=== PATIENT | female | born 1950 | race Caucasian/White ===

== ENCOUNTER 2019-09-21 17:59 | Emergency (ER) | payer MEDICARE, BC, SELFPAY ==
[2019-09-21 18:00] VITALS: BP 144/81; PULSE 83; RESP 16; TEMP 36.3; BMI 29.2
--- NOTE | 2019-09-21 18:27 | ED.DCSUM_ITS ---
- ER Visit Summary Date of Service: 09/21/19 Chief Complaint: Right hand pain History of Present Illness: The patient is a 69 F presents with pain to her right hand that occurred today. Patient states she fell while hiking today. Patient went to an emergency department in [place] and was diagnosed with fracture of her right first metacarpal. Patient was placed in a splint. Patient was given a prescription for tramadol. Patient filled the prescription but does not want to take it because she is fearful that it may make her nauseated. Patient thinks that she has had it in the past which caused her to have vomiting and upset stomach. Patient states she has been able to tolerate hydrocodone in the past when she was given a prescription for nausea medication. Patient denies any new injury. Patient denies any paresthesias or weakness. Physical Examination: Vital signs are stable. Patient is afebrile. Patient is in no acute distress. Musculoskeletal exam shows tenderness and edema of the right hand. A volar short arm splint is in place. Sensation was intact light touch in all digits. Capillary refill was less than 2 seconds in all digits. Range of motion of the right thumb was limited secondary to pain. Heart was regular rate and rhythm. Lungs are clear and equal bilaterally. Abdomen is soft and nontender. Cranial nerves II through XII are grossly intact. Emergency Department Course and Treatment: Patient was given injection of Toradol and Zofran here. Patient states she was feeling shaky after getting the injection of Zofran and Toradol. Patient was given a dose of Ativan. Patient was feeling better after this. Patient was given prescriptions for Zofran and hydrocodone. Patient was instructed to follow-up with her orthopedist as scheduled. Patient was instructed to continue to ice and elevate the right hand. Patient understood and was agreeable with the plan. All questions were answered. Disposition: Discharge home Impression: Right hand fracture This note was generated with [employer] dictation software. It may contain incorrect words, spelling, and punctuation that were not noted in review of the chart prior to signing ED Disposition - Plan for ED Patient: Disposition: Home or Assisted Living Diagnosis: Right hand fracture Instructions: ED Fracture Upper Extremity Prescriptions: Hydrocodone Bitart/Apap 5-325 [[place] 5MG-325MG] 1 tab PO Q6H PRN PRN 3 Days #10 tab PRN Reason: Pain Prescription Printed Ondansetron [Zofran Odt] 4 mg PO Q8H PRN PRN #10 tab PRN Reason: Nausea Prescription Printed Referrals: [facility],Out of [NON-STAFF] - 3-5 Days
[2019-09-21] MEDS: Ondansetron 4 MG/2 ML Vial IM (18:48)
[2019-09-21] MEDS: Ketorolac 30 MG/ML Syringe IM (18:49)
[2019-09-21] MEDS: LORazepam 0.5 MG Tablet PO (19:22)
== END 2019-09-21 20:03 | disposition home or self-care (01) ==
PROVIDERS: Emergency Provider Emergency Medicine
DX: S62.91XA Unspecified fracture of right hand, initial encounter for closed fracture (principal); W19.XXXA Unspecified fall, initial encounter; Y93.01 Activity, walking, marching and hiking; Y92.9 Unspecified place or not applicable; Y99.9 Unspecified external cause status; Z90.81 Acquired absence of spleen
CPT/HCPCS: 96372; 99283; J2405

== ENCOUNTER → 2019-10-07 11:07 | Outpatient (CLI) | payer MEDICARE, BC, SELFPAY ==
[2019-09-21 18:00] VITALS: BMI 29.2
[2019-10-07 15:13] LABS: Absolute Lymphocyte Count 1.94 X10^3/uL (0.83-4.51); Absolute Neutrophil Count 3.4 X10^3/uL (2.0-7.7); Basophil# 0.02 X10^3/uL; Basophil% 0.3 % (0-1); Eosinophil# 0.17 X10^3/uL; Eosinophils% 2.8 % (0-5); Hematocrit 39.1 % (37-47); Hemoglobin 12.6 g/dL (12.0-15.0); Lymphocyte # 1.94 X10^3/ul (4.0); Lymphocyte % 32.2 % (19-41); Mean Corp Hgb Conc 32.2 g/dL (32-36); Mean Corpuscular Volume 90.1 fL (81-99); Mean Platelet Vol. 10.5 fl (6.2-12.0); Monocyte# 0.51 X10^3/uL; Monocyte% 8.5 % (0-10); NRBC Flagged by Analyzer 0 % (0-5); Neutrophil # 3.38 X10^3/uL (2.7-7.7); Platelet Count 411 K/mm3 (150-450); RBC Distribution Width CV 13.2 % (11.6-14.6); RBC Distribution Width SD 43.2 fl (35.1-43.9); Red Blood Count 4.34 M/mm3 (4.2-5.4)
[2019-10-07 15:35] LABS: Vitamin B12 465 pg/mL (211-911)
[2019-10-07 17:27] LABS: ALB/GLOB Ratio 0.8 RATIO (0.9-2.4); AST(SGOT) 18 U/L (15-37); Alanine Aminotransfer ALT/SGPT 32 U/L (13-56); Albumin, Serum 3.4 g/dL (3.2-5.0); Alkaline Phosphatase 116 U/L (45-117); Anion Gap 5 (5-15); BUN 12 mg/dL (7-18); BUN/Creat Ratio 13.3 RATIO (10-20); Calcium,Total 9.2 mg/dL (8.5-10.1); Chloride 108 mmol/L (98-107); Cholesterol 154 mg/dL (200); EST Glomerular Filtration Rate 66 mL/min (>60); Est Glom Filt Rate - Afr Amer 80 mL/min (>60); Ferritin 48 ng/mL (8-252); Glucose 102 mg/dL (74-106); High Density Lipoprotein 43 mg/dL; Iron 78 ug/dL (50-170); Iron Binding Capacity,Total 322 ug/dL (250-450); Protein, Total 7.4 g/dL (6.4-8.2); Sodium Level 140 mmol/L (136-145); T4 Free Direct 1.23 ng/dL (0.76-1.46); Thyroid Stim Hormone (TSH) 0.51 uIU/mL (0.358-3.74); Triglycerides 192 mg/dL; Very Low Density Lipoprotein 38 mg/dL (5-40)
[2019-10-12 05:06] LABS: Thyroid Stim Immunoglob <0.10 IU/L (0.00-0.55)
[2019-10-12 08:46] LABS: Thyroglobulin Antibody < 1.0 IU/mL (0.0-0.9); Thyroid Peroxidase AB < 9 IU/mL (0-34)
== END ==
PROVIDERS: PCP Family Medicine
DX: D50.8 Other iron deficiency anemias (principal); E78.2 Mixed hyperlipidemia; M79.7 Fibromyalgia; E83.52 Hypercalcemia; E03.9 Hypothyroidism, unspecified; F41.1 Generalized anxiety disorder
CPT/HCPCS: 36415; 80053; 80061; 82607; 82728; 83540; 83550; 84439; 84443; 84445; 85025; 86376; 86800

== ENCOUNTER → 2019-12-05 07:46 | Outpatient (CLI) | payer MEDICARE, BC, SELFPAY ==
--- NOTE | 2019-12-05 07:48 | BI_ITS ---
MAMMOGRAPHY - BILATERAL SCREENING REASON FOR EXAM: Female, 69 years old. Routine annual screening examination. PERTINENT HISTORY: Sister with breast cancer. Grandmother with breast cancer. TECHNIQUE: Digital bilateral breast meghan (3D mammographic acquisition) in the CC and MLO projections. 2-D mediolateral oblique (MLO) and craniocaudad (CC) views of both breasts were obtained. CAD: Full Field Digital Mammography with Computer Added Detection was performed. COMPARISON: Comparison is made with prior outside examination dated 08/05/2012. FINDINGS: Breast Composition: The breasts are heterogeneously dense, which may obscure small masses. There are no dominant masses or suspicious calcifications. No other significant abnormalities are identified. There has been no significant change since the prior study. BI/SCREEN MAMM (CAD) W/MEGHAN BILAT IMPRESSION: Stable bilateral screening mammogram. Yearly follow-up mammogram recommended. (A) ASSESSMENT CATEGORY: BIRADS Category 1: Negative. A letter regarding these results will be sent to the patient by the facility within 30 days. Approximately 10% of breast cancers are not detected by mammography. A normal mammogram should not delay biopsy of a clinically suspicious abnormality. [id number] Electronically Signed: Enoch Tirado, at 9:02 EDT , Service support ,
== END ==
PROVIDERS: PCP Family Medicine; Referring Provider Family Medicine; Visit Provider Family Medicine
DX: Z12.31 Encounter for screening mammogram for malignant neoplasm of breast (principal); Z80.3 Family history of malignant neoplasm of breast
CPT/HCPCS: 77063; 77067

== ENCOUNTER → 2020-08-24 09:35 | Outpatient (CLI) | payer MEDICARE, BC, SELFPAY ==
[2020-08-16 08:32] VITALS: BMI 29.2
--- NOTE | 2020-08-24 09:39 | RAD_ITS ---
STUDY: X-RAY - CERVICAL SPINE REASON FOR EXAM: Female, 70 years old. BACK,NECK,SHOULDER PAIN TECHNIQUE: 5 view(s) of the cervical spine were obtained including oblique views. COMPARISON: None FINDINGS: Normal anterior atlantoaxial articulation. Normal odontoid process. There is straightening of the normal cervical lordosis. Normal vertebral bodies and endplates. Moderate degree of disc space narrowing at the C5-C6 and C7 levels. Minimal anterior listhesis of C4 on C5 most likely secondary to the facet joint osteoarthritis. The soft tissue structures are unremarkable. RAD/Cerv Spine 4 or 5 Views IMPRESSION: Minimal anterior listhesis of C4 on C5 most likely secondary to facet joint osteoarthritis. Moderate degree of disc space narrowing at the C5-C6 and C6-C7 levels. Electronically Signed: Enoch Tirado MD at 12:40 EDT , Service support ,
== END ==
PROVIDERS: PCP Family Medicine; Referring Provider Family Medicine; Visit Provider Family Medicine
DX: M50.30 Other cervical disc degeneration, unspecified cervical region (principal); M54.12 Radiculopathy, cervical region
CPT/HCPCS: 72050

== ENCOUNTER 2020-10-08 10:00 | Outpatient (RCR) | payer MEDICARE, BC, SELFPAY ==
[2020-08-16 08:32] VITALS: BMI 29.2
--- NOTE | 2020-08-28 13:18 | HP.PTEVAL_ITS ---
Patient's Visit Information KENYA CHRIS is a 70 year old F referred to Physical Therapy by Dr. Juan Miguel Morris MD with a diagnosis of NECK PAIN RADITAING TO RIGHT ARM. Date of Evaluation: 08/28/20 Physical Therapist: Roe Parrish, PT, Cert MDT, OCS - Visit Plan Frequency: 2x /Week Duration: 4 Weeks Plan: PT INTERVENTIONS POSTURAL EX'S ,MANUAL THERAPY STM /TRACTION,US/ICTX,AND NELLY EX'S,PATIENT EDUCATION - Subjective This 70 y/o female presents to physical therapy with neck pain with cervical radicular symptoms . Patient has had symptoms many years ,but are intermittent but about 1 week ago symptoms return without etiology of pain or reason. Pain located right shoulder/scapular forearm to thumb and index finger. Seen DR recommended x-rays showed DDD and PT. Aggravating reading, sitting, flexion. Alleviating stretching ,cervical retraction. Denies parathesia/tingling. Denies tinnitus/nausea/dizziness ,occasional HAM. Patient sleeping okay. Patient has had no trauma. Patient symptoms affects QOL and function. Goal to pain. SOCIAL: . VOCATION: RETIRED - Pain Right Neck Pain Intensity (Out of 10): 2 Pain Intensity Range: 10 Right Shoulder Pain Intensity (Out of 10): 3 Pain Intensity Range: 10 - Objective POSTURE: mild forward posture, rounded head. PALPTION: tender UT/scapular. NEURO: denies parathesia/tingling 1/3 C5-6-7. MMT: grossly 4/5,shoulder 4-/5. CERVICAL ROM: flexion min loss, rotation/lateral flexion min/mod loss, extension mod loss, retraction min loss. 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: 50# L=R - Special Tests C/S Radiculapathy - Left Upper limb tension test: Negative C/S Radiculapathy - Right Upper limb tension test: Negative C/S Radiculapathy - Left Spurlings: Negative C/S Radiculapathy - Right Spurlings: Positive C/S Radiculapathy - Left Cervical distraction: Negative C/S Radiculapathy - Right Cervical distraction: Negative C/S Radiculapathy - Left Relief test: Negative C/S Radiculapathy - Right Relief test: Negative C/S Radiculapathy - Valsalva: Negative Sharp Sachin: Negative Vertebral Artery Test: Negative Alar Ligament Test: Negative Cervical Sitting: Protrusion - Mechanical Response: No effect Cervical Sitting: Protrusion - Symptoms During Testing: Increases Cervical Sitting: Protrusion - Symptoms After Testing: Worse Cervical Sitting: Retraction - Mechanical Response: No effect Cervical Sitting: Retraction - Symptoms During Testing: Increases Cervical Sitting: Retraction - Symptoms After Testing: No worse Comments:: RIGHT SCAPULAR Cervical Sitting: Retraction-Extension - Mechanical Response: No effect Cerv Sitting: Retraction-Extension - Symptoms During Testing: Increases Cerv Sitting: Retraction-Extension - Symptoms After Testing: No worse Cervical Sitting: Sidebend Right - Mechanical Response: No effect Cervical Sitting: Sidebend Right - Symptoms During Testing: Increases Cervical Sitting: Sidebend Right - Symptoms After Testing: No worse Cervical Sitting: Sidebend Left - Mechanical Response: No effect Cervical Sitting: Sidebend Left - Symptoms During Testing: No effect Cervical Sitting: Sidebend Left - Symptoms After Testing: No effect Cervical Sitting: Rotation Right - Mechanical Response: No effect Cervical Sitting: Rotation Right - Symptoms During Testing: Increases Cervical Sitting: Rotation Right - Symptoms After Testing: No worse Cervical Sitting: Rotation Left - Mechanical Response: No effect Cervical Sitting: Rotation Left - Symptoms During Testing: No effect Cervical Sitting: Rotation Left - Symptoms After Testing: No effect Cervical Sitting: Flexion - Mechanical Response: No effect Cervical Sitting: Flexion - Symptoms After Testing: Worse Comments:: SCAPULAR/SHOULDER - Goals Goal 1:: I with HEP Goal Time Frame: 4-6 Weeks Goal 2:: Improve posture for ADL'S Goal Time Frame: 4-6 Weeks Goal 3:: Decrease cervical radiculopathy by 50% or > to improve function Goal Time Frame: 4-6 Weeks Goal 4:: Patient to improve cervical ROM for function of recovery Goal Time Frame: 4-6 Weeks Goal 5:: Patient improve neck owestry score by 5 points > to improve QOL. Goal Time Frame: 4-6 Weeks - Rehabilitation Potential Physical Therapy Diagnosis: This patient has cervical radicular symptoms right arm with possible lateral stenosis vs derangement C6-7 with test movements +,position .+ spurling test ,along with decrease posture thus benefit from skilled PT - Anticipated Interventions Patient/Client Instruction: Educate patient on: Condition, Plan of Care For the Purpose of:: To decrease pain, To increase ROM, To improve muscle performance and motor function, To improve ability to perform ADL's, To increase tolerance to activity/condition/position, To improve ability of physical actions for home/community/work/leisure, To improve health of tissue, To decrease soft t issue restriction, To increase flexibility/ROM, To reduce risk of recurrence, To improve ability to perform tasks related to life management Therapeutic Exercise to Include: Strength training, Body mechanics, Postural training, Nelly Exercises For the Purpose of:: To decrease pain, To increase ROM, To improve muscle performance and motor function, To improve ability to perform ADL's, To increase tolerance to activity/condition/position, To improve ability of physical actions for home/community/work/leisure, To improve health of tissue, To decrease soft tissue restriction, To increase flexibility/ROM, To reduce risk of recurrence, To improve ability to perform tasks related to life management Manual Therapy Techniques to Include: Mobilization, Soft tissue mobilization Comment: TRACTION CERVICAL For the Purpose of:: To decrease pain, To increase ROM, To improve gait and locomotor functions, To decrease soft tissue restriction, To increase flexibility/ROM TENS: Yes IF ES: Yes Cryotherapy (ice pack, ice massage): Yes For the Purpose of:: To decrease pain, To improve nutrient delivery to tissue, To increase oxygenation perfusion, To improve health of tissue, To decrease soft tissue restriction Thank you for the opportunity to evaluate your patient. For Medicare and Medicare HMO plans, please review the plan of care and approve it. It will need to be FAXED BACK to us at [phone] for Medicare purposes. For Medicare only, by signing this I certify the plan of care. Please let me know if there are questions or concerns regarding this plan of care. Physician Signature: Date:
--- NOTE | 2020-10-08 10:24 | HP.PTDCSUM ---
It has been my pleasure to treat KENYA CHRIS referred by Dr. Juan Miguel Morris MD, with the diagnosis of NECK PAIN RADITAING TO RIGHT ARM for a total of 6 visit(s). Discharge Date: 10/08/20 Please see the following information for a summary of their discharge status. Subjective: Doing well no pain Right Neck Pain Intensity (Out of 10): 0 Right Shoulder Pain Intensity (Out of 10): 0 % Improvement: 90 Objective/Function: POSTURE: WFL. NEURO: INTACT. CERVICAL ROM: FLEXION MIN LOSS,EXTENSION MOD LOSS,LATERAL FLEXION MOD LOSS,ROTAION MOD LOSS. MMT: 4/5 EXCEPT SHOULDERS 4-/5 Goal 1:: I with HEP Goal 2:: Improve posture for ADL'S Goal Progress: Goal Met Goal 3:: Decrease cervical radiculopathy by 50% or > to improve function Goal Progress: Goal Met Goal 4:: Patient to improve cervical ROM for function of recovery Goal Progress: Goal Met Goal 5:: Patient improve neck owestry score by 5 points > to improve QOL. Goal Progress: Goal Met Plan: D/C TO [facility] Discharge Comments: [facility] If there are questions or concerns regarding this patient's physical therapy, please feel free to call me at [phone]. Thank you for the referral of this patient. Sincerely, Roe Parrish PT, Cert MDT, OCS Balance/Gait/Functional tests - Balance/Special Test Scores Oswestry Neck Score: 4
== END 2020-10-08 19:00 | disposition home or self-care (01) ==
LOC: PT 10:00
PROVIDERS: PCP Family Medicine; Referring Provider Family Medicine; Visit Provider Family Medicine
DX: M54.12 Radiculopathy, cervical region (principal)
CPT/HCPCS: 97012; 97035; 97110; 97162; 97530

== ENCOUNTER → 2020-12-21 12:47 | Outpatient (CLI) | payer MEDICARE, BC, SELFPAY ==
--- NOTE | 2020-12-21 12:50 | BI_ITS ---
MAMMOGRAPHY - BILATERAL SCREENING REASON FOR EXAM: Female, 70 years old. Routine annual screening examination. PERTINENT HISTORY: Sister with breast cancer. Grandmother with breast cancer. TECHNIQUE: Digital bilateral breast meghan (3D mammographic acquisition) in the CC and MLO projections. 2-D mediolateral oblique (MLO) and craniocaudad (CC) views of both breasts were obtained. CAD: Full Field Digital Mammography with Computer Added Detection was performed. COMPARISON: Comparison is made with prior study dated 12/05/2019. FINDINGS: Breast Composition: The breasts are heterogeneously dense, which may obscure small masses. There are no dominant masses or suspicious calcifications. Stable benign appearing bilateral axillary lymph nodes. No other significant abnormalities are identified. There has been no significant change since the prior study. BI/SCRN MAMM (CAD)W/MEGHAN BILAT IMPRESSION: Stable bilateral screening mammogram. Yearly follow-up mammogram recommended. (A) ASSESSMENT CATEGORY: BIRADS Category 2: Benign. A letter regarding these results will be sent to the patient by the facility within 30 days. Approximately 10% of breast cancers are not detected by mammography. A normal mammogram should not delay biopsy of a clinically suspicious abnormality. [id number] Electronically Signed: Enoch Tirado MD at 13:59 EDT , Service support ,
== END ==
PROVIDERS: PCP Family Medicine; Referring Provider Family Medicine; Visit Provider Family Medicine
DX: Z12.31 Encounter for screening mammogram for malignant neoplasm of breast (principal)
CPT/HCPCS: 77063; 77067

== ENCOUNTER 2021-05-08 09:25 | Outpatient (CLI) | payer MEDICARE, OTHER, SELFPAY ==
[2021-05-08 09:46] LABS: Absolute Lymphocyte Count 2.31 X10^3/uL (0.83-4.51); Absolute Neutrophil Count 2.2 X10^3/uL (2.0-7.7); Basophil# 0.03 X10^3/uL; Basophil% 0.6 % (0-1); Eosinophils% 3.8 % (0-5); Hematocrit 38.5 % (37-47); Hemoglobin 13.1 g/dL (12.0-15.0); Lymphocyte # 2.31 X10^3/ul (0.83-4.51); Lymphocyte % 44.1 % (19-41); Mean Corpuscular Hgb 30.1 pg (27.0-32.0); Mean Corpuscular Volume 88.5 fL (81-99); Mean Platelet Vol. 10.7 fl (6.2-12.0); Monocyte# 0.54 X10^3/uL; Monocyte% 10.3 % (0-10); NRBC Flagged by Analyzer 0 % (0-5); Neutrophil # 2.15 X10^3/uL (2.7-7.7); Platelet Count 345 K/mm3 (150-450); RBC Distribution Width CV 13.1 % (11.6-14.6); RBC Distribution Width SD 42.9 fl (35.1-43.9); Red Blood Count 4.35 M/mm3 (4.2-5.4); White Blood Count 5.2 K/mm3 (4.4-11.0)
[2021-05-08 10:10] LABS: ALB/GLOB Ratio 0.9 RATIO (0.9-2.4); AST(SGOT) 13 U/L (15-37); Alanine Aminotransfer ALT/SGPT 17 U/L (13-56); Albumin, Serum 3.5 g/dL (3.2-5.0); Alkaline Phosphatase 103 U/L (45-117); Anion Gap 6 (5-15); BUN 16 mg/dL (7-18); BUN/Creat Ratio 17.1 RATIO (10-20); Calcium,Total 9.4 mg/dL (8.5-10.1); Chloride 107 mmol/L (98-107); Cholesterol 154 mg/dL (200); Creatinine, Serum 0.93 mg/dL (0.55-1.02); EST Glomerular Filtration Rate 63 mL/min (>60); Est Glom Filt Rate - Afr Amer 76 mL/min (>60); Globulin 4.1 g/dL (2.2-4.2); Glucose 93 mg/dL (74-106); High Density Lipoprotein 48 mg/dL; Protein, Total 7.6 g/dL (6.4-8.2); Sodium Level 141 mmol/L (136-145); Thyroid Stim Hormone (TSH) 2.63 uIU/mL (0.358-3.74); Triglycerides 95 mg/dL; Very Low Density Lipoprotein 19 mg/dL (5-40)
== END 2021-05-08 23:59 | disposition home or self-care (01) ==
LOC: PAVLAB 09:29
PROVIDERS: PCP Family Medicine; Referring Provider Family Medicine; Visit Provider Family Medicine
DX: Z00.00 Encounter for general adult medical examination without abnormal findings (principal); K21.9 Gastro-esophageal reflux disease without esophagitis; E78.5 Hyperlipidemia, unspecified; E04.2 Nontoxic multinodular goiter
CPT/HCPCS: 36415; 80053; 80061; 84443; 85025

== ENCOUNTER 2021-06-02 10:39 | Emergency (ER) | payer MEDICARE, OTHER, SELFPAY ==
[2021-06-02 10:40] VITALS: BP 174/70; PULSE 66; RESP 16; TEMP 36.4; O2SAT 99; BMI 26.6
--- NOTE | 2021-06-02 11:00 | EX.ED.DYSGE1 ---
HPI History of Present Illness Chief Complaint: Foreign Body Informant: patient Onset/Context/Timing Onset: Today Context: Sudden Onset Timing: Continuous Quality: Foreign body sensation Location: Throat Worsened by: Swallowing Relieved by: Nothing Narrative Narrative: Patient presents with foreign body sensation in her throat. Patient states that she took her pill that she normally takes for her gastroesophageal reflux disease this morning. Patient states she felt like it got stuck in her throat. Patient states she is still feels it whenever she swallows. Patient tried to drink water to wash it down. Patient was able to swallow the water but still feels like there was a pill stuck in her throat. Patient ate applesauce and was able to swallow that without difficulty. Patient states she still feels the pill in her throat and is afraid to take her other medications. Patient states she took her alprazolam but crushed it up and was able to swallow it. Patient states that she tried to find out if she could crush her gabapentin capsule and mix it with anything but was unable to find an answer. PFSH [facility] Medical History Acid reflux Barretts esophagus Lichen sclerosus Home Medications alprazolam 0.25 mg tablet 0.25 mg PO QHS PRN 07/19/20 [History Last Taken Unknown] ascorbate calcium (vitamin C) 500 mg tablet 500 mg PO DAILY 07/19/20 [History Last Taken Unknown] atorvastatin 10 mg tablet 10 mg PO DAILY 07/19/20 [History Last Taken Unknown] cholecalciferol (vitamin D3) 50 mcg (2,000 unit) capsule 50 mcg PO DAILY 07/19/20 [History Last Taken Unknown] dexlansoprazole 60 mg capsule,biphase delayed release 60 mg PO DAILY 07/19/20 [History Last Taken Unknown] gabapentin 400 mg capsule 400 mg PO TID 07/19/20 [History Last Taken Unknown] multivitamin 1 tab PO DAILY 07/19/20 [History Last Taken Unknown] mometasone 0.1 % topical ointment 1 applic TOPICAL DAILY #45 g 07/21/20 [Rx Last Taken Unknown] estradiol See Rx Instructions VAGINAL .COMPLEX #42.5 g 08/16/20 [Rx Last Taken Unknown] Allergy/AdvReac Type Severity Reaction Status Date / Time iodine Allergy Vomiting Verified 06/02/21 10:41 Family History Unknown Heart disease Surgical History H/O splenectomy H/O: hysterectomy Hx of appendectomy Social History household members: spouse number of children: 0 current occupational status: retired history of recent travel: Yes Smoking Status: Never smoker alcohol intake: never substance use type: does not use what type of physical activity do you participate in: none seatbelt use: always do you feel safe at home: Yes additional social history: - Niraj ROS ROS ED Constitutional Constitutional ED: Denies chills or fever(s) Eyes Eyes: Denies blurry vision or change in vision ENT ENT ED: Reports sore throat; Denies rhinorrhea Cardiovascular Cardiovascular: Denies chest pain or palpitations Respiratory/Chest Respiratory/Chest: Denies cough or dyspnea Gastrointestinal Gastrointestinal: Denies nausea or vomiting Genitourinary Genitourinary ED: Denies dysuria or hematuria Musculoskeletal Musculoskeletal: Reports neck pain; Denies back pain Integumentary Denies abscess or rash Neurologic Neurologic: Denies headache(s) or weakness Allergic/Immunologic Allergic/Immunologic ED: Denies mouth swelling or urticaria EXAM Physical Exam Const Vital Signs: 06/02/21 10:40 06/02/21 11:19 06/02/21 12:16 Temperature 97.5 F L Temperature Source Temporal Pulse Rate 66 78 Respiratory Rate 16 18 Respiratory Pattern Normal Blood Pressure 174/70 H 130/70 H Blood Pressure Mean 104 90 Pulse Ox 99 99 Oxygen Delivery Method Room Air Room Air Positive well nourished and well developed General Appearance ED: well developed and NAD HEENT Reports moist mucous membranes HEENT Narrative: There is postnasal drainage in the oropharynx. There is no foreign body visualized. Neck supple and no JVD Resp normal respiratory effort and clear to auscultation bilaterally Cardio regular rate and regular rhythm GI non-tender Palpation: soft Neuro oriented x3, CN's II-XII intact bilaterally and no sensory deficits noted Sensorium / Orientation: alert Motor Exam: strength 5/5 throughout Psych mental status grossly normal MDM MDM MDM Narrative Medical decision making narrative: Patient was given a dose of glucagon and Zofran. Patient states she feels like it is starting to go down her esophagus. Patient is able to drink fluids. Patient states she has been able to eat applesauce. I do not feel patient requires emergent endoscopy at this time. Patient was advised that she may dissolve her gabapentin capsule in applesauce and take it that way. Patient was instructed to continue to drink fluids and advance her diet as tolerated. Patient was instructed to follow-up with her primary care physician in 3 to 5 days. Patient understood and was agreeable with the plan. All questions were answered. Discharge Plan Triage Chief Complaint: Foreign Body ED Provider: Gilmar Caicedo Dx/Rx/DC Orders Clinical Impression: Dysphagia, Anxiety Instructions: ED Dysphagia (Adult) Prescriptions: No Action gabapentin 400 mg capsule 400 mg PO TID RF: 0 atorvastatin 10 mg tablet 10 mg PO DAILY RF: 0 Dexilant 60 mg capsule,biphase delayed releas 60 mg PO DAILY RF: 0 ascorbate calcium (vitamin C) 500 mg tablet 500 mg PO DAILY RF: 0 multivitamin Tablet 1 tab PO DAILY RF: 0 cholecalciferol (vitamin D3) 50 mcg (2,000 unit) capsule 50 mcg PO DAILY RF: 0 alprazolam 0.25 mg tablet 0.25 mg PO QHS PRNRF: 0 estradiol 0.01 % (0.1 mg/gram) cream See Rx Instructions vaginal .COMPLEX Qty: 42.5 RF: 2 mometasone 0.1 % ointment 1 applic topical DAILY Qty: 45 RF: 3 Primary Care Provider: Hansa Ndiaye Referrals: Hansa Ndiaye MD [Primary Care Provider] - 3-5 Days Disposition Disposition: Home, Self Care
--- NOTE | 2021-06-02 11:29 | ED.RN ---
PT REFUSES TO TAKE GLUCAGON UNTIL GIVEN SOMETHING FOR NAUSEA
[2021-06-02] MEDS: Ondansetron 4 MG/2 ML Vial IV (11:37)
[2021-06-02] MEDS: Glucagon 1 MG/ML Syringe IV (11:37)
--- NOTE | 2021-06-02 11:48 | ED.RN ---
UPON INJECTING GLUCAGON PT IMMEDIATELY STATES I FEEL IT COURSING THRU MY BODY. THIS RN ATTEMPTING TO REASSURE PT. PT APPEARS VERY ANXIOUS. PT VS STABLE. BP 190/77 HEART RATE 78 AND PULSE OX 99 %. AWARE. ATTEMPT TO REASSURE PT
--- NOTE | 2021-06-02 11:51 | ED.RN ---
PT DRANK ENTIRE COKE
[2021-06-02 12:16] VITALS: BP 130/70; PULSE 78; RESP 18; O2SAT 99
== END 2021-06-02 14:46 | disposition home or self-care (01) ==
PROVIDERS: Emergency Provider Emergency Medicine; PCP Family Medicine; Visit Provider Emergency Medicine
DX: R13.10 Dysphagia, unspecified (principal); F41.9 Anxiety disorder, unspecified; K21.9 Gastro-esophageal reflux disease without esophagitis; Z79.899 Other long term (current) drug therapy; R09.82 Postnasal drip
CPT/HCPCS: 96374; 96375; 99283; A4216; J1610; J2405

== ENCOUNTER → 2021-08-12 | Outpatient (CLI) | payer MEDICARE, OTHER, SELFPAY ==
--- NOTE | 2021-08-12 12:35 | US_ITS ---
STUDY: THYROID ULTRASOUND REASON FOR EXAM: Female, 71 years old. NODULES TECHNIQUE: Ultrasound evaluation of the thyroid was performed with real-time and static roberts-scale imaging. COMPARISON: None. FINDINGS: RIGHT LOBE: The right lobe of the thyroid gland measures 5.4 x 1.6 x 1.5 cm. There is a heterogeneous echotexture. Nodule 1:7 x 5 x 5 mm cystic anechoic wider than tall smoothly marginated nodule with comet tail artifact (TR 1) this is consistent with a colloid cyst. LEFT LOBE: The left lobe of the thyroid gland measures 5.2 x 1.6 x 1.5 cm. There is a heterogeneous echotexture. Nodule 2:10 x 8 x 7 mm cystic anechoic wider than tall smoothly margin nodule with no echogenic foci (TR 1) consistent with a colloid cyst. ISTHMUS: The isthmus measures 3 mm thick. . The regional lymph nodes are normal. US/Thyroid IMPRESSION: Thyroiditis but no dominant nodule. Electronically Signed: Kel Sanabria MD at 16:53 EDT ,
== END | disposition home or self-care (01) ==
LOC: US 12:33
PROVIDERS: PCP Family Medicine; Referring Provider Family Medicine; Visit Provider Family Medicine
DX: E04.2 Nontoxic multinodular goiter (principal)
CPT/HCPCS: 76536

== ENCOUNTER → 2022-01-06 | Outpatient (CLI) | payer MEDICARE, OTHER, SELFPAY ==
--- NOTE | 2022-01-06 08:40 | BI_ITS ---
MAMMOGRAPHY - BILATERAL SCREENING REASON FOR EXAM: Female, 71 years old. Routine annual screening examination. PERTINENT HISTORY: Sister with breast cancer. Grandmother with breast cancer. TECHNIQUE: Digital bilateral breast meghan (3D mammographic acquisition) in the CC and MLO projections. 2-D mediolateral oblique (MLO) and craniocaudad (CC) views of both breasts were obtained. CAD: Full Field Digital Mammography with Computer Added Detection was performed. COMPARISON: Comparison is made with prior study 12/21/2020 and 11/27/2019. FINDINGS: Breast Composition: The breasts are heterogeneously dense, which may obscure small masses. There are no dominant masses or suspicious calcifications. Stable small benign-appearing bilateral axillary lymph nodes. No other significant abnormalities are identified. There has been no significant change since the prior study. BI/SCRN MAMM (CAD)W/MEGHAN BILAT IMPRESSION: Stable bilateral screening mammogram. Yearly follow-up mammogram recommended. (A) ASSESSMENT CATEGORY: BIRADS Category 2: Benign. A letter regarding these results will be sent to the patient by the facility within 30 days. Approximately 10% of breast cancers are not detected by mammography. A normal mammogram should not delay biopsy of a clinically suspicious abnormality. [id number] Electronically Signed: Enoch Tirado MD at 9:48 EDT ,
== END | disposition home or self-care (01) ==
LOC: OPBI 08:33
PROVIDERS: PCP Family Medicine; Referring Provider Family Medicine; Visit Provider Family Medicine
DX: Z12.31 Encounter for screening mammogram for malignant neoplasm of breast (principal); Z80.3 Family history of malignant neoplasm of breast
CPT/HCPCS: 77063; 77067

== ENCOUNTER → 2022-05-01 | Outpatient (CLI) | payer MEDICARE, OTHER, SELFPAY ==
[2022-05-01 12:35] LABS: ALB/GLOB Ratio 0.8 RATIO (0.9-2.4); AST(SGOT) 16 U/L (15-37); Alanine Aminotransfer ALT/SGPT 19 U/L (13-56); Albumin, Serum 3.4 g/dL (3.2-5.0); Alkaline Phosphatase 111 U/L (45-117); Anion Gap 5 (5-15); BUN 15 mg/dL (7-18); BUN/Creat Ratio 16.3 RATIO (10-20); Calcium,Total 9.2 mg/dL (8.5-10.1); Chloride 106 mmol/L (98-107); Cholesterol 158 mg/dL (200); Creatinine, Serum 0.92 mg/dL (0.55-1.02); EST Glomerular Filtration Rate 64 mL/min (>60); Est Glom Filt Rate - Afr Amer 77 mL/min (>60); Globulin 4.1 g/dL (2.2-4.2); Glucose 86 mg/dL (74-106); High Density Lipoprotein 43 mg/dL; Potassium 3.8 mmol/L (3.5-5.1); Protein, Total 7.5 g/dL (6.4-8.2); Sodium Level 141 mmol/L (136-145); Thyroid Stim Hormone (TSH) 3.15 uIU/mL (0.358-3.74); Triglycerides 105 mg/dL; Very Low Density Lipoprotein 21 mg/dL (5-40)
[2022-05-01 12:50] LABS: Absolute Lymphocyte Count 2.53 X10^3/uL (0.83-4.51); Absolute Neutrophil Count 2.6 X10^3/uL (2.0-7.7); Basophil# 0.03 X10^3/uL; Basophil% 0.5 % (0-1); Eosinophil# 0.21 X10^3/uL; Eosinophils% 3.5 % (0-5); Hematocrit 40.6 % (37-47); Hemoglobin 12.8 g/dL (12.0-15.0); Lymphocyte # 2.53 X10^3/ul (0.83-4.51); Lymphocyte % 41.8 % (19-41); Mean Corp Hgb Conc 31.5 g/dL (32-36); Mean Corpuscular Hgb 28.6 pg (27.0-32.0); Mean Corpuscular Volume 90.6 fL (81-99); Mean Platelet Vol. 11.4 fl (6.2-12.0); Monocyte# 0.62 X10^3/uL; Monocyte% 10.2 % (0-10); NRBC Flagged by Analyzer 0 % (0-5); Neutrophil # 2.63 X10^3/uL (2.7-7.7); Neutrophil % 43.5 % (47-70); Platelet Count 378 K/mm3 (150-450); RBC Distribution Width CV 13.2 % (11.6-14.6); RBC Distribution Width SD 44.1 fl (35.1-43.9); Red Blood Count 4.48 M/mm3 (4.2-5.4); White Blood Count 6.1 K/mm3 (4.4-11.0)
== END | disposition home or self-care (01) ==
LOC: BFHLAB 08:10
PROVIDERS: PCP Family Medicine; Visit Provider Family Medicine
DX: Z00.00 Encounter for general adult medical examination without abnormal findings (principal); K21.9 Gastro-esophageal reflux disease without esophagitis; E78.5 Hyperlipidemia, unspecified; E04.2 Nontoxic multinodular goiter
CPT/HCPCS: 36415; 80053; 80061; 84443; 85025

== ENCOUNTER → 2022-09-04 | Outpatient (CLI) | payer MEDICARE, OTHER, SELFPAY ==
--- NOTE | 2022-09-04 11:22 | RAD_ITS ---
STUDY: X-RAY CHEST REASON FOR EXAM: Female, 72 years old. SOB TECHNIQUE: Frontal and lateral views of the chest. COMPARISON: None. FINDINGS: The lungs are clear and expanded. There is no demonstrated pleural abnormality. Normal size heart. Normal mediastinum and [place]. Normal visualized pulmonary arteries. Normal visualized aortic arch and descending thoracic aorta. Normal visualized thoracic spine. Normal visualized ribs, clavicles, and shoulders. There is no demonstrated abnormality of the visualized soft tissue structures of the upper abdomen. RAD/Chest PA and Lateral IMPRESSION: Normal x-ray examination of the chest. Electronically Signed: Jomar Rodríguez MD at 18:44 EDT ,
== END | disposition home or self-care (01) ==
LOC: RAD 11:21
PROVIDERS: PCP Family Medicine; Referring Provider Family Medicine; Visit Provider Family Medicine
DX: R06.02 Shortness of breath (principal)
CPT/HCPCS: 71046

== ENCOUNTER 2022-09-05 16:35 | Emergency (ER) | payer MEDICARE, OTHER, SELFPAY ==
[2022-09-05 16:36] VITALS: BP 170/72; PULSE 65; RESP 14; TEMP 36.6; O2SAT 99; BMI 26.6
--- NOTE | 2022-09-05 16:55 | EKG12_ITS ---
Test Reason : Blood Pressure : / mmHG Vent. Rate : 060 BPM Atrial Rate : 060 BPM P-R Int : 166 ms QRS Dur : 086 ms QT Int : 436 ms P-R-T Axes : 052 -05 060 degrees QTc Int : 436 ms Normal sinus rhythm Normal ECG Confirmed by KRISTIAN BRADLEY, RICKIE ([id number]), graphics editor MINA CORRALES ([id number]) on 09/08/2022 12:48:09 PM Referred By: Confirmed By:RICKIE TOWNSEND MD
--- NOTE | 2022-09-05 16:56 | EDS_ITS ---
HPI <DOROTHEA Pan - Last Filed: 09/05/22 18:50> History of Present Illness Chief Complaint: Shortness of Breath Narrative Narrative: Patient 72-year-old female with history of anxiety, hyperlipidemia, GERD who presents to the emergency department for 1 week of significant fatigue. Patient did have a chest x-ray completed yesterday that was normal. She states that she has been feeling more short of breath on exertion. She states that she has been having intermittent dizzy spells. She is also very nervous. She denies any specific chest pain. She denies any lower extremity swelling. She denies any cough fever chills vomiting. Patient does state to have intermittent nausea. PFS <DOROTHEA Pan - Last Filed: 09/05/22 18:50> [facility] Medical History (Updated 09/05/22 @ 18:50 by DOROTHEA Pan) Acid reflux Anemia Atrophic vaginitis Barretts esophagus Fibromyalgia Genital warts GERD (gastroesophageal reflux disease) High cholesterol IBS (irritable bowel syndrome) Lichen sclerosus Mixed hyperlipidemia Osteopenia Thyroid nodule Home Medications alprazolam 0.25 mg tablet 0.25 mg PO QHS PRN 07/19/20 [History Last Taken Unknown] ascorbate calcium (vitamin C) 500 mg tablet 500 mg PO DAILY 07/19/20 [History Last Taken Unknown] atorvastatin 10 mg tablet 10 mg PO DAILY 07/19/20 [History Last Taken Unknown] cholecalciferol (vitamin D3) 50 mcg (2,000 unit) capsule 50 mcg PO DAILY 07/19/20 [History Last Taken Unknown] dexlansoprazole 60 mg capsule,biphase delayed release (Dexilant) 60 mg PO DAILY 07/19/20 [History Last Taken Unknown] gabapentin 400 mg capsule 400 mg PO TID 07/19/20 [History Last Taken Unknown] multivitamin 1 tab PO DAILY 07/19/20 [History Last Taken Unknown] estradiol 0.01% (0.1 mg/gram) vaginal cream See Rx Instructions vaginal .COMPLEX #42.5 grams 08/16/20 [Rx Last Taken Unknown] prochlorperazine maleate 10 mg tablet 10 mg PO Q8H PRN 06/06/21 [History Last Taken Unknown] dicyclomine 20 mg tablet 20 mg PO Q6H PRN 12/31/21 [History Last Taken Unknown] epinephrine 0.3 mg/0.3 mL injection, auto-injector (EpiPen 2-Rodger) 0.3 mg IM Q5- 15M PRN 12/31/21 [History Last Taken Unknown] metronidazole 1 % topical gel (Metrogel) 1 applic topical DAILY 12/31/21 [History Last Taken Unknown] promethazine 25 mg tablet 25 mg PO DAILY PRN 12/31/21 [History Last Taken Unknown] Allergy/AdvReac Type Severity Reaction Status Date / Time iodine Allergy Vomiting Verified 06/06/21 16:25 Family History Unknown Heart disease Mother Anxiety Colon cancer Depression Thyroid disorder Father Anxiety Hypertension Grandmother Breast cancer Osteoporosis Thyroid disorder Surgical History H/O splenectomy H/O: hysterectomy Hx of appendectomy Hx of cholecystectomy Social History household members: spouse number of children: 0 current occupational status: retired history of recent travel: Yes Smoking Status: Never smoker alcohol intake: never substance use type: does not use what type of physical activity do you participate in: none seatbelt use: always do you feel safe at home: Yes additional social history: - Niraj VALLE <DOROTHEA Pan - Last Filed: 09/05/22 18:50> [facility] Narrative Constitutional: Negative for fever, chills, weight loss. Positive for profound weakness Eyes: Negative for vision loss, vision change, double vision ENT: Negative for any sore throat, ear pain, congestion Cardiovascular: Negative for any chest pain, tightness, palpitations Respiratory: Negative for any cough, sputum production, hemoptysis, dyspnea, orthopnea. Positive dyspnea on exertion Gastrointestinal: Negative for any abdominal pain, nausea, vomiting, diarrhea, constipation, blood in stool, blood in vomit : Negative for any urinary frequency, dysuria, retention, blood in urine Muscle skeletal: Negative for any muscle joint pain, stiffness, myalgias, arthralgias, neck pain, back pain Neurological: Negative for any headache, syncope, numbness or tingling, dizziness Skin: Negative for any rashes, lumps, itching, abrasions, lacerations Psychiatric: Negative for any depression, anxiety, stress, suicidal ideation, homicidal ideation Hematologic: Negative for any easy bruising, excessive bruising, easy bleeding Allergies: Negative for any eczema, hives, rash EXAM <DOROTHEA Pan - Last Filed: 09/05/22 18:50> Physical Exam Narrative Exam Narrative: Vital signs reviewed. HEET: Head normocephalic atraumatic, TMs clear bilaterally. Posterior pharynx is clear, moist mucous membranes. Nares clear bilaterally. Neck: Supple with no lymphadenopathy or tenderness. No signs of meningismus, negative jolt sign. Cardiac: Regular rate and rhythm no murmurs gallops or rubs, equal peripheral pulses bilaterally. Respiratory: Lungs clear to auscultation bilaterally. No chest tenderness. Abdomen: Soft, nontender, nondistended. No abdominal bruit or pulsatile masses. No hepatosplenomegaly Extremities: No peripheral edema, no signs of gross trauma or deformity. Active full range of motion of all extremities. Neuro: Cranial nerves II through XII intact, no focal neurological deficits. Skin: Clean dry and intact with no rash, purpura, petechiae, vesicles or pustules. Backs/flank: No CVA tenderness, no midline spinal tenderness, no deformity. Psych: Normal mood and affect. No SI, HI or acute psychosis. Const Vital Signs: 09/05/22 16:36 09/05/22 17:07 Temperature 98 F Temperature Source Temporal Pulse Rate 65 Respiratory Rate 14 Respiratory Pattern Normal Blood Pressure 170/72 H Blood Pressure Mean 104 Pulse Ox 99 Oxygen Delivery Method Room Air <Dr. Gregory Pfeiffer MD - Last Filed: 09/05/22 17:44> Physical Exam Const Vital Signs: 09/05/22 16:36 09/05/22 17:07 Temperature 98 F Temperature Source Temporal Pulse Rate 65 Respiratory Rate 14 Respiratory Pattern Normal Blood Pressure 170/72 H Blood Pressure Mean 104 Pulse Ox 99 Oxygen Delivery Method Room Air MDM <DOROTHEA Pan - Last Filed: 09/05/22 18:50> [facility] [place] Lab Data Labs: Laboratory Results - last 24 hr 09/05/22 09/05/22 17:05 17:07 WBC 8.0 RBC 4.27 Hgb 12.1 Hct 38.1 MCV 89.2 MCH 28.3 MCHC 31.8 L RDW Std Deviation 45.2 H RDW Coeff of Nellie 13.9 Plt Count 374 MPV 10.8 Immature Gran % (Auto) 0.300 Neut % (Auto) 55.6 Lymph % (Auto) 34.1 [place] % (Auto) 7.6 Eos % (Auto) 1.9 Baso % (Auto) 0.5 Absolute Neuts (auto) 4.5 Absolute Lymphs (auto) 2.73 Nucleated RBC % 0 Sodium 139 Potassium 3.5 Chloride 107 Carbon Dioxide 28.0 Anion Gap 4 L BUN 17 Creatinine 0.90 Estim Creat Clear Calc 50.09 Est GFR (MDRD) Af Amer 79 Est GFR (MDRD) Non-Af 66 BUN/Creatinine Ratio 19.0 Glucose 125 H Calcium 9.1 Troponin I High Sens 5 Urine Color Yellow Urine Clarity Sl. Cloudy Urine pH 7.0 Ur Specific [place] 1.005 Urine Protein Negative Urine Glucose (UA) Normal Urine Ketones Negative Urine Occult Blood Negative Urine Nitrite Negative Urine Bilirubin Negative Urine Urobilinogen Normal Ur Leukocyte Esterase 100 H Urine RBC 0 SEEN Urine WBC 0-5 SEEN Ur Squamous Epith Cells 0-5 SEEN Urine Bacteria 0 SEEN Urine Mucus 0 SEEN Treatment and Re-Evaluation :: Patient appears generally well, patient appears nontoxic, vital signs are stable. Patient presents to the emergency department for profound weakness, ongoing dyspnea for 1 week. Patient did have a negative chest x-ray yesterday, patient's lung sounds are clear, do not believe that this needs to be repeated. Patient will receive basic laboratory values will be for any electrolyte abnormalities, anemia. Patient does appear to be anxious, according to her , this does happen from time to time. Patient received a work-up, patient's chest x-ray was read yesterday was negative. Patient's laboratory values show a normal CBC, chemistries were grossly unremarkable no electrolyte imbalance, glucose 125, troponin was negative. Urinalysis was negative for any infection EKG was unremarkable showing no ACS, NH, infarction. At this time, I do not believe the patient has any acute process causing her symptoms. I spoke with the patient and the at length, this could be accommodation between her gabapentin as well as her depression and anxiety. However patient will follow-up closely with her PCP, instructed to return for any worsening symptoms. and patient are happy with the plan of care all questions answered. Stable for discharge. <Dr. Gregory Pfeiffer MD - Last Filed: 09/05/22 17:44> [facility] Narrative Medical decision making narrative: I have personally performed a face to face assessment of the patient and have reviewed the TERE Note. I performed a substantive portion of the visit including all aspects of the following. My fox findings include: History is 72-year-old female complaint shortness of breath. Evaluated her with our physician pathology assistant. No history of coronary disease. No history of lung disease. No chest pain or hemoptysis. No leg pain or swelling. No history of DVT or PE. Exam is [well-appearing 72-year-old female. Vital signs stable afebrile. Pulse ox 9 9% on room air no signs hypoxia. H EENT exam unremarkable. Neck nonte nder no JVD. No lymphadenopathy. Lungs clear to auscultation bilaterally. No rales, rhonchi or wheezing. Equal symmetrical. Heart regular rate and rhythm rate about 65 no murmur. Chest nontender. Abdomen soft nontender. Moving all 4 extremities. Calves are nontender without edema or cords. Neurologically she is awake alert with no focal motor deficits.] Medical Decision Making [shortness of breath evaluation. Exam benign.] Other additions or changes: [None] History & Record Review Discussion w/independent historian: Patient Lab Data Attestation: I reviewed the patient's lab results. Lab results narrative: CBC normal. White count 8. H&H 12.1 and 38. Platelets 374. Chest x-ray done 2 days ago was read as normal. We did not repeat that today. Labs: Laboratory Results - last 24 hr 09/05/22 09/05/22 17:05 17:07 WBC 8.0 RBC 4.27 Hgb 12.1 Hct 38.1 MCV 89.2 MCH 28.3 MCHC 31.8 L RDW Std Deviation 45.2 H RDW Coeff of Nellie 13.9 Plt Count 374 MPV 10.8 Immature Gran % (Auto) 0.300 Neut % (Auto) 55.6 Lymph % (Auto) 34.1 [place] % (Auto) 7.6 Eos % (Auto) 1.9 Baso % (Auto) 0.5 Absolute Neuts (auto) 4.5 Absolute Lymphs (auto) 2.73 Nucleated RBC % 0 Sodium 139 Potassium 3.5 Chloride 107 Carbon Dioxide 28.0 Anion Gap 4 L BUN 17 Creatinine 0.90 Estim Creat Clear Calc 50.09 Est GFR (MDRD) Af Amer 79 Est GFR (MDRD) Non-Af 66 BUN/Creatinine Ratio 19.0 Glucose 125 H Calcium 9.1 Troponin I High Sens 5 Urine Color Yellow Urine Clarity Sl. Cloudy Urine pH 7.0 Ur Specific [place] 1.005 Urine Protein Negative Urine Glucose (UA) Normal Urine Ketones Negative Urine Occult Blood Negative Urine Nitrite Negative Urine Bilirubin Negative Urine Urobilinogen Normal Ur Leukocyte Esterase 100 H Urine RBC 0 SEEN Urine WBC 0-5 SEEN Ur Squamous Epith Cells 0-5 SEEN Urine Bacteria 0 SEEN Urine Mucus 0 SEEN Discharge Plan Triage Chief Complaint: Shortness of Breath ED Midlevel Provider: Anderson Garcia ED Provider: Gregory Pfeiffer Dx/Rx/DC Orders Clinical Impression: SOB (shortness of breath) on exertion, Weakness Instructions: ED Weakness (Uncertain Cause) Prescriptions: No Action gabapentin 400 mg capsule 400 mg PO TID atorvastatin 10 mg tablet 10 mg PO DAILY Dexilant 60 mg capsule,biphase delayed releas 60 mg PO DAILY ascorbate calcium (vitamin C) 500 mg tablet 500 mg PO DAILY multivitamin Tablet 1 tab PO DAILY cholecalciferol (vitamin D3) 50 mcg (2,000 unit) capsule 50 mcg PO DAILY alprazolam 0.25 mg tablet 0.25 mg PO QHS PRN estradiol 0.01 % (0.1 mg/gram) cream See Rx Instructions vaginal .COMPLEX Qty: 42.5 2RF Rx Instructions: small amount as directed vaginal Thursday, Thursday, Thursday at HS prochlorperazine maleate 10 mg tablet 10 mg PO Q8H PRN promethazine 25 mg tablet 25 mg PO DAILY PRN dicyclomine 20 mg tablet 20 mg PO Q6H PRN epinephrine [EpiPen 2-Rodger] 0.3 mg/0.3 mL auto-injector 0.3 mg IM Q5-15M PRN Rx Instructions: do not exceed 3 doses per episode metronidazole [Metrogel] 1 % gel 1 applic topical DAILY Primary Care Provider: Hansa Ndiaye Referrals: Hansa Ndiaye MD [Primary Care Provider] - Activity Restrictions/Additional Instructions: Please maintain hydration. Follow-up outpatient, please return for any worsening symptoms. Disposition Disposition: Home, Self Care
--- NOTE | 2022-09-05 17:01 | NURSING ---
NO OLD EKGS
[2022-09-05] MEDS: 0.9% Normal Saline 1,000 ML 1000 ML IV (17:24)
[2022-09-05 17:32] LABS: Absolute Lymphocyte Count 2.73 X10^3/uL (0.83-4.51); Absolute Neutrophil Count 4.5 X10^3/uL (2.0-7.7); Basophil# 0.04 X10^3/uL; Basophil% 0.5 % (0-1); Eosinophil# 0.15 X10^3/uL; Eosinophils% 1.9 % (0-5); Hematocrit 38.1 % (37-47); Hemoglobin 12.1 g/dL (12.0-15.0); Lymphocyte # 2.73 X10^3/ul (0.83-4.51); Lymphocyte % 34.1 % (19-41); Mean Corp Hgb Conc 31.8 g/dL (32-36); Mean Corpuscular Hgb 28.3 pg (27.0-32.0); Mean Corpuscular Volume 89.2 fL (81-99); Mean Platelet Vol. 10.8 fl (6.2-12.0); Monocyte# 0.61 X10^3/uL; Monocyte% 7.6 % (0-10); NRBC Flagged by Analyzer 0 % (0-5); Neutrophil # 4.45 X10^3/uL (2.7-7.7); Neutrophil % 55.6 % (47-70); Platelet Count 374 K/mm3 (150-450); RBC Distribution Width CV 13.9 % (11.6-14.6); RBC Distribution Width SD 45.2 fl (35.1-43.9); Red Blood Count 4.27 M/mm3 (4.2-5.4)
[2022-09-05 17:52] LABS: Color, Urine Yellow (Yellow); Glucose, Dipstick Normal (Normal); Ketone-Dipstick Negative (Negative); Leukocyte Esterase-Dipstick 100 /ul (Negative); Nitrite-Dipstick Negative (Negative); Occult Blood-Urine Negative /ul (Negative); Protein-Dipstick Negative (Negative); Specific Gravity, Urine 1.005 (1.002-1.030); Urine Bilirubin Dipstick Negative (Negative); Urine Clarity Sl. Cloudy (Clear); Urine Urobilinogen Normal (Normal)
[2022-09-05 17:53] LABS: Anion Gap 4 (5-15); BUN 17 mg/dL (7-18); Calcium,Total 9.1 mg/dL (8.5-10.1); Chloride 107 mmol/L (98-107); EST Glomerular Filtration Rate 66 mL/min (>60); Est Glom Filt Rate - Afr Amer 79 mL/min (>60); Estimated Creatinine Clearance 50.09 ml/min; Glucose 125 mg/dL (74-106); Potassium 3.5 mmol/L (3.5-5.1); Sodium Level 139 mmol/L (136-145); Troponin-I HS 5 pg/mL (3.0-54.0)
[2022-09-05 17:53] LABS: Bacteria 0 SEEN /hpf (None Seen); Mucous, Urine 0 SEEN /hpf (<or=2+); Red Blood Cells-Urine 0 SEEN /hpf (0-5)
[2022-09-05 17:59] LABS: Squamous Epithelial Cells - UA 0-5 SEEN /hpf (5-10); White Blood Cells 0-5 SEEN /hpf (0-5)
[2022-09-05 18:55] VITALS: PULSE 75; RESP 18; O2SAT 98
== END 2022-09-05 18:56 | disposition home or self-care (01) ==
PROVIDERS: Nurse Practitioner; Emergency Provider Emergency Medicine; PCP Family Medicine; Visit Provider Emergency Medicine
DX: R06.02 Shortness of breath (principal); R53.1 Weakness; E78.2 Mixed hyperlipidemia; F41.9 Anxiety disorder, unspecified; Z79.899 Other long term (current) drug therapy; K21.9 Gastro-esophageal reflux disease without esophagitis; Z90.81 Acquired absence of spleen; Z90.710 Acquired absence of both cervix and uterus; Z90.49 Acquired absence of other specified parts of digestive tract
CPT/HCPCS: 80048; 81001; 84484; 85025; 93005; 96360; 96361; 99283; J7030; A4216; J2405

== ENCOUNTER → 2022-09-16 | Outpatient (CLI) | payer MEDICARE, OTHER, SELFPAY ==
--- NOTE | 2022-09-16 09:04 | CPS ---
Patient declined use of albuterol nebulizer during PFT d/t previous adverse reactions to other medications therefore no post spirometry performed.
--- NOTE | 2022-09-17 09:31 | PFT ---
INTRODUCTION: The patient is a 72-year-old female who presents for pulmonary function studies secondary to a diagnosis of shortness of breath. Respiratory therapy reported good patient effort. Bronchodilators were not administered with testing. INTERPRETATION: Forced expiration spirometry demonstrates no evidence of a large airways obstructive ventilatory defect. Spirograms are of good quality and plateau normally. Body plethysmography was performed and revealed lung volumes to be within normal limits. Diffusing capacity by single breath CO was also within normal limits. IMPRESSION: Normal pulmonary function studies.
== END | disposition home or self-care (01) ==
LOC: PSN 07:57
PROVIDERS: PCP Family Medicine; Referring Provider Family Medicine; Visit Provider Family Medicine
DX: R06.02 Shortness of breath (principal)
CPT/HCPCS: 94010; 94726; 94729

== ENCOUNTER 2022-10-05 08:06 | Emergency (ER) | payer MEDICARE, OTHER, SELFPAY ==
[2022-10-05 08:08] VITALS: BP 152/83; PULSE 61; RESP 18; TEMP 36.2; O2SAT 99; BMI 26.4
--- NOTE | 2022-10-05 08:22 | CT_ITS ---
STUDY: CT SOFT TISSUE NECK WITHOUT CONTRAST REASON FOR EXAM: Female, 72 years old. FB sensation, ate banana yesterday and feels its tuck in throat RADIATION DOSAGE (If Supplied By Facility): CTDIvol = ( 17.10 ) mGy, DLP = ( 478.35 ) mGycm TECHNIQUE: The patient was scanned in a multi-detector CT scanner. High resolution transaxial imaging was performed without the administration of intravenous contrast material. Sagittal and coronal images were reconstructed. Individualized dose optimization techniques were used for this CT. COMPARISON: None. FINDINGS: Normal bilateral parotid glands. Normal bilateral ammonia solution preparer spaces. Normal bilateral parapharyngeal spaces. Normal bilateral carotid spaces. Normal bilateral sublingual and submandibular glands and spaces. Normal visualized nasopharynx. Normal retropharyngeal space. Normal perivertebral space. Normal visualized bilateral faucial tonsils. The visualized tongue, tongue base and oropharynx are normal. The visualized cervical lymph nodes (levels I-) are within normal size limits, and maintain normal morphology. There is no demonstrated solid or cystic mass lesion. Normal epiglottis, bilateral vallecula and hypopharynx. The pre-epiglottic and paraglottic adipose spaces are normal. Normal visualized bilateral piriform sinuses, aryepiglottic folds, vocal cords, and arytenoid-cricoid articulations. Normal subglottic trachea. 1.2 cm nodule decreased attenuation the left lobe of the thyroid gland. Normal visualized pulmonary apices. Normal visualized paranasal sinuses. Normal visualized cervical spine. CT/Soft Tissue Neck without Contr IMPRESSION: Normal unenhanced CT examination of the soft tissues of the neck. 1.2 cm nodule the left lobe of the thyroid gland and correlation with thyroid ultrasound may be useful. Electronically Signed: Kel Sanabria MD at 10:02 EDT ,
--- NOTE | 2022-10-05 08:23 | EDS_ITS ---
HPI History of Present Illness Chief Complaint: Foreign Body Informant: patient Onset/Context/Timing Onset: Yesterday Narrative Narrative: Patient presents with foreign body sensation in her throat. She has a history of esophageal spasm and Sibley's esophagus. Early yesterday morning she had what she believes was an esophageal spasm. Around 3 PM yesterday afternoon she was eating a banana and feels like it stuck in her throat. She is a foreign body sensation along the left lower neck. She states has been able to drink water but is afraid to eat anything. She feels like it will get stuck. Patient has had esophageal dilatation in the past but states it did not help. Patient was seen in the emergency room May 2021 with a similar presentation and improved after getting IV glucagon. [facility] Medical History Acid reflux Anemia Atrophic vaginitis Barretts esophagus Fibromyalgia Genital warts GERD (gastroesophageal reflux disease) High cholesterol IBS (irritable bowel syndrome) Lichen sclerosus Mixed hyperlipidemia Osteopenia Thyroid nodule Home Medications alprazolam 0.25 mg tablet 0.25 mg PO QHS PRN 07/19/20 [History Last Taken Unknown] ascorbate calcium (vitamin C) 500 mg tablet 500 mg PO DAILY 07/19/20 [History Last Taken Unknown] atorvastatin 10 mg tablet 10 mg PO DAILY 07/19/20 [History Last Taken Unknown] cholecalciferol (vitamin D3) 50 mcg (2,000 unit) capsule 50 mcg PO DAILY 07/19/20 [History Last Taken Unknown] dexlansoprazole 60 mg capsule,biphase delayed release (Dexilant) 60 mg PO DAILY 07/19/20 [History Last Taken Unknown] gabapentin 400 mg capsule 400 mg PO TID 07/19/20 [History Last Taken Unknown] multivitamin 1 tab PO DAILY 07/19/20 [History Last Taken Unknown] estradiol 0.01% (0.1 mg/gram) vaginal cream See Rx Instructions vaginal .COMPLEX #42.5 grams 08/16/20 [Rx Last Taken Unknown] prochlorperazine maleate 10 mg tablet 10 mg PO Q8H PRN nausea 06/06/21 [History Last Taken Unknown] epinephrine 0.3 mg/0.3 mL injection, auto-injector (EpiPen 2-Rodger) 0.3 mg IM Q5- 15M PRN anaphylaxis 10/25/22 [History Last Taken Unknown] promethazine 25 mg tablet 25 mg PO DAILY PRN nausea and vomiting 12/31/21 [History Last Taken Unknown] BMX 180 mL suspension 15 ml PO Q6H PRN PRN throat pain #180 mL 10/05/22 [Rx Last Taken Unknown] Allergy/AdvReac Type Severity Reaction Status Date / Time iodine Allergy Vomiting Verified 06/06/21 16:25 Family History Unknown Heart disease Mother Anxiety Colon cancer Depression Thyroid disorder Father Anxiety Hypertension Grandmother Breast cancer Osteoporosis Thyroid disorder Surgical History H/O splenectomy H/O: hysterectomy Hx of appendectomy Hx of cholecystectomy Social History household members: spouse number of children: 0 current occupational status: retired history of recent travel: Yes Smoking Status: Never smoker alcohol intake: never substance use type: does not use what type of physical activity do you participate in: none seatbelt use: always do you feel safe at home: Yes additional social history: - Niraj ROS ROS ED Constitutional Constitutional ED: Denies chills or fever(s) Eyes Eyes: Denies change in vision or discharge from eye(s) ENT ENT ED: Reports other Details: Foreign body sensation in throat ; Denies discharge from eye(s), rhinorrhea or sore throat Cardiovascular Cardiovascular: Denies chest pain Respiratory/Chest Respiratory/Chest: Denies cough or dyspnea Gastrointestinal Gastrointestinal: Denies abdominal pain, nausea or vomiting Musculoskeletal Musculoskeletal: Denies back pain or extremity pain Integumentary Denies Abrasions or rash Neurologic Neurologic: Denies headache(s) or weakness Psychiatric Psychiatric: Denies anxiety or depression Allergic/Immunologic Allergic/Immunologic ED: Denies lip swelling or urticaria EXAM Physical Exam Narrative Exam Narrative: Patient sitting upright in bed no acute distress. She is tolerating secretions well and speaks with a strong voice. Const Vital Signs: 10/05/22 08:08 Temperature 97.1 F L Temperature Source Temporal Pulse Rate 61 Respiratory Rate 18 Blood Pressure 152/83 H Blood Pressure Mean 106 Pulse Ox 99 Oxygen Delivery Method Room Air Positive well nourished and well developed General Appearance ED: well developed HEENT Reports normocephalic and head/scalp atraumatic Eyes PERRL and EOMs intact bilaterally Neck supple Chest Wall inspection of chest normal and palpation of chest normal Resp normal respiratory effort and clear to auscultation bilaterally Cardio regular rate and regular rhythm GI normal to inspection, nondistended, normoactive bowel sounds Palpation: soft Back/Spine no CVA tenderness Extremity normal to inspection Neuro oriented x3 and no sensory deficits noted Sensorium / Orientation: alert Motor Exam: strength 5/5 throughout Psych mental status grossly normal Skin no rashes or lesions noted MDM MDM MDM Narrative Medical decision making narrative: Patient was given a dose of IV glucagon and IM Bentyl. CT of the neck obtained to evaluate for mass. Radiography Diagnostic Testing: Clinical Impression(s) from Imaging Studies Soft Tissue Neck CT 10/05/22 08:22 IMPRESSION: Normal unenhanced CT examination of the soft tissues of the neck. 1.2 cm nodule the left lobe of the thyroid gland and correlation with thyroid ultrasound may be useful. Electronically Signed: Kel Sanabria MD at 10:02 EDT , Treatment and Re-Evaluation :: After glucagon and Bentyl were given patient did complain of some nausea. She was given a dose of Zofran. CT of the neck per radiology reading reveals a 1.2 cm nodule in the left lobe of the thyroid gland. Recommend ultrasound for follow-up. I gave the patient some applesauce. She states that she is able to swallow but it feels that it goes down very slow. I spoke with Dr. Bowling, on-call for GI. My suspicion is that the patient had a severe episode of esophageal spasm yesterday morning that led to the current symptoms. There is no evidence of esophageal foreign body at this time. He would like the patient to have a GI cocktail at this time. I will write her a GI cocktail for home for the next 24 hours. She is to follow a liquid diet for the next 24 hours and then slowly advance. He would like to see her in the office to schedule manometry testing. This will then determine what further medication she needs to control her esophageal spasms. Discharge Plan Triage Chief Complaint: Foreign Body ED Provider: Lesly Valera Dx/Rx/DC Orders Clinical Impression: Dysphagia, Thyroid nodule, Esophageal spasm Instructions: ED Esophageal Spasm, ED Dysphagia (Adult) Prescriptions: New BMX 180 mL suspension 15 ml PO Q6H PRN PRN (Reason: throat pain) Qty: 180 0RF Rx Instructions: Benadryl 12.5 mg/5 mL oral elixir 60 mL; Maalox Maximum Strength 400 mg-400 mg-40 mg/5 mL oral suspension 60 mL; Xylocaine Viscous 2 % mucosal solution 60 mL; Per 180 mL No Action gabapentin 400 mg capsule 400 mg PO TID atorvastatin 10 mg tablet 10 mg PO DAILY Dexilant 60 mg capsule,biphase delayed releas 60 mg PO DAILY ascorbate calcium (vitamin C) 500 mg tablet 500 mg PO DAILY multivitamin Tablet 1 tab PO DAILY cholecalciferol (vitamin D3) 50 mcg (2,000 unit) capsule 50 mcg PO DAILY alprazolam 0.25 mg tablet 0.25 mg PO QHS PRN estradiol 0.01 % (0.1 mg/gram) cream See Rx Instructions vaginal .COMPLEX Qty: 42.5 2RF Rx Instructions: small amount as directed vaginal Thursday, Thursday, Thursday at HS prochlorperazine maleate 10 mg tablet 10 mg PO Q8H PRN (Reason: nausea) promethazine 25 mg tablet 25 mg PO DAILY PRN (Reason: nausea and vomiting) epinephrine [EpiPen 2-Rodger] 0.3 mg/0.3 mL auto-injector 0.3 mg IM Q5-15M PRN (Reason: anaphylaxis) Rx Instructions: do not exceed 3 doses per episode Primary Care Provider: Hansa Ndiaye Referrals: Hansa Ndiaye MD [Primary Care Provider] - Arturo Bowling DO [Med Staff - Active Staff] - As soon as possible Activity Restrictions/Additional Instructions: As discussed, please follow a liquid diet for the next 24 hours. You can use the GI cocktail/BMX solution during this 24 hours. After 24 hours, you may advance your diet to a soft diet. Depending on how you feel you can then advance diet further as tolerated. Please follow-up with your primary care physician regarding ultrasound of the thyroid cyst/nodule that was identified. Please follow-up Dr. Bowling is soon as possible for manometry testing for your esophageal spasm. Disposition Disposition: Home, Self Care
[2022-10-05] MEDS: Dicyclomine 20 MG/2 ML Vial IM (08:42)
[2022-10-05] MEDS: Glucagon 1 MG/ML Syringe 0.5 MG IV (08:42)
[2022-10-05] MEDS: Ondansetron 4 MG/2 ML Vial IV (08:49)
--- NOTE | 2022-10-05 10:19 | ED.RN ---
per dr. bermudez pt was given applesauce to see how she swallows. pt states it seems it be going down slowing, it's ok.
[2022-10-05] MEDS: Mag Hydrox/Al Hydrox/Simeth 30 ML UDC PO (10:53)
== END 2022-10-05 11:12 | disposition home or self-care (01) ==
PROVIDERS: Emergency Provider Emergency Medicine; PCP Family Medicine; Visit Provider Emergency Medicine
DX: K22.4 Dyskinesia of esophagus (principal); R13.10 Dysphagia, unspecified; E04.1 Nontoxic single thyroid nodule; E78.2 Mixed hyperlipidemia; K21.9 Gastro-esophageal reflux disease without esophagitis
CPT/HCPCS: 70490; 96372; 96374; 96375; 99284; A4216; J1610; J2405

== ENCOUNTER → 2022-10-10 | Outpatient (CLI) | payer MEDICARE, OTHER, SELFPAY ==
[2022-10-10 15:42] LABS: Free T3 2.4 pg/mL (2.18-3.98); T4 Free Direct 1.19 ng/dL (0.76-1.46); Thyroid Stim Hormone (TSH) 2.18 uIU/mL (0.358-3.74)
[2022-10-13 16:09] LABS: Thyroglobulin Antibody < 1.0 IU/mL (0.0-0.9); Thyroid Peroxidase AB < 9 IU/mL (0-34)
== END | disposition home or self-care (01) ==
LOC: MTLAB 11:49
PROVIDERS: PCP Family Medicine; Referring Provider Family Medicine; Visit Provider Family Medicine
DX: E03.9 Hypothyroidism, unspecified (principal)
CPT/HCPCS: 36415; 84439; 84443; 84481; 86376; 86800

== ENCOUNTER → 2022-10-13 | Outpatient (CLI) | payer MEDICARE, OTHER, SELFPAY ==
--- NOTE | 2022-10-13 14:29 | US_ITS ---
STUDY: THYROID ULTRASOUND REASON FOR EXAM: Female, 72 years old. MULTIPLE NODULES TECHNIQUE: Ultrasound evaluation of the thyroid was performed with real-time and static roberts-scale imaging. COMPARISON: 08/12/2021 FINDINGS: RIGHT LOBE: The right lobe of the thyroid gland measures 5.1 x 1.8 x 1.6 cm. There is a heterogeneous echotexture. Nodule 1:7 x 3 x 4 mm solid hypoechoic wider than tall smoothly marginated nodule with no echogenic foci (TR 4) in the lateral right lobe consistent with a small adenoma. Nodule 2: No change in the 8 x 5 x 6 mm cystic anechoic wider than tall smoothly marginated nodule with comet tail artifact (201) in the lateral right lobe consistent with a colloid cyst. LEFT LOBE: The left lobe of the thyroid gland measures 5.3 x 1.7 x 1.7 cm. There is a heterogeneous echotexture. Nodule 3:8 x 4 x 5 mm cystic anechoic wider than tall smoothly marginated nodule with large echogenic focus with comet tail artifact (TR 1) in the lateral left lobe consistent with a colloid cyst. Nodule 4: Enlarging (14 x 10 x 12 mm from 10 x 8 x 7 mm) cystic anechoic wider than tall smoothly marginated nodule with no echogenic foci (TR 1) in the mid left lobe consistent with a colloid cyst. Multiple small (less than 5 mm) hypoechoic and anechoic masses consistent with adenomas or colloid cyst. ISTHMUS: The isthmus measures 4 mm thick. . The regional lymph nodes are normal. US/Thyroid IMPRESSION: Thyroiditis with multiple adenomas and colloid cysts. Electronically Signed: Kel Sanabria MD at 15:14 EDT ,
== END | disposition home or self-care (01) ==
LOC: US 14:28
PROVIDERS: PCP Family Medicine; Referring Provider Family Medicine; Visit Provider Family Medicine
DX: E04.2 Nontoxic multinodular goiter (principal)
CPT/HCPCS: 76536

== ENCOUNTER → 2022-12-23 | Outpatient (CLI) | payer MEDICARE, OTHER, SELFPAY | END | disposition home or self-care (01) | LOC: LABSPEC 16:02 | PROVIDERS: PCP Nurse Practitioner Family; Visit Provider Nurse Practitioner Family | DX: N39.0 Urinary tract infection, site not specified (principal) | CPT/HCPCS: 87086; 87088 ==

== ENCOUNTER → 2023-01-19 | Outpatient (CLI) | payer MEDICARE, OTHER, SELFPAY ==
--- NOTE | 2023-01-19 09:45 | BI_ITS ---
MAMMOGRAPHY - BILATERAL SCREENING REASON FOR EXAM: Female, 72 years old. Routine annual screening examination. PERTINENT HISTORY: Sister with breast cancer. Grandmother with breast cancer. TECHNIQUE: Digital bilateral breast meghan (3D mammographic acquisition) in the CC and MLO projections. 2-D mediolateral oblique (MLO) and craniocaudad (CC) views of both breasts were obtained. CAD: Full Field Digital Mammography with Computer Added Detection was performed. COMPARISON: Comparison is made with prior examination January 06, 2022 and December 21, 2020. FINDINGS: Breast Composition: The breasts are heterogeneously dense, which may obscure small masses. There are no dominant masses or suspicious calcifications. Stable small benign-appearing bilateral axillary lymph nodes. No other significant abnormalities are identified. There has been no significant change since the prior study. BI/SCRN MAMM (CAD)W/MEGHAN BILAT IMPRESSION: Stable bilateral screening mammogram. Yearly follow-up mammogram recommended. (A) ASSESSMENT CATEGORY: BIRADS Category 2: Benign. A letter regarding these results will be sent to the patient by the facility within 30 days. Approximately 10% of breast cancers are not detected by mammography. A normal mammogram should not delay biopsy of a clinically suspicious abnormality. [id number] Electronically Signed: Enoch Tirado MD at 10:51 EST ,
== END | disposition home or self-care (01) ==
LOC: OPBI 09:44
PROVIDERS: PCP Nurse Practitioner Family; Referring Provider Nurse Practitioner Women's Health; Visit Provider Nurse Practitioner Women's Health
DX: Z12.31 Encounter for screening mammogram for malignant neoplasm of breast (principal); Z80.3 Family history of malignant neoplasm of breast
CPT/HCPCS: 77063; 77067

== ENCOUNTER 2023-02-24 10:30 | Outpatient (RCR) | payer MEDICARE, OTHER, SELFPAY ==
--- NOTE | 2023-02-03 11:23 | HP.PTEVAL ---
Patient's Visit Information Visit Information Visit Information: KENYA CHRIS is a 72 year old F referred to Physical Therapy by Dr. Hansa Ndiaye MD with a diagnosis of dizziness and giddiness. Date of Evaluation: 02/03/23 Physical Therapist: BK Haywood Visit Plan Frequency: 2x /Week Duration: 2 Months Plan: 2X/ week for 8 week for testing on CATSIB, VOR exercises with head movements, gait and functional activities with head movements, supine to sit repeated exercises with HEP HEP: seated head and eye horizontal movements Subjective Subjective: Pt would like to learn a maneuver to help her vertigo. She was diagnosed with positional vertigo. She has had vertigo for years. Recently she has woken up that made her really dizzy and tried some self maneuvers and they did not work. Her L ear feels like it has pressure in it. Her farther had meniers disease. She feels light headed right now. She has to be careful getting out of bed...changing the position from laying down to sitting up makes her dizzy and it lasts a minute and it feels like if she stands up she will feel off balance and the room is not spinning, Getting up off the floor it takes her a long time to get up from the floor because she is lightheaded (laying on her back) and turn to her side and stand up and she is lightheaded and has to sit there for 25 seconds to not get self lightheaded. She is not on BP meds. She reports that when she was a kid she would get car sick. She still does not like to ride in the back seat. Lots of anxiety and recently diagnosed with PD. She does take zanax at night to sleep and occ during the day and does not like to to take it. She is teary eyed today about taking about her dizziness and PD and the fact many days she does not feel well. There are a lot of days she just is so tired and just does not feel good. Pt feels less stable then she used to. She feels that is partially by the PD dx recent. She does exercises 7 days a week and does aerobic classes 5X/ week and then walks on the weekends and does free weights. Objective Objective: Rates dizziness currently as 3/10 Gait: Walks with normal gait patter and able to walk on heels and toes FGA 25/30 (more vertical head movements cause dizziness compared to horizontal) Horizontal smooth pursuit X 30 seconds (smooth movement and no dizziness) and Vertical smooth pursuit (5/10 dizziness and some jumpiness of her eyes) Horizontal head and eyes move together X 30 seconds (a little bit of dizziness 5/10) Vertical head and eye move together X 30 seconds (increase dizziness 4/10) CATSIB Balance/Special Test Scores Functional Gait Assessment Score: 25 % Disability: 16.6700 Dizziness Score: 28 Goals Goal 1:: I HEP Goal Time Frame: 6-8 Weeks Goal 2:: Test CATSIB Goal Time Frame: 2 Weeks Goal 3:: Report 50% improvement in dizziness with day to day activities Goal Time Frame: 6-8 Weeks Goal 4:: Be able to perform standing horizontal and vertical head and eye turns for 60 seconds with no dizziness Goal Time Frame: 4-6 Weeks Goal 5:: Improve FGA score (score at eval was 25) Goal Time Frame: 6-8 Weeks Rehabilitation Potential Rehabilitation Potential: Good Anticipated Interventions Patient/Client Instruction: Educate patient on: Condition and Plan of Care For the Purpose of:: To increase ROM, To improve nutrient delivery to tissue, To improve muscle performance and motor function, To improve ability to perform ADL's, To increase tolerance to activity/condition/position, To improve performance and independence with ADL's, To decrease level of supervision to perform tasks, To improve ability of physical actions for home/community/work/leisure, To improve gait and locomotor functions, To improve balance and To improve safety with gait Therapeutic Exercise to Include: Strength training, Endurance training, Balance training, Postural training, Neuromotor development and Active ROM For the Purpose of:: To increase ROM, To improve nutrient delivery to tissue, To improve muscle performance and motor function, To improve ability to perform ADL's, To increase tolerance to activity/condition/position, To improve performance and independence with ADL's, To decrease level of supervision to perform tasks, To improve ability of physical actions for home/community/work/leisure, To improve health of tissue, To decrease soft tissue restriction, To increase flexibility/ROM, To improve balance and To improve safety with gait Functional Training to Include: Gait training For the Purpose of:: To improve gait and locomotor functions and To improve safety with gait Text: Thank you for the opportunity to evaluate your patient. For Medicare and Medicare HMO plans, please review the plan of care and approve it. It will need to be FAXED BACK to us at [phone] for Medicare purposes. For Medicare only, by signing this I certify the plan of care. Please let me know if there are questions or concerns regarding this plan of care. Physician Signature: Date:
--- NOTE | 2023-05-04 15:29 | HP.PT.NRP ---
Patient Information Patient Information: KENYA CHRIS was seen in my office for initial evaluation on 02/03/23. The following Plan of Care was established for this patient: POC Established Initial Frequency: 2x /Week Initial Duration: 2 Months Anticipated Interventions Patient/Client Instruction: Educate patient on: Condition and Plan of Care For the Purpose of:: To increase ROM, To improve nutrient delivery to tissue, To improve muscle performance and motor function, To improve ability to perform ADL's, To increase tolerance to activity/condition/position, To improve performance and independence with ADL's, To decrease level of supervision to perform tasks, To improve ability of physical actions for home/community/work/leisure, To improve gait and locomotor functions, To improve balance and To improve safety with gait Therapeutic Exercise to Include: Strength training, Endurance training, Balance training, Postural training, Neuromotor development and Active ROM For the Purpose of:: To increase ROM, To improve nutrient delivery to tissue, To improve muscle performance and motor function, To improve ability to perform ADL's, To increase tolerance to activity/condition/position, To improve performance and independence with ADL's, To decrease level of supervision to perform tasks, To improve ability of physical actions for home/community/work/leisure, To improve health of tissue, To decrease soft tissue restriction, To increase flexibility/ROM, To improve balance and To improve safety with gait Functional Training to Include: Gait training For the Purpose of:: To improve gait and locomotor functions and To improve safety with gait Last Seen Last Seen: This patient was last seen in our office 02/24/23. Pertinent comments regarding their Physical therapy will appear below: DC PT At this point I will be discontinuing this patient from physical therapy. I would be happy to see this patient again in the future if found appropriate by the physician. Thank you! Velvet Dahl, BK Balance/Gait/Functional tests Balance/Special Test Scores Functional Gait Assessment Score: 25 % Disability: 16.6700 CATSIB Score (Max score 120 seconds): 120 Dizziness Score: 28
== END 2023-02-24 19:00 | disposition home or self-care (01) ==
LOC: PT 10:30
PROVIDERS: PCP Family Medicine; Visit Provider Family Medicine
DX: R42 Dizziness and giddiness (principal)
CPT/HCPCS: 97140; 97162; 97530

== ENCOUNTER 2023-03-26 06:41 | Day surgery (SDC) | payer MEDICARE, OTHER, SELFPAY ==
[2023-03-26] VITALS (7 sets, daily range): BP systolic 109–140; BP diastolic 61–77; PULSE 61–71; RESP 16; TEMP 36.2–36.6; O2SAT 97–100; BMI 25.7
--- OUTSIDE RECORDS SUMMARY | 2023-03-26 06:44 | XMS RPT_ITS | CCD ---
Author Name Unknown Address [address] [place] [address] Organization [facility] Care Team Providers Care Field Hauler Name Role Phone Unavailable Primary Care Provider UnavailJAY Cotton Referring Unavailable JAY CATES Referring Unavailable JAY CATES Referring Unavailable JAY CATES Attending Unavailable ANTHONY BERG Attending Unavailable ABIGAIL WALTERS Attending Unavailable LYNN DANIELS Referring Unavailable MARGARET GARCIA Attending Unavailable ALEKSANDER THAO Attending Unavailable JAY CATES Referring Unavailable Allergies Allergy Classification Reported Allergen(s) Allergy Type Date of Onset Reaction(s) Facility (12 sources) Iodine; Translations: [IODINE] Drug Allergy 4 Vomiting [facility] (8 sources) Shellfish; Translations: [SHELLFISH DERIVED] Drug Intolerance 3 Hives [facility] Medications Current Medications Medication Drug Class(es) Dates Sig (Normalized) Sig (Original) polyethylene glycol 3350 095105 mg / potassium chloride 2970 mg / sodium bicarbonate 6740 mg / sodium chloride 5860 mg / sodium sulfate 00857 mg powder for oral solution (1 source) Osmotic Laxative Start: 10-15-2022 End: 10-15-2022 peg 3350-Electrolytes (GOLYTELY) 236-22.74-6.74 -5.86 gram suspension Indications: Colon cancer screening , Family history of colon cancer in mother Take 4,000 mL by mouth one time only for 1 dose. Refer to printed prep instructions from your provider. 4000 mL 0 10/15/2022 10/15/2022 Active Completed/Discontinued Medications Medication Drug Class(es) Dates Sig (Normalized) Sig (Original) ALPRAZolam 0.25 mg oral tablet (11 sources) Benzodiazepine Start: 08-11-2022 take 1 tablet by mouth three times daily as needed ALPRAZolam (XANAX) 0.25 mg tablet TAKE 1 TABLET BY MOUTH THREE TIMES DAILY NEEDED FOR 90 DAYS 0 08/11/2022 Active Problems Active Problems Problem Classification Problem Date Documented Da te Episodic/Chronic Abdominal pain (1 source) Epigastric pain; Translations: [Epigastric pain] 10-04-2022 Episodic Anxiety disorders (1 source) Anxiety; Translations: [Anxiety disorder, unspecified] 12-04-2022 Chronic Nutritional deficiencies (2 sources) Vitamin D deficiency; Translations: [Vitamin D deficiency, unspecified] Onset: 10-29-2022 10-29-2022 Chronic Other connective tissue disease (1 source) Muscle pain; Translations: [Myalgia, unspecified site] 10-22-2022 Episodic Other gastrointestinal disorders (1 source) Esophageal dysphagia; Translations: [Other dysphagia] 10-15-2022 Episodic Other hereditary and degenerative nervous system conditions (3 sources) Resting tremor; Translations: [Other specified forms of tremor] 10-29-2022 Chronic Other hereditary and degenerative nervous system conditions (1 source) Other specified forms of tremor; Translations: [Resting tremor] Onset: 11-28-2022 Chronic Other screening for suspected conditions (not mental disorders or infectious disease) (2 sources) Patient encounter status; Translations: [Encounter for screening for malignant neoplasm of colon] 10-15-2022 Episodic Parkinson`s disease (1 source) Parkinson's disease; Translations: [Parkinson's disease] 12-04-2022 Chronic Residual codes; unclassified (1 source) Family history of cancer of colon; Translations: [Family history of malignant neoplasm of digestive organs] 10-15-2022 Episodic Substance-related disorders (1 source) Sedative withdrawal; Translations: [Sedative, hypnotic or anxiolytic use, unspecified with withdrawal, unspecified] 10-22-2022 Episodic Past or Other Problems Problem Classification Problem Date Documented Date Episodic/Chronic Immunizations and screening for infectious disease (1 source) Encounter for screening for human immunodeficiency virus [HIV]; Translations: [Encounter for screening for human immunodeficiency virus (HIV)] Onset: 10-29-2022 Episodic Malaise and fatigue (3 sources) Asthenia; Translations: [Weakness] Onset: 11-06-2022 10-29-2022 Episodic Other injuries and conditions due to external causes (1 source) Unspecified injury of left wrist, hand and finger(s), initial encounter; Translations: [Wrist injury, left, initial encounter] Onset: 09-18-2022 Episodic Results Test Name Value Interpretation Reference Range Facil ity Vital Signs Date Time Vital Sign Value Performing Clinician Familia díaz 10-29-2022 09:04-0400 Diastolic blood pressure 86 mm[Hg] Jay Cates MD Work Phone: [facility] 10-29-2022 09:04-0400 Heart rate 62 /min Jay Cates MD Work Phone: [facility] 10-29-2022 09:04-0400 Systolic blood pressure 154 mm[Hg] Jay Cates MD Work Phone: [facility] 10-29-2022 08:49-0400 Body weight 71.85 kg Jay Cates MD Work Phone: [facility] 10-22-2022 10:49-0400 Body height 165.1 cm Anthony Berg MD Work Phone: [facility] 10-22-2022 10:49-0400 Body temperature 96.4 [degF] Anthony Berg MD Work Phone: [facility] 10-22-2022 10:49-0400 Body weight 72.58 kg Anthony Berg MD Work Phone: [facility] 10-22-2022 10:49-0400 Diastolic blood pressure 67 mm[Hg] Anthony Berg MD Work Phone: [facility] 10-22-2022 10:49-0400 Heart rate 63 /min Anthony Berg MD Work Phone: [facility] 10-22-2022 10:49-0400 SaO2% (BldA) [Mass fraction] 99 % Anthony Berg MD Work Phone: [facility] 10-22-2022 10:49-0400 Systolic blood pressure 139 mm[Hg] Anthony eBrg MD Work Phone: [facility] 10-15-2022 13:03-0400 Body height 165.1 cm Abigail Walters APRN.CNP Work Phone: [facility] 10-15-2022 13:03-0400 Body weight 72.6 kg Abigail Selena [employer] Work Phone: [facility] 10-15-2022 13:03-0400 Diastolic blood pressure 59 mm[Hg] Abigail Selean [employer] Work Phone: [facility] 10-15-2022 13:03-0400 Heart rate 67 /min Abigail Selena [employer]OR [employer] Work Phone: [facility] 10-15-2022 13:03-0400 Systolic blood pressure 127 mm[Hg] Abigail Selena [employer]OR [employer] Work Phone: [facility] 10-04-2022 13:18-0400 Body temperature 98.01 [degF] Khalif Hernández MD Work Phone: [facility] 10-04-2022 13:18-0400 Body weight 71.67 kg Khalif Hernández MD Work Phone: [facility] 10-04-2022 13:18-0400 Diastolic blood pressure 74 mm[Hg] Khalif Hernández MD Work Phone: [facility] 10-04-2022 13:18-0400 Heart rate 64 /min Khalif Hernández MD Work Phone: [facility] 10-04-2022 13:18-0400 Respiratory rate 16 /min Khalif Hernández MD Work Phone: [facility] 10-04-2022 13:18-0400 SaO2% (BldA) [Mass fraction] 97 % Khalif Hernández MD Work Phone: [facility] 10-04-2022 13:18-0400 Systolic blood pressure 128 mm[Hg] Khalif Hernández MD Work Phone: [facility] Encounters Encounter Date Encounter Type Care Provider Facility Start: 03-23-2023 End: 03-23-2023 ambulatory MARGARET GARCIA Facility:[facility] Start: 12-04-2022 End: 12-04-2022 ambulatory ALEKSANDER THAO Facility:[facility] Start: 12-04-2022 End: 12-04-2022 Patient encounter procedure Aleksander Thao MD Work Phone: [facility] Procedures Date Procedure Procedure Detail Performing Clinician Start: 11-28-2022 Mri brain brain stem w/o contrast material Jay Cates MD Work Phone: Start: 11-06-2022 Nerve conduction tiffanie dies 5-6 studies Jay Cates MD Work Phone: Plan of Treatment Date Care Activity Detail Author Start: 10-29-2025 DIABETES SCREEN DIABETES SCREEN [facility] Start: 10-29-2025 Diabetes Screening Diabetes Screenin g [facility] Start: 03-23-2023 DIABETES SCREEN DIABETES SCREEN [facility] Start: 11-07-2022 Covid-19 Vaccine ( season) Covid-19 Vaccine () [facility] Start: 11-07-2022 Influenza vaccination [facility] Start: 10-29-2022 End: 12-29-2022 25-hydroxyvitamin D3 [Mass/volume] in Serum or Plasma [facility] Work Phone: Immunizations Immunization Date Immunization Notes Care Provider Fa cility 02-20-2022 influenza virus vacc ine, unspecified formulation Jay Cates MD Work Phone: [facility] Payers Date Payer Category Payer Private Health Insurance [facility] AARP SUPPLEMENT [id number] 2022-Present [phone] [address] [place] [address] Indemnity [id number] 2022 Unknown [id number] 2014 Medicare MEDICARE MEDICAR E A AND B [id number] 2014-Present [phone] [address] [address] [place] [address] Medicare [id number] 2014 Medicare [id number] Social History Date Type Detail Facility Start: 09-18-2022 Tobacco smoking stat us NHIS Never smoked tobacco [facility] Start: 09-18-2022 Tobacco use and exposure Smoke less tobacco non-user [facility] Start: 10-04-2022 End: 10-15-2022 History of Social function [facility] Start: 10-04-2022 End: 10-15-2022 Tobacco use panel [facility] Start: 1950 Sex Assigned At Female C [facility] Start: 06-09-2022 Gender identity Identifies as female gender (finding) [facility] Start: 06-09-2022 Sexual orientation Heterosexual (fin ding) [facility] National Score (1-10 0), lower number is lower risk 75 [facility] Start: 10-22-2022 End: 10-29-2022 Alcohol intake Lifetime non-drinker (finding) [facility] Clinical Notes 09-18-2022 to 03-23-2023 Patient InstructionsAleksander Thao MD - 12/04/2022 2:00 PM EDTTelephone Encounter - Marie Ortiz - 11/28/2022 1:08 PM EDTTelephone Encounter - Gertrude Warren Ma - 11/28/2022 12:55 PM EDT Note Date & Type Note Facility 03-23-2023 Note HNO ID: [id number] Author: MARGARET GARCIA MD Service: ? Author Type: Physician Type: Progress Notes Filed: 03/23/2023 09:27 Note Text: [facility] - FOLLOW UP EVALUATION I had the pleasure of seeing Ms. Warren for follow up today. She is a 73 year old right-handed female with a history of suspected Parkinson's disease since August 2022 . She is seen with her . Subjective Previous Plan-12/04/2022 Visit with AM: Parkinson's disease - Sinemet 25/100, uptitrate to 1 tab tid Anxiety - Prior to Sinemet, would start sertraline 50 mg daily. Consider psychiatry referral if she is unable to tolerate this. She also takes Xanax 0.25 mg prn (currently taking daily and for sleep Constipation - continue prunes. Could try senna. Miralax even low dose causes diarrhea she tells me Follow up in 3-4 months, with me or TERE Interval History: Previously seen by Dr. Thao. Sinemet caused nausea and total loss of appetite at 1 tab 3 times a day. Took this dose for 3 days. Prescribed Zofran and helped some. Tried 1/2 tab and didn't do anything positively or negatively. Still try to accept the diagnosis. Didn't find Parkinson's exercise classes useful. Tried the Health point class. Others were more advanced in disease and she didn't find it useful. Exercises 5 days per week- aerobics 5 days, walks 3 miles on weekend. Main complaint is fatigue. Takes Xanax to sleep. No energy. Takes gabapentin. 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 Corrected diagnosis, skin just very dry. Tried to taper off gabapentin very slowly. Tried for a year to get off it. Gets nausea, total body shaking, withdrawal symptoms. Cannot take less than 1200 mg per day. Tried reducing 100 mg at a time and she cannot. Historically sensitive to medications. Also has tremor. Right side only. No change in dexterity. Sore left bicep. Gait is fine. Questions: vitamins. Parkinson's Medication Schedule - as of the start of the visit: Medications xanax 0.25 mg prn Prior Anti-Parkinson Therapies Carbidopa/Levodopa Questionnaires In addition, the following areas that may be affected by abnormal involuntary movements were evaluated: Daily activities Difficulties with eatin (none) Difficulties in dressin (none) Difficulties with hygiene activities: 0 (none) Difficulties with handwritin (none) Difficulties with doing hobbies and other activities: 0 (none) Difficulties turning in bed: 0 (none) Difficulties getting out of bed, car or chair: 0 (none) Tremors/Gait/Balance Shaking or tremors: Yes (slight) Walking and balance problems: 0 (none) Number of falls in the Last Month: Gait freezin (none) Autonomic/Pain Lightheadeness on standing: Yes (slight) Urinary problems: Yes (slight) Constipation problems: Yes (slight) Pain and other sensations: 0 (none) Speech/Swallowing Speech problems: 0 (none) Droolin (none) Chewing and swallowing problems: Yes (mild) Sleep/Fatigue Sleep problems: 0 (none) Daytime sleepiness: Yes (slight) Fatigue: Yes (moderate) Mood/Behavior Depression: PHQ-9 Score: 2 usually representing no significant (0-4) depression. Anxiety: MISAEL-7 Total Score: 5 usually representing mild (5-9) anxiety. Finally, the following table shows the patient's overall global physical and mental health using the PROMIS scale: PROMIS-10 Flowsheet Row Office Visit from 03/23/2023 in Neurology Office Visit from 12/04/2022 in [facility] Global Physical Health T Score 47.7 39.8 Global Mental Health T Score 36.3 28.4 0-10 Standard Pain Scale 5 5 *PROMIS-10 scoring scale: mean = 50, over 50 is above average, under 50 is below average In addition, the following non-motor symptoms and palliative concerns were evaluated: Sleep/Fatigue: REM sleep behavior disorder: No Restless Legs Syndrome: No Leg swelling: Impaired sense of smell: No Cognition: Cognitive impairment: no MoCA Cognitive assessment: Hallucinations and delusions: no Apathy: Impulse control disorder: Palliative Concerns: Caregiver burden: Spiritual concerns: Advanced directives on file: Palliative services: Therapy and Exercise: Last PT Date: Last OT Date: Last ST Date: Exercises Regularly: Yes ALLERGIES Allergen Reactions Iodine Vomiting Shellfish Derived Hives Current Outpatient Medications Medication Sig GABAPENTIN ORAL Take 300 mg by mouth three times a day. ondansetron (ZOFRAN) 4 mg tablet Take 1 tablet by mouth every 8 hours as needed for nausea/vomiting. OTC PRODUCT Multi vitamin po daily ALPRAZolam (XANAX) 0.25 mg tablet TAKE 1 TABLET BY MOUTH THREE TIMES DAILY NEEDED FOR 90 DAYS DEXILANT 60 mg CpDM TAKE 1 CAPSULE BY MOUTH ONCE DAILY 30 TO 45 MINUTES BEFORE A MEAL. gabapentin (NEURONTIN) 100 mg capsule TAKE 1 CAPSULE BY MOUTH THREE TIMES DAILY ALONG WITH 300 MG CAP TO EQUAL 400 MG DAILY No current facility-administered medicatio (more content not included)... [facility] 01-23-2023 Note HNO ID: [id number] Author: Kenya Burch Service: ? Author Type: ? Type: Progress Notes Filed: 01/23/2023 2:38 PM Note Text: Waiting to hear back from Thomas España, to see if patient is appropriate for Sarath. 10/16 CLL 01-23 2'nd attempt to contact patient. LVM to return call. IS [facility] 12-04-2022 Note HNO ID: [id number] Author: Aleksander Thao MD Service: ? Author Type: Physician Type: Progress Notes Filed: 12/04/2022 2:56 PM Note Text: [facility] - NEW PATIENT EVALUATION Referring Provider: Jay Cates [address] [facility] [id number] Dear Jay Cates: Thank you for referring Ms. Warren to our clinic today. As you know she is a 72 year old right-handed female who is seen in consultation for evaluation of RUE tremor since August 2022 . Subjective HISTORY OF PRESENT ILLNESS: Saw general neurology in October (Dr. Cates) for tremor, referred here due to concern for Parkinson disease. MRI brain was unremarkable. She recalls tremors starting fairly suddenly in late August. She woke up with it one day in August. Only the right hand. Resting tremor only. No action tremor. Anxiety makes it worse. Xanax 0.25 mg helps. She has decreased energy. Feels generally weak. Feels unsteady with gait. Walking is slower. She takes gabapentin 400 mg tid. She is unable to lower the dose due to withdrawal symptoms. She previously took Phenergan, only for colonoscopies it sounds like, none in past five years. Pertinent Neurologic ROS: Patient reports depress mood/anxiety: Chronic anxiety, worse since August. She is prescribed Xanax 0.25 mg chronically, took 0.5 mg nightly for years. reports impaired Memory/Cognitive: Feels a little foggy . denies hallucinations: Patient reports sleep disturbances. Sleeps well with Xanax denies REM behavioral disorder (RBD): Patient reports difficulties bowel/bladder control. Some constipation, prunes help reports Swallowing difficulties. Chronic. Mostly trouble with pill. reports Orthostatic hypotension symptoms. Especially with steps. Even sitting still sometimes she tells me. Sense of smell is decreased, since end of August she thinks Voice is unchanged Handwriting is unchanged Questionnaires In addition, the following areas that may be affected by abnormal involuntary movements were evaluated: Daily activities Difficulties with eatin (none) Difficulties in dressin (none) Difficulties with hygiene activities: 0 (none) Difficulties with handwritin (none) Difficulties with doing hobbies and other activities: Yes (mild) Difficulties turning in bed: 0 (none) Difficulties getting out of bed, car or chair: 0 (none) Tremors/Gait/Balance Shaking or tremors: Yes (mild) Walking and balance problems: Yes (slight) Number of falls in the Last Month: none Gait freezin (none) Autonomic/Pain Lightheadeness on standing: Yes (mild) Urinary problems: 0 (none) Constipation problems: Yes (mild) Pain and other sensations: 0 (none) Speech/Swallowing Speech problems: 0 (none) Droolin (none) Chewing and swallowing problems: Yes (slight) Sleep/Fatigue Sleep problems: Yes (slight) Daytime sleepiness: Yes (mild) Fatigue: Yes (severe) Mood/Behavior Depression: PHQ-9 Score: 10 usually representing moderate (10-14) depression. Anxiety: MISAEL-7 Total Score: 11 usually representing moderate (10-14) anxiety. Finally, the following table shows the patient's overall global physical and mental health using the PROMIS scale: PROMIS-10 Flowsheet Row Office Visit from 12/04/2022 in [facility] Global Physical Health T Score 39.8 Global Mental Health T Score 28.4 0-10 Standard Pain Scale 5 *PROMIS-10 scoring scale: mean = 50, over 50 is above average, under 50 is below average Review of Systems ALLERGIES Allergen Reactions Iodine Vomiting Shellfish Derived Hives Current Outpatient Medications Medication Sig OTC PRODUCT Multi vitamin po daily polyethylene glycol 3350 (MIRALAX) 17 gram/dose powder Take 17 g by mouth once daily. Dissolve dose in 4 - 8 ounces of liquid and take as directed. ALPRAZolam (XANAX) 0.25 mg tablet TAKE 1 TABLET BY MOUTH THREE TIMES DAILY NEEDED FOR 90 DAYS DEXILANT 60 mg CpDM TAKE 1 CAPSULE BY MOUTH ONCE DAILY 30 TO 45 MINUTES BEFORE A MEAL. gabapentin (NEURONTIN) 100 mg capsule TAKE 1 CAPSULE BY MOUTH THREE TIMES DAILY ALONG WITH 300 MG CAP TO EQUAL 400 MG DAILY promethazine (PHENERGAN) 12.5 mg tablet Take 1 tablet by mouth every 6 hours as needed for nausea/vomiting. If nausea occurs during colonoscopy prep No current facility-administered medications for this visit. Past Medical and Surgical History: has a past medical history of Multiple thyroid nodules. has a past surgical history that includes laparoscopic splenectomy; total abdom hysterectomy; appendectomy (Bilateral); and removal gallbladder. 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 Neurologic Exam: Mental Status: (more content not included)... [facility] 12-04-2022 Instructions Aleksander Thao MD - 12/04/2022 2:39 PM EDT The problems you are having with right hand tremor is most likely due to Parkinson's disease. Parkinson's disease is a clinical diagnosis, meaning the diagnosis is based on signs and symptoms; there is no blood test, and it cannot be diagnosed using an MRI. First, for the anxiety, let's try sertraline (50 mg) one pill each day. Keep in mind that this medication takes 4-6 weeks to take full effect. After a two weeks, then I would like to try a Parkinson's medication called Sinemet (carbidopa/levodopa 25/100). Please take 1/2 pill three times per day, roughly meal times, for one week. Then increase to 1 pill three times per day and remain on that dose. Please see me again in 3-4 months, in person or virtual visit. documented in this encounter [facility] 12-04-2022 History of Presen t illness Narrative [facility] - NEW PATIENT EVALUATION Referring Provider: Jay Cates [address] [place] [id number] Dear Jay Cates: Thank you for referring Ms. Warren to our clinic today. As you know she is a 72 year old right-handed female who is seen in consultation for evaluation of RUE tremor since August 2022 . Subjective HISTORY OF PRESENT ILLNESS: Saw general neurology in October (Dr. Cates) for tremor, referred here due to concern for Parkinson disease. MRI brain was unremarkable. She recalls tremors starting fairly suddenly in late August. She woke up with it one day in August. Only the right hand. Resting tremor only. No action tremor. Anxiety makes it worse. Xanax 0.25 mg helps. She has decreased energy. Feels generally weak. Feels unsteady with gait. Walking is slower. She takes gabapentin 400 mg tid. She is unable to lower the dose due to withdrawal symptoms. She previously took Phenergan, only for colonoscopies it sounds like, none in past five years. Pertinent Neurologic ROS: Patient reports depress mood/anxiety: Chronic anxiety, worse since August. She is prescribed Xanax 0.25 mg chronically, took 0.5 mg nightly for years. reports impaired Memory/Cognitive: Feels a little foggy . denies hallucinations: Patient reports sleep disturbances. Sleeps well with Xanax denies REM behavioral disorder (RBD): Patient reports difficulties bowel/bladder control. Some constipation, prunes help reports Swallowing difficulties. Chronic. Mostly trouble with pill. reports Orthostatic hypotension symptoms. Especially with steps. Even sitting still sometimes she tells me. Sense of smell is decreased, since end of August she thinks Voice is unchanged Handwriting is unchanged Questionnaires In addition, the following areas that may be affected by abnormal involuntary movements were evaluated: Daily activities Difficulties with eatin (none) Difficulties in dressin (none) Difficulties with hygiene activities: 0 (none) Difficulties with handwritin (none) Difficulties with doing hobbies and other activities: Yes (mild) Difficulties turning in bed: 0 (none) Difficulties getting out of bed, car or chair: 0 (none) Tremors/Gait/Balance Shaking or tremors: Yes (mild) Walking and balance problems: Yes (slight) Number of falls in the Last Month: none Gait freezin (none) Autonomic/Pain Lightheadeness on standing: Yes (mild) Urinary problems: 0 (none) Constipation problems: Yes (mild) Pain and other sensations: 0 (none) Speech/Swallowing Speech problems: 0 (none) Droolin (none) Chewing and swallowing problems: Yes (slight) Sleep/Fatigue Sleep problems: Yes (slight) Daytime sleepiness: Yes (mild) Fatigue: Yes (severe) Mood/Behavior Depression: PHQ-9 Score: 10 usually representing moderate (10-14) depression. Anxiety: MISAEL-7 Total Score: 11 usually representing moderate (10-14) anxiety. Finally, the following table shows the patient's overall global physical and mental health using the PROMIS scale: PROMIS-10 Flowsheet Row Office Visit from 12/04/2022 in [facility] Global Physical Health T Score 39.8 Global Mental Health T Score 28.4 0-10 Standard Pain Scale 5 *PROMIS-10 scoring scale: mean = 50, over 50 is above average, under 50 is below average Review of Systems ALLERGIES Allergen Reactions Iodine Vomiting Shellfish Derived Hives Current Outpatient Medications Medication Sig OTC PRODUCT Multi vitamin po daily polyethylene glycol 3350 (MIRALAX) 17 gram/dose powder Take 17 g by mouth once daily. Dissolve dose in 4 - 8 ounces of liquid and take as directed. ALPRAZolam (XANAX) 0.25 mg tablet TAKE 1 TABLET BY MOUTH THREE TIMES DAILY NEEDED FOR 90 DAYS DEXILANT 60 mg CpDM TAKE 1 CAPSULE BY MOUTH ONCE DAILY 30 TO 45 MINUTES BEFORE A MEAL. gabapentin (NEURONTIN) 100 mg capsule TAKE 1 CAPSULE BY MOUTH THREE TIMES DAILY ALONG WITH 300 MG CAP TO EQUAL 400 MG DAILY promethazine (PHENERGAN) 12.5 mg tablet Take 1 tablet by mouth every 6 hours as needed for nausea/vomiting. If nausea occurs during colonoscopy prep No current facility-administered medications for this visit. Past Medical and Surgical History: has a past medical history of Multiple thyroid nodules. has a past surgical history that includes laparoscopic splenectomy; total abdom hysterectomy; appendectomy (Bilateral); and removal gallbladder. 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 Neurologic Exam: Mental Status: orientation to time, place, person. Good historian. No aphasia. Able to spell APPLE forwards and backwards. Knows 7 quarters in $1.75. Cranial nerves: Pupils equal round and reactive to light. No visual field defects. EOMI. Normal facial sensation. Normal facial symmetry and movements. Normal hearing and vestibular function. Normal palatal movement. Normal shoulder shrug and head rotation. Tongue protrudes midline Motor: No pronator drift. Power is 5/5 throughout. Sensation: Light touch intact in all 4 extremities. Vibration intact Reflexes: Normal 2+ reflexes throughout Coordination: Normal finger-to- nose-finger Gait: Stands with ease, good stride length and rate. Good arm swing. Movement Disorders Scales Performed: MDS-UPDRS Motor subscale condition of exam Medication Off/On/Naiive Drug Naiive Time of UPDRS Time of Last Medication Last Medication Taken DBS Right N/A DBS Left N/A MDS-UPDRS Motor subscale scores Speech 0-Normal. No speech problems. Facial Expression 0-Normal. Normal facial expression. Rigidity Neck 0-Normal. No rigidity. Rigidity Right Upper Extremity 1-Slight. Rigidity only detected with activation maneuver. Rigidity Left Upper Extremity 1-Slight. Rigidity only detected with activation maneuver. Rigidity Right Lower Extremity 0-Normal. No rigidity. Rigidity Left Lower Extremity 0-Normal. No rigidity. Finger Taps Right 1-Slight. a) the regular rhythm is broken with one or two interruptions or hesitations of the tapping movement, b) slight slowing, c) the amplitude decrements near the end of the 10 taps. Finger Taps Left 0-Normal. No problems. Hand Movements Right 0-Normal. No problem. Hand Movements Left 0-Normal. No problem. Arm Movements Right 0-Normal. No problems. Arm Movements Left 0-Normal. No problems. Toe Taps Right 0-Normal. No problem. Toe Taps Left 0-Normal. No problem. Leg Agility Right 0-Normal. No problems. Leg Agility Left 0-Normal. No problems. Arise From Chair 0-Normal. No problems. Able to arise quickly without hesitation. Gait 0-Normal. No problems. Gait Freezing 0-Normal. No freezing. Posture Stability 0-Normal. No problems: recovers with one or two steps. Posture 0-Normal. No problems. Body Bradykinesia 0-Normal. No problems. Postural Tremor Hand Right 2-Mild. Tremor is at least 1 but less than 3 cm in amplitude. Postural Tremor Hand Left 0-Normal. No tremor. Kinetic Tremor Right 0-Normal. No tremor. Kinetic Tremor Left 0-Normal. No tremor. Rest Tremor Amplitude Right Upper Extremity 2-Mild. > 1 cm but < 3 cm in maximal amplitude. Rest Tremor Amplitude Left Upper Extremity 0-Normal. No tremor. Rest Tremor Amplitude Right Lower Extremity 0-Normal. No tremor. Rest Tremor Amplitude Left Lower Extremity 0-Normal. No tremor. Rest Tremor Amplitude Lip/Jaw 0-Normal. No tremor. Rest Tremor Constancy 4-Severe. Tremor at rest is present > 75% of the entire examination period. MDS-UPDRS Motor subscale totals Left Total 1 Right Total 6 Midline Total 0 Tremor Total / 10 8 PIGD Total / 3 0 Overall Total 11 % Change Compared to Last Filed Total MRI brain 11/28/2022: IMPRESSION: Unremarkable age-appropriate brain MRI. Minimal presumed chronic white matter microangiopathic changes. No acute intracranial finding. Assessment and Plan: Assessment Ms. Warren is a right-handed 72 year old year old female with anxiety who presents for evaluation of RUE resting tremor which started suddenly one day in August. Exam notable for constant mild/moderate RUE resting tremor, without clear rigidity or bradykinesia (perhaps subtle findings are present). She has hyposmia, anxiety, and constipation. Most likely this is idiopathic Parkinson's disease - L-dopa trial will be helpful. Normal MRI is reassuring. The following are the current problems noted and addressed during this visit: Resting tremor Parkinson disease (hcc) (primary encounter diagnosis) Anxiety Plan 12/04/2022 Visit: Parkinson's disease - Sinemet 25/100, uptitrate to 1 tab tid Anxiety - Prior to Sinemet, would start sertraline 50 mg daily. Consider psychiatry referral if she is unable to tolerate this. She also takes Xanax 0.25 mg prn (currently taking daily and for sleep Constipation - continue prunes. Could try senna. Miralax even low dose causes diarrhea she tells me Follow up in 3-4 months, with me or TERE Updated Movement Disorders Medication Schedule: Medications Sinemet 25/100 1 1 1 sertraline 50 mg 1 xanax 0.25 mg prn Time spent 60 min on the day of service, which included preparing to see the patient, [id number] patient care, completing clinical documentation, obtaining and/or reviewing separately obtained history, performing a medically appropriate examination, counseling and educating the patient/family/caregiver, and ordering medications, tests, or procedures. Thank you for allowing me to be part of the clinical care of this patient! I look forward to continued participation in the patient s care with you. Please do not hesitate to call with any questions. Sincerely, Aleksander Thao MD documented in this encounter [facility] 11-28-2022 Note HNO ID: [id number] Author: Kaye Retana RT(R) Service: ? Author Type: Technologist Type: Progress Notes Filed: 11/28/2022 11:25 AM Note Text: Radiology Service Progress Note PATIENT NAME: Cindy Warren DATE OF SERVICE: November 28, 2022 TIME: 11:24 AM PATIENT IDENTITY VERIFICATION COMPLETED USING TWO (2) IDENTIFIERS: Name and Date of confirmed by patient verbally. FALL SCREENING: Has the patient had 2 falls in the last year or 1 fall with injury or currently using an Ambulatory Assistive Device (Walker, Cane, Wheelchair, Crutches, etc.)? No PATIENT GENDER DATA: Female. status: : No status: NO. PATIENT RELEVANT IMPLANT DATA REVIEWED: Yes RADIOLOGY DEPARTMENT: MR; Exam(s) Completed: Head: Routine Brain PERIPHERAL IV DATA: Not applicable SIGNED BY: RT Manan(R) November 28, 2022 11:[address] [facility] 11-28-2022 Miscellaneous Notes Spoke to patient to advise he of MRI results. Marie Ortiz November 28, 2022 1:09 PM Left message to call office. 11/28/2022 12:56 PM documented in this encounter [facility] 11-28-2022 History of Presen t illness Narrative Radiology Service Progress Note PATIENT NAME: Cindy Warren DATE OF SERVICE: November 28, 2022 TIME: 11:24 AM PATIENT IDENTITY VERIFICATION COMPLETED USING TWO (2) IDENTIFIERS: Name and Date of confirmed by patient verbally. FALL SCREENING: Has the patient had 2 falls in the last year or 1 fall with injury or currently using an Ambulatory Assistive Device (Walker, Cane, Wheelchair, Crutches, etc.)? No PATIENT GENDER DATA: Female. status: : No status: NO. PATIENT RELEVANT IMPLANT DATA REVIEWED: Yes RADIOLOGY DEPARTMENT: MR; Exam(s) Completed: Head: Routine Brain PERIPHERAL IV DATA: Not applicable SIGNED BY: RT Manan(R) November 28, 2022 11:24 AM documented in this encounter [facility] 11-18-2022 Miscellaneous Notes Spoke with patient aware of the results patient verbalized fully understands the results Appreciate your help calling patient at [phone] to let her know the EMG shows the large nerves in her body are all healthy. The muscles are also working well. Thanks! Jay Cates MD Left message to call office. 11/06/2022 10:17 AM documented in this encounter [facility] 11-06-2022 Note HNO ID: [id number] Author: Kem Martinez MD Service: ? Author Type: Physician Type: Progress Notes Filed: 11/06/2022 8:58 AM Note Text: UNIVERSAL PROTOCOL / SAFETY CHECKLIST Procedure to be Performed: EMG Sign In: A Moment of CARE was completed. Personnel directly involved with the procedure wore the appropriate PPE (Personal Protective Equipment). Patient/Surrogate Stated/Verified: PATIENT VERIFIED(optional for EMERGENT procedures): Patient name, Date of , Relevant allergies, and The intended procedure Time Out Communication: Intended patient and procedure match the source documents. Correct side/site marked and visible. Sign Out: SIGN OUT (optional for EMERGENT procedures): Post-procedure follow-up management communicated and Plan of Care Visit completed when applicable. Mila Martinez MD [facility] 11-06-2022 History of Presen t illness Narrative UNIVERSAL PROTOCOL / SAFETY CHECKLIST Procedure to be Performed: EMG Sign In: A Moment of CARE was completed. Personnel directly involved with the procedure wore the appropriate PPE (Personal Protective Equipment). Patient/Surrogate Stated/Verified: PATIENT VERIFIED(optional for EMERGENT procedures): Patient name, Date of , Relevant allergies, and The intended procedure Time Out Communication: Intended patient and procedure match the source documents. Correct side/site marked and visible. Sign Out: SIGN OUT (optional for EMERGENT procedures): Post-procedure follow-up management communicated and Plan of Care Visit completed when applicable. Mila Brownlee Spolter, MD documented in this encounter [facility] 11-03-2022 Miscellaneous Notes Spoke to patient to advise of normal lab results Patient stated understanding of information and had no further questions or concerns at this time. Marie Ortiz November 03, 2022 9:40 AM documented in this encounter [facility] 10-29-2022 Note HNO ID: [id number] Author: Jay Cates MD Service: ? Author Type: Physician Type: Progress Notes Filed: 10/29/2022 10:17 AM Note Text: General Neurology Outpatient Clinic - new patient evaluation Date: October 29, 2022 Patient Name: Cindy Warren Referring physician: SELF Primary physician: To use this Smartlink, specify the provider ID whose address you want to display, e.g., .[email or web address] (where 1 is the provider ID). Reason for Evaluation: tremors, generalized weakness HPI: The pt is a 72yo Right handed female with hx of - GERD - lichen sclerosis - anxiety Presenting for evaluation of tremors, generalized weakness. Accompanied by her of >20 years Per EMR, patient saw pain management 10/22/2022 for concern of gabapentin withdrawal with agitation, tremors, restlessness, anxiety. Gabapentin was started for lichens sclerosis in 2019. She also has increased depression, nausea, muscle weakness since August 2022. She's on GBP 400mg tid. Plan for clonidine 0.1mg daily to help with GBP withdrawal symptoms. Per patient, she's always had sluggishness from the gabapentin but has been able to function and exercise. In August, she noticed rapid progressive weakness generally and decreased endurance. There is no diurnal pattern. She has feel of falling because of weakness sensation. She feels fatigued and has low energy. In early September 2022, she also noticed rather acute onset right hand tremor, primarily at rest, but can happen with use such as lifting a cup at times. She has a long-standing history of dysphagia for 30 years. She denies preceding illness to these new symptoms. She denies known family history of neurological conditions She is concerned as the symptoms have really disrupted quality of life and she'd like to know an answer OUTPATIENT MEDICATIONS Current Outpatient Medications on File Prior to Visit Medication Sig OTC PRODUCT Multi vitamin po daily cloNIDine HCl (CATAPRES) 0.1 mg tablet Take 1 tablet by mouth once daily. promethazine (PHENERGAN) 12.5 mg tablet Take 1 tablet by mouth every 6 hours as needed for nausea/vomiting. If nausea occurs during colonoscopy prep polyethylene glycol 3350 (MIRALAX) 17 gram/dose powder Take 17 g by mouth once daily. Dissolve dose in 4 - 8 ounces of liquid and take as directed. ALPRAZolam (XANAX) 0.25 mg tablet TAKE 1 TABLET BY MOUTH THREE TIMES DAILY NEEDED FOR 90 DAYS atorvastatin (LIPITOR) 10 mg tablet Take 1 tablet by mouth every afternoon. DEXILANT 60 mg CpDM TAKE 1 CAPSULE BY MOUTH ONCE DAILY 30 TO 45 MINUTES BEFORE A MEAL. gabapentin (NEURONTIN) 100 mg capsule TAKE 1 CAPSULE BY MOUTH THREE TIMES DAILY ALONG WITH 300 MG CAP TO EQUAL 400 MG DAILY No current facility-administered medications on file prior to visit. MEDICAL HISTORY PAST MEDICAL HISTORY Diagnosis Date Multiple thyroid nodules SURGICAL HISTORY PAST SURGICAL HISTORY Procedure Laterality Date APPENDECTOMY Bilateral LAPAROSCOPIC SPLENECTOMY REMOVAL GALLBLADDER TOTAL ABDOM HYSTERECTOMY SOCIAL HISTORY Social History Tobacco Use Smoking status: Never Smokeless tobacco: Never Substance Use Topics Alcohol use: Never Drug use: Never FAMILY HISTORY No family history on file. ALLERGIES ALLERGIES Allergen Reactions Iodine Vomiting Shellfish Derived Hives REVIEW OF SYSTEMS: No fevers, chills No chest pain, palpitation Sometimes orthostasis No constipation, diarrhea Handwriting does seem smaller at times No RBD Some snoring, no witnessed apnea No falls but does feel off balance No paresthesias Some change in taste No diplopia No ptosis Some occasional leg cramps, not severe, on statin for years PHYSICAL EXAM: BP 154/86 Pulse 62 Wt 71.8 kg (158 lb 6.4 oz) BMI 26.36 kg/m? General appearance: Well appearing, alert, in no acute distress Head: Normocephalic, atraumatic. Neurological exam: Mental Status: Alert, oriented to person, place and time and Follows commands. Cranial Nerves: visual hoang intact to confrontation, extraocular movements intact, facial sensation intact, face symmetric, no facial droop or ptosis, hearing intact to finger rub bilaterally, no dysarthria, palate elevate symmetrically, tongue protrudes midline, and shoulder shrug intact and symmetric. +paucity of eye blink. Neg glabellar Motor: Right Upper: Left Upper: Deltoid: 5 Deltoid: 5 Triceps: 5 Triceps: 5 Biceps: 5 Biceps: 5 Director Of Operations: 5 Director Of Operations: 5 Finger abduction: 5 Finger abduction: 5 Finger adduction: 5 Finger adduction: 5 Right Lower: Left Lower: Iliopsoas: 5 Iliopsoas: 5 Knee flexor: 5 Knee flexor: 5 Knee extensor: 5 Knee extensor: 5 Dorsiflexion: 5 Dorsiflexion: 5 Plantarflexion: 5 Plantarflexion: 5 Motor Tone: Right Upper: Normal tone Left Upper: Normal tone Right Lower: Normal tone Left Lower: Normal tone No ptosis or dilpopia on sustained upward gaze for 30 seconds. Able to (more content not included)... [facility] 10-29-2022 Instructions Jay Cates MD - 10/29/2022 10:01 AM EDT Our plan For the tremors: you have resting tremors on your exam. We're going to see if the part of the brain that controls the tremors is hurt in anyway especially since your symptoms started so suddenly and quickly. Sometimes, the brain doesn't re-absorb the fluid it makes normally and causes stretching of parts of the brain that can also affect tremors. The MRI would be able to look at both. We're also checking a lot of labs for things that can affect tremors For the weakness; we're going to assess the health of the muscles in the body. One way is with a blood lab to look for ongoing muscle breakdown. The other part is a test called an EMG where we see how well the muscles are hollie. It does involve needles and electrical shocks so is not the most pleasant test. I am also sending you to the tremor expert doctors because I don't typically treat resting tremors I'll call you as the different tests results documented in this encounter [facility] 10-29-2022 History of Presen t illness Narrative Images from the original note were not included. General Neurology Outpatient Clinic - new patient evaluation Date: October 29, 2022 Patient Name: Cindy Warren Referring physician: GOLDEN Primary physician: To use this Smartlink, specify the provider ID whose address you want to display, e.g., .[email or web address] (where 1 is the provider ID). Reason for Evaluation: tremors, generalized weakness HPI: The pt is a 72yo Right handed female with hx of - GERD - lichen sclerosis - anxiety Presenting for evaluation of tremors, generalized weakness. Accompanied by her of >20 years Per EMR, patient saw pain management 10/22/2022 for concern of gabapentin withdrawal with agitation, tremors, restlessness, anxiety. Gabapentin was started for lichens sclerosis in 2018. She also has increased depression, nausea, muscle weakness since August 2022. She's on GBP 400mg tid. Plan for clonidine 0.1mg daily to help with GBP withdrawal symptoms. Per patient, she's always had sluggishness from the gabapentin but has been able to function and exercise. In August, she noticed rapid progressive weakness generally and decreased endurance. There is no diurnal pattern. She has feel of falling because of weakness sensation. She feels fatigued and has low energy. In early September 2022, she also noticed rather acute onset right hand tremor, primarily at rest, but can happen with use such as lifting a cup at times. She has a long-standing history of dysphagia for 30 years. She denies preceding illness to these new symptoms. She denies known family history of neurological conditions She is concerned as the symptoms have really disrupted quality of life and she'd like to know an answer OUTPATIENT MEDICATIONS Current Outpatient Medications on File Prior to Visit Medication Sig OTC PRODUCT Multi vitamin po daily cloNIDine HCl (CATAPRES) 0.1 mg tablet Take 1 tablet by mouth once daily. promethazine (PHENERGAN) 12.5 mg tablet Take 1 tablet by mouth every 6 hours as needed for nausea/vomiting. If nausea occurs during colonoscopy prep polyethylene glycol 3350 (MIRALAX) 17 gram/dose powder Take 17 g by mouth once daily. Dissolve dose in 4 - 8 ounces of liquid and take as directed. ALPRAZolam (XANAX) 0.25 mg tablet TAKE 1 TABLET BY MOUTH THREE TIMES DAILY NEEDED FOR 90 DAYS atorvastatin (LIPITOR) 10 mg tablet Take 1 tablet by mouth every afternoon. DEXILANT 60 mg CpDM TAKE 1 CAPSULE BY MOUTH ONCE DAILY 30 TO 45 MINUTES BEFORE A MEAL. gabapentin (NEURONTIN) 100 mg capsule TAKE 1 CAPSULE BY MOUTH THREE TIMES DAILY ALONG WITH 300 MG CAP TO EQUAL 400 MG DAILY No current facility-administered medications on file prior to visit. MEDICAL HISTORY PAST MEDICAL HISTORY Diagnosis Date Multiple thyroid nodules SURGICAL HISTORY PAST SURGICAL HISTORY Procedure Laterality Date APPENDECTOMY Bilateral LAPAROSCOPIC SPLENECTOMY REMOVAL GALLBLADDER TOTAL ABDOM HYSTERECTOMY SOCIAL HISTORY Social History Tobacco Use Smoking status: Never Smokeless tobacco: Never Substance Use Topics Alcohol use: Never Drug use: Never FAMILY HISTORY No family history on file. ALLERGIES ALLERGIES Allergen Reactions Iodine Vomiting Shellfish Derived Hives REVIEW OF SYSTEMS: No fevers, chills No chest pain, palpitation Sometimes orthostasis No constipation, diarrhea Handwriting does seem smaller at times No RBD Some snoring, no witnessed apnea No falls but does feel off balance No paresthesias Some change in taste No diplopia No ptosis Some occasional leg cramps, not severe, on statin for years PHYSICAL EXAM: BP 154/86 Pulse 62 Wt 71.8 kg (158 lb 6.4 oz) BMI 26.36 kg/m General appearance: Well appearing, alert, in no acute distress Head: Normocephalic, atraumatic. Neurological exam: Mental Status: Alert, oriented to person, place and time and Follows commands. Cranial Nerves: visual hoang intact to confrontation, extraocular movements intact, facial sensation intact, face symmetric, no facial droop or ptosis, hearing intact to finger rub bilaterally, no dysarthria, palate elevate symmetrically, tongue protrudes midline, and shoulder shrug intact and symmetric. +paucity of eye blink. Neg glabellar Motor: Right Upper: Left Upper: Deltoid: 5 Deltoid: 5 Triceps: 5 Triceps: 5 Biceps: 5 Biceps: 5 Director Of Operations: 5 Director Of Operations: 5 Finger abduction: 5 Finger abduction: 5 Finger adduction: 5 Finger adduction: 5 Right Lower: Left Lower: Iliopsoas: 5 Iliopsoas: 5 Knee flexor: 5 Knee flexor: 5 Knee extensor: 5 Knee extensor: 5 Dorsiflexion: 5 Dorsiflexion: 5 Plantarflexion: 5 Plantarflexion: 5 Motor Tone: Right Upper: Normal tone Left Upper: Normal tone Right Lower: Normal tone Left Lower: Normal tone No ptosis or dilpopia on sustained upward gaze for 30 seconds. Able to breath to 28, then 20, then 23 in one breath Tremors: resting tremor of RUE noted. Some decrement on finger tapping RUE, very mild Reflexes: 2/4 biceps, brachioradialis, patellars. Downgoing plantars. No ankles clonus Sensation: reduced vibration distal RLE in toes, intact at ankles. otherwise intact BUE and BLE to touch, temperature, vibration, proprioception Coordination: Finger-to- nose-finger intact bilaterally and [id number] intact bilaterally. Gait: normal-based with intact arm swing. Independent tiptoe gait but held onto examiner for tandem gait Romberg: neg LABS/DATA: 10/10/2022 TSH 2.18 05/29/2019 CK 43 ASSESSMENT: The pt is a 72 year old female with a history of GERD, lichen sclerosis, anxiety who presents with worsening generalized weakness since August 2022 and new onset RUE tremors since September 2022. Given rapid onset of tremor, would like to r/o vascular cause. Some of the symptoms endorsed by patient (change in taste, some micrographia, imbalance) and presence of resting tremors raises possible concern for mild parkinsonism though exam otherwise not overtly suggestive. Exam suggests against neuromuscular weakness particularly without fatigable component. PLAN: - MRI brain wo - metabolic labs - EMG, myopathy protocol - referral to movement disorders re resting tremor - f/u pending above evaluation I spent a total of 60 minutes on the date of the service which included preparing to see the patient, [id number] patient care, completing clinical documentation, obtaining and/or reviewing separately obtained history, performing a medically appropriate examination, counseling and educating the patient/family/caregiver, ordering medications, tests, or procedures, and independently interpreting results (not separately reported). Jay Cates MD Staff, General Neurology Pager: [phone] CC: Referring Physician: SELF PCP: To use this Smartlink, specify the provider ID whose address you want to display, e.g., .PROVADDR[1 (where 1 is the provider ID). documented in this encounter [facility] 10-22-2022 Note HNO ID: [id number] Author: Anthony Berg MD Service: ? Author Type: Physician Type: Progress Notes Filed: 10/23/2022 10:55 AM Note Text: [facility] Pain Management Department New Patient Consultation Referring Physician: SELF Chief Complaint: withdrawal from gabapentin SUBJECTIVE: Cindy Warren is a 72 year old female with a pertinent past medical history of lichen sclerosis, anxiety who presents to [facility] for the evaluation of withdrawal symptoms related to Gabapentin . 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 However in 2019, she was correctly diagnosed with lichens sclerosis , at which time she was told to come off the Gabapentin. However, over the last few years, she has had trouble down titrating and coming off Gabapentin. Her withdrawal symptoms include agitation, tremors, restlessness, anxiety, however she had increased depression, nausea, muscle weakness since August 2022. Her current dose of Gabapentin is 400/400/400, and hasn't been able to come down any lower. When she does take the Gabapentin, she experiences sluggishness and fatigue without any benefit. She has no chronic pain complaints currently. When she experiences the withdrawal symptoms, she takes Tylenol, Advil, antiemetics PRN. She has tried varying intervals (days, weeks) of self regulated down-titration without any success. She would be happy being able to come down, if not totally off, the Gabapentin. She has had several ED visits presenting with withdrawal symptoms (most recently September 05, 2022) including total body shaking, weakness, fatigue, where her symptoms were treated conservatively. Worker's Compensation: No. The patient denies red flags. Physical Therapy/Home Exercise: n/a Current Pain Medications and Dosages: - Opioids: N - NSAIDs: N - Anti-Depressants: N - Anti-Convulsants: gabapentin 400mg TID - Others: alprazolam 0.25mg (takes 0.5mg qHS) Prior treatments: - self down-titration of Gabapentin Prior Pain Procedures (with percentage of pain relief and duration of relief): n/a OARRS report: Reviewed: The patient's OARRS report was reviewed and is consistent with the reported medication use. Pain medications reviewed: Yes Pertinent Imaging: n/a PAST MEDICAL HISTORY Diagnosis Date Multiple thyroid nodules PAST SURGICAL HISTORY Procedure Laterality Date APPENDECTOMY Bilateral LAPAROSCOPIC SPLENECTOMY REMOVAL GALLBLADDER TOTAL ABDOM HYSTERECTOMY Social History Tobacco Use Smoking status: Never Smokeless tobacco: Never Substance Use Topics Alcohol use: Never Drug use: Never No family history on file. ALLERGIES Allergen Reactions Iodine Vomiting Current Outpatient Medications Medication Sig OTC PRODUCT Multi vitamin po daily promethazine (PHENERGAN) 12.5 mg tablet Take 1 tablet by mouth every 6 hours as needed for nausea/vomiting. If nausea occurs during colonoscopy prep polyethylene glycol 3350 (MIRALAX) 17 gram/dose powder Take 17 g by mouth once daily. Dissolve dose in 4 - 8 ounces of liquid and take as directed. ALPRAZolam (XANAX) 0.25 mg tablet TAKE 1 TABLET BY MOUTH THREE TIMES DAILY NEEDED FOR 90 DAYS atorvastatin (LIPITOR) 10 mg tablet Take 1 tablet by mouth every afternoon. DEXILANT 60 mg CpDM TAKE 1 CAPSULE BY MOUTH ONCE DAILY 30 TO 45 MINUTES BEFORE A MEAL. gabapentin (NEURONTIN) 100 mg capsule TAKE 1 CAPSULE BY MOUTH THREE TIMES DAILY ALONG WITH 300 MG CAP TO EQUAL 400 MG DAILY cloNIDine HCl (CATAPRES) 0.1 mg tablet Take 1 tablet by mouth once daily. No current facility-administered medications for this visit. Questionnaires: Patient Entered Questionnaires PROMIS Score Percentiles Percentiles provide an indication of how the patient's score ranks in relation to the general population. Higher percentile rankings indicate better function/quality of life. 50th percentile is the average of the general population and indicates half of respondents had a worse score. > 31st percentile is within normal limits or better * < 31st percentile is at least ? SD worse than population, which may be clinically relevant < 16th percentile is at least 1 SD worse than population and warrants attention Depression Screening: PHQ-9 Self-Harm (Item 9) response options: 0 Not at all 1 Several days 2 More than half the days 3 Nearly every day PHQ-9 Levels: 0-4 Minimal depression 5-9 Mild depression 10-14 Moderate depression 15-19 Moderately severe depression 20-27 Severe depression No flowsheet data found.(0-4) minimal depression, (5-9) mild depression, (10-14) moderate depression, (15-19) moderately severe depression, (20-27) severe depression No flowsheet data found. No flowsheet data found. REVIEW OF SYSTEMS: GEN (more content not included)... [facility] 10-22-2022 History of Presen t illness Narrative [facility] Pain Management Department New Patient Consultation Referring Physician: SELF Chief Complaint: withdrawal from gabapentin SUBJECTIVE: Cindy Warren is a 72 year old female with a pertinent past medical history of lichen sclerosis, anxiety who presents to [facility] for the evaluation of withdrawal symptoms related to Gabapentin . 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 However in 2019, she was correctly diagnosed with lichens sclerosis , at which time she was told to come off the Gabapentin. However, over the last few years, she has had trouble down titrating and coming off Gabapentin. Her withdrawal symptoms include agitation, tremors, restlessness, anxiety, however she had increased depression, nausea, muscle weakness since August 2022. Her current dose of Gabapentin is 400/400/400, and hasn't been able to come down any lower. When she does take the Gabapentin, she experiences sluggishness and fatigue without any benefit. She has no chronic pain complaints currently. When she experiences the withdrawal symptoms, she takes Tylenol, Advil, antiemetics PRN. She has tried varying intervals (days, weeks) of self regulated down-titration without any success. She would be happy being able to come down, if not totally off, the Gabapentin. She has had several ED visits presenting with withdrawal symptoms (most recently September 05, 2022) including total body shaking, weakness, fatigue, where her symptoms were treated conservatively. Worker's Compensation: No. The patient denies red flags. Physical Therapy/Home Exercise: n/a Current Pain Medications and Dosages: - Opioids: N - NSAIDs: N - Anti-Depressants: N - Anti-Convulsants: gabapentin 400mg TID - Others: alprazolam 0.25mg (takes 0.5mg qHS) Prior treatments: - self down-titration of Gabapentin Prior Pain Procedures (with percentage of pain relief and duration of relief): n/a OARRS report: Reviewed: The patient's OARRS report was reviewed and is consistent with the reported medication use. Pain medications reviewed: Yes Pertinent Imaging: n/a PAST MEDICAL HISTORY Diagnosis Date Multiple thyroid nodules PAST SURGICAL HISTORY Procedure Laterality Date APPENDECTOMY Bilateral LAPAROSCOPIC SPLENECTOMY REMOVAL GALLBLADDER TOTAL ABDOM HYSTERECTOMY Social History Tobacco Use Smoking status: Never Smokeless tobacco: Never Substance Use Topics Alcohol use: Never Drug use: Never No family history on file. ALLERGIES Allergen Reactions Iodine Vomiting Current Outpatient Medications Medication Sig OTC PRODUCT Multi vitamin po daily promethazine (PHENERGAN) 12.5 mg tablet Take 1 tablet by mouth every 6 hours as needed for nausea/vomiting. If nausea occurs during colonoscopy prep polyethylene glycol 3350 (MIRALAX) 17 gram/dose powder Take 17 g by mouth once daily. Dissolve dose in 4 - 8 ounces of liquid and take as directed. ALPRAZolam (XANAX) 0.25 mg tablet TAKE 1 TABLET BY MOUTH THREE TIMES DAILY NEEDED FOR 90 DAYS atorvastatin (LIPITOR) 10 mg tablet Take 1 tablet by mouth every afternoon. DEXILANT 60 mg CpDM TAKE 1 CAPSULE BY MOUTH ONCE DAILY 30 TO 45 MINUTES BEFORE A MEAL. gabapentin (NEURONTIN) 100 mg capsule TAKE 1 CAPSULE BY MOUTH THREE TIMES DAILY ALONG WITH 300 MG CAP TO EQUAL 400 MG DAILY cloNIDine HCl (CATAPRES) 0.1 mg tablet Take 1 tablet by mouth once daily. No current facility-administered medications for this visit. Questionnaires: Patient Entered Questionnaires PROMIS Score Percentiles Percentiles provide an indication of how the patient's score ranks in relation to the general population. Higher percentile rankings indicate better function/quality of life. 50th percentile is the average of the general population and indicates half of respondents had a worse score. > 31st percentile is within normal limits or better * < 31st percentile is at least SD worse than population, which may be clinically relevant < 16th percentile is at least 1 SD worse than population and warrants attention Depression Screening: PHQ-9 Self-Harm (Item 9) response options: 0 Not at all 1 Several days 2 More than half the days 3 Nearly every day PHQ-9 Levels: 0-4 Minimal depression 5-9 Mild depression 10-14 Moderate depression 15-19 Moderately severe depression 20-27 Severe depression No flowsheet data found.(0-4) minimal depression, (5-9) mild depression, (10-14) moderate depression, (15-19) moderately severe depression, (20-27) severe depression No flowsheet data found. No flowsheet data found. REVIEW OF SYSTEMS: GENERAL: Fatigue HEENT: +headaches, No changes in hearing or vision, no nose bleeds or other nasal problems NECK: Negative for lumps, goiter, pain and significant neck swelling RESPIRATORY: Negative for cough, wheezing or shortness of breath. CARDIOVASCULAR: Negative for chest pain, leg swelling or palpitations. GASTROINTESTINAL: GERD GENITOURINARY: No history of dysuria, frequency or incontinence MUSCULOSKELETAL: muscle pain NEUROLOGIC: Negative for focal numbness or weakness, and dizziness or syncope. SKIN: Negative for lesions, rash, and itching. PSYCHIATRIC: anxiety, depression HEMATOLOGIC/LYMPHATIC/IMMUNOLOGI C: Negative for prolonged bleeding, bruising easily or swollen nodes. ENDOCRINE: Negative for cold or heat intolerance, polyuria, polydipsia and goiter. The remainder of the ROS was negative. OBJECTIVE: BP 139/67 Pulse 63 Temp 96.4 Ht 5' 5 (1.65m) Wt 160 lb (72.6kg) SpO2 99% BMI 26.63 kg/(m^2). PHYSICAL EXAMINATION: General:well appearing and alert, tearful during exam Psych: Appropriate affect Skin: skin color, texture, turgor normal, no rashes or lesions HEENT: normocephalic, atraumatic, sclera non-icteric CV: Regular rate and rhythm, no murmur, clicks or rubs Resp: Unlabored on room air GI: Soft, non-tender, non-distended. : not examined Musculoskeletal: Neck: Supple; good ROM. Extremities: Extremities normal. No deformities, edema, or skin discoloration Neurological: Mental Status: alert, oriented to person, place, and time Cranial Nerves: Cranial nerves II-XII are grossly intact Reflexes: Not Examined Gait: Normal. ASSESSMENT: This is a 72 year old female with a pertinent past medical history of anxiety, depression who presents to [facility] for management of Gabapentin withdrawal. She was first started on Gabapentin in 2019, and has not had any success with self-guided weaning of Gabapentin. Her most troubling symptoms include restlessness, agitation, tremors, which can resemble benzodiazepine withdrawal (she has been on Alprazolam 0.5mg qHS), however she has been on chronic benzodiazepines for several years preceding the Gabapentin and does not miss any daily doses. Although very rare, her symptoms seem to be related directly to Gabapentin withdrawal. We will trial her on PO Clonidine 0.1mg daily to help offset the withdrawal symptoms. (M79.10) Myalgias (primary encounter diagnosis) (F13.939) 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) PLAN: - prescribed Clonidine 0.1mg daily to alleviate symptoms associated with Gabapentin withdrawal - after seeing Neurology on 10/29/22, will start slow wean of Gabapentin (reduce total daily dose by 100mg weekly-biweekly) while keeping the highest dose for night time to assist with sleep; ie. 300mg qAM, 400mg afternoon, 400mg qHS x 1-2 weeks - Follow up: Return to clinic in 3-6 months The above plan and management options were discussed at length with the patient. The patient is in agreement with the above and verbalized understanding. It will be communicated with the referring physician via electronic record, fax, or mail. Kahlil Blackman MD October 22, 2022 Staff Note I was physically present during the fox portions of the Service. I confirmed the fox findings and directed the treatment plans in decision making. Anthony Berg MD, PhD documented in this encounter [facility] 10-16-2022 Miscellaneous Notes Pa denied no explanation CAITIE Glaser October 16, 2022 3:40 PM PA initiated electronically via [employer]. Await response. documented in this encounter [facility] 10-15-2022 Note HNO ID: [id number] Author: Abigail Walters APRN.[employer] Service: ? Author Type: Nurse Practitioner Type: Progress Notes Filed: 10/15/2022 2:28 PM Note Text: DEPARTMENT OF GASTROENTEROLOGY - NEW PATIENT/CONSULT REASON FOR VISIT Cindy Warren is a 72 year old female who is scheduled at the request of for Newly Diagnosed (IBS). My final recommendations will be communicated back to the requesting physician by the way of the shared medical record, fax, or via US Mail HISTORY OF PRESENT ILLNESS Cindy Warren is a 72 year old female who presents today for an evaluation of IBS. BMs vary, alternative between constipation and diarrhea Can skip up to 5 days without going Then will have loose stools Abdominal cramping Acid reflux Feels like food going down very slowly - has had a dilation in the past Frequently coughs after meals Recently had an esophageal spasm Throat feels sore often, feels irritated Some nausea, typically no vomiting -vomited once after dinner within the last 6 months Eats slowly, smaller portions Has tried: Metamucil - felt worse when taking it Prunes Zofran, doesn't help Family hx: Colon cancer - mother PRIOR TEST RESULTS 03/2020 CT abd/pelvis IMPRESSION: 1. No acute intra-abdominal abnormality. 2. Couple of right basilar pulmonary nodules measuring up to 0.5 cm. If clinically indicated, consider CT follow-up in accordance with guidelines below. 07/2021 EGD Esophageal changes consistent with reflux, no EoE or Barretts No past medical history on file. No past surgical history on file. Current Outpatient Medications Medication Sig Dispense Refill ALPRAZolam (XANAX) 0.25 mg tablet TAKE 1 TABLET BY MOUTH THREE TIMES DAILY NEEDED FOR 90 DAYS atorvastatin (LIPITOR) 10 mg tablet Take 1 tablet by mouth every afternoon. DEXILANT 60 mg CpDM TAKE 1 CAPSULE BY MOUTH ONCE DAILY 30 TO 45 MINUTES BEFORE A MEAL. gabapentin (NEURONTIN) 100 mg capsule TAKE 1 CAPSULE BY MOUTH THREE TIMES DAILY ALONG WITH 300 MG CAP TO EQUAL 400 MG DAILY No current facility-administered medications for this visit. ALLERGIES Allergen Reactions Iodine Vomiting Social History Tobacco Use Smoking status: Never Smokeless tobacco: Never PHYSICAL EXAMINATION BP 127/59 Pulse 67 Ht 5' 5 (1.65m) Wt 160 lb 0.9 oz (72.6kg) BMI 26.63 kg/(m2). General appearance: Appears well, alert, in no acute distress, well nourished. Skin: Skin color and temperature normal. No obvious rashes or lesions noted on exposed skin. Head: Normocephalic, atraumatic. No masses or lesions noted. Eyes: Anicteric sclera. Pupils are equally round. Ears: External ears normal Lungs: Normal effort Abdomen: Soft, non-distended. Extremities: No deformities or pitting pedal edema noted. Psych: Pleasant affect, cooperative, A+O x3. IMPRESSION (R13.19) Esophageal dysphagia (primary encounter diagnosis) (Z12.11) Colon cancer screening (Z80.0) Family history of colon cancer in mother PLAN Schedule esophagram Schedule colonoscopy Miralax 1 capful once daily Plan is to follow up after test(s) I spent a total of 35 minutes on the date of the service which included preparing to see the patient, [id number] patient care, completing clinical documentation, counseling and educating the patient/family/caregiver, and ordering medications, tests, or procedures. Abigail Walters APRN.LAURA October 15, 2022 [facility] 10-15-2022 Instructions Abigail Walters APRN.CNP - 10/15/2022 1:26 PM EDT Images from the original note were not included. Schedule esophagram Schedule colonoscopy [phone] Miralax 1 capful once daily Bowel Preparation Instructions for: Golytely, Nulytely, Trilyte or Colyte (polyethylene glycol 3350 and electrolytes) IF YOU DO NOT FOLLOW THESE DIRECTIONS, YOUR COLONOSCOPY WILL BE CANCELLED. Fox Instructions: Your bowel must be empty so that your doctor can clearly view your colon. Follow all of the instructions in this handout EXACTLY as they are written. Do NOT eat any solid food the ENTIRE day before your colonoscopy. Drink only clear liquids. Buy your bowel preparation at least 5 days before your colonoscopy. TRANSPORTATION on the Day of Your Exam A responsible person MUST be present with you at Check In prior to your colonoscopy and REMAIN in the endoscopy area until you are discharged. You are NOT ALLOWED to drive, take a taxi or bus, or leave the Endoscopy Center ALONE. If you do not have a responsible jitney driver (family member or friend) with you to take you home, your exam cannot be done with sedation and will be cancelled. Please bring a list of all of your current medications, including any Over-the Counter medications with you. Medications If you take insulin, diabetic medications or blood thinners such as Coumadin (warfarin), Plavix (clopidogrel), Ticlid (ticlopidine hydrochloride), Agrylin (anagrelide), Xarelto (Rivaroxaban), Pradaxa (Dabigatran), Eliquis (Apixaban), and Effient (Prasugrel). You MUST call the doctors who orders those medicines for instructions on altering the dosage before your colonoscopy. All other medications should be taken the day of the exam with a sip of water including ASPIRIN. Five (5) Days Before Your Colonoscopy Do NOT take medicines that stop diarrhea - such as Imodium, Kaopectate, or Pepto Bismol. Do NOT take fiber supplements - such as Metamucil, Citrucel, or Perdiem. Do NOT take products that contain iron - such as multi-vitamins (the label lists what is in the products). Do NOT take Vitamin E. Buy the prescription bowel preparation solution at your local pharmacy or [facility]. 02/2019 Bowel Preparation Instructions for: Golytely, Nulytely, Trilyte or Colyte (polyethylene glycol 3350 and electrolytes) Three (3) Days Before Your Colonoscopy Do NOT eat high-fiber foods - such as popcorn, beans, seeds (flax, sunflower, quinoa), multigrain bread, nuts, salad/vegetables, or fresh and dried fruit. One (1) Day Before Your Colonoscopy Only drink clear liquids the ENTIRE DAY before your colonoscopy. Do NOT eat any solid foods. Drink at least 8 ounces of clear liquids every hour after waking up. The clear liquids you can drink include: Clear Liquid (NO RED LIQUIDS) DO NOT DRINK Gatorade, Pedialyte or Powerade Clear broth or bouillon Coffee or tea (no milk or non-dairy creamer) Carbonated and non-carbonated soft drinks Ayan-Aid or other fruit flavored drinks Strained fruit juices (no pulp) Jell-O, popsicles, hard candy Water Alcohol Milk or non-dairy creamers Noodles or vegetables in soup Juice with pulp Liquid you cannot see through Do not use tobacco/vaping products The bowel preparation solution will be consumed in two parts. Mix the solution the evening before your colonoscopy and refrigerate before drinking. You may add the flavor pack that came with the bowel preparation. Do NOT add ice, sugar or any other flavorings to the solution. Part 1 At 6:00 PM - Evening before your colonoscopy Drink an 8-oz glass of bowel preparation every 10 minutes for a total of 8 glasses. You may continue to drink clear liquids until midnight. Part 2 On the day of your colonoscopy you may drink clear liquids up to (three) 3 hours before your procedure. 4 1/2 hours before your colonoscopy Drink an 8-oz glass of bowel preparation every 10 minutes for a total of 8 glasses. Fifteen (15) minutes later, drink an 8-oz glass of clear liquids every 15 minutes for a total of 2 glasses. You may continue to drink clear liquids up to (three) 3 hours before your exam. 2 02/2019 documented in this encounter [facility] 10-15-2022 History of Presen t illness Narrative DEPARTMENT OF GASTROENTEROLOGY - NEW PATIENT/CONSULT REASON FOR VISIT Cindy Warren is a 72 year old female who is scheduled at the request of for Newly Diagnosed (IBS). My final recommendations will be communicated back to the requesting physician by the way of the shared medical record, fax, or via US Mail HISTORY OF PRESENT ILLNESS Cindy Warren is a 72 year old female who presents today for an evaluation of IBS. BMs vary, alternative between constipation and diarrhea Can skip up to 5 days without going Then will have loose stools Abdominal cramping Acid reflux Feels like food going down very slowly - has had a dilation in the past Frequently coughs after meals Recently had an esophageal spasm Throat feels sore often, feels irritated Some nausea, typically no vomiting -vomited once after dinner within the last 6 months Eats slowly, smaller portions Has tried: Metamucil - felt worse when taking it Prunes Zofran, doesn't help Family hx: Colon cancer - mother PRIOR TEST RESULTS 03/2020 CT abd/pelvis IMPRESSION: 1. No acute intra-abdominal abnormality. 2. Couple of right basilar pulmonary nodules measuring up to 0.5 cm. If clinically indicated, consider CT follow-up in accordance with guidelines below. 07/2021 EGD Esophageal changes consistent with reflux, no EoE or Barretts No past medical history on file. No past surgical history on file. Current Outpatient Medications Medication Sig Dispense Refill ALPRAZolam (XANAX) 0.25 mg tablet TAKE 1 TABLET BY MOUTH THREE TIMES DAILY NEEDED FOR 90 DAYS atorvastatin (LIPITOR) 10 mg tablet Take 1 tablet by mouth every afternoon. DEXILANT 60 mg CpDM TAKE 1 CAPSULE BY MOUTH ONCE DAILY 30 TO 45 MINUTES BEFORE A MEAL. gabapentin (NEURONTIN) 100 mg capsule TAKE 1 CAPSULE BY MOUTH THREE TIMES DAILY ALONG WITH 300 MG CAP TO EQUAL 400 MG DAILY No current facility-administered medications for this visit. ALLERGIES Allergen Reactions Iodine Vomiting Social History Tobacco Use Smoking status: Never Smokeless tobacco: Never PHYSICAL EXAMINATION BP 127/59 Pulse 67 Ht 5' 5 (1.65m) Wt 160 lb 0.9 oz (72.6kg) BMI 26.63 kg/(m^2). General appearance: Appears well, alert, in no acute distress, well nourished. Skin: Skin color and temperature normal. No obvious rashes or lesions noted on exposed skin. Head: Normocephalic, atraumatic. No masses or lesions noted. Eyes: Anicteric sclera. Pupils are equally round. Ears: External ears normal Lungs: Normal effort Abdomen: Soft, non-distended. Extremities: No deformities or pitting pedal edema noted. Psych: Pleasant affect, cooperative, A+O x3. IMPRESSION (R13.19) Esophageal dysphagia (primary encounter diagnosis) (Z12.11) Colon cancer screening (Z80.0) Family history of colon cancer in mother PLAN Schedule esophagram Schedule colonoscopy Miralax 1 capful once daily Plan is to follow up after test(s) I spent a total of 35 minutes on the date of the service which included preparing to see the patient, [id number] patient care, completing clinical documentation, counseling and educating the patient/family/caregiver, and ordering medications, tests, or procedures. Abigail Walters APRN.CNP October 15, 2022 documented in this encounter [facility] 10-04-2022 Note HNO ID: [id number] Author: Khalif Hernández MD Service: ? Author Type: Physician Type: Progress Notes Filed: 10/04/2022 1:35 PM Note Text: Patient presents with: Pain: x 3am, between breast into back HPI: Express Care Triage Note: Patient presents to the express care with complaint of upper abdominal pain. Pain started last night and is not relenting. It is a pressing pain near the xiphoid that radiates to her back. She has had similar pain in the past diagnosed as esophageal spasm. She takes Dexilant for GERD. MEDICATIONS: ALPRAZolam (XANAX) 0.25 mg tablet TAKE 1 TABLET BY MOUTH THREE TIMES DAILY NEEDED FOR 90 DAYS atorvastatin (LIPITOR) 10 mg tablet Take 1 tablet by mouth every afternoon. DEXILANT 60 mg CpDM TAKE 1 CAPSULE BY MOUTH ONCE DAILY 30 TO 45 MINUTES BEFORE A MEAL. gabapentin (NEURONTIN) 100 mg capsule TAKE 1 CAPSULE BY MOUTH THREE TIMES DAILY ALONG WITH 300 MG CAP TO EQUAL 400 MG DAILY ALLERGIES: ALLERGIES Allergen Reactions Iodine Vomiting VITALS: BP 128/74 Pulse 64 Temp 36.7 ?C (98 ?F) Resp 16 Wt 71.7 kg (158 lb) SpO2 97% Pleasant, in no acute distress. Accompanied by her . ASSESSMENT/PLAN: 1. Epigastric abdominal pain - ICD9: 789.06, ICD10: R10.13 ER evaluation recommended. Life life-threatening conditions such as heart attack, pancreatitis, and aortic dissection cannot be distinguished from esophageal spasm in the setting. She understands recommendation but is not sure if she will go. Khalif Hernández MD [facility] 10-04-2022 History of Presen t illness Narrative Patient presents with: Pain: x 3am, between breast into back HPI: Express Care Triage Note: Patient presents to the express care with complaint of upper abdominal pain. Pain started last night and is not relenting. It is a pressing pain near the xiphoid that radiates to her back. She has had similar pain in the past diagnosed as esophageal spasm. She takes Dexilant for GERD. MEDICATIONS: ALPRAZolam (XANAX) 0.25 mg tablet TAKE 1 TABLET BY MOUTH THREE TIMES DAILY NEEDED FOR 90 DAYS atorvastatin (LIPITOR) 10 mg tablet Take 1 tablet by mouth every afternoon. DEXILANT 60 mg CpDM TAKE 1 CAPSULE BY MOUTH ONCE DAILY 30 TO 45 MINUTES BEFORE A MEAL. gabapentin (NEURONTIN) 100 mg capsule TAKE 1 CAPSULE BY MOUTH THREE TIMES DAILY ALONG WITH 300 MG CAP TO EQUAL 400 MG DAILY ALLERGIES: ALLERGIES Allergen Reactions Iodine Vomiting VITALS: BP 128/74 Pulse 64 Temp 36.7 C (98 F) Resp 16 Wt 71.7 kg (158 lb) SpO2 97% Pleasant, in no acute distress. Accompanied by her . ASSESSMENT/PLAN: 1. Epigastric abdominal pain - ICD9: 789.06, ICD10: R10.13 ER evaluation recommended. Life life-threatening conditions such as heart attack,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
[2023-03-26] MEDS: Lactated Ringers 1,000 ML 15 ML IV (07:01)
--- NOTE | 2023-03-26 07:55 | PCM.HP.STD ---
HPI - General General Date of Admission: 03/26/23 Date of Service: 03/26/23 Chief Complaint: Screening colonoscopy HPI Narrative KENYA CHRIS, is a 73 F who presents today for screening colonoscopy. She has had a colonoscopy in the past approximately 10 years ago. She had no polyps at that time. She denied any abdominal pain. She denied of any nausea, vomiting or diarrhea. She was previously diagnosed with Parkinson's disease is under control. She also has a past medical history of hyperlipidemia and gastroesophageal reflux disease is also under control. All other 16 review of systems are negative except as pertinent positive mentioned HPI. [facility] Medical History (Updated 03/23/23 @ 14:27 by Jenn Nguyễn) Acid reflux Anemia Atrophic vaginitis Barretts esophagus Family hx of colon cancer Fibromyalgia Generalized anxiety disorder Genital warts GERD (gastroesophageal reflux disease) High cholesterol History of IBS History of stress test IBS (irritable bowel syndrome) Lichen sclerosus Mixed hyperlipidemia Non-smoker Osteopenia Thyroid nodule Wears glasses Home Medications alprazolam 0.25 mg tablet 0.25 mg PO QHS PRN sleep 07/19/20 [History Last Taken Unknown] ascorbate calcium (vitamin C) 500 mg tablet 500 mg PO DAILY 07/19/20 [History Last Taken Unknown] cholecalciferol (vitamin D3) 50 mcg (2,000 unit) capsule 50 mcg PO DAILY 07/19/20 [History Last Taken Unknown] dexlansoprazole 60 mg capsule,biphase delayed release (Dexilant) 60 mg PO DAILY 07/19/20 [History Last Taken Unknown] multivitamin 1 tab PO DAILY 07/19/20 [History Last Taken Unknown] epinephrine 0.3 mg/0.3 mL injection, auto-injector (EpiPen 2-Rodger) 0.3 mg IM Q5-15M PRN anaphylaxis 12/31/21 [History Last Taken Unknown] estradiol 0.01% (0.1 mg/gram) vaginal cream See Rx Instructions vaginal .COMPLEX #42.5 grams 11/11/22 [Rx Last Taken Unknown] gabapentin 400 mg capsule 400 mg PO TID 11/11/22 [History Last Taken Unknown] promethazine 25 mg tablet 25 mg PO QDAY PRN nausea and vomiting 11/26/22 [History Last Taken Unknown] Allergy/AdvReac Type Severity Reaction Status Date / Time iodine Allergy Vomiting Verified 03/26/23 06:57 Family History Unknown Heart disease Mother Anxiety Colon cancer Depression Thyroid disorder Father Anxiety Hypertension Grandmother Breast cancer Osteoporosis Thyroid disorder Surgical History (Updated 03/23/23 @ 14:27 by Jenn Nguyễn) H/O splenectomy H/O: hysterectomy Hx of cholecystectomy Hx of colonoscopy Social History household members: spouse number of children: 0 current occupational status: retired history of recent travel: Yes Smoking Status: Never smoker alcohol intake: never substance use type: does not use what type of physical activity do you participate in: none seatbelt use: always do you feel safe at home: Yes additional social history: - Niraj ROS Review of Systems ROS Unobtainable: other Constitutional Constitutional: Denies fatigue, fever(s), poor appetite, weight gain or weight loss ENT HEENT: Denies mouth lesions Cardiovascular Cardiovascular: Denies abdominal bloating, abdominal edema or abdominal pain Respiratory/Chest Respiratory/Chest: Denies change in mental status, change in phlegm color, chest congestion or chest tightness Gastrointestinal Gastrointestinal: Denies belching, bloating, change in bowel habits, change in stool character, chewing difficulty, coffee ground emesis, constipation, cramping, diarrhea, dyspepsia, dysphagia, early satiety, excessive flatus, fecal incontinence, heartburn, hematemesis, hematochezia, hemorrhoids, loose stools, melena, nausea, odynophagia, rectal bleeding, tenesmus, vomiting or weight changes Genitourinary Genitourinary: Denies abdominal discomfort, burning urination or itching Musculoskeletal Musculoskeletal: Reports as per HPI; Denies muscle weakness or myalgias Integumentary Integumentary: Denies jaundice Neurologic Neurologic: Denies lack of coordination or weakness Psychiatric Psychiatric: Denies confusion, depression, memory loss, mood swings, paranoia or suicidal ideation Endocrine Endocrinology: Denies systems reviewed and no addt'l complaints, except as documented Hematologic/Lymphatic Hematologic/Lymphatic: Denies anemia, easy bleeding, easy bruising or lymphadenopathy Allergic/Immunologic Allergic/Immunologic: Denies systems reviewed and no addt'l complaints, except as documented Vital Signs Vital Signs Vital Signs: 03/26/23 06:58 03/26/23 06:58 Temperature 97.8 F Temperature Source Temporal Pulse Rate 71 Respiratory Rate 16 Respiratory Pattern Normal Blood Pressure 140/77 H Blood Pressure Mean 98 Blood Pressure Source Monitor Blood Pressure Position Semi-Fowlers Blood Pressure Location Right Arm Pulse Ox 98 Oxygen Delivery Method Room Air Weight Weight: 154 lb 5.177 oz Body Mass Index (BMI) 25.7 Physical Exam Const alert General Appearance: cooperative Orientation / Consciousness: oriented to person HEENT hearing grossly normal bilaterally Head and Scalp: normal to inspection Face and Sinus: face symmetric Nose: external nose normal Mouth: oral and palatal mucosa normal Eyes conjunctivae normal General Eye: normal appearance of both eyes Neck full ROM General: normal visual inspection Lymph Lymphatic: no lymphadenopathy noted Chest inspection of chest normal and palpation of chest normal Chest: symmetrical chest wall rise Resp normal respiratory effort Effort and Inspection: able to speak in complete sentences Cardio regular rate GI non-distended Percussion: normal to percussion Rectal Exam: deferred Neuro Speech: speech normal Gait (Neuro): normal gait Assessment & Plan Assessment/Plan (1) Encounter for screening for malignant neoplasm of colon: PLAN: She was explained alternatives, risk, benefits including not withstanding bleeding, infection, sepsis, perforation, need for emergent surgery and . She will have an ASA of 2.
--- NOTE | 2023-03-26 08:26 | OP.COLON_ITS ---
Patient Name: Cindy Warren Procedure Date: 03/26/2023 7:50 AM Date of : 1950 Age: 73 Procedure: Colonoscopy Indications: Screening for colorectal malignant neoplasm Providers: Arturo Bowling DO Referring MD: Hansa Ndiaye Medicines: Monitored Anesthesia Care Patient Profile: This is a 73 year old female. Refer to note in patient chart for documentation of history and physical. Last Colonoscopy: more than 10 years ago. Complications: No immediate complications. Procedure: Pre-Anesthesia Assessment: - Prior to the procedure, a History and Physical was performed, and patient medications and allergies were reviewed. The patient is competent. The risks and benefits of the procedure and the sedation options and risks were discussed with the patient. All questions were answered and informed consent was obtained. Patient identification and proposed procedure were verified by the physician in the pre-procedure area. Mental Status Examination: alert and oriented. Airway Examination: normal oropharyngeal airway and neck mobility. Respiratory Examination: clear to auscultation. CV Examination: normal. Prophylactic Antibiotics: The patient does not require prophylactic antibiotics. Prior Anticoagulants: The patient has taken no anticoagulant or antiplatelet agents. After reviewing the risks and benefits, the patient was deemed in satisfactory condition to undergo the procedure. The anesthesia plan was to use monitored anesthesia care (MAC). Immediately prior to administration of medications, the patient was re-assessed for adequacy to receive sedatives. The heart rate, respiratory rate, oxygen saturations, blood pressure, adequacy of pulmonary ventilation, and response to care were monitored throughout the procedure. The physical status of the patient was re-assessed after the procedure. After I obtained informed consent, the scope was passed under direct vision. Throughout the procedure, the patient's blood pressure, pulse, and oxygen saturations were monitored continuously. The colonoscope was introduced through the anus and advanced to the cecum, identified by appendiceal orifice and ileocecal valve. The colonoscopy was performed without difficulty. The patient tolerated the procedure well. The quality of the bowel preparation was good. The ileocecal valve, appendiceal orifice, and rectum were photographed. Scope In: 8:01:27 AM Scope Withdrawal Time 0 hours 9 minutes 2 seconds Scope Out: 8:17:32 AM Total Procedure Duration Time 0 hours 16 minutes 5 seconds Findings: The perianal and digital rectal examinations were normal. Multiple small and large-mouthed diverticula were found in the recto-sigmoid colon and sigmoid colon. The exam was otherwise without abnormality on direct and retroflexion views. Impression: - Diverticulosis in the recto-sigmoid colon and in the sigmoid colon. - The examination was otherwise normal on direct and retroflexion views. - No specimens collected. Recommendation: - Discharge patient to home. - Resume previous diet. - Continue present medications. - Await pathology results. - Repeat colonoscopy in 10 years for screening purposes. Procedure Code(s): --- Professional --- G0121, Colorectal cancer screening; colonoscopy on individual not meeting criteria for high risk CPT copyright 2021 [employer]. All rights reserved. The codes documented in this report are preliminary and upon routing clerk review may be revised to meet current compliance requirements. Arturo Bowling DO 03/26/2023 8:26:06 AM This report has been signed electronically. Number of Addenda: 0 Note Initiated On: 03/26/2023 7:50 AM
--- NOTE | 2023-03-26 08:26 | OP.CCLET_ITS ---
03/26/2023 Hansa Ndiaye [place] [id number] [address] Re : Colonoscopy procedure for Cindy Warren Dear Dr. Ndiaye This procedure was performed on March. My impressions and recommendations are as follows: Impressions : - Diverticulosis in the recto-sigmoid colon and in the sigmoid colon. - The examination was otherwise normal on direct and retroflexion views. - No specimens collected. Recommendations : - Discharge patient to home. - Resume previous diet. - Continue present medications. - Await pathology results. - Repeat colonoscopy in 10 years for screening purposes. My findings are described in the full procedure note, which is enclosed. If I can be of further assistance, please feel free to contact me at . Sincerely, Arturo Bowling, 03/26/2023 8:26:06 AM This report has been signed electronically.
== END 2023-03-26 09:11 | disposition home or self-care (01) ==
LOC: EN 06:42 → AC 06:43
PROVIDERS: PCP Family Medicine; Referring Provider Family Medicine; Visit Provider Internal Medicine Gastroenterology
PROC: 0DJD8ZZ Inspection of Lower Intestinal Tract, Via Natural or Artificial Opening Endoscopic (ICD-10-PCS; CPT 45378; principal; 2023-03-26 07:40)
DX: Z12.11 Encounter for screening for malignant neoplasm of colon (principal); K21.9 Gastro-esophageal reflux disease without esophagitis; E78.2 Mixed hyperlipidemia; Z80.0 Family history of malignant neoplasm of digestive organs; K57.30 Diverticulosis of large intestine without perforation or abscess without bleeding; G20.A1 Parkinson's disease without dyskinesia, without mention of fluctuations; Z87.19 Personal history of other diseases of the digestive system; Z90.49 Acquired absence of other specified parts of digestive tract
CPT/HCPCS: G0121; J7120; J2405

== ENCOUNTER → 2023-06-01 | Outpatient (CLI) | payer MEDICARE, OTHER, SELFPAY ==
[2023-06-01 09:07] LABS: Cholesterol 262 mg/dL (200); High Density Lipoprotein 50 mg/dL; Triglycerides 141 mg/dL; Very Low Density Lipoprotein 28 mg/dL (5-40)
== END | disposition home or self-care (01) ==
LOC: LAB 07:36
PROVIDERS: PCP Family Medicine; Referring Provider Family Medicine; Visit Provider Family Medicine
DX: E78.5 Hyperlipidemia, unspecified (principal)
CPT/HCPCS: 36415; 80061

== ENCOUNTER → 2023-11-12 | Outpatient (CLI) | payer MEDICARE, OTHER, SELFPAY ==
[2023-11-12 10:17] LABS: Absolute Lymphocyte Count 2.11 X10^3/uL (0.83-4.51); Absolute Neutrophil Count 4.3 X10^3/uL (2.0-7.7); Basophil# 0.05 X10^3/uL; Basophil% 0.7 % (0-1); Eosinophil# 0.17 X10^3/uL; Eosinophils% 2.3 % (0-5); Hematocrit 38.5 % (37-47); Lymphocyte # 2.11 X10^3/ul (0.83-4.51); Lymphocyte % 28.7 % (19-41); Mean Corp Hgb Conc 31.2 g/dL (32-36); Mean Corpuscular Hgb 27.5 pg (27.0-32.0); Mean Corpuscular Volume 88.1 fL (81-99); Mean Platelet Vol. 10.7 fl (6.2-12.0); Monocyte# 0.74 X10^3/uL; Monocyte% 10.1 % (0-10); NRBC Flagged by Analyzer 0 % (0-5); Neutrophil # 4.26 X10^3/uL (2.7-7.7); Neutrophil % 58.1 % (47-70); Platelet Count 373 K/mm3 (150-450); RBC Distribution Width CV 13.5 % (11.6-14.6); RBC Distribution Width SD 43.7 fl (35.1-43.9); Red Blood Count 4.37 M/mm3 (4.2-5.4); White Blood Count 7.3 K/mm3 (4.4-11.0)
[2023-11-12 10:55] LABS: ALB/GLOB Ratio 0.8 RATIO (0.9-2.4); AST(SGOT) 15 U/L (15-37); Alanine Aminotransfer ALT/SGPT 15 U/L (13-56); Albumin, Serum 3.3 g/dL (3.2-5.0); Alkaline Phosphatase 119 U/L (45-117); Anion Gap 5 (5-15); BUN 15 mg/dL (7-18); BUN/Creat Ratio 16.4 RATIO (10-20); Calcium,Total 9.5 mg/dL (8.5-10.1); Chloride 108 mmol/L (98-107); Cholesterol 172 mg/dL (200); Creatinine, Serum 0.91 mg/dL (0.55-1.02); EST Glomerular Filtration Rate 64 mL/min (>60); Est Glom Filt Rate - Afr Amer 77 mL/min (>60); Glucose 90 mg/dL (74-106); High Density Lipoprotein 55 mg/dL; Potassium 4.1 mmol/L (3.5-5.1); Protein, Total 7.3 g/dL (6.4-8.2); Sodium Level 139 mmol/L (136-145); Triglycerides 95 mg/dL; Very Low Density Lipoprotein 19 mg/dL (5-40)
== END | disposition home or self-care (01) ==
PROVIDERS: PCP Family Medicine; Referring Provider Family Medicine; Visit Provider Family Medicine
DX: Z00.00 Encounter for general adult medical examination without abnormal findings (principal); K21.9 Gastro-esophageal reflux disease without esophagitis; E78.5 Hyperlipidemia, unspecified; E04.2 Nontoxic multinodular goiter
CPT/HCPCS: 36415; 80053; 80061; 84443; 85025

== ENCOUNTER → 2024-01-21 | Outpatient (CLI) | payer MEDICARE, OTHER, SELFPAY | END | disposition home or self-care (01) | LOC: OPBI 13:16 | PROVIDERS: PCP Family Medicine; Referring Provider Family Medicine; Visit Provider Family Medicine | DX: Z12.31 Encounter for screening mammogram for malignant neoplasm of breast (principal) | CPT/HCPCS: 77063; 77067 ==

== ENCOUNTER 2024-09-11 12:12 | Emergency (ER) | payer MEDICARE, OTHER, SELFPAY ==
[2024-09-11 12:12] VITALS: BP 123/88; PULSE 66; RESP 16; TEMP 36.4; O2SAT 100
[2024-09-11 12:16] VITALS: BMI 27.9
[2024-09-11 12:28] LABS: Hematocrit 38.6 % (37-47); Hemoglobin 12.7 g/dL (12.0-15.0); Immature Granulocytes Count 0.010 X10^3/uL (0.0-0.0); Mean Corp Hgb Conc 32.9 g/dL (32-36); Mean Corpuscular Volume 87.1 fL (81-99); Mean Platelet Vol. 10.1 fl (6.2-12.0); NRBC Flagged by Analyzer 0 % (0-5); Platelet Count 379 K/mm3 (150-450); RBC Distribution Width CV 13.6 % (11.6-14.6); RBC Distribution Width SD 43.4 fl (35.1-43.9); Red Blood Count 4.43 M/mm3 (4.2-5.4); White Blood Count 6.9 K/mm3 (4.4-11.0)
[2024-09-11 13:12] VITALS: BP 141/67; PULSE 69
[2024-09-11 13:22] LABS: Anion Gap 11 (5-15); BUN 12 mg/dL (4-19); BUN/Creat Ratio 14.2 RATIO (10-20); Calcium,Total 9.3 mg/dL (7.6-11.0); Carbon Dioxide 24.1 mmol/L (21.0-32.0); Chloride 106 mmol/L (98-108); Glucose 93 mg/dL (70-99); Potassium 4.3 mmol/L (3.3-5.1); Troponin T High Sensitivity < 6 ng/L (<=14)
[2024-09-11 13:40] VITALS: BP 146/95; PULSE 70; RESP 18; TEMP 36.3; O2SAT 98
[2024-09-11] MEDS: Famotidine 200 MG/20 ML MDV 20 MG in 0.9% Normal Saline (Pres. free 8 ML 300 MG IV (13:51)
[2024-09-11 13:53] LABS: D-Dimer Quantitative (DVT/PE) 0.55 FEU/ug/m (0.27-0.49)
[2024-09-11] MEDS: 0.9% Normal Saline (1000mL) 1,000 ML 1000 ML IV (14:23)
[2024-09-11 14:34] LABS: Pro- Brain NATRIURETIC PEPTIDE 96 pg/mL (<=1800)
[2024-09-11] MEDS: Lorazepam 2 MG/ML WCH Syringe 0.5 MG IV (14:57)
[2024-09-11 15:00] VITALS: BP 172/68; PULSE 68
[2024-09-11 15:10] LABS: Troponin T High Sens 2 HR < 6 ng/L (<=14)
[2024-09-11 16:22] VITALS: BP 136/78; PULSE 63; RESP 13; TEMP 37.1; O2SAT 98
== END 2024-09-11 16:26 | disposition home or self-care (01) ==
PROVIDERS: Emergency Provider Surgery; PCP Family Medicine; Visit Provider Surgery
DX: R07.9 Chest pain, unspecified (principal); G20.A1 Parkinson's disease without dyskinesia, without mention of fluctuations; R06.02 Shortness of breath; K21.9 Gastro-esophageal reflux disease without esophagitis; R91.1 Solitary pulmonary nodule; M79.7 Fibromyalgia; E78.2 Mixed hyperlipidemia; Z79.899 Other long term (current) drug therapy
CPT/HCPCS: 71046; 71275; 80048; 83880; 84484; 85025; 85379; 93005; 96361; 96374; 96375; 99284; Q9967; A4216; J2405

== ENCOUNTER → 2024-11-21 | Outpatient (CLI) | payer MEDICARE, OTHER, SELFPAY ==
[2024-11-21 10:24] LABS: Hematocrit 37.1 % (37-47); Hemoglobin 12.2 g/dL (12.0-15.0); Immature Granulocytes Count 0.020 X10^3/uL (0.0-0.0); Mean Corp Hgb Conc 32.9 g/dL (32-36); Mean Corpuscular Volume 87.9 fL (81-99); Mean Platelet Vol. 10.2 fl (6.2-12.0); NRBC Flagged by Analyzer 0 % (0-5); POSITIVE MORPHOLOGY YES; Platelet Count 365 K/mm3 (150-450); RBC Distribution Width CV 13.2 % (11.6-14.6); RBC Distribution Width SD 42.7 fl (35.1-43.9); Red Blood Count 4.22 M/mm3 (4.2-5.4); White Blood Count 5.8 K/mm3 (4.4-11.0)
[2024-11-21 10:51] LABS: AST(SGOT) 16 U/L (<=31); Alanine Aminotransfer ALT/SGPT 10 U/L (<=34); Albumin, Serum 3.9 g/dL (3.4-4.8); Alkaline Phosphatase 113 U/L (35-104); Anion Gap 8 (5-15); BUN 15 mg/dL (4-19); BUN/Creat Ratio 18.5 RATIO (10-20); Calcium,Total 9.4 mg/dL (7.6-11.0); Carbon Dioxide 26.0 mmol/L (21.0-32.0); Chloride 107 mmol/L (98-108); Cholesterol 154 mg/dL (<=200); Globulin 3.1 g/dL (2.2-4.2); Glucose 93 mg/dL (70-99); Low Density Lipoprotein Calc. 89 mg/dL; Potassium 4.7 mmol/L (3.3-5.1); Triglycerides 109 mg/dL; Very Low Density Lipoprotein 22 mg/dL (5-40); cholesterol:hdl ratio screen 3.59
[2024-11-21 11:09] LABS: Differential Indicated SCAN CRITERIA MET
[2024-11-21 13:14] LABS: Smudge Cells RARE
== END | disposition home or self-care (01) ==
LOC: MTLAB 08:55
PROVIDERS: PCP Family Medicine; Referring Provider Family Medicine; Visit Provider Family Medicine
DX: Z00.00 Encounter for general adult medical examination without abnormal findings (principal); G20.A1 Parkinson's disease without dyskinesia, without mention of fluctuations; K21.9 Gastro-esophageal reflux disease without esophagitis; E78.5 Hyperlipidemia, unspecified; E04.2 Nontoxic multinodular goiter
CPT/HCPCS: 36415; 80053; 80061; 84443; 85025

== ENCOUNTER 2025-01-16 22:01 | Emergency (ER) | payer MEDICARE, OTHER, SELFPAY ==
[2025-01-16 22:03] VITALS: BP 188/54; PULSE 67; RESP 18; TEMP 36.6; O2SAT 100; BMI 28.4
--- NOTE | 2025-01-16 22:20 | EKG12_ITS ---
Test Reason : DYSRHYTHMIA Blood Pressure : */* mmHG Vent. Rate : 63 BPM Atrial Rate : 63 BPM P-R Int : 172 ms QRS Dur : 84 ms QT Int : 426 ms P-R-T Axes : 68 -1 66 degrees QTcB Int : 435 ms Normal sinus rhythm Normal ECG Confirmed by Dominguez Jarrell ([id number]), editor managing director FALGUNI NAVAS ([id number]) on 01/17/2025 11:45:49 AM Referred By: MARLEE Confirmed By: Dominguez Jarrell
--- NOTE | 2025-01-16 22:43 | RAD_ITS ---
PROCEDURE: CHEST PA AND LATERAL 01/16/2025 REASON FOR EXAM: ? ASPIRATION TECHNIQUE: Procedure Code: RADCXR Modality: DX Procedure: CHEST PA AND LATERAL COMPARISON: 09/11/2024. FINDINGS: The heart is normal in size. Small left pleural effusion. The lungs are otherwise clear. No acute osseous abnormalities. RAD/Chest PA and Lateral IMPRESSION: Small left pleural effusion. Reading Location: [id number]
[2025-01-16] MEDS: Ketorolac 30 MG/ML Syringe IM (23:36)
[2025-01-16] MEDS: Orphenadrine 60 MG/2 ML Ampul IM (23:36)
--- OUTSIDE RECORDS SUMMARY | 2025-01-16 23:36 | XMS RPT_ITS | CCD ---
Author Organization [facility] Care Team Providers Care Technical Healthcare Consultant Name Role Phone Dr. Hansa Ndiaye Primary Care Provider Gina Maurice Attending Provider Unavailable Unavailable Primary Care Provider Dr. Hansa Thompson Primary Care Provider [phone] Dr. Hansa Ndiaye Referring Provider Dr. Hansa Ndiaye Other Provider Dr. Luther Roman Attending Provider Stacy REAL ESTATE OFFICE MANAGER, DESTINEY-Nilda Swift Attending Provider Uma Ledesma Attending Provider Unavailable Dr. Hansa Ndiaye Primary Care Provider [phone] Dr. Hansa Ndiaye Referring Provider Stacy REAL ESTATE OFFICE MANAGER, DESTINEY-Nilda Swift Attending Provider Uma Ledesma Attending Provider Unavailable Aleksander Thao MD Unavailable Dr. Hansa Ndiaye Primary Care Provider [phone] Dr. Hansa Ndiaye Referring Provider [phone] Dr. Arturo Bowling Attending Provider [phone] [facility] Morris Other Provider Unavailable Primary Care Provider Dr. Hansa Thompson MD Primary Care Provider Dr. Celio Hess DO Emergency Provider ANGELA CARVAJAL Attending Unavailable MARGARET GARCIA Referring Unavailable MARGARET GARCIA Attending Unavailable VAN KEUREN, ANGELA Referring Unavailable VAN KEUREN, ANGELA Attending Unavailable VAN KEUREN, ANGELA Referring Unavailable VAN KEUREN, ANGELA Attending Unavailable JOSE, MARGARET Referring Unavailable MARGARET GARCIA Attending Unavailable Miedel, Hansa Primary Care Unavailable Miedel, Hansa Attending Unavailable Miedel, Hansa Referring Unavailable Miedel, Hansa Referring Unavailable Miedel, Hansa Primary Care Unavailable Murtazael, Hansa Attending Unavailable Maedel, Hansa [facility] Unavailabl e Miedel, Hansa Primary Care Unavailable Stacy REAL ESTATE OFFICE MANAGER, Jeniffer Attending Unavailable Miedel, Hansa Referring Unavailable Miedel, Hansa Primary Care Unavailable Stacy REAL ESTATE OFFICE MANAGER, Jeniffer Attending Unavailable Miedel, Hansa Referring Unavailable Zelda BRADLEY, Dr. Santo Primary Care Physician Deshawn DAWSON, Dr. Pickens Attending Physician Deshawn DAWSON, Dr. Pickens [facility] Zelda BRADLEY, Dr. Santo Attending Physician Zelda BRADLEY, Dr. Santo Referring Provider Allergies Allergy Classification Reported Allergen(s) Allergy Type Date of Onset Reaction(s) Facility (20 sources) Iodine; Translations: [IODINE] Drug Allergy 4 Vomiting [facility] (20 sources) Shellfish; Translations: [SHELLFISH DERIVED] Drug Intolerance 3 [facility] (1 source) Iodine Drug Allergy 5 [facility] Repository Medications Current Medications Medication Drug Class(es) Dates Sig (Normalized) Sig (Original) ALPRAZolam 0.25 mg oral tablet (20 sources) Benzodiazepine Start: 07-19-2020 take 1 tablet by mouth at bedtime as needed for sleep Comment on above: TAKE 1 TABLET BY ABRAHAN TH THREE TIMES DAILY NEEDED FOR 90 DAYS carbidopa 10 mg / levodopa 100 mg oral tablet (15 sources) Aromatic Amino Acid Decarboxylation Inhibitor, Aromatic Amino Acid Start: 04-13-2024 Start: 02-24-2024 End: 02-23-2025 take 2 tablets by mouth three times daily carbidopa-levodopa (SINEMET 25-100) 25-100 mg per tablet Take 2 tablets by mouth three times a day. Start low dose and increase as directed by doctor's office 180 tablet 11 02/24/2024 02/23/2025 Active Start: 12-10-2022 [facility] Carbidopa-Levodopa (Sinemet) 10-100 mg tablet Active 1 TABLET PO THREE TIMES A DAY December 09, 2022 11:00pm Start: 12-04-2022 carbidopa-levo dopa (SINEMET) 25-100 mg per tablet Indications: Resting tremor , Parkinson disease Take 1/2 pill three times per day for one week, then increase to 1 pill three times per day 270 tablet 3 12/04/2022 Active Comment on above: Take 1/2 pill three times per day for one week, then increase to 1 pill three times per day dexlansoprazole 60 mg delayed release oral capsule (20 sources) Proton Pump Inhibitor Start: 07-19-2020 take 1 capsule by mouth once daily Comment on above: TAKE 1 CAPSULE BY [facility] ONCE DAILY 30 TO 45 MINUTES BEFORE A MEAL. [id number] 0.3 ml EPINEPHrine 1 mg/ml auto-injector (11 sources) alpha-Adrenergic Agonist, beta-Adrenergic Agonist, Catecholamine Start: 12-31-2021 estradiol 0.1 mg/ml vaginal cream (19 sources) Estrogen Start: 11-11-2022 End: 04-20-2024 Start: 11-11-2022 Estradiol Acti ve 0 VAGINAL .COMPLEX 42.5 November 11, 2022 9:05am small amount as directed vaginal every other day at HS Start: 08-16-2020 End: 11-11-2022 Estradiol 0.01 % (0.1 mg/gra m) cream Discontinued 0 VAGINAL .COMPLEX 42.5 2 August 16, 2020 12:00am November 11, 2022 9:05am small amount as directed vaginal Thursday, Thursday, Thursday at HS Start: 08-16-2020 End: 11-11-2022 Estradiol Discontinued 0 VAG INAL .COMPLEX 42.5 August 16, 2020 12:00am November 11, 2022 9:05am small amount as directed vaginal Thursday, Thursday, Thursday at HS gabapentin 400 mg oral capsule (20 sources) Anti-epileptic Agent Start: 11-11-2022 take 1200 mg by mouth three times daily Gabapentin Active 1200 MG PO THREE TIMES A DAY November 11, 2022 7:56am Start: 06-06-2022 take 1 capsule by mo ut three times daily gabapentin (NEURONTIN) 100 mg capsule TAKE 1 CAPSULE BY MOUTH THREE TIMES DAILY ALONG WITH 300 MG CAP TO EQUAL 400 MG DAILY 06/06/2022 Active Start: 07-19-2020 End: 11-11-2022 take 1 capsule by mouth three times daily take 300 mg by mouth three times daily GABAPENTIN ORAL Take 300 mg by mouth three times a day. Active Comment on above: TAKE 1 CAPSULE BY MO UT THREE TIMES DAILY ALONG WITH 300 MG CAP TO EQUAL 400 MG DAILY Take 300 mg by mouth three times a day. mometasone furoate 0.001 mg/ mg topical ointment (14 sources) Corticosteroid Start: 10-20-2023 Start: 07-21-2020 End: 12-31-2021 Mometasone 0.1 % ointment Di scontinued 1 NMA TOPICAL DAILY 45 3 July 21, 2020 12:00am December 31, 2021 4:19pm nightly x 6-12 weeks then 2-3 x weekly as needed Multivitamin preparation (10 sources) Start: 07-19-2020 take 1 tablet by mouth once daily Multivitamin Active 1 TABLET PO DAILY July 19, 2020 9:50am Start: 07-19-2020 take 1 tablet by abrahan once daily Multivitamin Active 1 TABLET PO DAILY July 19, 2020 12:00am Start: 07-19-2020 take 1 tablet by abrahan th once daily Multivitamin Active 1 TABLET PO DAILY July 18, 2020 11:00pm ondansetron 4 mg disintegrating oral tablet (20 sources) Serotonin-3 Receptor Antagonist Start: 10-17-2024 take 1 tablet by mouth every eight hours as needed for nausea ondansetron orally disintegrating (ZOFRAN ODT) 4 mg disintegrating tablet Indications: Parkinson's disease without dyskinesia or fluctuating manifestations (HCC) , Nausea Take 1 tablet by mouth every 8 hours as needed for nausea/vomiting. 30 tablet 2 10/17/2024 Active Start: 12-08-2022 End: 10-17-2024 take 1 tablet by mouth every eight hours as needed for nausea ondansetron (ZOFRAN) 4 mg tablet Indications: Parkinson's disease without dyskinesia or fluctuating manifestations (HCC) Take 1 tablet by mouth every 8 hours as needed for nausea/vomiting. 30 tablet 09/28/2024 10/17/2024 Discontinued Start: 09-21-2019 End: 07-19-2020 take 1 tablet by mouth every eight hours as needed for nausea Ondansetron 4 MG tablet Discontinued 4 mg PO EVERY 8 HOURS NEEDED as needed for Nausea September 21, 2019 12:00am July 19, 2020 9:41am Comment on above: Take 1 tablet by abrahan th every 8 hours as needed for nausea/vomiting. OTC PRODUCT (20 sources) OTC PRODUCT Mult i vitamin po daily Active OTC PRODUCT Mult i vitamin po daily 0 Active Comment on above: Multi vitamin po lynette ly polyethylene glycol 3350 [id number] mg / potassium chloride 2970 mg / sodium bicarbonate 6740 mg / sodium chloride 5860 mg / sodium sulfate 96537 mg powder for oral solution (1 source) Osmotic Laxative Start: 10-16-19 End: 10-16-19 peg 3350-Electrolytes (GOLYTELY) 236-22.74-6.74 -5.86 gram suspension Indications: Colon cancer screening , Family history of colon cancer in mother Take 4,000 mL by mouth one time only for 1 dose. Refer to printed prep instructions from your provider. 4000 mL 0 10/15/2022 10/15/2022 Active Comment on above: Take 4,000 mL by abrahan th one time only for 1 dose. Refer to printed prep instructions from your provider. promethazine hydrochloride 25 mg oral tablet (20 sources) Phenothiazine Start: 11-27-19 take 1 tablet by mouth once daily as needed for nausea and vomiting Start: 10-15-2022 End: 12-04-2022 take 1 tablet by mouth every six hours as needed promethazine (PHENERGAN) 12.5 mg tablet Take 1 tablet by mouth every 6 hours as needed for nausea/vomiting. If nausea occurs during colonoscopy prep 5 tablet 0 10/15/2022 12/04/2022 Discontinued Start: 12-31-2021 End: 11-11-2022 take 1 tablet by mouth once daily as needed for nausea and vomiting Promethazine 25 mg tablet Discontinued 25 mg PO DAILY as needed for nausea and vomiting December 31, 2021 4:18pm November 11, 2022 8:57am Start: 06-06-2021 End: 12-31-2021 take 1 tablet by mouth three times daily as needed Promethazine 25 mg tablet Discontinued 25 mg PO THREE TIMES A DAY as needed June 06, 2021 12:00am December 31, 2021 4:19pm Comment on above: Take 1 tablet by abrahan every 6 hours as needed for nausea/vomiting. If nausea occurs during colonoscopy prep Completed/Discontinued Medications Medication Drug Class(es) Dates Sig (Normalized) Sig (Original) acetaminophen 325 mg / HYDROcodone bitartrate 5 mg oral tablet (12 sources) Opioid Agonist Start: 09-21-2019 End: 09-24-2019 Hydrocodone-Acetami nophen 1 TABLET tablet Discontinued 1 {tbl} PO EVERY 6 HOURS NEEDED as needed for Pain 10 3 0 September 21, 2019 September 23, 2019 12:00am September 24, 2019 12:03am Fracture of right hand Unspecified fracture of right hand, initial encounter for closed fracture Start: 09-21-2019 End: 09-24-2019 take 1 tablet by mouth every six hours as needed Hydrocodone-Acetaminophen Discontinued 1 TABLET PO EVERY 6 HOURS NEEDED 10 3 September 21, 2019 September 24, 2019 12:03am atorvastatin 10 mg oral tablet (20 sources) HMG-CoA Reductase Inhibitor Start: 07-19-2020 End: 12-04-2022 take 1 tablet by mouth once daily Atorvastatin 10 mg tablet Discontinued 10 mg PO DAILY July 19, 2020 12:00am November 11, 2022 8:56am Comment on above: Take 1 tablet by abrahan every afternoon. Bmx (5 sources) Start: 10-05-2022 End: 11-11-2022 Bmx Discontinued 15 ML PO EVERY 6 HOURS NEEDED 180 October 05, 2022 10:03am November 11, 2022 7:56am Benadryl 12.5 mg/5 mL oral elixir 60 mL; Maalox Maximum Strength 400 mg-400 mg-40 mg/5 mL oral suspension 60 mL; Xylocaine Viscous 2 % mucosal solution 60 mL; Per 180 mL Start: 10-05-2022 End: 09-05-2023 Bmx Discontinued 15 ML PO EV TIARRA 6 HOURS NEEDED 180 October 05, 2022 11:03am November 11, 2022 8:56am Benadryl 12.5 mg/5 mL oral elixir 60 mL; Maalox Maximum Strength 400 mg-400 mg-40 mg/5 mL oral suspension 60 mL; Xylocaine Viscous 2 % mucosal solution 60 mL; Per 180 mL Start: 10-05-2022 Bmx Active 15 ML PO EVERY 6 HOURS NEEDED 180 October 05, 2022 11:03am Benadryl 12.5 mg/5 mL oral elixir 60 mL; Maalox Maximum Strength 400 mg-400 mg-40 mg/5 mL oral suspension 60 mL; Xylocaine Viscous 2 % mucosal solution 60 mL; Per 180 mL Bmx 180 mL suspension (2 sources) Start: 10-05-2022 End: 11-11-2022 Bmx 180 mL suspension Discontinued 15 mL PO EVERY 6 HOURS NEEDED as needed for throat pain 180 0 October 05, 2022 11:03am November 11, 2022 8:56am Benadryl 12.5 mg/5 mL oral elixir 60 mL; Maalox Maximum Strength 400 mg-400 mg-40 mg/5 mL oral suspension 60 mL; Xylocaine Viscous 2 % mucosal solution 60 mL; Per 180 mL calcium ascorbate 500 mg oral tablet (12 sources) Start: 07-19-2020 End: 03-15-2024 take 1 tablet by mouth once daily Ascorbate Calcium (Vitamin C) 500 mg tablet Discontinued 500 mg PO DAILY July 19, 2020 12:00am March 15, 2024 3:25pm cholecalciferol 0.05 mg oral capsule (12 sources) Vitamin D Start: 07-19-2020 End: 03-15-2024 take 1 capsule by mouth once daily Cholecalciferol (Vitamin D3) 50 mcg (2,000 unit) capsule Discontinued 50 ug PO DAILY July 19, 2020 12:00am March 15, 2024 3:25pm cloNIDine hydrochloride 0.1 mg oral tablet (8 sources) Central alpha-2 Adrenergic Agonist Start: 10-22-2022 End: 01-20-2023 take 1 tablet by mouth once daily cloNIDine HCl (CATAPRES) 0.1 mg tablet Take 1 tablet by mouth once daily. 90 tablet 0 10/22/2022 12/04/2022 Discontinued Comment on above: Take 1 tablet by abrahan once daily. dicyclomine hydrochloride 20 mg oral tablet (11 sources) Anticholinergic Start: 12-31-2021 End: 10-05-2022 take 1 tablet by mouth every six hours as needed Dicyclomine 20 mg tablet Discontinued 20 mg PO EVERY 6 HOURS as needed December 31, 2021 12:00am October 05, 2022 8:32am emollient fluocinonide 0.5 mg/ml topical cream (12 sources) Corticosteroid Start: 07-19-2020 End: 07-21-2020 Fluocinonide-Emollie nt 0.05 % cream Discontinued 1 NMA TOPICAL .COMPLEX 15 2 July 19, 2020 12:00am July 21, 2020 12:50am 1 applic topical apply thin layer as directed bid X 2 weeks then daily for 2 weeks; metroNIDAZOLE 0.01 mg/mg topical gel (11 sources) Nitroimidazole Antimicrobial Start: 12-31-2021 End: 10-05-2022 Metronidazole (Metrogel) 1 % gel Discontinued 1 NMA TOPICAL DAILY December 31, 2021 12:00am October 05, 2022 8:33am Multivitamin tablet (2 sources) Start: 07-19-2020 End: 03-15-2024 Multivitamin tablet Discontinued 1 {tbl} PO DAILY July 19, 2020 12:00am March 15, 2024 3:25pm polyethylene glycol 3350 83212 mg powder for oral solution (10 sources) Osmotic Laxative Start: 10-15-2022 polyethylene glycol 3350 (MIRALAX) 17 gram/dose powder Take 17 g by mouth once daily. Dissolve dose in 4 - 8 ounces of liquid and take as directed. 850 g 2 10/15/2022 Active Comment on above: Take 17 g by mouth o nce daily. Dissolve dose in 4 - 8 ounces of liquid and take as directed. prochlorperazine 10 mg oral tablet (12 sources) Phenothiazine Start: 06-06-2021 End: 11-11-2022 take 1 tablet by mouth every eight hours as needed for nausea Prochlorperazine Maleate 10 mg tablet Discontinued 10 mg PO Q8H as needed for nausea June 06, 2021 12:00am November 11, 2022 8:57am sertraline 50 mg oral tablet (1 source) Serotonin Reuptake Inhibitor Start: 12-04-2022 take 1 tablet by mouth once daily sertraline (ZOLOFT) 50 mg tablet Indications: Anxiety Take 1 tablet by mouth once daily. 90 tablet 3 12/04/2022 Active Comment on above: Take 1 tablet by abrahan th once daily. Problems Active Problems Problem Classification Problem Date Documented Da te Episodic/Chronic Abdominal pain (1 source) Epigastric pain; Translations: [Epigastric pain] 10-04-2022 Episodic Anxiety disorders (17 sources) Anxiety; Translations: [Anxiety disorder, unspecified] Onset: 5 06-10-2021 Chronic Disorders of lipid metabolism (11 sources) Mixed hyperlipidemia; Translations: [Mixed hyperlipidemia] 12-31-2021 Chronic Esophageal disorders (18 sources) Gastroesophageal reflux disease; Translations: [Gastro-esophageal reflux disease without esophagitis] 12-31-2021 Chronic Fracture of upper limb (12 sources) Fracture of hand; Translations: [Unspecified fracture of right wrist and hand, initial encounter for closed fracture] 09-22-2019 Episodic Malaise and fatigue (11 sources) Asthenia; Translations: [Weakness] 09-05-2022 Episodic Menopausal disorders (16 sources) Atrophic vaginitis; Translations: [Postmenopausal atrophic vaginitis] 12-31-2021 Chronic Comment on above: estradiol cream Mood disorders (7 sources) Depressive disorder; Translations: [Depression, unspecified depression type] 09-24-2023 Chronic Mood disorders (1 source) Mood disorders; Translations: [Depression, unspecified depression type] Onset: Nausea and vomiting (1 source) Nausea; Translations: [Nausea] 10-17-2024 Episodic Nonspecific chest pain (3 sources) Chest pain; Translations: [Chest pain, unspecified] Onset: 5 09-11-2024 Episodic Nutritional deficiencies (1 source) Vitamin D deficiency; Translations: [Vitamin D deficiency, unspecified] 10-29-2022 Chronic Other connective tissue disease (1 source) Muscle pain; Translations: [Myalgia, unspecified site] 10-22-2022 Episodic Other gastrointestinal disorders (19 sources) Dysphagia; Translations: [Dysphagia, unspecified] 06-10-2021 Episodic Other gastrointestinal disorders (1 source) Esophageal dysphagia; Translations: [Other dysphagia] 10-15-2022 Episodic Other hereditary and degenerative nervous system conditions (3 sources) Resting tremor; Translations: [Other specified forms of tremor] 10-29-2022 Chronic Other injuries and conditions due to external causes (1 source) Injury of left wrist; Translations: [Unspecified injury of left wrist, hand and finger(s), initial encounter] 09-18-2022 Episodic Other lower respiratory disease (20 sources) Dyspnea on exertion; Translations: [Other forms of dyspnea] 12-31-2021 Episodic Other skin disorders (12 sources) Lichen sclerosus et atrophicus; 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 Comment on above: mometasone prn Parkinson`s disease (17 sources) Parkinson's disease; Translations: [Parkinson's disease] 12-04-2022 Chronic Comment on above: [facility] neurology Parkinson`s disease (2 sources) Parkinson`s disease; Translations: [Parkinson's disease without dyskinesia or fluctuating manifestations (HCC)] Onset: Residual codes; unclassified (1 source) Family history of cancer of colon; Translations: [Family history of malignant neoplasm of digestive organs] 10-15-2022 Episodic Substance-related disorders (1 source) Sedative withdrawal; Translations: [Sedative, hypnotic or anxiolytic use, unspecified with withdrawal, unspecified] 10-22-2022 Episodic Thyroid disorders (11 sources) Thyroid nodule; Translations: [Nontoxic single thyroid nodule] 12-31-2021 Chronic Viral infection (12 sources) Genital warts; Translations: [Anogenital (venereal) warts] 12-31-2021 Episodic Comment on above: 30 yr ago and treate d Past or Other Problems Problem Classification Problem Date Documented Da te Episodic/Chronic Other screening for suspected conditions (not mental disorders or infectious disease) (9 sources) Patient encounter status; Translations: [Encounter for screening for malignant neoplasm of colon] Onset: 02-08-2024 10-15-2022 Episodic Results Test Name Value Interpretation Reference Range Facility Absolute lymphocyte countOrd ered By: Hansa Ndiaye on 11-21-2024 Lymphocytes Auto (Unsp spec) [#/Vol] 2.48 10*3/uL 0.83-4.51 [facility] Absolute neutrophil countOrd ered By: Hansa Ndiaye on 11-21-2024 Neutrophils (Bld) [#/Vol] 2.5 10*3/uL 2.0-7.7 [facility] Anion gap in Serum or Plasma Ordered By: Hansa Ndiaye on 11-21-2024 Anion gap [Moles/Vol] 8 mmol/L 07-21 [facility] Automated lymphocyte count a s percentage of total leukocytesOrdered By: Hansa Ndiaye on 11-21-2024 Lymphocytes/100 WBC Auto (Unsp spec) 42.8 % High - [facility] BUN/creatinine ratioOrdered By: Hansa Ndiaye on 11-21-2024 Urea nitrogen/Creatinine [Mass ratio] 18.5 mg/mg - [facility] Basophil percentageOrdered B y: Hansa Ndiaye on 11-21-2024 Basophils/100 WBC (Bld) 0.9 % 0-1 [facility] Bilirubin, totalOrdered By: Hansa Ndiaye on 11-21-2024 Bilirubin [Mass/Vol] 0.52 mg/dL 0.00-1.30 [facility] CBC W/Diff, Automatedon 11-07 ATYPICAL LYMPH 2+ Normal [facility] Comment on above: Performed By: #### L 500.4050, L501.9520, L100.0100, L500.4100 ####[facility] [address] [place], [place], [id number] SMUDGE CELLS RARE Normal [facility] Comment on above: Performed By: #### L 500.4050, L501.9520, L100.0100, L500.4100 ####[facility] [address] [place], [address] Calculated very low density lipoprotein (VLDL) cholesterol measurementOrdered By: Hansa Ndiaye on 11-21-2024 Calculated very low density lipoprotein (VLDL) cholesterol measurement 22 mg/dL [facility] Carbon dioxide, total [Moles /volume] in Central venous bloodOrdered By: Hansa Ndiaye on 11-21-2024 CO2 [Moles/Vol] 26.0 mmol/L 21.0-32.0 [facility] Chloride assayOrdered By: Lawrence Ndiaye on 11-21-2024 Chloride [Moles/Vol] 107 mmol/L 98-108 [facility] Comprehensive Metabolic Prof ilon 11-21-2024 Albumin [Mass/Vol] 3.9 g/dL Normal 3.4-4.8 [facility] Comment on above: Performed By: #### L 500.4050, L501.9520, L100.0100, L500.4100 ####[facility] [address] [place], [address] Albumin/Globulin [Mass ratio] 1.3 {ratio} Normal 0.9-2.4 [facility] Comment on above: Performed By: #### L 500.4050, L501.9520, L100.0100, L500.4100 ####[facility] [address] [place], [address] ALK PHOS 113 U/L High 35-104 [facility] Comment on above: Performed By: #### L 500.4050, L501.9520, L100.0100, L500.4100 ####[facility] [address] [place], [address] ALT [Catalytic activity/Vol] 10 U/L Normal <=34 [facility] Comment on above: Performed By: #### L 500.4050, L501.9520, L100.0100, L500.4100 ####[facility] [address] [place], [address] AST [Catalytic activity/Vol] 16 U/L Normal <=31 [facility] Comment on above: Performed By: #### L 500.4050, [id number], L100.0100, L500.4100 ####[facility] [address] [place], [address] Bilirubin [Mass/Vol] 0.52 mg/dL Normal 0.00-1.30 [facility] Comment on above: Performed By: #### L 500.4050, [id number], L100.0100, L500.4100 ####[facility] [address] [place], [address] BUN/CRE 18.5 RATIO Normal 10-20 [facility] Comment on above: Performed By: #### L 500.4050, [id number], L100.0100, L500.4100 ####[facility] [address] [place], [address] Calcium [Mass/Vol] 9.4 mg/dL Normal 7.6-11.0 [facility] Comment on above: Performed By: #### L 500.4050, L501.9520, L100.0100, L500.4100 ####[facility] [address] [place], [address] Chloride [Moles/Vol] 107 mmol/L Normal 98-108 [facility] Comment on above: Performed By: #### L 500.4050, [id number], L100.0100, L500.4100 ####[facility] [address] [place], [address] CO2 [Moles/Vol] 26.0 mmol/L Normal 21.0-32.0 [facility] Comment on above: Performed By: #### L 500.4050, [id number], L100.0100, L500.4100 ####[facility] [address] [place], [address] Creatinine [Mass/Vol] 0.82 mg/dL Normal 0.70-1.20 [facility] Comment on above: Performed By: #### L 500.4050, [id number], L100.0100, L500.4100 ####[facility] [address] [place], [address] GAP 8 Normal 5-15 [facility] Comment on above: Performed By: #### L 500.4050, [id number], L100.0100, L500.4100 ####[facility] [address] [place], [address] GFR/1.73 sq M.predicted among non-blacks MDRD (S/P/Bld) [Vol rate/Area] 75 mL/min/{1.73_m2} Normal >60 [facility] Comment on above: Result Comment: mL/m in/1.73m2 CKD-EPI Creatinine Equation (2020) Performed By: #### L 500.4050, L501.9520, L100.0100, L500.4100 ####[facility] [address] [place], [address] Globulin (S) [Mass/Vol] 3.1 g/dL Normal 2.2-4.2 [facility] Comment on above: Performed By: #### L 500.4050, [id number], L100.0100, L500.4100 ####[facility] [address] [place], [address] Glucose [Mass/Vol] 93 mg/dL Normal 70-99 [facility] Comment on above: Performed By: #### L 500.4050, L501.9520, L100.0100, L500.4100 ####[facility] [address] [place], [address] Potassium [Moles/Vol] 4.7 mmol/L Normal 3.3-5.1 [facility] Comment on above: Performed By: #### L 500.4050, L501.9520, L100.0100, L500.4100 ####[facility] [address] [place], [address] Sodium [Moles/Vol] 141 mmol/L Normal 133-145 [facility] Comment on above: Performed By: #### L 500.4050, L501.9520, L100.0100, L500.4100 ####[facility] [address] [place], [address] T PROT 7.0 g/dL Normal 5.9-8.4 [facility] Comment on above: Performed By: #### L 500.4050, L501.9520, L100.0100, L500.4100 ####[facility] [address] [place], [address] Urea nitrogen [Mass/Vol] 15 mg/dL Normal 4-19 [facility] Comment on above: Performed By: #### L 500.4050, L501.9520, L100.0100, L500.4100 ####[facility] [address] [place], [address] Eosinophil percentageOrdered By: Hansa Ndiaye on 11-21-2024 Eosinophils/100 WBC (Bld) 3.5 % 0-5 [facility] Erythrocyte distribution wid th ratioOrdered By: Hansa Ndiaye on 11-21-2024 Erythrocyte distribution width (RBC) [Ratio] 13.2 % 11.6-14.6 [facility] Erythrocyte distribution wid th standard deviationOrdered By: Hansa Ndiaye on 11-21-2024 Erythrocyte distribution width (RBC) [Ratio] 42.7 fl 35.1-43.9 [facility] Glomerular filtration rate ( GFR) estimation/1.73 sq m using serum, plasma, or whole bOrdered By: Hansa Ndiaye on 11-21-2024 GFR/1.73 sq M.predicted among non-blacks MDRD (S/P/Bld) [Vol rate/Area] 75 mL/min/{1.73_m2} >60 [facility] Comment on above: mL/min/1.73m2 CKD-EP I Creatinine Equation (2020) Hematocrit Auto (Bld) [Volum e fraction]Ordered By: Hansa Ndiaye on 11-21-2024 Hematocrit (Bld) [Volume fraction] 37.1 % 37-47 [facility] Hemoglobin measurementOrdere d By: Hansa Ndiaye on 11-21-2024 Hemoglobin (Bld) [Mass/Vol] 12.2 g/dL 12.0-15.0 [facility] Immature granulocytes/100 WB C Auto (Bld)Ordered By: Hansa Ndiaye on 11-21-2024 Immature granulocytes/100 WBC (Bld) 0.300 % 0.0-0.9 [facility] Comment on above: IG% - Immature Granu locytes (promyelocytes, myelocytes and metamyelocytes) > 1% indicates that a LEFT SHIFT is Present. LDL calc ser/plasOrdered By: Hansa Ndiaye on 11-21-2024 Cholesterol in LDL [Mass/Vol] 89 mg/dL [facility] Comment on above: Jpjvrxfzvv=201-279 m g/dL & Higher Ngep=221 mg/dL or greaterFriedwald Equation for LDL-C Laboratory - Chemistry and C hemistry - challengeOrdered By: Hansa Ndiaye on 11-21-2024 AST [Catalytic activity/Vol] 16 U/L <32 [facility] Lipid Profileon 11-21-2024 CHOL:HDL 3.59 Normal [facility] Comment on above: Performed By: #### L 500.4050, L501.9520, L100.0100, L500.4100 ####[facility] [address] [place], [address] Cholesterol [Mass/Vol] 154 mg/dL Normal <=200 [facility] Comment on above: Result Comment: Chol esterol level, Desirable <200 mg/dL Borderline high cholesterol 200-239 mg/dL High cholesterol >=240 mg/dL Recommendations of the NCEP Adult Treatment Panel for the following risk-cutoff thresholds for the [place] population. Performed By: #### L 500.4050, L501.9520, L100.0100, L500.4100 ####[facility] [address] [place], [address] Cholesterol in HDL [Mass/Vol] 43 mg/dL Normal [facility] Comment on above: Result Comment: Jo onal Cholesterol Education Program (NCEP) guidelines: <40 mg/dL: Low HDL-cholesterol (major risk factor for CHD) >= 60 mg/dL: High HDL-cholesterol (negative risk factor for CHD) HDL-cholesterol is affected by a number of factors, e.g. smoking, exercise, hormones, sex and age. Performed By: #### L 500.4050, L501.9520, L100.0100, L500.4100 ####[facility] [address] [place], [address] Cholesterol in LDL [Mass/Vol] 89 mg/dL Normal [facility] Comment on above: Result Comment: Bord rpzrsd=533-270 mg/dL Higher Enfs=525 mg/dL or greater Friedwald Equation for LDL-C Performed By: #### L 500.4050, L501.9520, L100.0100, L500.4100 ####[facility] [address] [place], [address] Cholesterol in VLDL [Mass/Vol] 22 mg/dL Normal 5-40 [facility] Comment on above: Performed By: #### L 500.4050, L501.9520, L100.0100, L500.4100 ####[facility] [address] [place], [address] Triglyceride [Mass/Vol] 109 mg/dL Normal [facility] Comment on above: Result Comment: The drugs N-Acetylcysteine and Metamizole may falsely depress this assay. Normal range: <150 mg/dL Borderline High: 150-199 mg/dL High: 200-499 mg/dL Very High: >500 mg/dL Performed By: #### L 500.4050, L501.9520, L100.0100, L500.4100 ####[facility] [address] [place], [address] MCV (mean corpuscular volume ) determinationOrdered By: Hansa Ndiaye on 11-21-2024 MCV (RBC) [Entitic vol] 87.9 fL 81-99 [facility] Mean corpuscular hemoglobin (MCH) determinationOrdered By: Hansa Ndiaye on 11-21-2024 MCH (RBC) [Entitic mass] 28.9 pg 27.0-32.0 [facility] Mean corpuscular hemoglobin concentration (MCHC) determinationOrdered By: Hansa Ndiaye on 11-21-2024 MCHC (RBC) [Mass/Vol] 32.9 g/dL 32-36 [facility] Mean platelet volume determi nationOrdered By: Hansa Ndiaye on 11-21-2024 Platelet mean volume (Bld) [Entitic vol] 10.2 fL 6.2-12.0 [facility] Monocyte percentageOrdered B y: Hansa Ndiaye on 11-21-2024 Monocytes/100 WBC (Bld) 10.0 % 0-10 [facility] Neutrophil percentageOrdered By: Hansa Ndiaye on 11-21-2024 Neutrophils/100 WBC (Bld) 42.5 % Low 47-70 [facility] Nucleated red blood cell per centageOrdered By: Hansa Ndiaye on 11-21-2024 Nucleated RBC/100 WBC (Bld) [Ratio] 0 % 0-5 [facility] Platelet countOrdered By: Lawrence Ndiaye on 11-21-2024 Platelets (Bld) [#/Vol] 365 10*3/uL 150-450 [facility] Potassium measurement (mass/ volume)Ordered By: Hansa Ndiaye on 11-21-2024 Potassium (Unsp spec) [Mass/Vol] 4.7 mmol/L 3.3-5.1 [facility] RBC Auto (Bld) [#/Vol]Ordere d By: Hansa Ndiaye on 11-21-2024 RBC (Bld) [#/Vol] 4.22 10*6/uL 4.2-5.4 [facility] Screening total cholesterol/ high density lipoprotein (HDL) cholesterol ratioOrdered By: Hansa Ndiaye on 11-21-2024 Cholesterol.total/Chol esterol in HDL [Mass ratio] 3.59 {ratio} [facility] Serum creatinine measurement (mass/volume)Ordered By: Hnasa Ndiaye on 11-21-2024 Creatinine [Mass/Vol] 0.82 mg/dL 0.70-1.20 [facility] Serum globulin measurementOr dered By: Hansa Ndiaye on 11-21-2024 Globulin (S) [Mass/Vol] 3.1 g/dL 2.2-4.2 [facility] Serum glucose measurement (m ass/volume)Ordered By: Hansa Ndiaye on 11-21-2024 Glucose [Mass/Vol] 93 mg/dL 70-99 [facility] Serum or plasma alanine arshad otransferase (ALT) measurementOrdered By: Hansa Ndiaye on 11-21-2024 ALT [Catalytic activity/Vol] 10 U/L <35 [facility] Serum or plasma albumin wilma urement (mass/volume)Ordered By: Hansa Ndiaye on 11-21-2024 Albumin [Mass/Vol] 3.9 g/dL 3.4-4.8 [facility] Serum or plasma albumin/glob ulin mass ratioOrdered By: Hansa Ndiaye on 11-21-2024 Albumin/Globulin [Mass ratio] 1.3 {ratio} 0.9-2.4 [facility] Serum or plasma alkaline aliza sphatase measurementOrdered By: Hansa Ndiaye on 11-21-2024 ALP [Catalytic activity/Vol] 113 U/L High 35-104 [facility] Serum or plasma calcium wilma urement (mass/volume)Ordered By: Hansa Ndiaye on 11-21-2024 Calcium [Mass/Vol] 9.4 mg/dL 7.6-11.0 [facility] Serum or plasma cholesterol in HDL measurement (mass/volume)Ordered By: Hansa Ndiaye on 11-21-2024 Cholesterol in HDL [Mass/Vol] 43 mg/dL >40 [facility] Comment on above: National Cholesterol Education Program (NCEP) guidelines:<40 mg/dL: Low HDL-cholesterol (major risk factor for CHD)>= 60 mg/dL: High HDL-cholesterol (negative risk factor for CHD)HDL-cholesterol is affected by a number of factors, e.g. smoking, exercise, hormones, sex and age. Serum or plasma cholesterol measurement (mass/volume)Ordered By: Hansa Ndiaye on 11-21-2024 Cholesterol [Mass/Vol] 154 mg/dL <201 [facility] Comment on above: Cholesterol level, D esirable <200 mg/dLBorderline high cholesterol 200-239 mg/dLHigh cholesterol >=240 mg/dLRecommendations of the NCEP Adult Treatment Panel for the following risk-cutoff thresholds for the [place] population. Serum or plasma urea nitroge n measurement (mass/volume)Ordered By: Hansa Ndiaye on 11-21-2024 Urea nitrogen [Mass/Vol] 15 mg/dL 4-19 [facility] Smudge cell detectionOrdered By: Hansa Ndiaye on 11-21-2024 Smudge cells LM Ql (Bld) RARE [facility] Sodium levelOrdered By: Yoana Ndiaye on 11-21-2024 Sodium [Moles/Vol] 141 mmol/L 133-145 [facility] TSH DL <= 0.005 mIU/L QnOrde red By: Hansa Ndiaye on 11-21-2024 TSH Qn 3.530 uIU/mL 0.300-4.20 0 [facility] Thyroid Stim Hormone (TSH)on 11-21-2024 TSH 3.530 uIU/mL Normal 0.300-4.20 0 [facility] Comment on above: Performed By: #### L 500.4050, L501.9520, L100.0100, L500.4100 ####[facility] [address] [place], [address] Total proteinOrdered By: Andrew Ndiaye on 11-21-2024 Protein [Mass/Vol] 7.0 g/dL 5.9-8.4 [facility] Triglycerides measurementOrd ered By: Hansa Ndiaye on 11-21-2024 Triglyceride [Mass/Vol] 109 mg/dL <199 [facility] Comment on above: The drugs N-Acetylcy steine and Metamizole may falsely depress this assay. Normal range: <150 mg/dLBorderline High: 150-199 mg/dLHigh: 200-499 mg/dLVery High: >500 mg/dL White blood cell (WBC) count Ordered By: Hansa Ndiaye on 11-21-2024 WBC (Bld) [#/Vol] 5.8 10*3/uL 4.4-11.0 [facility] 11-02-2024 [facility] Telephone (NREUS2) CINDY WARREN ([id number]) 1950 F Date Time Provider Department 11/02/24 JOAQUIN PIERCE NREUS2 During your visit today, we recorded the following information about you: Allergies As of Date: 11/02/2024 Noted Allergy Reaction IODINE 04/14/2013 11 - Vomiting SHELLFISH DERIVED 10/29/2022 4 - Hives Date Reviewed: 09/28/2024 Reviewed by: Margaret Garcia MD - Fully Assessed Prescriptions as of 11/02/2024 - ondansetron orally disintegrating (ZOFRAN ODT) 4 mg disintegrating tablet Take 1 tablet by mouth every 8 hours as needed for nausea/vomiting. - carbidopa-levodopa (SINEMET 25-100) 25-100 mg per tablet Take 2 tablets by mouth three times a day. Start low dose and increase as directed by doctor's office - atorvastatin (LIPITOR) 10 mg tablet Take 10 mg by mouth once daily. - GABAPENTIN ORAL Take 300 mg by mouth three times a day. - OTC PRODUCT Multi vitamin po daily - ALPRAZolam (XANAX) 0.25 mg tablet TAKE 1 TABLET BY MOUTH THREE TIMES DAILY NEEDED FOR 90 DAYS - DEXILANT 60 mg CpDM TAKE 1 CAPSULE BY MOUTH ONCE DAILY 30 TO 45 MINUTES BEFORE A MEAL. - gabapentin (NEURONTIN) 100 mg capsule TAKE 1 CAPSULE BY MOUTH THREE TIMES DAILY ALONG WITH 300 MG CAP TO EQUAL 400 MG DAILY Problem List As Of Date: 11/02/2024 (None) Encounter Status:Closed by JOAQUIN PIERCE on 11/02/24 [facility] CNOVon 09-28-2024 CNOV Office Visit (NRMDN) CINDY WARREN ([id number]) 1950 F Date Time Provider Department 09/28/24 10:00 AM MARGARET GARCIA During your visit today, we recorded the following information about you: Weight 72.6 kg Margaret Garcia MD 09/28/2024 11:16 AM Addendum It was a pleasure to see you today. We addressed the following diagnoses: Parkinson's disease without dyskinesia or fluctuating manifestations (hcc) My recommendations are as follows: - Increase your Sinemet to 2 tablets three times a day for at least 1-2 weeks, taking each dose with a full meal; if nausea worsens or you don?t feel better after two weeks, resume 1? tablets three times daily. - Your ondansetron (Zofran) prescription has been sent to [facility] pharmacy; take one dose as needed for nausea, especially within an hour after Sinemet. - Aim to drink 40-60 ounces of fluid each day. Consider adding an electrolyte mix (Gatorade or Liquid IV) to help with dizziness - Continue your regular exercise routine, as this boosts energy and mobility. - Schedule a follow-up appointment in approximately four months (around January) to reassess your symptoms and medication response. Movement Disorders Medication Schedule: Medications Sinemet 25/100 1.5 1.5 1.5 xanax 0.25 mg prn Return at or around: 01/29/25 Your current CNR Movement Disorders Team includes: Primary Movement Disorders Neurologist: Margaret Garcia MD You don't have a movement disorders-specialized advanced practice provider (TERE) on your team yet. You may ask to have your next follow-up appointment scheduled with an TERE and add them to your team to expand your team, access, and appointment options. If there are any concerns before your next visit, please call or you can send a message through [employer]. You can also now schedule and select appointments through [employer]. MD Jose Downs Kristin, MD 09/28/2024 7:48 PM Signed [facility] - FOLLOW UP EVALUATION Recording using [employer] software for draft documentation of the visit was discussed with the patient/authorized traffic representative; all questions welcomed and answered. Patient/authorized traffic representative agreed to proceed I had the pleasure of seeing Ms. Warern for follow-up today. She is a 74 year old right-handed female with a history of suspected Parkinson's disease since August 2022 . Subjective Previous Plan- 03/31/2024 Visit: For Parkinson's - start Sinemet (carbidopa-levodopa) very slowly. Take the doses with food. Stop increasing the dose if your symptoms are manageable See schedule below, you can do it slower: Breakfast 8a Lunch 1p Dinner 6p Week 1 1/2 tab Week 2 1/2 1/2 Week 3 1/2 1/2 1/2 Week 4 1 1/2 1/2 Week 5 1 1/2 1 Week 6 1 1 1 Week 7 1.5 1 1 Week 8 1.5 1 1.5 Week 9 1.5 1.5 1.5 Week 10 2 1.5 1.5 Week 11 2 1.5 2 Week 12 and on 2 2 2 Continue seeing psychology - Interval History: Cindy Warren Loly Warren is a 74-year-old female with a history of Parkinson's disease presenting for follow-up. Cindy reports continued tremors despite taking 1.5 tablets of Sinemet three times daily. She believes the medication is helping with the tremors but not with other symptoms. She is hesitant to increase the dose to two tablets three times daily due to headaches and nausea which she attributes to side effects. She takes the medication with meals but experiences nausea and a feeling of fullness lasting 3-4 hours after eating. She manages nausea by sipping larissa tien and is considering using Zofran again. Cindy reports significant fatigue, particularly in the mornings, describing a lack of energy and muscle weakness. She tries to manage this by drinking caffeinated tea but is not a regular coffee drinker. Exercise reportedly helps with her energy levels, and she maintains a routine of exercising Thursday through Thursday. She notes feeling better during a recent vacation in [place]. She also experiences headaches on the top of her head. She manages these with ice and Tylenol, though the latter is not always effective. Cindy reports lightheadedness, particularly when moving quickly or standing up too fast, which she associates with changes in position. She also experiences dry mouth and is trying to increase her water intake, though she has a swallowing issue that makes this challenging. She uses a glass water bottle with rubber bands to track her intake, aiming to drink three bottles per day but has not yet achieved this consistently. She acknowledges feelings of anxiety and boredom, which she attributes to aging and having too much time on her hands. She has been seeing a psychologist but does not find it helpful and plans to discontinue therapy. She tries to stay active by walking with a friend in her [facility] community and engaging in daily a (more content not included)... Normal [facility] 12 Lead EKGon 09-11-2024 12 Lead EKG [facility] [address] [place] [address] 12 Lead EKG 09/11/24 1217 MR#: [id number] Acct: [id number] Name: CINDY WARREN Rep #: [id number] : 1950 74 From: You Lawson MD Attending Dr: Status: DEP ER Ordering Dr: Celio Hess DO Date: 5 Location: ED Sex: F C Admitted: Test Reason : CP Blood Pressure : */* mmHG Vent. Rate : 60 BPM Atrial Rate : 60 BPM P-R Int : 144 ms QRS Dur : 80 ms QT Int : 430 ms P-R-T Axes : 48 -16 52 degrees QTcB Int : 430 ms Normal sinus rhythm Normal ECG Confirmed by YOU LAWSON MD ([id number]), international editorial producer MINA CORRALES ([id number]) on 09/12/2024 11:01:22 AM Referred By: DALLIN Confirmed By: YOU LAWSON MD 09/12/24 1101 Date You Lawson MD CC: Dr. Celio Hess, DO; Dr. Hansa Ndiaye MD Signed Normal [facility] Absolute lymphocyte countOrd ered By: ED PROVIDER on 09-11-2024 Lymphocytes Auto (Unsp spec) [#/Vol] 2.42 10*3/uL 0.83-4.51 [facility] Absolute neutrophil countOrd ered By: ED PROVIDER on 09-11-2024 Neutrophils (Bld) [#/Vol] 3.6 10*3/uL 2.0-7.7 [facility] Anion gap in Serum or Plasma Ordered By: Celio Hess on 09-11-2024 Anion gap [Moles/Vol] 11 mmol/L 5-15 [facility] Automated lymphocyte count a s percentage of total leukocytesOrdered By: ED PROVIDER on 09-11-2024 Lymphocytes/100 WBC Auto (Unsp spec) 35.2 % 19-41 [facility] BUN/creatinine ratioOrdered By: Celio Hess on 09-11-2024 Urea nitrogen/Creatinine [Mass ratio] 14.2 mg/mg 10- [facility] Basic Metabolic Profile (BMP )on 09-11-2024 BUN/CRE 14.2 RATIO Normal - [facility] Comment on above: Performed By: #### L 501.4021, L500.2500, L100.0100 ####[facility] [address] [place], [address] Calcium [Mass/Vol] 9.3 mg/dL Normal 7.6-11.0 [facility] Comment on above: Performed By: #### L 501.4021, L500.2500, L100.0100 ####[facility] [address] [place], [address] Chloride [Moles/Vol] 106 mmol/L Normal 98-108 [facility] Comment on above: Performed By: #### L 501.4021, L500.2500, L100.0100 ####[facility] [address] [place], [address] CO2 [Moles/Vol] 24.1 mmol/L Normal 21.0-32.0 [facility] Comment on above: Performed By: #### L 501.4021, L500.2500, L100.0100 ####[facility] [address] [place], [address] Creatinine [Mass/Vol] 0.85 mg/dL Normal 0.70-1.20 [facility] Comment on above: Performed By: #### L 501.4021, L500.2500, L100.0100 ####[facility] [address] [place], [address] GAP 11 Normal 5-15 [facility] Comment on above: Performed By: #### L 501.4021, L500.2500, L100.0100 ####[facility] [address] [place], [address] GFR/1.73 sq M.predicted among non-blacks MDRD (S/P/Bld) [Vol rate/Area] 71 mL/min/{1.73_m2} Normal >60 [facility] Comment on above: Result Comment: mL/m in/1.73m2 CKD-EPI Creatinine Equation (2020) Performed By: #### L 501.4021, L500.2500, L100.0100 ####[facility] [address] [place], [address] Glucose [Mass/Vol] 93 mg/dL Normal 70-99 [facility] Comment on above: Performed By: #### L 501.4021, L500.2500, L100.0100 ####[facility] [address] [place], [address] Potassium [Moles/Vol] 4.3 mmol/L Normal 3.3-5.1 [facility] Comment on above: Performed By: #### L 501.4021, L500.2500, L100.0100 ####[facility] [address] [place], [address] Sodium [Moles/Vol] 140 mmol/L Normal 133-145 [facility] Comment on above: Performed By: #### L 501.4021, L500.2500, L100.0100 ####[facility] [address] [place], [address] Urea nitrogen [Mass/Vol] 12 mg/dL Normal 4-19 [facility] Comment on above: Performed By: #### L 501.4021, L500.2500, L100.0100 ####[facility] [address] [place], [address] Basophil percentageOrdered B y: ED PROVIDER on 09-11-2024 Basophils/100 WBC (Bld) 0.4 % 0-1 [facility] CBC W/Diff, Automatedon Absolute Lymph 2.42 X10 3/uL Normal 0.83-4.51 [facility] Comment on above: Performed By: #### L 501.4021, L500.2500, L100.0100 ####[facility] [address] [place], [address] Absolute Neut 3.6 X10 3/uL Normal 2.0-7.7 [facility] Comment on above: Performed By: #### L 501.4021, L500.2500, L100.0100 ####[facility] [address] [place], [address] Basophils/100 WBC (Bld) 0.4 % Normal 0-1 [facility] Comment on above: Performed By: #### L 501.4021, L500.2500, L100.0100 ####[facility] [address] [place], [address] Eosinophils/100 WBC (Bld) 2.5 % Normal 0-5 [facility] Comment on above: Performed By: #### L 501.4021, L500.2500, L100.0100 ####[facility] [address] [place], [address] Erythrocyte distribution width (RBC) [Ratio] 13.6 % Normal 11.6-14.6 [facility] Comment on above: Performed By: #### L 501.4021, L500.2500, L100.0100 ####[facility] [address] [place], [address] Hematocrit (Bld) [Volume fraction] 38.6 % Normal 37-47 [facility] Comment on above: Performed By: #### L 501.4021, L500.2500, L100.0100 ####[facility] [address] [place], [address] Hemoglobin (Bld) [Mass/Vol] 12.7 g/dL Normal 12.0-15.0 [facility] Comment on above: Performed By: #### L 501.4021, L500.2500, L100.0100 ####[facility] [address] [place], [address] IG% 0.100 Normal 0.0-0.9 [facility] Comment on above: Result Comment: IG% - Immature Granulocytes (promyelocytes, myelocytes and metamyelocytes) > 1% indicates that a LEFT SHIFT is Present. Performed By: #### L 501.4021, L500.2500, L100.0100 ####[facility] [address] [place], [address] Lymphocytes/100 WBC (Bld) 35.2 % Normal 19-41 [facility] Comment on above: Performed By: #### L 501.4021, L500.2500, L100.0100 ####[facility] [address] [place], [address] MCH (RBC) [Entitic mass] 28.7 pg Normal 27.0-32.0 [facility] Comment on above: Performed By: #### L 501.4021, L500.2500, L100.0100 ####[facility] [address] [place], [address] MCHC (RBC) [Mass/Vol] 32.9 g/dL Normal 32-36 [facility] Comment on above: Performed By: #### L 501.4021, L500.2500, L100.0100 ####[facility] [address] [place], [address] MCV (RBC) [Entitic vol] 87.1 fL Normal 81-99 [facility] Comment on above: Performed By: #### L 501.4021, L500.2500, L100.0100 ####[facility] [address] [place], [address] Monocytes/100 WBC (Bld) 8.7 % Normal 0-10 [facility] Comment on above: Performed By: #### L 501.4021, L500.2500, L100.0100 ####[facility] [address] [place], [address] Neutrophils/100 WBC (Bld) 53.1 % Normal 47-70 [facility] Comment on above: Performed By: #### L 501.4021, L500.2500, L100.0100 ####[facility] [address] [place], [address] Nucleated RBC (Bld) [#/Vol] 0 10*3/uL Normal 0-5 [facility] Comment on above: Performed By: #### L 501.4021, L500.2500, L100.0100 ####[facility] [address] [place], [address] Platelet mean volume (Bld) [Entitic vol] 10.1 fL Normal 6.2-12.0 [facility] Comment on above: Performed By: #### L 501.4021, L500.2500, L100.0100 ####[facility] [address] [place], [address] Platelets (Bld) [#/Vol] 379 10*3/uL Normal 150-450 [facility] Comment on above: Performed By: #### L 501.4021, L500.2500, L100.0100 ####[facility] [address] [place], [address] RBC (Bld) [#/Vol] 4.43 10*6/uL Normal 4.2-5.4 [facility] Comment on above: Performed By: #### L 501.4021, L500.2500, L100.0100 ####[facility] [address] [place], [address] RDW SD 43.4 fl Normal 35.1-43.9 [facility] Comment on above: Performed By: #### L 501.4021, L500.2500, L100.0100 ####[facility] [address] [place], [address] WBC (Bld) [#/Vol] 6.9 10*3/uL Normal 4.4-11.0 [facility] Comment on above: Performed By: #### L 501.4021, L500.2500, L100.0100 ####[facility] [address] [place], [address] CTA Chest W/WO Contraston CTA Chest W/WO Contrast [facility] Imaging Services [address] [place] [address] CTA Chest W/WO Contrast MR#: [id number] Acct: [id number] Name: CINDY WARREN Rep #: [id number] : 1950 F 74 From: Kianna Venegas nd, MD PCP: Dr. Hansa Ndiaye MD Status: REG ER Study: CTA Chest W/WO Contrast Date of Exam: 09/11/24 Exam# [id number] Ordering Dr: Celio Hess DO PROCEDURE: CTA CHEST W/WO CONTRAST 09/11/2024 REASON FOR EXAM: ASSESS FOR DISSECTION TECHNIQUE: CTA axial imaging of the chest with intravenous contrast. Coronal and Sagittal reconstruction series were provided. 3D, 3D post processing, 3D reconstructions, Maximum intensity projection (MIPs) Volume rendering and Shaded surface rendering was provided. PATIENT PREPARATION: Per protocol CONTRAST: Isovue 370 VOLUME: 100mL One or more dose reduction techniques were used (e.g., Automated exposure control, adjustment of the mA and/or kV according to patient size, use of iterative reconstruction technique). RADIATION DOSE SUMMARY: DLP: 200 mGycm COMPARISON: Same day chest radiograph. FINDINGS: Hardware: None. Lymph nodes: No axillary, mediastinal or hilar lymphadenopathy. Heart: The heart is normal in size without pericardial effusion. The great vessels are normal in caliber. Minimal calcific plaque of the aortic arch and descending thoracic aorta. No significant coronary artery calcifications. Pulmonary Vessels: No central filling defect within the segmental or subsegmental pulmonary arteries. Lungs and Airways: The central airways are patent. Small ground-glass nodule within the right posterior lower lobe (series 2, image 176), measuring 0.8 cm. Bibasilar atelectasis. No pleural effusion or pneumothorax. Upper Abdomen: Prior cholecystectomy. Bones: Thoracic spondylosis. CT/CTA Chest W/WO Contrast IMPRESSION: 1. No acute thoracic finding. 2. Small ground-glass nodule within the right lower lobe. Follow-up CT chest in 6-12 months is recommended to evaluate for stability/resolution. Reading Location: [facility] CC: Dr. Celio Hess DO; Dr. Hansa Ndiaye MD Graphic Design Professor: Signed Normal [facility] Carbon dioxide, total [Moles /volume] in Central venous bloodOrdered By: Celio Hess on 09-11-2024 CO2 [Moles/Vol] 24.1 mmol/L 21.0-32.0 [facility] Chest PA and Lateralon 09-11 Chest PA and Lateral [facility] Imaging Services [address] [place], [place] [address] Chest PA and Lateral MR#: [id number] Acct: [id number] Name: CINDY WARREN Rep #: [id number] : 1950 F 74 From: Curt Abarca MD PCP: Dr. Hansa Ndiaye MD Status: PRE ER Study: Chest PA and Lateral Date of Exam: 09/11/24 Exam# [id number] Ordering Dr: Provider,Ed P. PROCEDURE: CHEST PA AND LATERAL 09/11/2024 REASON FOR EXAM: CHEST PAIN TECHNIQUE: CHEST PA AND LATERAL COMPARISON: Two-view chest, 09/04/2022 . FINDINGS: There is chronic blunting of the left costophrenic angle. The lungs are otherwise clear. The heart size is normal. There is calcific vascular disease of the thoracic aorta. The pulmonary vascular pattern is normal. The upper abdominal bowel gas pattern is normal. There are no bony abnormalities of the chest. RAD/Chest PA and Lateral IMPRESSION: No evidence of acute cardiopulmonary pathology. Chronic blunting of the left costophrenic angle. Reading Location: [id number] CC: Dr. Hansa Ndiaye MD; ED PHYSICIAN PROVIDER Graphic Design Professor: Signed Normal [facility] Chloride assayOrdered By: Wilmer Hess on 09-11-2024 Chloride [Moles/Vol] 106 mmol/L 98-108 [facility] D-Dimer Quantitative (DVT/PE )on 09-11-2024 D-DIMER QUANT 0.55 FEU/ug/m Invalid Interpretation Code 0.27-0.49 [facility] Comment on above: Order Comment: CRITI RICHIE VALUE CALLED TO HORR 09/11/24 Sebastian Mercado. RESULTS READ BACK BY SAME. Result Comment: D-Di sonja ELEVATED (>0.49): Additional studies and clinical assessments are indicated to conclude diagnosis of: Deep Vein Thrombosis (DVT) or Pulmonary Embolism (PE) Performed By: #### L [id number] #### [facility] Laboratory [address] [place], [address] Emergency Department Summary on 09-11-2024 Emergency Department Summary [facility] Medical Records Department [address] [place] [address] Emergency Department Summary 09/11/24 MR#: [id number] Acct: [id number] Name: CINDY WARREN Rep #: [id number] : 1950 74 From: Celio Hess DO PCP: Dr. Hansa Ndiaye MD Status:REG ER Location: ED HPI History of Present Illness Chief Complaint: Chest Pain Narrative Narrative: Chief complaint and HPI: Chest pain. 74-year-old female with past medical history of GERD, esophageal spasms, IBS, fibromyalgia, Parkinson's disease presents for evaluation of chest pain. Patient states she was recently switched to a new GERD medication which she started yesterday. She states she was getting into the car when she developed chest pain. Chest pain was approximately 15 minutes prior to arrival. Described as midsternal and radiates to the back. Associated symptom shortness of breath. Pain is improving although she states she did not take any medication for the pain. She denies any fever, chills, URI symptoms, cough, abdominal pain, nausea, vomiting. Denies a history of DVT/PE, blood clotting disorder, recent trauma or surgery, exogenous estrogen use, unilateral leg swelling, known malignancy, travel Review of systems: See HPI Medications: As listed on the chart Allergies: As listed on the chart PFSH: Per chart Vital signs: As listed on the chart. Reviewed. Physical exam: Gen: A O x3, NAD Head: Normocephalic, atraumatic Eyes: No sclera icterus, conjunctiva clear ENT: Moist mucous membranes Neck: Trachea midline, No JVD CV: RRR, no murmurs, no peripheral edema, chest wall nontender to palpation Resp: Lungs CTA BL, no w/r/c GI: Abd soft, non-distended, non-tender, no r/r/g :no CVA tenderness Musc: Full ROM, no deformity, no midline spinal tenderness, no bony step-off, no pain to palpation of the back Skin: Warm, dry Neuro: Alert, oriented, grossly intact, sensation intact Psych: Cooperative, appropriate mood and affect PFSH PFSH Medical History Lichen sclerosus Wears glasses Non-smoker History of IBS History of stress test Generalized anxiety disorder Family hx of colon cancer Fibromyalgia Thyroid nodule Mixed hyperlipidemia GERD (gastroesophageal reflux disease) Osteopenia High cholesterol IBS (irritable bowel syndrome) Anemia Atrophic vaginitis Genital warts Barretts esophagus Acid reflux Home Medications ???Medication ???Instructions ???Recorded ???Last Taken ???Type alprazolam 0.25 mg tablet 0.25 mg PO QHS PRN sleep 07/19/20 Unknown History dexlansoprazole 60 mg 60 mg PO DAILY 07/19/20 Unknown Hi story capsule,biphase delayed release (Dexilant) epinephrine 0.3 mg/0.3 mL 0.3 mg IM Q5-15M PRN anaphylaxis 1 Unknown History injection, auto-injector (EpiPen 2-Rodger) gabapentin 400 mg capsule 400 mg PO TID 11/11/22 Unknown His tory promethazine 25 mg tablet 25 mg PO QDAY PRN nausea and 11/26 Unknown History vomiting mometasone 0.1 % topical ointment 1 applic topical .COMPLEX #15 gra ms 10/20/23 Unknown Rx carbidopa 10 mg-levodopa 100 mg 1 tab PO BID 04/13/24 Unknown Hist ory tablet (Sinemet) estradiol 0.01% (0.1 mg/gram) See Rx Instructions vaginal Unknown Rx vaginal cream .COMPLEX #42.5 grams Allergy/AdvReac Type Severity Reaction Status Date / Time iodine Allergy Vomiting Verified 09/11/24 12:12 Family History Unknown Heart disease Mother Anxiety Colon cancer Depression Thyroid disorder Father Anxiety Hypertension Grandmother Breast cancer Osteoporosis Thyroid disorder Surgical History Hx of colonoscopy Hx of cholecystectomy H/O: hysterectomy H/O splenectomy Social History household members: spouse number of children: 0 current occupational status: retired history of recent travel: Yes Smoking Status: Never smoker alcohol intake: never substance use type: does not use what type of physical activity do you participate in: none seatbelt use: always do you feel safe at home: Yes additional social history: - Niraj EXAM Physical Exam Const Vital Signs: 09/11/24 12:12 09/11/24 13:12 09/11/24 13:40 Temperature 97.6 F L 97.4 F L Temperature Source Temporal Oral Pulse Rate 66 69 70 Respiratory Rate 16 18 Blood Pressure 123/88 H 141/67 H 146/95 H Blood Pressure Mean 99 91 112 Pulse Ox 100 98 Oxygen Delivery Method Room Air Room Air 09/11/24 15:00 Temperature Temperature Source Pulse Rate 68 Respiratory Rate Blood Pressure 172/68 H Blood Pressure Mean 102 Pulse (more content not included)... Normal [facility] Eosinophil percentageOrdered By: ED PROVIDER on 09-11-2024 Eosinophils/100 WBC (Bld) 2.5 % 0-5 [facility] Erythrocyte distribution wid th ratioOrdered By: ED PROVIDER on 09-11-2024 Erythrocyte distribution width (RBC) [Ratio] 13.6 % 11.6-14.6 [facility] Erythrocyte distribution wid th standard deviationOrdered By: ED PROVIDER on 09-11-2024 Erythrocyte distribution width (RBC) [Ratio] 43.4 fl 35.1-43.9 [facility] Glomerular filtration rate ( GFR) estimation/1.73 sq m using serum, plasma, or whole bOrdered By: Celio Hess on 09-11-2024 GFR/1.73 sq M.predicted among non-blacks MDRD (S/P/Bld) [Vol rate/Area] 71 mL/min/{1.73_m2} >60 [facility] Comment on above: mL/min/1.73m2 CKD-EP I Creatinine Equation (2020) Hematocrit Auto (Bld) [Volum e fraction]Ordered By: ED PROVIDER on 09-11-2024 Hematocrit (Bld) [Volume fraction] 38.6 % 37-47 [facility] Hemoglobin measurementOrdere d By: ED PROVIDER on 09-11-2024 Hemoglobin (Bld) [Mass/Vol] 12.7 g/dL 12.0-15.0 [facility] Immature granulocytes/100 WB C Auto (Bld)Ordered By: ED PROVIDER on 09-11-2024 Immature granulocytes/100 WBC (Bld) 0.100 % 0.0-0.9 [facility] Comment on above: IG% - Immature Granu locytes (promyelocytes, myelocytes and metamyelocytes) > 1% indicates that a LEFT SHIFT is Present. L499.0042on 09-11-2024 Trop T High Sen < 6 Normal <=14 [facility] Comment on above: Performed By: #### L 499.0042 #### [facility] [address] [place], [address] L499.0043on 09-11-2024 Trop T High Sen Normal <=14 [facility] Comment on above: Result Comment: Gagan fabian OM: Ordered Performed By: #### L 499.0043 #### [facility] [address] [place], [address] L501.4021on 09-11-2024 Trop T High Sen < 6 Normal <=14 [facility] Comment on above: Performed By: #### L 501.4021, L500.2500, L100.0100 ####[facility] [address] [place], [address] L503.7505on 09-11-2024 Natriuretic peptide B (Bld) [Mass/Vol] 96 pg/mL Normal <=1800 [facility] Comment on above: Result Comment: Hear t Failure Unlikely: < 300 pg/mL Heart Failure Likely < 50 Years: > 450 pg/mL 50-75 Years: > 900 pg/mL >75 Years: > 1800 pg/mL Performed By: #### L 503.7505 #### [facility] [address] [place], [address] MCV (mean corpuscular volume ) determinationOrdered By: ED PROVIDER on 09-11-2024 MCV (RBC) [Entitic vol] 87.1 fL 81-99 [facility] Mean corpuscular hemoglobin (MCH) determinationOrdered By: ED PROVIDER on 09-11-2024 MCH (RBC) [Entitic mass] 28.7 pg 27.0-32.0 [facility] Mean corpuscular hemoglobin concentration (MCHC) determinationOrdered By: ED PROVIDER on 09-11-2024 MCHC (RBC) [Mass/Vol] 32.9 g/dL 32-36 [facility] Mean platelet volume determi nationOrdered By: ED PROVIDER on 09-11-2024 Platelet mean volume (Bld) [Entitic vol] 10.1 fL 6.2-12.0 [facility] Monocyte percentageOrdered B y: ED PROVIDER on 09-11-2024 Monocytes/100 WBC (Bld) 8.7 % 0-10 [facility] Natriuretic peptide.B prohor jazmin N-Terminal [Mass/volume] in Serum or PlasmaOrdered By: Celio Hess on 09-11-2024 Natriuretic peptide.B prohormone N-Terminal [Mass/Vol] 96 pg/mL <1800 [facility] Comment on above: Heart Failure Unlike ly: < 300 pg/mLHeart Failure Likely< 50 Years: > 450 pg/mL50-75 Years: > 900 pg/mL>75 Years: > 1800 pg/mL Neutrophil percentageOrdered By: ED PROVIDER on 09-11-2024 Neutrophils/100 WBC (Bld) 53.1 % 47-70 [facility] Nucleated red blood cell per centageOrdered By: ED PROVIDER on 09-11-2024 Nucleated RBC/100 WBC (Bld) [Ratio] 0 % 0-5 [facility] Platelet countOrdered By: ED PROVIDER on 09-11-2024 Platelets (Bld) [#/Vol] 379 10*3/uL 150-450 [facility] Potassium measurement (mass/ volume)Ordered By: Celio Hess on 09-11-2024 Potassium (Unsp spec) [Mass/Vol] 4.3 mmol/L 3.3-5.1 [facility] RBC Auto (Bld) [#/Vol]Ordere d By: ED PROVIDER on 09-11-2024 RBC (Bld) [#/Vol] 4.43 10*6/uL 4.2-5.4 [facility] Serum creatinine measurement (mass/volume)Ordered By: Celio Hess on 09-11-2024 Creatinine [Mass/Vol] 0.85 mg/dL 0.70-1.20 [facility] Serum glucose measurement (m ass/volume)Ordered By: Celio Hess on 09-11-2024 Glucose [Mass/Vol] 93 mg/dL 70-99 [facility] Serum or plasma calcium wilma urement (mass/volume)Ordered By: Celio Zhong on 09-11-2024 Calcium [Mass/Vol] 9.3 mg/dL 7.6-11.0 [facility] Serum or plasma urea nitroge n measurement (mass/volume)Ordered By: eClio Hess on 09-11-2024 Urea nitrogen [Mass/Vol] 12 mg/dL 4-19 [facility] Sodium levelOrdered By: Anderson Hess on 09-11-2024 Sodium [Moles/Vol] 140 mmol/L 133-145 [facility] Troponin T.cardiac [Mass/vol ume] in Serum or Plasma by High sensitivity methodOrdered By: Celio Hess on 09-11-2024 Troponin T.cardiac High sensitivity method [Mass/Vol] < 6 ng/L <14 [facility] Troponin T.cardiac High sensitivity method [Mass/Vol] < 6 ng/L <14 [facility] White blood cell (WBC) count Ordered By: ED PROVIDER on 09-11-2024 WBC (Bld) [#/Vol] 6.9 10*3/uL 4.4-11.0 [facility] CNPNon 08-31-2024 LAURAN Telephone (NREUS2) RON WARRENMarek Salcido ([id number]) 1950 F Date Time Provider Department 08/31/24 JOAQUIN PIERCE NREUS2 During your visit today, we recorded the following information about you: Allergies As of Date: 08/31/2024 Noted Allergy Reaction IODINE 04/14/2013 11 - Vomiting SHELLFISH DERIVED 10/29/2022 4 - Hives Date Reviewed: 03/31/2024 Reviewed by: Margaret Garcia MD - Fully Assessed Prescriptions as of 08/31/2024 - carbidopa-levodopa (SINEMET 25-100) 25-100 mg per tablet Take 2 tablets by mouth three times a day. Start low dose and increase as directed by doctor's office - atorvastatin (LIPITOR) 10 mg tablet Take 10 mg by mouth once daily. - GABAPENTIN ORAL Take 300 mg by mouth three times a day. - ondansetron (ZOFRAN) 4 mg tablet Take 1 tablet by mouth every 8 hours as needed for nausea/vomiting. - OTC PRODUCT Multi vitamin po daily - ALPRAZolam (XANAX) 0.25 mg tablet TAKE 1 TABLET BY MOUTH THREE TIMES DAILY NEEDED FOR 90 DAYS - DEXILANT 60 mg CpDM TAKE 1 CAPSULE BY MOUTH ONCE DAILY 30 TO 45 MINUTES BEFORE A MEAL. - gabapentin (NEURONTIN) 100 mg capsule TAKE 1 CAPSULE BY MOUTH THREE TIMES DAILY ALONG WITH 300 MG CAP TO EQUAL 400 MG DAILY Problem List As Of Date: 08/31/2024 (None) Encounter Status:Closed by JOAQUIN PIERCE on 08/31/24 Normal [facility] Oil House Attendant Office Visit Reporton 04-13-2024 Oil House Attendant Office Visit Report [facility] [address], [address] [place] [address] OFFICE VISIT Date of Service: 04/13/24 MR#: [id number] Acct: [id number] Name: CINDY WARREN ROBYN Rep #: [id number] : 1950 Provider: DOROTHEA mejía Age/Sex: 74/F Location: [facility] Status: Signed Intake Vital Signs 03/15/24 14:26 04/13/24 13:56 04/13/24 14:01 Height 5 ft 5 in 5 ft 5 in 5 ft 5 in Weight: 164 lb 2 oz BMI 27.3 BP 118/72 Intake Visit Reasons: 4 wk med check Chief Complaint: 4 Week med check Signal Inspector Required: No Is patient in pain?: No Allergies iodine Allergy (Verified 04/13/24 13:55) Vomiting Medications ???Medication ???Instructions ???Recorded ???Confirmed ???Type alprazolam 0.25 mg tablet 0.25 mg PO QHS PRN sleep 07/19/20 04/13/24 History dexlansoprazole 60 mg 60 mg PO DAILY 07/19/20 04/13/24 H istory capsule,biphase delayed release (Dexilant) epinephrine 0.3 mg/0.3 mL 0.3 mg IM Q5-15M PRN anaphylaxis 1 04/13/24 History injection, auto-injector (EpiPen 2-Rodger) estradiol 0.01% (0.1 mg/gram) See Rx Instructions vaginal 04/13/24 Rx vaginal cream .COMPLEX #42.5 grams gabapentin 400 mg capsule 400 mg PO TID 11/11/22 04/13/24 Hi story promethazine 25 mg tablet 25 mg PO QDAY PRN nausea and 11/2604/13/24 History vomiting mometasone 0.1 % topical ointment 1 applic topical .COMPLEX #15 gra ms 10/20/23 04/13/24 Rx carbidopa 10 mg-levodopa 100 mg 1 tab PO BID 04/13/24 04/13/24 His tory tablet (Sinemet) Is last menstrual period known: No Post menopausal: Yes Patient : No : No PFSH Medical History Lichen sclerosus Wears glasses Non-smoker History of IBS History of stress test Generalized anxiety disorder Family hx of colon cancer Fibromyalgia Thyroid nodule Mixed hyperlipidemia GERD (gastroesophageal reflux disease) Osteopenia High cholesterol IBS (irritable bowel syndrome) Anemia Atrophic vaginitis Genital warts Barretts esophagus Acid reflux Surgical History Hx of colonoscopy Hx of cholecystectomy H/O: hysterectomy H/O splenectomy Family History Unknown Heart disease Mother Anxiety Colon cancer Depression Thyroid disorder Father Anxiety Hypertension Grandmother Breast cancer Osteoporosis Thyroid disorder Social History household members: spouse number of children: 0 current occupational status: retired history of recent travel: Yes Smoking Status: Never smoker alcohol intake: never substance use type: does not use what type of physical activity do you participate in: none seatbelt use: always do you feel safe at home: Yes additional social history: - Niraj HPI 4 wk med check Details: CINDY WARREN is a 74 year old who presents for follow up use of estradiol cream. Has been using every other day. Has not needed to use steroid cream. States she is feeling much improvement and not as much irritation History 0 Elective abortions Hx Para Spontaneous abortions Hx # Term Pregnancies Ectopic pregnancies Hx # Pregnancies Multiple births # of living children ROS Const Constitutional: Reports system reviewed and no additional complaints, except as documented Eyes Eyes: Reports system reviewed and no additional complaints, except as documented GI GI: Denies abdominal pain or change in bowel habits : Reports as per HPI Exam Const General: cooperative and no acute distress Nutritional Appearance: well nourished Orientation: oriented x3 Resp Effort Inspection: normal respiratory effort External Female Exam: other (pale pink No silver whitening) Urethra: other (dilated, caruncle noted) Speculum Exam - Vagina: vagina atrophic (pale pink) Coding Level of Care Code Off vis,est,level 3 Diagnoses Atrophic vaginitis N95.2 Lichen sclerosus L90.0 Assessment and Plan Assessment and Plan (1) Atrophic vaginitis: Status: Acute Comment: estradiol cream (2) Lichen sclerosus: Status: Acute Comment: mometasone prn Plan No evidence of LS today Atrophy improving but will continue small amount estrogen cream every other day X 4 wk glenda to area around urethra then twice a week RTO 1 year, prn 04/13/24 1429 Date Jeniffer Kumar NP [employer] OFFICE MANAGER-C Cosigner Signature: Date (if applicable) CC: Shashi [facility] JULEEon 03-31-2024 CNOV Office Visit (NRMDN) CINDY WARREN ([id number]) 1950 F Date Time Provider Department 03/31/24 11:00 AM MARGARET GARCIA During your visit today, we recorded the following information about you: Weight 74.1 kg Margaret Garcia MD 04/01/2024 8:36 AM Signed [facility] - FOLLOW UP EVALUATION [facility] Neurologist: Margaret Garcia MD [facility] TERE: I had the pleasure of seeing Ms. Warren for follow up today. She is a 74 year old right-handed female with a history of suspected Parkinson's disease since August 2022 . She is seen with her . Subjective Previous Plan-09/24/2023 Visit: Referral entered for psychiatry and psychology. These can be virtual visits. Continue off Parkinson's medications - Continue exercise - Interval History: Since last visit Sinemet was ordered but she hasn't started it. Right hand tremor is more frequent. Asks does that mean Parkinson's is worse? Is it harmful to delay Sinemet? Little bit of left hand tremor. Gait is ok. Can get a little off balance with turning. Scared to start Sinemet due to side effects. When she took it before had no appetite. Had to force herself to eat. Writing is very slow. Little bit of nausea intermittently. Not constant. Hasn't identified triggers. When she gets up, after she eats. Possibly anxiety symptom. Seeing psychology has been very helpful. Adapting. Some days she doesn't think about it. Stopped taking daily records of symptoms. Swallow anxiety. Related to history of aspiration with liquids 25 years ago. Has seen GI. This is why she crushes pills. Tucks her chin, drinks slowly. Has had extensive work-up. This leads to not drinking enough water. Has drink to sit up. Doesn't drink if driving. Doesn't want to pursue speech therapy. Parkinson's Medication Schedule - as of the start of the visit: Medications xanax 0.25 mg prn Prior Anti-Parkinson Therapies Carbidopa/Levodopa Questionnaires In addition, the following areas that may be affected by abnormal involuntary movements were evaluated: Daily activities Difficulties with eatin (none) Difficulties in dressin (none) Difficulties with hygiene activities: 0 (none) Difficulties with handwriting: Yes (slight) Difficulties with doing hobbies and other activities: 0 (none) Difficulties turning in bed: 0 (none) Difficulties getting out of bed, car or chair: 0 (none) Tremors/Gait/Balance Shaking or tremors: Yes (mild) Walking and balance problems: 0 (none) Number of falls in the Last Month: 0 Gait freezin (none) Autonomic/Pain Lightheadeness on standing: Yes (slight) little worse. ear issues. doesn't drink enough water Urinary problems: 0 (none) Constipation problems: Yes (slight) Pain and other sensations: Yes (slight) Speech/Swallowing Speech problems: 0 (none) Droolin (none) Chewing and swallowing problems: Yes (slight) Sleep/Fatigue Sleep problems: 0 (none) Daytime sleepiness: Yes (mild) Fatigue: Yes (moderate) Mood/Behavior Depression: PHQ-9 Score: 3 usually representing no significant (0-4) depression. Anxiety: MISAEL-7 Total Score: 4 usually representing no significant (0-4) anxiety. Finally, the following table shows the patient's overall global physical and mental health using the PROMIS scale: PROMIS-10 Flowsheet Row Office Visit from 03/31/2024 in [facility] from 12/21/2023 in [facility] Global Physical Health T Score 39.8 42.3 Global Mental Health T Score 43.5 38.8 0-10 Standard Pain Scale 4 4 *PROMIS-10 scoring scale: mean = 50, over 50 is above average, under 50 is below average ALLERGIES Allergen Reactions Iodine Vomiting Shellfish Derived Hives Current Outpatient Medications Medication Sig atorvastatin (LIPITOR) 10 mg tablet Take 10 mg by mouth once daily. GABAPENTIN ORAL Take 300 mg by mouth [...] MG CAP TO EQUAL 400 MG DAILY carbidopa-levodopa (SINEMET 25-100) 25-100 mg per tablet Take 2 tablets by mouth three times a day. Start low dose and increase as directed by doctor's office (Patient not taking: Reported on 03/30/2024) No current facility-administered medications for this visit. Objective Vital Signs: Wt 74.1 kg (163 lb 5.8 oz) SpO2 98% BMI 27.18 kg/m? Orthostatic Vitals: Sitting: BP 153/73 Pulse 67 Standing: BP 138/78 Pulse 65 Weight: 74.1 kg (163 lb 5.8 o (more content not included)... Normal [facility] Oil House Attendant Office Visit Reporton 03-15-2024 Oil House Attendant Office Visit Report [facility] [address], [address] [place] [address] OFFICE VISIT Date of Service: 03/15/24 MR#: [id number] Acct: [id number] Name: CINDY WARREN Rep #: [id number] : 1950 Provider: DOROTHEA mejía Age/Sex: 74/F Location: [facility] [place] Status: Signed Intake Vital Signs 03/26/23 06:58 03/15/24 14:26 03/15/24 14:26 Height 5 ft 5 in 5 ft 5 in 5 ft 5 in Weight: 163 lb 8 oz BMI 27.1 BP 134/67 H Blood Pressure Location Rt brachial Position Sitting Pulse 66 Pulse Source Monitor Intake Visit Reasons: labial sore Chief Complaint: labial sore Allergies iodine Allergy (Verified 03/15/24 14:25) Vomiting Medications ???Medication ???Instructions ???Recorded ???Confirmed ???Type alprazolam 0.25 mg tablet 0.25 mg PO QHS PRN sleep 07/19/20 03/15/24 History dexlansoprazole 60 mg 60 mg PO DAILY 07/19/20 03/15/24 History capsule,biphase delayed release (Dexilant) epinephrine 0.3 mg/0.3 mL 0.3 mg IM Q5-15M PRN anaphylaxis 12/31/21 03/15/24 History injection, auto-injector (EpiPen 2-Rodger) estradiol 0.01% (0.1 mg/gram) See Rx Instructions vaginal 11/11/22 03/15/24 Rx vaginal cream .COMPLEX #42.5 grams gabapentin 400 mg capsule 400 mg PO TID 11/11/22 03/15/24 History promethazine 25 mg tablet 25 mg PO QDAY PRN nausea and 11/26/22 03/15/24 History vomiting mometasone 0.1 % topical ointment 1 applic topical .COMPLEX #15 grams 10/20/23 03/15/24 Rx Nurse's Note: labial sore [facility] Medical History (Updated 03/15/24 @ 15:17 by Jeniffer Kumar NP, REAL ESTATE OFFICE MANAGER-C) Lichen sclerosus Wears glasses Non-smoker History of IBS History of stress test Generalized anxiety disorder Family hx of colon cancer Fibromyalgia Thyroid nodule Mixed hyperlipidemia GERD (gastroesophageal reflux disease) Osteopenia High cholesterol IBS (irritable bowel syndrome) Anemia Atrophic vaginitis Genital warts Barretts esophagus Acid reflux Surgical History Hx of colonoscopy Hx of cholecystectomy H/O: hysterectomy H/O splenectomy Family History Unknown Heart disease Mother Anxiety Colon cancer Depression Thyroid disorder Father Anxiety Hypertension Grandmother Breast cancer Osteoporosis Thyroid disorder Social History household members: spouse number of children: 0 current occupational status: retired history of recent travel: Yes Smoking Status: Never smoker alcohol intake: never substance use type: does not use what type of physical activity do you participate in: none seatbelt use: always do you feel safe at home: Yes additional social history: - Niraj HPI labial sore Details: CINDY WARREN is a 74 year old who presents for vaginal dryness. Has not been using the estradiol cream. Has been using the mometasone cream. History 0 Elective abortions Hx Para Spontaneous abortions Hx # Term Pregnancies Ectopic pregnancies Hx # Pregnancies Multiple births # of living children ROS Const Constitutional: Reports system reviewed and no additional complaints, except as documented Eyes Eyes: Reports system reviewed and no additional complaints, except as documented GI GI: Denies abdominal pain or change in bowel habits : Reports as per HPI Exam Const General: cooperative and no acute distress Nutritional Appearance: well nourished Orientation: oriented x3 Resp Effort Inspection: normal respiratory effort External Female Exam: other (atrophic. regression of labia. No silver whitening) Urethra: other (dilated, caruncle noted) Speculum Exam - Vagina: vagina atrophic Coding Level of Care Code Off vis,est,level 3 Diagnoses Atrophic vaginitis N95.2 Assessment and Plan Assessment and Plan (1) Atrophic vaginitis: Status: Acute Comment: estradiol cream Plan Written instructions: Use mometasone just with symptoms prn, small amount and rub in Coconut oil prn Estradiol cream fingertip amount as directed every other night RTO 4 weeks 03/15/24 1520 Date Jeniffer Kumar NP REAL ESTATE OFFICE MANAGER-C Cosigner Signature: Date (if applicable) CC: Normal [facility] SCRN MAMM (CAD)W/MEGHAN Gallagher n 01-21-2024 SCRN MAMM (CAD)W/MEGHAN [facility] Imaging Services [address] [place] [address] SCRN MAMM (CAD)W/MEGHAN PERRY MR#: [id number] Acct: [id number] Name: CINDY WARREN ROBYN Rep #: [id number] : 1950 F 73 From: Enoch gil MD PCP: Dr. Hansa Ndiaye MD Status: [facility] Study: SCRN MAMM (CAD)W/MEGHAN BILAT Date of Exam: 01/07 06/30 Exam# [id number] Ordering Dr: Hansa Ndiaye MD :[id number] MAMMOGRAPHY - BILATERAL SCREENING REASON FOR EXAM: Female, 73 years old. Routine annual screening examination. PERTINENT HISTORY: Sister with breast cancer. Grandmother with breast cancer. TECHNIQUE: Digital bilateral breast meghan (3D mammographic acquisition) in the CC and MLO projections. 2-D mediolateral oblique (MLO) and craniocaudad (CC) views of both breasts were obtained. CAD: Full Field Digital Mammography with Computer Added Detection was performed. COMPARISON: Comparison is made with prior study January 19, 2023 and January 06, 2022. FINDINGS: Breast Composition: The breasts are heterogeneously dense, which may obscure small masses. There are no dominant masses or suspicious calcifications. No other significant abnormalities are identified. There has been no significant change since the prior study. BI/SCRN MAMM (CAD)W/MEGHAN BILAT IMPRESSION: Stable bilateral screening mammogram. Yearly follow-up mammogram recommended. (A) ASSESSMENT CATEGORY: BIRADS Category 1: Negative. A letter regarding these results will be sent to the patient by the facility within 30 days. Approximately 10% of breast cancers are not detected by mammography. A normal mammogram should not delay biopsy of a clinically suspicious abnormality. [id number] Electronically Signed: Enoch Tirado MD at 14:32 EST , CC: Dr. Hansa Ndiaye MD Graphic Design Professor: Signed [facility]) CINDY AWRREN ([id number]) 1950 F Date Time Provider Department 11/06/23 MARGARET GARCIA JEISON During your visit today, we recorded the following information about you: Margaret Garcia MD 11/06/2023 12:13 PM Signed Received note from psychology stating pt with daily headaches lately. At last visit she had stated more than usual HAM the past year. Please offer her HAM clinic referral. Nikky Magallanes RN 11/06/2023 1:40 PM Signed Call to patient, no answer. Message left for return call Nikky Magallanes RN 11/06/2023 2:42 PM Signed Voicemail received November 06, 2023 [id number] patient returning call janet Cruz returning your call. My phone number is [phone]. My date is [birth year]. Its regarding headache, and I dont think I want to go to the headache clinic at this point. I will just try to deal with it. But I would be glad to talk with you if you want to give me a call back, if not, that's ok not to call me back. Thank you so much for contacting me. Bye." Call to patient, no answer. Message left on identifying VM to notify office with any questions or concerns or if she would like to see HAM specialist. Allergies As of Date: 11/06/2023 Noted Allergy Reaction IODINE 04/14/2013 11 - Vomiting SHELLFISH DERIVED 10/29/2022 4 - Hives Date Reviewed: 09/24/2023 Reviewed by: Margaret Garcia MD - Fully Assessed Reason for Visit: Headache [52] Prescriptions as of 11/06/2023 - atorvastatin (LIPITOR) 10 mg tablet Take 10 mg by mouth once daily. - GABAPENTIN ORAL Take 300 mg by mouth three times a day. - ondansetron (ZOFRAN) 4 mg tablet Take 1 tablet by mouth every 8 hours as needed for nausea/vomiting. - OTC PRODUCT Multi vitamin po daily - ALPRAZolam (XANAX) 0.25 mg tablet TAKE 1 TABLET BY MOUTH THREE TIMES DAILY NEEDED FOR 90 DAYS - DEXILANT 60 mg CpDM TAKE 1 CAPSULE BY MOUTH ONCE DAILY 30 TO 45 MINUTES BEFORE A MEAL. - gabapentin (NEURONTIN) 100 mg capsule TAKE 1 CAPSULE BY MOUTH THREE TIMES DAILY ALONG WITH 300 MG CAP TO EQUAL 400 MG DAILY Problem List As Of Date: 11/06/2023 (None) Encounter Status:Closed by NIKKY MAGALLANES on 11/06/23 Normal [facility] Basophil percentageOrdered B y: Hansa Ndiaye on 06-01-2023 Cholesterol [Mass/Vol] 262 mg/dL <200 [facility] Comment on above: <200 mg/dL Desirable 200-240 mg/dL Borderline >240 mg/dL High Risk Triglyceride [Mass/Vol] 141 mg/dL <199 [facility] Comment on above: The drugs N-Acetylcy steine and Metamizole may falsely depress this assay.Serum Triglycerides Reference Interval Normal <150 mg/dL Borderline high 150 - 199 mg/dL High 200 - 499 mg/dL Very High > or = 500 mg/dL Laboratory - Chemistry and C hemistry - challengeOrdered By: Hansa Ndiaye on 06-01-2023 Cholesterol in HDL [Mass/Vol] 50 mg/dL >40 [facility] Comment on above: The drugs N-Acetylcy steine and Metamizole may falsely depress this assay. Reference Range HDL <40 mg/dL Low HDL Cholesterol HDL >or= 60 mg/dL High HDL Cholesterol Cholesterol in LDL [Mass/Vol] 184 mg/dL 0-130 [facility] No Panel InformationOrdered By: Hansa Ndiaye on 06-01-2023 VLDL Cholesterol 28 mg/dL 5-40 [facility] Culture, urineOrdered By: Ra kenny Aguillon on 10-17-2023 Bacteria identified Cx Nom (U) Mixed Gram Pos & Gram Neg Org [facility] Bacteria identified Cx Nom (U) Mixed Gram Pos & Gram Neg [facility] MRI BRAIN WO IVCONon 023 [facility] EMG(NEURO/NI)on 11-06-2022 [facility] CBC W Auto Differential pane l (Bld)on 10-29-2022 Basophils (Bld) [#/Vol] 0.04 10*3/uL <0.11 k/uL [facility] Basophils/100 WBC (Bld) 0.5 % [facility] Differential cell count method Nom (Bld) Auto [facility] Eosinophils (Bld) [#/Vol] 0.24 10*3/uL <0.46 k/uL [facility] Eosinophils/100 WBC (Bld) 3.2 % [facility] Erythrocyte distribution width (RBC) [Ratio] 13.6 % 11.5 - 15.0 % [facility] Hematocrit (Bld) [Volume fraction] 40.5 % 36.0 - 46.0 % [facility] Hemoglobin (Bld) [Mass/Vol] 13.1 g/dL 11.5 - 15.5 g/dL [facility] Immature granulocytes (Bld) [#/Vol] <0.10 k/uL [facility] Immature granulocytes/100 WBC (Bld) 0.1 % [facility] Lymphocytes (Bld) [#/Vol] 2.25 10*3/uL 1.00 - 4.00 k/uL [facility] Lymphocytes/100 WBC (Bld) 30.3 % [facility] MCH (RBC) [Entitic mass] 28.6 pg 26.0 - 34.0 pg [facility] MCHC (RBC) [Mass/Vol] 32.3 g/dL 30.5 - 36.0 g/dL [facility] MCV (RBC) [Entitic vol] 88.4 fL 80.0 - 100.0 fL [facility] Monocytes (Bld) [#/Vol] 0.58 10*3/uL <0.87 k/uL [facility] Monocytes/100 WBC (Bld) 7.8 % [facility] Neutrophils (Bld) [#/Vol] 4.30 10*3/uL 1.45 - 7.50 k/uL [facility] Neutrophils/100 WBC (Bld) 58.1 % [facility] Nucleated RBC (Bld) [#/Vol] <0.01 k/uL [facility] Nucleated RBC/100 WBC (Bld) [Ratio] 0.0 /100 WBC [facility] Platelet mean volume (Bld) [Entitic vol] 10.9 fL 9.0 - 12.7 fL [facility] Platelets (Bld) [#/Vol] 374 10*3/uL 150 - 400 k/uL [facility] RBC (Bld) [#/Vol] 4.58 10*6/uL 3.90 - 5.20 m/uL [facility] WBC (Bld) [#/Vol] 7.42 10*3/uL 3.70 - 11.00 k/uL [facility] CERULOPLASMIN BLDon 10-30-19 23 Ceruloplasmin [Mass/Vol] 27 mg/dL 16 - 45 mg/dL [facility] CK CREATINE KINASEon 023 CK [Catalytic activity/Vol] 42 U/L 42 - 196 U/L [facility] Comprehensive metabolic 2000 panelon 10-29-2022 Albumin [Mass/Vol] 4.4 g/dL 3.9 - 4.9 g/dL [facility] ALP [Catalytic activity/Vol] 115 U/L 34 - 123 U/L [facility] ALT [Catalytic activity/Vol] 15 U/L 7 - 38 U/L [facility] Anion gap [Moles/Vol] 9 mmol/L 9 - 18 mmol/L [facility] AST [Catalytic activity/Vol] 16 U/L 13 - 35 U/L [facility] Bilirubin [Mass/Vol] 0.6 mg/dL 0.2 - 1 .3 mg/dL [facility] Calcium [Mass/Vol] 10.1 mg/dL 8.5 - 10. 2 mg/dL [facility] Chloride [Moles/Vol] 104 mmol/L 97 - 10 5 mmol/L [facility] CO2 [Moles/Vol] 28 mmol/L 22 - 30 mmol/L [facility] Creatinine [Mass/Vol] 0.83 mg/dL 0.58 - 0.96 mg/dL [facility] Estimated Glomerular Filtration Rate 75 mL/min/1.73m >=60 mL/min/1.7 3m [facility] Glucose [Mass/Vol] 95 mg/dL 74 - 99 mg/dL [facility] Potassium [Moles/Vol] 4.6 mmol/L 3.7 - 5.1 mmol/L [facility] Protein [Mass/Vol] 6.9 g/dL 6.3 - 8.0 g/dL [facility] Sodium [Moles/Vol] 141 mmol/L 136 - 144 mmol/L [facility] Urea nitrogen [Mass/Vol] 13 mg/dL 7 - 21 mg/dL [facility] T3 BLDon 10-29-2022 T3 [Mass/Vol] 109 ng/dL 79 - 165 ng/dL [facility] T4 FREE/FREE THYROXon 2022 Free T4 [Mass/Vol] 1.2 ng/dL 0.9 - 1.7 ng/dL [facility] TSH Don 10-29-2022 TSH Qn 2.730 m[IU]/L 0.270 - 4.200 mIU/L [facility] VITAMIN B12 BLOODon 10-30-19 Cobalamin (Vitamin B12) [Mass/Vol] 427 pg/mL 232 - 1,245 pg/mL [facility] Laboratory - Chemistry and C hemistry - challengeOrdered By: Hansa Ndiaye on 10-10-2022 Free T4 [Mass/Vol] 1.19 ng/dL 0.76-1.46 [facility] No Panel InformationOrdered By: Hansa Ndiaye on 10-10-2022 Free Triiodothyronine (T3) pg/dL 2.4 pg/mL 2.18-3.98 [facility] Thyroglobulin Antibody < 1.0 IU/mL 0.0-0.9 [facility] Comment on above: Thyroglobulin Antibo dy measured by [employer] CoulterMethodologyPerformed at: CB - [facility] [address] [id number] Director: Rohan Franco PhD, Phone: [phone] Thyroid Stimulating Hormone (TSH) 2.18 uIU/mL 0.358-3.74 [facility] Serum or plasma thyroperoxid ase antibody assay (units/volume)Ordered By: Hansa Ndiaye on 10-10-2022 TPO Ab Qn [IU]/mL 0-34 [facility] XR Wrist - left 4 Viewson IMPRESSION: No acute radiographic abnormalities seen in the left wrist. Degenerative changes as described above. Graphic Design Professor: PSCB Transcribe Date/Time: Sep 18 2022 12:47P Dictated by : LILIA FRANKLIN MD This examination was interpreted and the report reviewed and electronically signed by: LILIA FRANKLIN MD on Sep 18 2022 12:50PM [facility] DIVISION OF RADIOLOGY * * *Final Report* * * DATE OF EXAM: Sep 18 2022 12:40PM WOX [id number] - XR WRIST 4V PA/LAT/OBL/SCAPH LT / PROCEDURE REASON: Wrist injury, left, initial encounter * * * * Physician Interpretation * * * * EXAM TITLE: XR WRIST 4V PA/LAT/OBL/SCAPH LT EXAM DATE/TIME: 09/18/2022 12:40 PM COMPARISON: None. CLINICAL INDICATION/HISTORY: Injury. TECHNIQUE: PA, lateral, oblique and scaphoid views of left wrist are presented. FINDINGS: No acute fractures or subluxations are noted. There are mild degenerative changes in the first carpometacarpal joint. Tiny cystic components in a few carpal bones, likely degenerative. Probably tiny accessory bone along the ulnar styloid process. The joint spaces are grossly preserved. The mineralization of the bones is normal. There is no significant soft tissue swelling. DIVISION OF RADIOLOGY Provider, [facility] - 09/18/2022 * * *Final Report* * * DATE OF EXAM: Sep 18 2022 12:40PM WOX [id number] - XR WRIST 4V PA/LAT/OBL/SCAPH LT / PROCEDURE REASON: Wrist injury, left, initial encounter * * * * Physician Interpretation * * * * EXAM TITLE: XR WRIST 4V PA/LAT/OBL/SCAPH LT EXAM DATE/TIME: 09/18/2022 12:40 PM COMPARISON: None. CLINICAL INDICATION/HISTORY: Injury. TECHNIQUE: PA, lateral, oblique and scaphoid views of left wrist are presented. FINDINGS: No acute fractures or subluxations are noted. There are mild degenerative changes in the first carpometacarpal joint. Tiny cystic components in a few carpal bones, likely degenerative. Probably tiny accessory bone along the ulnar styloid process. The joint spaces are grossly preserved. The mineralization of the bones is normal. There is no significant soft tissue swelling. IMPRESSION IMPRESSION: No acute radiographic abnormalities seen in the left wrist. Degenerative changes as described above. Graphic Design Professor: PSCB Transcribe Date/Time: Sep 18 2022 12:47P Dictated by : LILIA FRANKLIN MD This examination was interpreted and the report reviewed and electronically signed by: LILIA FRANKLIN MD on Sep 18 2022 12:50PM EST [facility] Radiology Study observation (narrative) [facility] XR Wrist - left 4 ViewsOrder ed By: Ccf Provider on 09-18-2022 [facility] Absolute lymphocyte countOrd ered By: Anderson Garica on 09-05-2022 Lymphocytes Auto (Unsp spec) [#/Vol] 2.73 10*3/uL 0.83-4.51 [facility] Basophil percentageOrdered B y: Anderson Garcia on 09-05-2022 Basophil percentage 0-5 SEEN /hpf 0-5 [facility] Basophils/100 WBC (Bld) 0.5 % 0-1 [facility] Chloride [Moles/Vol] 107 mmol/L 98-107 [facility] Eosinophils/100 WBC (Bld) 1.9 % 0-5 [facility] Glucose [Mass/Vol] 125 mg/dL 74-106 [facility] Comment on above: Fasting Glucose resu lt from 100 to 125 mg/dL suggests IMPAIRED HOMEOSTASIS per A.D.A. criteria. Neutrophils (Bld) [#/Vol] 4.5 10*3/uL 2.0-7.7 [facility] Neutrophils/100 WBC (Bld) 55.6 % 47-70 [facility] Potassium [Moles/Vol] 3.5 mmol/L 3.5-5.1 [facility] Sodium [Moles/Vol] 139 mmol/L 136-145 [facility] WBC (Bld) [#/Vol] 8.0 10*3/uL 4.4-11.0 [facility] Bilirubin Test strip Ql (U)O rdered By: Anderson Garcia on 09-05-2022 Bilirubin Ql (U) Negative Negative [facility] Blood erythrocytes count (nu mber/volume)Ordered By: Anderson Garcia on 09-05-2022 RBC (Bld) [#/Vol] 4.27 10*6/uL 4.2-5.4 [facility] Blood hemoglobin measurement (mass/volume)Ordered By: Anderson Garcia on 09-05-2022 Hemoglobin (Bld) [Mass/Vol] 12.1 g/dL 12.0-15.0 [facility] Blood lymphocytes/100 leukoc ytesOrdered By: Anderson Garcia on 09-05-2022 Lymphocytes/100 WBC (Bld) 34.1 % 19-41 [facility] Blood monocytes/100 leukocyt esOrdered By: Anderson Garcia on 09-05-2022 Monocytes/100 WBC (Bld) 7.6 % 0-10 [facility] Blood platelet mean volumeOr dered By: Anderson Garcia on 09-05-2022 Platelet mean volume (Bld) [Entitic vol] 10.8 fL 6.2-12.0 [facility] Determination of erythrocyte mean corpuscular volume (MCV)Ordered By: Anderson Garcia on 09-05-2022 MCV (RBC) [Entitic vol] 89.2 fL 81-99 [facility] Hematocrit Auto (Bld) [Volum e fraction]Ordered By: Anderson Garcia on 09-05-2022 Hematocrit (Bld) [Volume fraction] 38.1 % 37-47 [facility] Ketones Test strip Ql (U)Ord ered By: Anderson Garcia on 09-05-2022 Ketones Ql (U) Negative Negative [facility] Laboratory - Chemistry and C hemistry - challengeOrdered By: Anderson Garcia on 09-05-2022 CO2 [Moles/Vol] 28.0 mmol/L 21.0-32.0 [facility] Urea nitrogen/Creatinine [Mass ratio] 19.0 mg/mg 10-20 [facility] Laboratory - Hematology and Cell countsOrdered By: Anderson Garcia on 09-05-2022 Erythrocyte distribution width (RBC) [Entitic vol] 45.2 fL 35.1-43.9 [facility] Erythrocyte distribution width (RBC) [Ratio] 13.9 % 11.6-14.6 [facility] Immature granulocytes/100 WBC (Bld) 0.300 % 0.0-0.9 [facility] Comment on above: IG% - Immature Granu locytes (promyelocytes, myelocytes and metamyelocytes) > 1% indicates that a LEFT SHIFT is Present. MCH (RBC) [Entitic mass] 28.3 pg 27.0-32.0 [facility] Nucleated RBC/100 WBC (Bld) [Ratio] 0 % 0-5 [facility] MCHC Auto (RBC) [Mass/Vol]Or dered By: Anderson Garcia on 09-05-2022 MCHC (RBC) [Mass/Vol] 31.8 g/dL 32-36 [facility] Mucus LM Ql (Urine sed)Order ed By: Anderson Garcia on 09-05-2022 Mucus Ql (Urine sed) 0 SEEN /hpf [facility] Nitrite Test strip Ql (U)Ord ered By: Anderson Garcia on 09-05-2022 Nitrite Ql (U) Negative Negative [facility] No Panel InformationOrdered By: Anderson Garcia on 09-05-2022 Estimated Creatinine Clearance Calc 50.09 ml/min [facility] Estimated GFR (MDRD) Amer 79 mL/min >60 [facility] Comment on above: GFR Calc Estimated GFR (MDRD) Non-Af Amer 66 mL/min >60 [facility] Comment on above: Non- GFR Calc Troponin I High Sensitivity 5 pg/mL 3.0-54.0 [facility] Comment on above: Please Note: New Val t Units and Gender Specific Reference Ranges. For more information see Policy Stat Procedure [place] High Sensitivity Troponin (TNIH) and attachments. Platelets bldOrdered By: Idalmis Garcia on 09-05-2022 Platelets (Bld) [#/Vol] 374 10*3/uL 150-450 [facility] Protein Test strip Ql (U)Ord ered By: Anderson Garcia on 09-05-2022 Protein Ql (U) Negative Negative [facility] Serum or plasma calcium wilma urement (mass/volume)Ordered By: Anderson Garcia on 09-05-2022 Calcium [Mass/Vol] 9.1 mg/dL 8.5-10.1 [facility] Serum or plasma creatinine m easurement (mass/volume)Ordered By: Anderson Garcia on 09-05-2022 Creatinine [Mass/Vol] 0.90 mg/dL 0.55-1.02 [facility] Comment on above: The validity of the calculated GFR & GFRAA in patients over 70 years has not been determined. Clinical correlation is essential. Serum or plasma urea nitroge n measurement (mass/volume)Ordered By: Anderson Garcia on 09-05-2022 Urea nitrogen [Mass/Vol] 17 mg/dL 7-18 [facility] Squamous epithelial cells de tection in urine sediment by light microscopyOrdered By: Anderson Garcia on 09-05-2022 Epithelial cells.squamous LM Ql (Urine sed) 0-5 SEEN /hpf 5-10 [facility] Thin prep Papanicolaou smear with manual screeningOrdered By: Anderson Garcia on 09-05-2022 Thin prep Papanicolaou smear with manual screening 4 5-15 [facility] Urine blood detectionOrdered By: Anderson Garcia on 09-05-2022 RBC Ql (U) Negative Negative [facility] RBC Ql (U) 0 SEEN /hpf 0-5 [facility] Urine clarityOrdered By: Idalmis Garcia on 09-05-2022 Clarity (U) Sl. Cloudy Clear [facility] Urine color determinationOrd ered By: Anderson Garcia on 09-05-2022 Color (U) Yellow Yellow [facility] Urine glucose detectionOrder ed By: Anderson Garcia on 09-05-2022 Glucose Ql (U) Normal mg/dl Normal [facility] Urine leukocyte esterase det ection by dipstickOrdered By: Anderson Garcia on 09-05-2022 Leukocyte esterase Test strip Ql (U) 100 /ul Negative [facility] Urine pHOrdered By: Anderson hayes on 09-05-2022 pH (U) 7.0 [pH] 5.0 - 8.0 [facility] Urine sediment bacteria coun t by microscopy (number/high power field)Ordered By: Anderson Garcia on 09-05-2022 Bacteria LM.HPF (Urine sed) [#/Area] 0 /[HPF] None Seen [facility] Urine specific gravity measu rementOrdered By: Anderson Garcia on 09-05-2022 Specific gravity (U) [Rel density] 1.005 1.002-1.03 0 [facility] Urobilinogen Auto test strip Ql (U)Ordered By: Anderson Garcia on 09-05-2022 Urobilinogen Ql (U) Normal mg/dl Normal [facility] Absolute lymphocyte countOrd ered By: Dr. Ndiaye on 05-01-2022 Lymphocytes Auto (Unsp spec) [#/Vol] 2.53 10*3/uL 0.83-4.51 [facility] Basophil percentageOrdered B y: Dr. Ndiaye on 05-01-2022 Basophils/100 WBC (Bld) 0.5 % 0-1 [facility] Bilirubin [Mass/Vol] 1.10 mg/dL 0.20-1.00 [facility] Comment on above: For patients on eltr ombopag therapy, use of Dimension [place] TBIL is not recommended. Chloride [Moles/Vol] 106 mmol/L 98-107 [facility] Cholesterol [Mass/Vol] 158 mg/dL <200 [facility] Comment on above: <200 mg/dL Desirable 200-240 mg/dL Borderline >240 mg/dL High Risk Eosinophils/100 WBC (Bld) 3.5 % 0-5 [facility] Glucose [Mass/Vol] 86 mg/dL 74-106 [facility] Neutrophils (Bld) [#/Vol] 2.6 10*3/uL 2.0-7.7 [facility] Neutrophils/100 WBC (Bld) 43.5 % 47-70 [facility] Potassium [Moles/Vol] 3.8 mmol/L 3.5-5.1 [facility] Protein [Mass/Vol] 7.5 g/dL 6.4-8.2 [facility] Sodium [Moles/Vol] 141 mmol/L 136-145 [facility] Triglyceride [Mass/Vol] 105 mg/dL <199 [facility] Comment on above: The drugs N-Acetylcy steine and Metamizole may falsely depress this assay.Serum Triglycerides Reference Interval Normal <150 mg/dL Borderline high 150 - 199 mg/dL High 200 - 499 mg/dL Very High > or = 500 mg/dL WBC (Bld) [#/Vol] 6.1 10*3/uL 4.4-11.0 [facility] Blood erythrocytes count (nu mber/volume)Ordered By: Dr. Ndiaye on 05-01-2022 RBC (Bld) [#/Vol] 4.48 10*6/uL 4.2-5.4 [facility] Blood hemoglobin measurement (mass/volume)Ordered By: Dr. Ndiaye on 05-01-2022 Hemoglobin (Bld) [Mass/Vol] 12.8 g/dL 12.0-15.0 [facility] Blood lymphocytes/100 leukoc ytesOrdered By: Dr. Ndiaye on 05-01-2022 Lymphocytes/100 WBC (Bld) 41.8 % 19-41 [facility] Blood monocytes/100 leukocyt esOrdered By: Dr. Ndiaye on 05-01-2022 Monocytes/100 WBC (Bld) 10.2 % 0-10 [facility] Blood platelet mean volumeOr dered By: Dr. Ndiaye on 05-01-2022 Platelet mean volume (Bld) [Entitic vol] 11.4 fL 6.2-12.0 [facility] Determination of erythrocyte mean corpuscular volume (MCV)Ordered By: Dr. Ndiaye on 05-01-2022 MCV (RBC) [Entitic vol] 90.6 fL 81-99 [facility] Hematocrit Auto (Bld) [Volum e fraction]Ordered By: Dr. Ndiaye on 05-01-2022 Hematocrit (Bld) [Volume fraction] 40.6 % 37-47 [facility] Laboratory - Chemistry and C hemistry - challengeOrdered By: Dr. Ndiaye on 05-01-2022 ALP [Catalytic activity/Vol] 111 U/L 45-117 [facility] ALT [Catalytic activity/Vol] 19 U/L 13-56 [facility] CO2 [Moles/Vol] 30.0 mmol/L 21.0-32.0 [facility] Globulin (S) [Mass/Vol] 4.1 g/dL 2.2-4.2 [facility] Urea nitrogen/Creatinine [Mass ratio] 16.3 mg/mg 10-20 [facility] Laboratory - Hematology and Cell countsOrdered By: Dr. Ndiaye on 05-01-2022 Erythrocyte distribution width (RBC) [Entitic vol] 44.1 fL 35.1-43.9 [facility] Erythrocyte distribution width (RBC) [Ratio] 13.2 % 11.6-14.6 [facility] Immature granulocytes/100 WBC (Bld) 0.500 % 0.0-0.9 [facility] Comment on above: IG% - Immature Granu locytes (promyelocytes, myelocytes and metamyelocytes) > 1% indicates that a LEFT SHIFT is Present. MCH (RBC) [Entitic mass] 28.6 pg 27.0-32.0 [facility] Nucleated RBC/100 WBC (Bld) [Ratio] 0 % 0-5 [facility] MCHC Auto (RBC) [Mass/Vol]Or dered By: Dr. Ndiaye on 05-01-2022 MCHC (RBC) [Mass/Vol] 31.5 g/dL 32-36 [facility] No Panel InformationOrdered By: Dr. Ndiaye on 05-01-2022 Estimated GFR (MDRD) Amer 77 mL/min >60 [facility] Comment on above: GFR Calc Estimated GFR (MDRD) Non-Af Amer 64 mL/min >60 [facility] Comment on above: Non- GFR Calc Thyroid Stimulating Hormone (TSH) 3.15 uIU/mL 0.358-3.74 [facility] Platelets bldOrdered By: Dr. Ndiaye on 05-01-2022 Platelets (Bld) [#/Vol] 378 10*3/uL 150-450 [facility] Serum or plasma albumin wilma urement (mass/volume)Ordered By: Dr. Ndiaye on 05-01-2022 Albumin [Mass/Vol] 3.4 g/dL 3.2-5.0 [facility] Serum or plasma albumin/glob ulin mass ratioOrdered By: Dr. Ndiaye on 05-01-2022 Albumin/Globulin [Mass ratio] 0.8 {ratio} 0.9-2.4 [facility] Serum or plasma calcium wilam urement (mass/volume)Ordered By: Dr. Ndiaye on 05-01-2022 Calcium [Mass/Vol] 9.2 mg/dL 8.5-10.1 [facility] Serum or plasma cholesterol in HDL measurement (mass/volume)Ordered By: Dr. Ndiaye on 05-01-2022 Cholesterol in HDL [Mass/Vol] 43 mg/dL >40 [facility] Comment on above: The drugs N-Acetylcy steine and Metamizole may falsely depress this assay. Reference Range HDL <40 mg/dL Low HDL Cholesterol HDL >or= 60 mg/dL High HDL Cholesterol Serum or plasma cholesterol in VLDL measurement (mass/volume)Ordered By: Dr. Ndiaye on 05-01-2022 Cholesterol in VLDL [Mass/Vol] 21 mg/dL 5-40 [facility] Serum or plasma creatinine m easurement (mass/volume)Ordered By: Dr. Ndiaye on 05-01-2022 Creatinine [Mass/Vol] 0.92 mg/dL 0.55-1.02 [facility] Comment on above: The validity of the calculated GFR & GFRAA in patients over 70 years has not been determined. Clinical correlation is essential. Serum or plasma low density lipoprotein (LDL) cholesterol measurement (mass/volume)Ordered By: Dr. Ndiaye on 05-01-2022 Cholesterol in LDL [Mass/Vol] 94 mg/dL 0-130 [facility] Serum or plasma urea nitroge n measurement (mass/volume)Ordered By: Dr. Ndiaye on 05-01-2022 Urea nitrogen [Mass/Vol] 15 mg/dL 7-18 [facility] Thin prep Papanicolaou smear with manual screeningOrdered By: Dr. Ndiaye on 05-01-2022 Thin prep Papanicolaou smear with manual screening 16 U/L 15-37 [facility] Thin prep Papanicolaou smear with manual screening 5 5-15 [facility] Absolute lymphocyte counton 05-08-2021 Lymphocytes Auto (Unsp spec) [#/Vol] 2.31 10*3/uL 0.83-4.51 [facility] Work Phone: Basophil percentageon 2021 Basophils/100 WBC (Bld) 0.6 % 0-1 [facility] Work Phone: Bilirubin [Mass/Vol] 0.80 mg/dL 0.20-1.00 [facility] Work Phone: Comment on above: For patients on eltr ombopag therapy, use of [place] TBIL is not recommended. Chloride [Moles/Vol] 107 mmol/L 98-107 [facility]: Cholesterol [Mass/Vol] 154 mg/dL <200 [facility] Work Phone: Comment on above: <200 mg/dL Desirable 200-240 mg/dL Borderline >240 mg/dL High Risk Eosinophils/100 WBC (Bld) 3.8 % 0-5 [facility] Work Phone: Glucose [Mass/Vol] 93 mg/dL 74-106 [facility] Work Phone: Neutrophils (Bld) [#/Vol] 2.2 10*3/uL 2.0-7.7 [facility] Work Phone: Neutrophils/100 WBC (Bld) 41.0 % 47-70 [facility] Work Phone: Potassium [Moles/Vol] 4.0 mmol/L 3.5-5.1 [facility] Work Phone: [phone] Protein [Mass/Vol] 7.6 g/dL 6.4-8.2 [facility] Work Phone: Sodium [Moles/Vol] 141 mmol/L 136-145 [facility] Work Phone: [phone] Triglyceride [Mass/Vol] 95 mg/dL [facility] Work Phone: [phone] Comment on above: The drugs N-Acetylcy steine and Metamizole may falsely depress this assay.Serum Triglycerides Reference Interval Normal <150 mg/dL Borderline high 150 - 199 mg/dL High 200 - 499 mg/dL Very High > or = 500 mg/dL WBC (Bld) [#/Vol] 5.2 10*3/uL 4.4-11.0 [facility] Work Phone: [phone] Blood erythrocytes count (nu mber/volume)on 05-08-2021 RBC (Bld) [#/Vol] 4.35 10*6/uL 4.2-5.4 [facility] Work Phone: Blood hemoglobin measurement (mass/volume)on 05-08-2021 Hemoglobin (Bld) [Mass/Vol] 13.1 g/dL 12.0-15.0 [facility] Work Phone: Blood lymphocytes/100 leukoc yteson 05-08-2021 Lymphocytes/100 WBC (Bld) 44.1 % 19-41 [facility] Work Phone: Blood monocytes/100 leukocyt eson 05-08-2021 Monocytes/100 WBC (Bld) 10.3 % 0-10 [facility] Work Phone: Blood platelet mean volumeon 05-08-2021 Platelet mean volume (Bld) [Entitic vol] 10.7 fL 6.2-12.0 [facility] Work Phone: Determination of erythrocyte mean corpuscular volume (MCV)on 05-08-2021 MCV (RBC) [Entitic vol] 88.5 fL 81-99 [facility] Work Phone: [phone] Hematocrit Auto (Bld) [Volum e fraction]on 05-08-2021 Hematocrit (Bld) [Volume fraction] 38.5 % 37-47 [facility] Work Phone: [phone] Laboratory - Chemistry and C hemistry - challengeon 05-08-2021 ALP [Catalytic activity/Vol] 103 U/L 45-117 [facility] Work Phone: ALT [Catalytic activity/Vol] 17 U/L 13-56 [facility] Work Phone: CO2 [Moles/Vol] 28.0 mmol/L 21.0-32.0 [facility] Work Phone: [phone] Globulin (S) [Mass/Vol] 4.1 g/dL 2.2-4.2 [facility] Work Phone: [phone] Urea nitrogen/Creatinine [Mass ratio] 17.1 mg/mg 10-20 [facility] Work Phone: [phone] Laboratory - Hematology and Cell countson 05-08-2021 Erythrocyte distribution width (RBC) [Entitic vol] 42.9 fL 35.1-43.9 [facility] Work Phone: Erythrocyte distribution width (RBC) [Ratio] 13.1 % 11.6-14.6 [facility] Work Phone: Immature granulocytes/100 WBC (Bld) 0.200 % 0.0-0.9 [facility] Work Phone: Comment on above: IG% - Immature Granu locytes (promyelocytes, myelocytes and metamyelocytes) > 1% indicates that a LEFT SHIFT is Present. MCH (RBC) [Entitic mass] 30.1 pg 27.0-32.0 [facility] Work Phone: Nucleated RBC/100 WBC (Bld) [Ratio] 0 % 0-5 [facility] Work Phone: MCHC Auto (RBC) [Mass/Vol]on 05-08-2021 MCHC (RBC) [Mass/Vol] 34.0 g/dL 32-36 [facility] Work Phone: No Panel Informationon 05-08 Estimated GFR (MDRD) Amer 76 mL/min >60 [facility] Work Phone: Comment on above: GFR Calc Estimated GFR (MDRD) Non-Af Amer 63 mL/min >60 [facility] Work Phone: Comment on above: Non- GFR Calc Thyroid Stimulating Hormone (TSH) 2.63 uIU/mL 0.358-3.74 [facility] Work Phone: Platelets bldon 05-08-2021 Platelets (Bld) [#/Vol] 345 10*3/uL 150-450 [facility] Work Phone: Serum or plasma albumin wilma urement (mass/volume)on 05-08-2021 Albumin [Mass/Vol] 3.5 g/dL 3.2-5.0 [facility] Work Phone: Serum or plasma albumin/glob ulin mass ratioon 05-08-2021 Albumin/Globulin [Mass ratio] 0.9 {ratio} 0.9-2.4 [facility] Work Phone: Serum or plasma calcium wilma urement (mass/volume)on 05-08-2021 Calcium [Mass/Vol] 9.4 mg/dL 8.5-10.1 [facility] Work Phone: Serum or plasma cholesterol in HDL measurement (mass/volume)on 05-08-2021 Cholesterol in HDL [Mass/Vol] 48 mg/dL [facility] Work Phone: Comment on above: The drugs N-Acetylcy steine and Metamizole may falsely depress this assay. Reference Range HDL <40 mg/dL Low HDL Cholesterol HDL >or= 60 mg/dL High HDL Cholesterol Serum or plasma cholesterol in VLDL measurement (mass/volume)on 05-08-2021 Cholesterol in VLDL [Mass/Vol] 19 mg/dL 5-40 [facility] Work Phone: Serum or plasma creatinine m easurement (mass/volume)on 05-08-2021 Creatinine [Mass/Vol] 0.93 mg/dL 0.55-1.02 [facility] Work Phone: Comment on above: The validity of the calculated GFR & GFRAA in patients over 70 years has not been determined. Clinical correlation is essential. Serum or plasma low density lipoprotein (LDL) cholesterol measurement (mass/volume)on 05-08-2021 Cholesterol in LDL [Mass/Vol] 87 mg/dL 0-130 [facility] Work Phone: Serum or plasma urea nitroge n measurement (mass/volume)on 05-08-2021 Urea nitrogen [Mass/Vol] 16 mg/dL 7-18 [facility] Work Phone: Thin prep Papanicolaou smear with manual screeningon 05-08-2021 Thin prep Papanicolaou smear with manual screening 13 U/L 15-37 [facility] Work Phone: Thin prep Papanicolaou smear with manual screening 6 5-15 [facility] Work Phone: Provider Note - ED v2on 09-06 Provider Note - ED v2 Provider Note - ED v2: Chart Review: ED NOTES ED NOTES: This note was generated with voice recognition software and may contain errors including spelling, grammar, syntax, and misrecognization of what was dictated Chief Complaint R wrist injury/pain History of Present Illness Patient presented today with c/o of R wrist pain s/p falling backwards and trying to catch herself, landing on her R wrist. Injury occurred ~1 hour ago. She states had immediate 10/10 pain so came straight to the Urgent Care after taking 3 ibuprofen and 1 extra strength Tylenol. Reports 10/10 pain has continued; requesting pain medication and medication for nausea, as pain medication often causes vomiting. States wrist has become swollen; denies any numbness/tingling/radiation of pain and any other symptoms. had a wrist injury many years ago, but it has not bothered her recently. 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 Review of Systems 10 systems reviewed negative with exception of history of present illness listed above Physical Examination General: Alert and oriented, Appears uncomfortable and anxious; sitting in a wheelchair. Accompanied by her . HENT: Normocephalic Neck: No lymphadenopathy. Respiratory: Lungs are clear to auscultation, Respirations are non-labored, Breath sounds are equal, Symmetrical chest wall expansion. Cardiovascular: Normal rate, Regular rhythm. Musculoskeletal: R wrist with soft area of swelling and localized, severe tenderness to radial aspect of wrist/distal forearm; also has some point tenderness to ulnar aspect of wrist/forearm, but minimal swelling noted. No scaphoid tenderness or visible joint deformity aside from swelling noted above; no tenderness to proximal or joints of hand. No specific tenderness but describes discomfort to radial wrist with palpation of hand structures/joints. Poor ROM wrist d/t discomfort (pain worst with attempt to flex/extend, but also noted with pronation/supination. Able to wiggle all fingers. R elbow and L hand/wrist with normal range of motion, normal strength, no tenderness of forearm, no swelling. Gait unremarkable. Integumentary: [place], warm, dry, and Intact. No open areas to hands or wrist; cap refill <3 seconds proximally and distally to R hand/wrist/forearm. Sensation intact to light touch. Radial pulses 2+ bilat Neurologic: Alert, Oriented, Normal sensory, Normal motor function. Cognition and Speech: Oriented, Speech clear and coherent. Psychiatric: Cooperative, Appropriate mood & affect. Impression and Plan Course: Worsening Plan: Nondisplaced comminuted distal right radial fracture with intra-articular extension of the fracture line. Nondisplaced ulnar styloid fracture. Toradol injection and 4 mg Zofran ODT (per pt request) given in office today; pt reported discomfort decreased to 6/10 on pain scale. 4 inch Ortho-Glass used to make splint for R wrist; applied in office today. OARRS report reviewed; rx for PRN Tramadol provided (urged caution with Tramadol - can cause drowsiness especially with other medications she currently takes). Advised can also use up to 1000 mg Tylenol every 8 hours PRN for discomfort. Encouraged RICE over the next few days, and f/u with Ortho in the next 3-5 days, sooner for any increase in severity of symptoms or any additional concerns. Reviewed red flags and urged to seek care immediately for any problems. Patient agrees with plan of care; questions were encouraged and answered. Patient Instructions: See above. HISTORY OF PRESENTING ILLNESS CINDY is a 69 year old Female and was seen by me at 21-Sep-2019 12:08. Triage Information: Most recent Vital Sign Value Date PAST MEDICAL HISTORY ATTESTATION: I have reviewed and confirmed nurse's/medic's notes for patient's medications, allergies, medical history, and surgical history ALLERGIES/INTOLERANCES: Allergy Allergen: NKDA Type: Reaction: Allergen: Iodine Type: Contrast Reaction: Other HEALTH HISTORY: No documented data. OUTPATIENT MEDICATIONS: Home Medications Review Status for Reconciliation: Complete Med Status: Patient Currently Takes Medications Drug Name: gabapentin 800 mg oral tablet Instructions: 1 tab(s) orally 3 times a day Drug Name: ALPRAZolam 0.5 mg oral tablet Instructions: 1 tab(s) orally 3 times a day Drug Name: atorvastatin 10 mg oral tablet Instructions: 1 tab(s) orally once a day Drug Name: traMADol 50 mg oral tablet Instructions: 1 tab(s) orally every 6 hours SIGNIFICANT EVENTS: No documented data. RESULTS/VITAL SIGNS RESULTS: Radiology Results: Impression: Nondisplaced comminuted distal right radial fracture with intra-articular extension of the fracture line. Nondisplaced ulnar styloid fracture. Xray Wrist Complete Min 3 View [Sep 21 2019 1:21PM] VITAL SIGNS: T PRBP SpO2O2(LPM) %FiO2 Method 15-Stiven-2020 12:13:[id number] 99 CLINICAL IMPRESSION Diagnosis/Annotation: ED Dx Name:Right wrist fracture Code:S62.101A Dispostion: discharged Type: home ATTESTATION CRITICAL CARE TIME Is this a critically ill patient: no Electronic Signatures: Heidi Dougherty (RECORDS OFFICER-KNOCKOUT MACHINE OPERATOR) (Signed 21-Sep-2019 15:28) Authored: Provider Note - ED v2 Last Updated: 21-Sep-2019 15:28 by Heidi Dougherty (RECORDS OFFICER-KNOCKOUT MACHINE OPERATOR) [facility] WRIST COMPLT MIN 3 VIEWSon 0 09-21-2019 WRIST COMPLT MIN 3 VIEWS Patient Name: CINDY WARREN STUDY: WRIST COMPLT; MIN 3 VIEWS; 09/21/2019 12:30 pm INDICATION: Fell and injured R wrist. COMPARISON: None. ACCESSION NUMBER(S): [id number] ORDERING CLINICIAN: HEIDI DOUGHERTY FINDINGS: Multiple views of the right wrist are obtained. There is the fracture through the ulnar styloid process. This is nondisplaced. In addition there is a comminuted nondisplaced distal right radial fracture. There is intra-articular extension of the fracture line. No dislocation. Overlying soft tissue swelling. IMPRESSION: Nondisplaced comminuted distal right radial fracture with intra-articular extension of the fracture line. Nondisplaced ulnar styloid fracture. Electronically signed by: MARY ANN CHAUDHARI MD [facility] Vital Signs Date Time Vital Sign Value Performing Clinician Facility 09-28-2024 09:57-0400 Body mass index (BMI) [Ratio] 26.63 kg/m2 Margaret Garcia MD Work Phone: [facility] 09-28-2024 09:57-0400 Body weight 72.6 kg Margaret Garcia MD Work Phone: [facility] 09-28-2024 09:57-0400 SaO2% (BldA) [Mass fraction] 99 % Margaret Garcia MD Work Phone: [facility] 09-11-2024 16:22-0400 Body temperature 98.7 [degF] Dr. Hansa Ndiaye MD Work Phone: [facility] 09-11-2024 16:22-0400 Diastolic blood pressure 78 mm[Hg] Dr. Hansa Ndiaye MD Work Phone: [facility] 09-11-2024 16:22-0400 Heart rate 63 /min Dr. Hansa Ndiaye MD Work Phone: [facility] 09-11-2024 16:22-0400 Respiratory rate 13 /min Dr. Hansa Ndiaye MD Work Phone: [facility] 09-11-2024 16:22-0400 SaO2% (BldA) [Mass fraction] 98 % Dr. Hansa Ndiaye MD Work Phone: [facility] 09-11-2024 16:22-0400 Systolic blood pressure 136 mm[Hg] Dr. Hansa Ndiaye MD Work Phone: [facility] 09-11-2024 12:16-0400 Body mass index (BMI) [Ratio] 27.9 kg/m2 Dr. Hansa Ndiaye MD Work Phone: [facility] 09-11-2024 12:16-0400 Body weight 76.[address] Hansa Ndiaye MD Work Phone: [facility] 09-11-2024 12:12-0400 Body height 165.[address] Hansa Ndiaye MD Work Phone: [facility] 03-31-2024 10:58-0500 Body mass index (BMI) [Ratio] 27.18 kg/m2 Margaret Garcia MD Work Phone: [facility] 03-31-2024 10:58-0500 Body weight 74.1 kg Margaret Garcia MD Work Phone: [facility] 03-31-2024 10:58-0500 SaO2% (BldA) [Mass fraction] 98 % Margaret Garcia MD Work Phone: [facility] 09-24-2023 11:23-0400 Body mass index (BMI) [Ratio] 25.94 kg/m2 Margaret Garcia MD Work Phone: [facility] 09-24-2023 11:23-0400 Body weight 70.7 kg Margaret Garcia MD Work Phone: [facility] 09-24-2023 11:23-0400 Diastolic blood pressure 73 mm[Hg] Margaret Garcia MD Work Phone: [facility] 09-24-2023 11:23-0400 Heart rate 59 /min Margaret Garcia MD Work Phone: [facility] 09-24-2023 11:23-0400 SaO2% (BldA) [Mass fraction] 99 % Margaret Garcia MD Work Phone: [facility] 09-24-2023 11:23-0400 Systolic blood pressure 132 mm[Hg] Margaret Garcia MD Work Phone: [facility] 03-26-2023 08:46-0500 Body temperature 97.1 [degF] Dr. Hansa Ndiaye Work Phone: [facility] 03-26-2023 08:45-0500 Diastolic blood pressure 61 mm[Hg] Dr. Hansa Ndiaye Work Phone: [facility] 03-26-2023 08:45-0500 Heart rate 62 /min Dr. Hansa Ndiaye Work Phone: [facility] 03-26-2023 08:45-0500 Respiratory rate 16 /min Dr. Hansa Ndiaye Work Phone: [facility] 03-26-2023 08:45-0500 SaO2% (BldA) [Mass fraction] 100 % Dr. Hansa Ndiaye Work Phone: [facility] 03-26-2023 08:45-0500 Systolic blood pressure 114 mm[Hg] Dr. Hansa Ndiaye Work Phone: [facility] 03-26-2023 06:58-0500 Body height 165.[address] Hansa Ndiaye Work Phone: [facility] 03-26-2023 06:58-0500 Body mass index (BMI) [Ratio] 25.7 kg/m2 Dr. Hansa Ndiaye Work Phone: [facility] 03-26-2023 06:58-0500 Body weight [address] Hansa Ndiaye Work Phone: [facility] 12-10-2022 09:47-0400 Body height 165.[address] Hansa Ndiaye Work Phone: [facility] 12-10-2022 09:47-0400 Body mass index (BMI) [Ratio] 26.9 kg/m2 Dr. Hansa Ndiaye Work Phone: [facility] 12-10-2022 09:47-0400 Body weight 73.[address] Hansa Ndiaye Work Phone: [facility] 12-10-2022 09:47-0400 Diastolic blood pressure 82 mm[Hg] Dr. Hansa Ndiaye Work Phone: [facility] 12-10-2022 09:47-0400 Systolic blood pressure 126 mm[Hg] Dr. Hansa Ndiaye Work Phone: [facility] 11-26-2022 11:49-0400 Body mass index (BMI) [Ratio] 26.2 kg/m2 Dr. Hansa Ndiaye Work Phone: [facility] 11-26-2022 11:49-0400 Body weight 71.[address] Hansa Ndiaye Work Phone: [facility] 11-11-2022 08:46-0400 Body mass index (BMI) [Ratio] 26.9 kg/m2 Dr. Hansa Ndiaye Work Phone: [facility] 11-11-2022 08:46-0400 Body weight 73.[address] Hansa Ndiaye Work Phone: [facility] 11-11-2022 08:46-0400 Diastolic blood pressure 78 mm[Hg] Dr. Hansa Ndiaye Work Phone: [facility] 11-11-2022 08:46-0400 Systolic blood pressure 132 mm[Hg] Dr. Hansa Ndiaye Work Phone: [facility] 10-29-2022 09:04-0400 Diastolic blood pressure 86 mm[Hg] Keiry Shaffer MD Work Phone: [facility] 10-29-2022 09:04-0400 Heart rate 62 /min Keiry Shaffer MD Work Phone: [facility] 10-29-2022 09:04-0400 Systolic blood pressure 154 mm[Hg] Keiry Shaffer MD Work Phone: [facility] 10-29-2022 08:49-0400 Body weight 71.85 kg Keiry Shaffer MD Work Phone: [facility] 10-22-2022 10:49-0400 Body height 165.1 cm Mary Alice Berg MD Work Phone: [facility] 10-22-2022 10:49-0400 Body temperature 96.4 [degF] Mary Alice Berg MD Work Phone: [facility] 10-22-2022 10:49-0400 Body weight 72.58 kg Mary Alice Berg MD Work Phone: [facility] 10-22-2022 10:49-0400 Diastolic blood pressure 67 mm[Hg] Mary Alice Berg MD Work Phone: [facility] 10-22-2022 10:49-0400 Heart rate 63 /min Mary Alice Berg MD Work Phone: [facility] 10-22-2022 10:49-0400 SaO2% (BldA) [Mass fraction] 99 % Mary Alice Berg MD Work Phone: [facility] 10-22-2022 10:49-0400 Systolic blood pressure 139 mm[Hg] Mary Alice Berg MD Work Phone: [facility] 10-15-2022 13:03-0400 Body height 165.1 cm Abigail Selena RECORDS OFFICER.KNOCKOUT MACHINE OPERATOR Work Phone: [facility] 10-15-2022 13:03-0400 Body weight 72.6 kg Abigail Selena RECORDS OFFICER.KNOCKOUT MACHINE OPERATOR Work Phone: [facility] 10-15-2022 13:03-0400 Diastolic blood pressure 59 mm[Hg] Abigail Selena RECORDS OFFICER.KNOCKOUT MACHINE OPERATOR Work Phone: [facility] 10-15-2022 13:03-0400 Heart rate 67 /min Abigail Selena RECORDS OFFICER.KNOCKOUT MACHINE OPERATOR Work Phone: [facility] 10-15-2022 13:03-0400 Systolic blood pressure 127 mm[Hg] Abigail Selena RECORDS OFFICER.KNOCKOUT MACHINE OPERATOR Work Phone: [facility] 10-05-2022 08:08-0400 Body height 165.[address] Hansa Ndiaye Work Phone: [facility] 10-05-2022 08:08-0400 Body mass index (BMI) [Ratio] 26.4 kg/m2 Dr. Hansa Ndiaye Work Phone: [facility] 10-05-2022 08:08-0400 Body temperature 97.1 [degF] Dr. Hansa Ndiaye Work Phone: [facility] 10-05-2022 08:08-0400 Body weight 71.[address] Hansa Ndiaye Work Phone: [facility] 10-05-2022 08:08-0400 Diastolic blood pressure 83 mm[Hg] Dr. Hansa Ndiaye Work Phone: [facility] 10-05-2022 08:08-0400 Heart rate 61 /min Dr. Hansa Ndiaye Work Phone: [facility] 10-05-2022 08:08-0400 Respiratory rate 18 /min Dr. Hansa Ndiaye Work Phone: [facility] 10-05-2022 08:08-0400 SaO2% (BldA) [Mass fraction] 99 % Dr. Hansa Ndiaye Work Phone: [facility] 10-05-2022 08:08-0400 Systolic blood pressure 152 mm[Hg] Dr. Hansa Ndiaye Work Phone: [facility] 10-04-2022 13:18-0400 Body temperature 98.01 [degF] Khalif Hernández MD Work Phone: [facility] 10-04-2022 13:18-0400 Body weight 71.67 kg Khalif Hernández MD Work Phone: [facility] 10-04-2022 13:18-0400 Diastolic blood pressure 74 mm[Hg] Khalif Hernández MD Work Phone: [facility] 10-04-2022 13:18-0400 Heart rate 64 /min Khalif Hernández MD Work Phone: [facility] 10-04-2022 13:18-0400 Respiratory rate 16 /min Khalif Hernández MD Work Phone: [facility] 10-04-2022 13:18-0400 SaO2% (BldA) [Mass fraction] 97 % Khalif Hernández MD Work Phone: [facility] 10-04-2022 13:18-0400 Systolic blood pressure 128 mm[Hg] Khalif Hernández MD Work Phone: [facility] 09-05-2022 18:55-0400 Heart rate 75 /min [facility] 09-05-2022 18:55-0400 Respiratory rate 18 /min [facility] 09-05-2022 18:55-0400 SaO2% (BldA) [Mass fraction] 98 % [facility] 09-05-2022 16:36-0400 Body height 165.1 cm [facility] 09-05-2022 16:36-0400 Body mass index (BMI) [Ratio] 26.6 kg/m2 [facility] 09-05-2022 16:36-0400 Body temperature 98 [degF] [facility] 09-05-2022 16:36-0400 Body weight 72.7 kg [facility] 09-05-2022 16:36-0400 Diastolic blood pressure 72 mm[Hg] [facility] 09-05-2022 16:36-0400 Systolic blood pressure 170 mm[Hg] [facility] 06-02-2021 12:16-0400 Diastolic blood pressure 70 mm[Hg] [facility] Work Phone: 06-02-2021 12:16-0400 Heart rate 78 /min [facility] Work Phone: 06-02-2021 12:16-0400 Respiratory rate 18 /min [facility] Work Phone: 06-02-2021 12:16-0400 SaO2% (BldA) [Mass fraction] 99 % [facility] Work Phone: 06-02-2021 12:16-0400 Systolic blood pressure 130 mm[Hg] [facility] Work Phone: 06-02-2021 10:40-0400 Body height 165.1 cm [facility] Work Phone: 06-02-2021 10:40-0400 Body mass index (BMI) [Ratio] 26.6 kg/m2 [facility] Work Phone: 06-02-2021 10:40-0400 Body temperature 97.5 [degF] [facility] Work Phone: 06-02-2021 10:40-0400 Body weight 72.57 kg [facility] Work Phone: Encounters Encounter Date Encounter Type Care Provider Facility Start: 11-27-2024 Encounter for genera l adult medical examination without abnormal findings Hansa Ndiaye [facility] Start: 11-21-2024 End: 11-21-[address] Hansa Ndiaye MD Work Phone: [facility] [place] Start: 11-21-2024 End: 11-21-[address] Hansa Ndiaye MD -[facility] [place] Work Phone: Start: 11-21-2024 End: 11-21-2024 ambulatory Hansa Ndiaye Facility:[facility] Start: 11-02-2024 End: 11-02-2024 Telephone encounter Joaquin Pierce Research Coordinator [facility] Start: 10-15-2024 End: 10-17-2024 ambulatory Margaret Garcia MD Work Phone: Neurology Comment on above: Prescribed Wrong Typ e of Ondansetron Start: 09-28-2024 End: 09-28-2024 Office outpatient visit 40 minutes Margaret Garcia MD Work Phone: Neurology Comment on above: Parkinson's disease without dyskinesia or fluctuating manifestations (HCC) Start: 09-28-2024 End: 09-28-2024 ambulatory MARGARET GARCIA Facility:[facility] Start: 09-11-2024 End: 09-11-2024 Emergency department patient visit Dr. Hansa Ndiaye MD Work Phone: -Emergency Department Work Phone: Start: 08-31-2024 End: 08-31-2024 Telephone encounter Joaquin Pierce Research Coordinator [facility] Start: 07-06-2024 End: 07-08-2024 ambulatory Margaret Garcia MD Work Phone: Neurology Comment on above: medication/eyes Start: 05-30-2024 End: 05-30-2024 ambulatory Angela Carvajal PSYD Work Phone: [facility] Comment on above: Depression, unspecif ied depression type (Primary Dx); Parkinson's disease, unspecified whether dyskinesia present, unspecified whether manifestations fluctuate (HCC) Carb/Levo Start: 05-30-2024 End: 05-30-2024 Telemedicine consultation with patient Angela Manny Yang PSYD Work Phone: [facility] Start: 04-13-2024 End: 04-13-2024 ambulatory [facility] [place] Start: 03-31-2024 End: 03-31-2024 ambulatory MARGARET GARCIA Facility:[facility] Start: 03-31-2024 End: 03-31-2024 Office outpatient visit 40 minutes Margaret Garcia MD Work Phone: Neurology Comment on above: Parkinson's disease without dyskinesia or fluctuating manifestations (HCC); Anxiety; Depression, unspecified depression type Start: 03-15-2024 End: 03-15-2024 ambulatory [facility] [place] Start: 02-29-2024 End: 02-29-[address] [facility] Angela Carvajal PSYD Work Phone: [facility] Comment on above: Major depressive dis order, recurrent episode, moderate (HCC) (Primary Dx); Parkinson's disease, unspecified whether dyskinesia present, unspecified whether manifestations fluctuate (HCC) Start: 2024 End: 02-24-2024 ambulatory Margaret Garcia MD Work Phone: Neurology Comment on above: Begin Carb/Levo 25-1 00MG Tab Start: 01-21-2024 End: 01-21-2024 ambulatory [facility] Facility:[facility] Start: 12-21-2023 End: 12-21-[address] [facility] Angela Carvajal PSYD Work Phone: [facility] Comment on above: Major depressive dis order, recurrent episode, moderate (HCC) (Primary Dx); Parkinson's disease, unspecified whether dyskinesia present, unspecified whether manifestations fluctuate (HCC) Start: 11-06-2023 End: 11-06-2023 Telephone encounter Margaret Garcia MD Work Phone: Neurology Comment on above: Headache Start: 11-03-2023 End: 11-03-2023 [facility] Angela Carvajal PSYD Work Phone: [facility] Comment on above: Parkinson's disease, unspecified whether dyskinesia present, unspecified whether manifestations fluctuate (HCC) (Primary Dx); Major depressive disorder, recurrent episode, moderate (HCC) Start: 10-15-2023 End: 10-15-2023 ambulatory Parish BORGES Work Phone: [facility] Comment on above: Research exam (Prima ry Dx) Start: 10-15-2023 End: 10-15-2023 Patient encounter status Parish Read LG Work Phone: [facility] Work Phone: Start: 10-15-2023 End: 10-15-2023 Telemedicine consultation with patient Parish BORGES Work Phone: [facility] Start: 10-05-2023 End: 10-05-2023 ambulatory Angela Carvajal TIM Work Phone: [facility] Comment on above: Parkinson's disease without dyskinesia or fluctuating manifestations (HCC); Anxiety; Depression, unspecified depression type Start: 10-05-2023 End: 10-05-2023 Telemedicine consultation with patient Angela Carvajal RAFFYYANETH Work Phone: [facility] Start: 09-28-2023 Telephone encounter Miryam sosa Research Coordinator Work Phone: [facility] Comment on above: Research ([phone] PDG GREG) Start: 09-24-2023 End: 09-24-2023 Patient encounter procedure Margaret Garcia MD Work Phone: Neurology Comment on above: Parkinson's disease without dyskinesia or fluctuating manifestations (HCC) (Primary Dx); Anxiety; Depression, unspecified depression type Start: 06-16-2023 End: 06-16-2023 ambulatory Miryam Tran Research Coordinator Work Phone: [facility] Comment on above: Research study patie nt (Primary Dx) Start: 06-16-2023 End: 06-16-2023 Patient entered into trial Miryam Tran Research Coordinator Work Phone: [facility] Work Phone: Start: 06-16-2023 End: 06-16-2023 Telemedicine consultation with patient Miryam Tran Research Coordinator Work Phone: [facility] Start: 06-01-2023 End: 06-01-[address] Hansa Ndiaye Work Phone: [facility] Work Phone: Start: 06-01-2023 End: 06-01-[address] Hansa Ndiaye Work Phone: [facility]-Laboratory Work Phone: Start: 04-30-2023 ambulatory Marybel Olmos Research Coordinator [facility] Comment on above: Parkinson's Foundati on PDGeneration Study Start: 04-30-2023 E-mail encounter fro m caregiver Marybel Olmos Research Coordinator [facility] Start: 03-26-2023 Non-patient / Non-visit Dr. Lawrence Ndiaye Work Phone: [facility] Start: 03-26-2023 End: 03-26-2023 Admission to same day surgery center Dr. Hansa Ndiaye Work Phone: [facility]-Endoscopy Work Phone: Start: 02-24-2023 End: 02-24-[address] Hansa Ndiaye Work Phone: [facility]-Physical Therapy Work Phone: Start: 01-19-2023 End: 01-19-[address] Hansa Ndiaye Work Phone: [facility] Work Phone: Start: 01-19-2023 End: 01-19-[address] Hansa Ndiaye Work Phone: [facility]-Outpatient Breast Imaging Work Phone: Start: 12-23-2022 End: 12-23-[address] Hansa Ndiaye Work Phone: [facility] Work Phone: Start: 12-23-2022 End: 12-23-[address] Hansa Ndiaye Work Phone: [facility]-Laboratory, Specimen Work Phone: Start: 12-10-2022 End: 12-10-[address] Hansa Ndiaye Work Phone: [facility] Work Phone: Start: 12-04-2022 End: 12-04-2022 Patient encounter procedure Aleksander Thao MD Work Phone: [facility] Comment on above: Parkinson disease (H CC) (Primary Dx); Resting tremor; Anxiety Start: 11-28-2022 Telephone encounter Keiry Robb Work Phone: Neurology Start: 11-28-2022 End: 11-28-2022 Subsequent hospital visit by physician Mri [employer] [facility] (I-Stat/1.5t) Work Phone: Radiology Comment on above: Resting tremor [G25. 2] Start: 11-26-2022 Non-patient / Non-visit Dr. Lawrence Ndiaye Work Phone: [facility] Work Phone: Start: 11-11-2022 End: 11-11-[address] Hansa Ndiaye Work Phone: [facility] Work Phone: Start: 11-06-2022 Telephone encounter Keiry Robb Work Phone: [facility] Comment on above: Results Start: 11-06-2022 End: 11-06-2022 ambulatory Emg 850) Neurology Start: 11-06-2022 End: 11-06-2022 Patient encounter procedure Emg 2 Neur [facility] (Max Weight: 850) [facility] Start: 11-03-2022 Telephone encounter Keiry Robb Work Phone: Neurology Comment on above: Results Start: 10-29-2022 End: 10-29-2022 Patient encounter procedure Keiry Shaffer MD Work Phone: Neurology Comment on above: Generalized weakness (Primary Dx); Resting tremor; Encounter for screening for human immunodeficiency virus (HIV); Vitamin D deficiency Start: 10-22-2022 End: 10-22-2022 Patient encounter procedure Mary Alice Berg MD Work Phone: Pain Management Comment on above: Myalgias (Primary Dx ); 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) Start: 10-16-2022 Telephone encounter Abigail cavanaugh APRN.KNOCKOUT MACHINE OPERATOR Work Phone: Gastroenterology Comment on above: Medication Preauthor ization ([employer]) Start: 10-15-2022 End: 10-15-2022 Office outpatient new 30 minutes Abigail Walters APRN.KNOCKOUT MACHINE OPERATOR Work Phone: Gastroenterology Comment on above: Esophageal dysphagia (Primary Dx); Colon cancer screening; Family history of colon cancer in mother Start: 10-13-2022 End: 10-13-[address] Hansa Ndiaye Work Phone: [facility] Work Phone: Start: 10-13-2022 End: 10-13-[address] Hansa Ndiaye Work Phone: [facility] Work Phone: Start: 10-10-2022 End: 10-10-[address] Hansa Ndiaye Work Phone: [facility] Work Phone: Start: 10-05-2022 End: 10-05-2022 Emergency department patient visit Dr. Hansa Ndiaye Work Phone: [facility]-Emergency Department Work Phone: Start: 10-04-2022 End: 10-04-2022 Patient encounter procedure Khalif Hernández MD Work Phone: [facility] Comment on above: Epigastric abdominal pain (Primary Dx) Start: 09-18-2022 End: 09-18-2022 Subsequent hospital visit by physician Xr [facility] Work Phone: Radiology Comment on above: Wrist injury, left, initial encounter [S69.92XA] Start: 09-17-2022 Non-patient / Non-visit Dr. Lawrence Ndiaye Work Phone: [facility] Start: 09-16-2022 End: 09-16-[address] Hansa Ndiaye Work Phone: [facility]-Pulmonary Services/Neurology Work Phone: Start: 09-05-2022 End: 09-05-2022 Emergency department patient visit [facility]-Emergency Department Work Phone: Start: 09-04-2022 End: 09-04-2022 ambulatory [facility] Work Phone: Start: 09-04-2022 End: 09-04-2022 Patient encounter procedure [facility]-Radiology, [facility] Work Phone: Start: 05-01-2022 End: 05-01-2022 ambulatory [facility] Work Phone: Start: 05-01-2022 End: 05-01-2022 Patient encounter procedure [facility]-Laboratory, Kathy Sahni [facility] Start: 01-06-2022 End: 01-06-[address] Hansa Ndiaye Work Phone: [facility]-Outpatient Breast Imaging Start: 12-31-2021 Non-patient / Non-visit Dr. Lawrence Ndiaye Work Phone: [facility] Start: 08-12-2021 End: 06-06-2022 Patient encounter procedure [facility]-Ultrasound, [facility] Start: 06-02-2021 End: 06-02-2021 Emergency department patient visit [facility]-Emergency Department Start: 05-08-2021 End: 05-08-2021 Patient encounter procedure [facility]Laboratory, [facility] Procedures Date Procedure Procedure Detail Performing Clinician Start: 11-21-2024 Lymphocyte percent differential count Dr. Hansa Ndiaye MD Work Phone: Start: 09-11-2024 CT angiography of ch est with contrast Dr. Hansa Ndiaye MD Work Phone: Start: 09-11-2024 D-dimer assay, quantitative Dr. Hansa Ndiaye MD Work Phone: Comment on above: D-Dimer ELEVATED (>0 .49): Additional studies and clinicalassessments are indicated to conclude diagnosis of:Deep Vein Thrombosis (DVT) or Pulmonary Embolism (PE) Start: 09-11-2024 X-ray of chest, PA a nd lateral views Dr. Hansa Ndiaye MD Work Phone: Start: 03-26-[address] Hansa Ndiaye Work Phone: Start: 01-19-2023 Screening mammography Cezar Ndiaye Work Phone: Start: 12-23-[address] Chastity Ndiaye Work Phone: Start: 11-28-2022 Mri brain brain stem w/o contrast material Keiry Shaffer MD Work Phone: Start: 11-06-2022 Nerve conduction tiffanie dies 5-6 studies Keiry Shaffer MD Work Phone: Start: 10-13-2022 US scan of thyroid Dr. Hansa Ndiaye Work Phone: Start: 10-05-2022 Computed tomography of soft tissues of neck without contrast Dr. Hansa Ndiaye Work Phone: Start: 09-18-2022 Radex wrist complete minimum 3 views Deanna VEGAC Work Phone: Start: 09-04-2022 Plain chest X-ray Start: 01-06-2022 Screening mammography Cezar Ndiaye Work Phone: Start: 08-12-2021 US scan of thyroid Plan of Treatment Date Care Activity Detail Author Start: 10-29-2025 DIABETES SCREEN DIABETES SCREEN [facility] Start: 10-29-2025 Diabetes Screening Diabetes Screenin g [facility] Start: 01-24-2025 End: 01-24-2025 Patient encounter procedure 01/24/2025 11:00 AM EST Office Visit Neurology [address] [address] Margaret Garcia MD [address] [id number] follow up 4 months 60 mins per [facility] Neurology Comment on above: follow up 4 months 6 0 mins per KA Start: 11-07-2024 Influenza vaccination Influenza Vacc ine (#1) [facility] Start: 09-28-2024 End: 09-28-2024 Patient encounter procedure 09/28/2024 10:00 AM EDT Office Visit Neurology [address] [address] Margaret Garcia MD [address] [id number] 6 Month follow up- 60 minutes per KA Neurology Comment on above: 6 Month follow up- 6 0 minutes per KA Start: 09-12-2024 [facility] Start: 09-11-2024 [facility] Start: 09-11-2024 End: 09-11-2024 [facility] Start: 08-29-2024 End: 08-29-2024 ambulatory 08/29/2024 8:00 AM EDT [facility] [address] [place] [address] Angela Carvajal, TIM [address] [place], [place] [phone] [facility] Start: 05-30-2024 End: 05-30-2024 ambulatory 05/30/2024 8:00 AM EDT [facility] [address] [place] [address] Angela Carvajal PSYD [address] [place] [address] [facility] Start: 05-10-2024 Covid-19 Vaccine ( season) Covid-19 Vaccine () [facility] Start: 03-31-2024 End: 03-31-2024 Patient encounter procedure 03/31/2024 11:00 AM EST Office Visit Neurology [address] [phone] Margaret Garcia MD [address] [phone] 6 month follow up- 60 min per KA Neurology Comment on above: 6 month follow up- 6 0 min per KA Start: 03-09-2024 Advance Directive Discussion Advance Directive Discussion [facility] Start: 02-29-2024 End: 02-29-2024 ambulatory 02/29/2024 8:00 AM EST [facility] [address] [place] [address] Angela Carvajal PSYD [address] [place] [address] [facility] Start: 02-23-2024 RSV Vaccine (1 - 1-d ose 75+ series) RSV Vaccine (1 - 1-dose 75+ series) [facility] Start: 12-21-2023 End: 12-21-2023 ambulatory 12/21/2023 8:00 AM EDT [facility] [address] [place] [address] Angela Carvajal PSYD [address] [place] [address] [facility] Start: 11-08-2023 Covid-19 Vaccine ( season) Covid-19 Vaccine () [facility] Start: 11-08-2023 Influenza vaccination Influenza Vacc ine (#1) [facility] Start: 10-20-2023 End: 10-20-2023 Follow-up encounter 10/20/2023 12:00 PM EDT [facility] [address] [place] [address] Angela Carvajal PSYD [address] [place] [address] Follow up [facility] Comment on above: Follow up Start: 10-15-2023 End: 10-15-2023 ambulatory 10/15/2023 3:00 PM EDT [facility] Genetic [facility] [address] [place] [address] [facility] [address] [place] [address] [facility] Comment on above: PD Gene Start: 10-05-2023 End: 10-05-2023 ambulatory 10/05/2023 2:00 PM EDT [facility] [address] [place] [address] Angela Carvajal PSYD [address] [place], [place] [phone] Parkinson's disease without dyskinesia or fluctuating manifestations (HCC) [G20.A1] [facility] Comment on above: Parkinson's disease without dyskinesia or fluctuating manifestations (HCC) [G20.A1] Start: 04-22-2023 Covid-19 Vaccine ( season) Covid-19 Vaccine () [facility] Start: 03-31-2023 Medicare Annual Well ness Visit Medicare Annual Wellness Visit [facility] Start: 03-26-2023 Patient discharge [facility] Start: 03-23-2023 [facility]ABET[facility]CREEN [facility] Start: 03-09-2023 Advance Directive Discussion Advance Directive Discussion [facility] Start: 03-09-2023 Depression Assessment Depression Ass essment [facility] Start: 11-07-2022 Covid-19 Vaccine () Covid-19 Vaccine () [facility] Start: 11-07-2022 Influenza vaccination [facility] Start: 10-29-2022 End: 12-29-2022 25-hydroxyvitamin D3 [Mass/volume] in Serum or Plasma [facility] Work Phone: Comment on above: Expected: 10/29/2022 , Expires: 12/29/2022 Start: 10-29-2022 End: 12-29-2022 ANTI HMGCR AUTOANTIBODIES [facility] Work Phone: Comment on above: Expected: 10/29/2022 , Expires: 12/29/2022 Start: 10-29-2022 End: 12-29-2022 COPPER BLOOD [facility] Work Phone: Comment on above: Expected: 10/29/2022 , Expires: 12/29/2022 Start: 10-29-2022 End: 12-29-2022 HIV 1+2 Ab [Presence] in Serum or Plasma by Immunoassay [facility] Work Phone: Comment on above: Expected: 10/29/2022 , Expires: 12/29/2022 Start: 10-29-2022 End: 12-29-2022 Methylmalonate [Moles/volume] in Serum or Plasma [facility] Work Phone: Comment on above: Expected: 10/29/2022 , Expires: 12/29/2022 Start: 10-29-2022 End: 12-29-2022 SYPHILIS TOTAL W/REFLEX [facility] Work Phone: Comment on above: Expected: 10/29/2022 , Expires: 12/29/2022 Start: 10-29-2022 End: 12-29-2022 Zinc [Mass/volume] in Serum or Plasma [facility] Work Phone: Comment on above: Expected: 10/29/2022 , Expires: 12/29/2022 Start: 10-05-2022 [facility] Start: 03-09-2022 ADVANCE DIRECTIVE DISCUSSION ADVANCE DIRECTIVE DISCUSSION [facility] Start: 03-09-2022 DEPRESSION ASSESSMENT DEPRESSION ASS ESSMENT [facility] Start: 2014 BONE DENSITY BONE DENSITY [facility] Start: 2014 Bone Density Screening Bone Density Screening [facility] Start: 2014 PNEUMOCOCCAL: 65+ (1 - PCV) PNEUMOCOCCAL: 65+ (1 - PCV) [facility] Start: 2014 Screening for osteoporosis Bone Density Screening [facility] Start: 08-05-2013 Screening for malign ant neoplasm of breast Mammogram Screening [facility] Start: 2009 RSV Vaccine (1 - 1-d ose 60+ series) RSV Vaccine (1 - 1-dose 60+ series) [facility] Start: 1999 SHINGRIX VACCINE (1 of 2) SHINGRIX VACCINE (1 of 2) [facility] Start: 1994 COLOGUARD (FIT-DNA) COLOGUARD (FIT-D NA) [facility] Start: 1994 Colonoscopy COLONOSCOPY [facility] Start: 1994 COLORECTAL CANCER SCREENING COLORECTAL CANCER SCREENING [facility] Start: [address] COLONOGRAPHY [facility] Start: 1994 FECAL OCCULT BLOOD FECAL OCCULT BLOO D [facility] Start: 1994 Lipid 1996 panel - S deep or Plasma Lipid Screening [facility] Start: 1994 Lipid panel [facility] Start: 1994 LIPID SCREEN LIPID SCREEN [facility] Start: 1994 Screening for malign ant neoplasm of colon [facility] Start: 1994 SIG[facility]OSCOPY [facility] Start: 1989 Mammography [facility] Start: 1989 Screening for malign ant neoplasm of breast Mammogram Screening [facility] Start: 02-23-1968 Urine microalbumin profile [facility] Start: 1967 Anxiety Screening Anxiety Screening [facility] Start: 1967 Depression Screening Depression Scre ening [facility] Start: 1967 HEPATITIS C SCREENING HEPATITIS C [facility] Start: 1967 Hepatitis C screening Hepatitis C [facility] Start: 1959 Meningococcal B Vacc ine (1 of 4 - Increased Risk) Meningococcal B Vaccine (1 of 4 - Increased Risk) [facility] Start: 1959 Meningococcal B Vacc ine (1 of 5 - Increased Risk) Meningococcal B Vaccine (1 of 5 - Increased Risk) [facility] Start: 1959 Meningococcal B Vacc ine: Consider Based On Risk (1 of 4 - Increased Risk) Meningococcal B Vaccine: Consider Based On Risk (1 of 4 - Increased Risk) [facility] Start: 1959 MENINGOCOCCAL B: Consider based on risk (1 of 4 - Increased Risk) MENINGOCOCCAL B: Consider based on risk (1 of 4 - Increased Risk) [facility] Start: 1955 Pneumococcal Vaccine : 65+ (1 - PCV) Pneumococcal Vaccine: 65+ (1 - PCV) [facility] Start: 1955 PNEUMOCOCCAL: 65+ (1 - PCV) PNEUMOCOCCAL: 65+ (1 - PCV) [facility] Start: 1951 MENINGOCOCCAL CONJUG ATE (1 - Risk 2-dose series) MENINGOCOCCAL CONJUGATE (1 - Risk 2-dose series) [facility] Start: 1951 Meningococcal Conjug ate Vaccine (1 - Risk 2-dose series) Meningococcal Conjugate Vaccine (1 - Risk 2-dose series) [facility] Start: 05-23-1950 HIB (1 of 1 - Risk 1-dose series) HIB (1 of 1 - Risk 1-dose series) [facility] Start: 05-23-1950 Hib Vaccine (1 of 1 - Risk 1-dose series) Hib Vaccine (1 of 1 - Risk 1-dose series) [facility] Colonoscopy [facility] End: 10-30-2023 EMG(NEURO/NI) EMG(NEURO/NI) EMG Routine Generalized weakness 1 Occurrences starting 10/29/2022 until 10/30/2023 [facility] Work Phone: Comment on above: 1 Occurrences starti ng 10/29/2022 until 10/30/2023 MG Breast - bilatera l Screening [facility] End: 11-28-2023 Mri brain brain stem w/o contrast material MRI BRAIN WO IVCON Radiology Routine Resting tremor 1 Occurrences starting 10/29/2022 until 11/28/2023 [facility] Work Phone: Comment on above: 1 Occurrences starti ng 10/29/2022 until 11/28/2023 Patient Education [facility] Work Phone: Patient referral [facility] Work Phone: End: 11-14-2023 Radiologic exam esophagus single contrast study XR ESOPHAGRAM Radiology Routine Esophageal dysphagia 1 Occurrences starting 10/15/2022 until 11/14/2023 [facility] Work Phone: Comment on above: 1 Occurrences starti ng 10/15/2022 until 11/14/2023 End: 10-16-2023 Screening colonoscopy COLONOSCOPY SCREENING Endoscopy Routine Colon cancer screening Family history of colon cancer in mother 1 Occurrences starting 10/15/2022 until 10/16/2023 [facility] Work Phone: Comment on above: 1 Occurrences starti ng 10/15/2022 until 10/16/2023 [facility] Immunizations Immunization Date Immunization Notes Care Provider [facility] 12-16-2023 influenza virus vacc ine, unspecified formulation Margaret Garcia MD Work Phone: [facility] 12-20-2022 influenza virus vacc ine, unspecified formulation Margaret Garcia MD Work Phone: [facility] 02-20-2022 influenza virus vacc ine, unspecified formulation Keiry Shaffer MD Work Phone: [facility] Payers Date Payer Category Payer Self-pay [id number] 2023 Medicare [id number] 2023 Unknown [id number] 2022 Private Health Insurance [id number] 2014 Medicare [id number] Medicare [id number] Medicare MEDICARE PART A B [id number] Unknown [id number] Unknown [id number] Unknown [id number] Unknown [id number] Unknown [id number] Unknown [id number] Social History Date Type Detail Facility Start: 06-02-2021 End: 03-23-2023 Tobacco smoking status ALIS Unknown if ever smoked [facility] Start: 1950 Sex Assigned At Female [facility] Start: 09-18-2022 End: 09-11-2024 Tobacco smoking status NHIS Never smoked tobacco [facility] Start: 09-18-2022 Tobacco use and exposure Smokeless tobacco non-user [facility] Start: 10-04-2022 End: 10-15-2022 History of Social function [facility] Start: 10-04-2022 End: 10-15-2022 Tobacco use panel [facility] Start: 06-09-2022 Gender identity Identifies as female gender (finding) [facility] Start: 06-09-2022 Sexual orientation Heterosexual (fin ding) [facility] Start: 06-04-2020 National Score (1-100), lower number is lower risk 74 [facility] Start: 10-22-2022 End: 09-28-2024 Alcohol intake Lifetime non-drinker (finding) [facility] NEGATED: Highlighted row [facility] Goals Date Patient Goal Desired Activity /State Mental Status Date Assessment Result Facility 09-11-2024 Cognitive function Level Of Cons ciousness Awake;Alert;Appropriate;Follow s Commands [facility] Work Phone: 03-26-2023 Cognitive function Level Of Consciousness Sedated [facility] Work Phone: 03-26-2023 Cognitive function Voice/Name [facility] Work Phone: 09-05-2022 Cognitive function Level Of Cons ciousness Awake;Appropriate;Lethargic [facility] Work Phone: 06-02-2021 Cognitive function Level Of Cons ciousness Awake;Alert;Appropriate;Follow s Commands [facility] Work Phone: Clinical Notes 09-18-2022 to 09-28-2024 Margaret Garcia MD - 09/28/2024 7:45 PM EDTPatient Instructions Note Date & Type Note Facility 09-28-2024 Note HNO ID: [id number] Author: MARGARET GARCIA MD Service: ? Author Type: Physician Type: Progress Notes Filed: 09/28/2024 19:48 Note Text: [facility] - FOLLOW UP EVALUATION Recording using W[employer]Par[employer] software for draft documentation of the visit was discussed with the patient/authorized traffic representative; all questions welcomed and answered. Patient/authorized traffic representative agreed to proceed I had the pleasure of seeing Ms. Warren for follow-up today. She is a 74 year old right-handed female with a history of suspected Parkinson's disease since August 2022 . Subjective Previous Plan- 03/31/2024 Visit: For Parkinson's - start Sinemet (carbidopa-levodopa) very slowly. Take the doses with food. Stop increasing the dose if your symptoms are manageable See schedule below, you can do it slower: Breakfast 8a Lunch 1p Dinner 6p Week 1 / tab Week 2 1/2 1/2 Week 3 1/2 1/2 1/2 Week 4 1 1/2 1/2 Week 5 1 1/2 1 Week 6 1 1 1 Week 7 1.5 1 1 Week 8 1.5 1 1.5 Week 9 1.5 1.5 1.5 Week 10 2 1.5 1.5 Week 11 2 1.5 2 Week 12 and on 2 2 2 Continue seeing psychology - Interval History: Cindy Warren is a 74-year-old female with a history of Parkinson's disease presenting for follow-up. Cindy reports continued tremors despite taking 1.5 tablets of Sinemet three times daily. She believes the medication is helping with the tremors but not with other symptoms. She is hesitant to increase the dose to two tablets three times daily due to headaches and nausea which she attributes to side effects. She takes the medication with meals but experiences nausea and a feeling of fullness lasting 3-4 hours after eating. She manages nausea by sipping larissa tien and is considering using Zofran again. Cindy reports significant fatigue, particularly in the mornings, describing a lack of energy and muscle weakness. She tries to manage this by drinking caffeinated tea but is not a regular coffee drinker. Exercise reportedly helps with her energy levels, and she maintains a routine of exercising Thursday through Thursday. She notes feeling better during a recent vacation in [place]. She also experiences headaches on the top of her head. She manages these with ice and Tylenol, though the latter is not always effective. Cindy reports lightheadedness, particularly when moving quickly or standing up too fast, which she associates with changes in position. She also experiences dry mouth and is trying to increase her water intake, though she has a swallowing issue that makes this challenging. She uses a glass water bottle with rubber bands to track her intake, aiming to drink three bottles per day but has not yet achieved this consistently. She acknowledges feelings of anxiety and boredom, which she attributes to aging and having too much time on her hands. She has been seeing a psychologist but does not find it helpful and plans to discontinue therapy. She tries to stay active by walking with a friend in her [facility] community and engaging in daily activities. She is accompanied by her , who provides additional history and support during the visit. Movement Disorders Medications Schedule - as of the start of the visit: Medications Sinemet 25/100 1.5-2 1.5-2 1.5-2 xanax 0.25 mg prn Prior Anti-Parkinson Therapies Carbidopa/Levodopa Questionnaires: Mood/Behavior Depression: PHQ-9 Score: 10 usually representing moderate (10-14) depression. Anxiety: MISAEL-7 Total Score: 6 usually representing mild (5-9) anxiety. Finally, the following table shows the patient's overall global physical and mental health using the PROMIS scale: PROMIS-10 Flowsheet Row Office Visit from 09/28/2024 in Neurology Office Visit from 03/31/2024 in Neurology Global Physical Health T Score 42.3 39.8 Global Mental Health T Score 41.1 43.5 0-10 Standard Pain Scale 4 4 *PROMIS-10 scoring scale: mean = 50, over 50 is above average, under 50 is below average ALLERGIES Allergen Reactions Iodine Vomiting Shellfish Derived Hives Current Outpatient Medications Medication Sig carbidopa-levodopa (SINEMET 25-100) 25-100 mg per tablet Take 2 tablets by mouth three times a day. Start low dose and increase as directed by doctor's office ondansetron (ZOFRAN) 4 mg tablet Take 1 tablet by mouth every 8 hours as needed for nausea/vomiting. atorvastatin (LIPITOR) 10 mg tablet Take 10 mg by mouth once daily. GABAPENTIN ORAL Take 300 mg by mouth three times a day. OTC PRODUCT Multi vitamin po daily ALPRAZolam [...] No current facility-administered medications for this visit. Objective (more content not included)... [facility] 09-28-2024 History of Present illness Narrative [facility] - FOLLOW UP EVALUATION Recording using W[employer] software for draft documentation of the visit was discussed with the patient/authorized traffic representative; all questions welcomed and answered. Patient/authorized traffic representative agreed to proceed I had the pleasure of seeing Ms. Warren for follow-up today. She is a 74 year old right-handed female with a history of suspected Parkinson's disease since August 2022 . Subjective Previous Plan- 03/31/2024 Visit: For Parkinson's - start Sinemet (carbidopa-levodopa) very slowly. Take the doses with food. Stop increasing the dose if your symptoms are manageable See schedule below, you can do it slower: Breakfast 8a Lunch 1p Dinner 6p Week 1 1/2 tab Week 2 1/2 1/2 Week 3 1/2 1/2 1/2 Week 4 1 1/2 1/2 Week 5 1 1/2 1 Week 6 1 1 1 Week 7 1.5 1 1 Week 8 1.5 1 1.5 Week 9 1.5 1.5 1.5 Week 10 2 1.5 1.5 Week 11 2 1.5 2 Week 12 and on 2 2 2 Continue seeing psychology - Interval History: Cindy Warren is a 74-year-old female with a history of Parkinson's disease presenting for follow-up. Cindy reports continued tremors despite taking 1.5 tablets of Sinemet three times daily. She believes the medication is helping with the tremors but not with other symptoms. She is hesitant to increase the dose to two tablets three times daily due to headaches and nausea which she attributes to side effects. She takes the medication with meals but experiences nausea and a feeling of fullness lasting 3-4 hours after eating. She manages nausea by sipping larissa tien and is considering using Zofran again. Cindy reports significant fatigue, particularly in the mornings, describing a lack of energy and muscle weakness. She tries to manage this by drinking caffeinated tea but is not a regular coffee drinker. Exercise reportedly helps with her energy levels, and she maintains a routine of exercising Thursday through Thursday. She notes feeling better during a recent vacation in [place]. She also experiences headaches on the top of her head. She manages these with ice and Tylenol, though the latter is not always effective. Cindy reports lightheadedness, particularly when moving quickly or standing up too fast, which she associates with changes in position. She also experiences dry mouth and is trying to increase her water intake, though she has a swallowing issue that makes this challenging. She uses a glass water bottle with rubber bands to track her intake, aiming to drink three bottles per day but has not yet achieved this consistently. She acknowledges feelings of anxiety and boredom, which she attributes to aging and having too much time on her hands. She has been seeing a psychologist but does not find it helpful and plans to discontinue therapy. She tries to stay active by walking with a friend in [facility] and engaging in daily activities. She is accompanied by her , who provides additional history and support during the visit. Movement Disorders Medications Schedule - as of the start of the visit: Medications Sinemet 25/100 1.5-2 1.5-2 1.5-2 xanax 0.25 mg prn Prior Anti-Parkinson Therapies Carbidopa/Levodopa Questionnaires: Mood/Behavior Depression: PHQ-9 Score: 10 usually representing moderate (10-14) depression. Anxiety: MISAEL-7 Total Score: 6 usually representing mild (5-9) anxiety. Finally, the following table shows the patient's overall global physical and mental health using the PROMIS scale: PROMIS-10 Flowsheet Row Office Visit from 09/28/2024 in Neurology Office Visit from 03/31/2024 in Neurology Global Physical Health T Score 42.3 39.8 Global Mental Health T Score 41.1 43.5 0-10 Standard Pain Scale 4 4 *PROMIS-10 scoring scale: mean = 50, over 50 is above average, under 50 is below average ALLERGIES Allergen Reactions Iodine Vomiting Shellfish Derived Hives Current Outpatient Medications Medication Sig carbidopa-levodopa (SINEMET 25-100) 25-100 mg per tablet Take 2 tablets by mouth three times a day. Start low dose and increase as directed by doctor's office ondansetron (ZOFRAN) 4 mg tablet Take 1 tablet by mouth every 8 hours as needed for nausea/vomiting. atorvastatin (LIPITOR) 10 mg tablet Take 10 mg by mouth once daily. GABAPENTIN ORAL Take 300 mg by mouth three times a day. OTC PRODUCT Multi vitamin po daily ALPRAZolam [...] No current facility-administered medications for this visit. Objective Vital Signs: Wt 72.6 kg (160 lb 0.9 oz) SpO2 99% BMI 26.63 kg/m Orthostatic Vitals: Sitting: BP 126/78 Pulse 63 Standing: BP 116/75 Pulse 70 Weight: 72.6 kg (160 lb 0.9 oz) No LMP recorded. Patient has had a hysterectomy. Body mass index is 26.63 kg/m . Neurological Exam Mental Status Awake and alert. Language is fluent with no aphasia. Movement Disorders Scales Performed: MDS-UPDRS Motor subscale condition of exam Medication Off/On/Naiive ON Time of UPDRS 1105 Time of Last Medication 0845 Last Medication Taken DBS Right N/A DBS Left N/A MDS-UPDRS Motor subscale scores Speech 0-Normal. No speech problems. Facial Expression 0-Normal. Normal facial expression. Rigidity Neck 0-Normal. No rigidity. Rigidity Right Upper Extremity 0-Normal. No rigidity. Rigidity Left Upper Extremity 0-Normal. No rigidity. Rigidity Right Lower Extremity 0-Normal. No rigidity. Rigidity Left Lower Extremity 0-Normal. No rigidity. Finger Taps Right 0-Normal. No problems. ` Finger Taps Left 0-Normal. No problems. Hand [...] quickly without hesitation. Gait 0-Normal. No problems. (reduced R arm swing) Gait Freezing 0-Normal. No freezing. Posture Stability 0-Normal. No problems: recovers with one or two steps. Posture 0-Normal. No problems. Body Bradykinesia 0-Normal. No problems. Postural Tremor Hand Right 0-Normal. No tremor. Postural Tremor Hand Left 0-Normal. No tremor. Kinetic Tremor Right 0-Normal. No tremor. Kinetic Tremor Left 0-Normal. No tremor. Rest Tremor Amplitude Right Upper Extremity 2-Mild. > 1 cm but < 3 cm in maximal amplitude. Rest Tremor Amplitude Left Upper Extremity 1-Slight. < 1 cm in maximal amplitude. Rest Tremor Amplitude Right Lower Extremity 0-Normal. No tremor. Rest Tremor Amplitude Left Lower Extremity 0-Normal. No tremor. Rest Tremor Amplitude Lip/Jaw 0-Normal. No tremor. Rest Tremor Constancy 2-Mild. Tremor at rest is present 26-50% of the entire examination period. MDS-UPDRS Motor subscale totals Left Total 1 Right Total 2 Midline Total 0 Tremor Total / 10 5 PIGD Total / 3 0 Overall Total 5 Change Better/Worse Better % Change Compared to Last Filed Total -72.22 Pertinent Studies Brain MRI 11/28/22 IMPRESSION: Unremarkable age-appropriate brain MRI. Minimal presumed chronic white matter microangiopathic changes. No acute intracranial finding. EMG 11/06/22 Electrodiagnostic examination of the right upper and lower extremities demonstrates no significant abnormalities. There is no significant evidence of myopathy, large fiber polyneuropathy, nor lumbar or cervical radiculopathy. Component Latest Ref Rng & Units 10/29/2022 WBC 3.70 - 11.00 k/uL 7.42 RBC 3.90 - 5.20 m/uL 4.58 Hemoglobin 11.5 - 15.5 g/dL 13.1 Hematocrit 36.0 - 46.0 % 40.5 MCV 80.0 - 100.0 fL 88.4 MCH 26.0 - 34.0 pg 28.6 MCHC 30.5 - 36.0 g/dL 32.3 RDW-CV 11.5 - 15.0 % 13.6 Platelet Count 150 - 400 k/uL 374 MPV 9.0 - 12.7 fL 10.9 Neut% % 58.1 Abs Neut (ANC) 1.45 - 7.50 k/uL 4.30 Lymph% % 30.3 Abs Lymph 1.00 - 4.00 k/uL 2.25 Thomas% % 7.8 Abs Thomas <0.87 k/uL 0.58 Eosin% % 3.2 Abs Eosin <0.46 k/uL 0.24 Baso% % 0.5 Abs Baso <0.11 k/uL 0.04 Immature Gran % % 0.1 IMMATURE GRANS (ABS) <0.10 k/uL <0.03 NRBC /100 WBC 0.0 Absolute nRBC <0.01 k/uL <0.01 DTYPE Auto Protein, Total 6.3 - 8.0 g/dL 6.9 Albumin 3.9 - 4.9 g/dL 4.4 Calcium 8.5 - 10.2 mg/dL 10.1 Bilirubin, Total 0.2 - 1.3 mg/dL 0.6 Alkaline Phosphatase 34 - 123 U/L 115 AST 13 - 35 U/L 16 ALT 7 - 38 U/L 15 Glucose 74 - 99 mg/dL 95 BUN 7 - 21 mg/dL 13 Creatinine 0.58 - 0.96 mg/dL 0.83 Sodium 136 - 144 mmol/L 141 Potassium 3.7 - 5.1 mmol/L 4.6 Chloride 97 - 105 mmol/L 104 CO2 22 - 30 mmol/L 28 Anion Gap 9 - 18 mmol/L 9 eGFR >=60 mL/min/1.73m 75 HIV 12 Combo (Ag/Ab) Nonreactive Nonreactive HIV 1/2 Ab HIV Interpretation Syphilis Screen Result Nonreactive Nonreactive Syphilis Interpretation Cannot exclude recent Treponemal infection if specimen collected within 7-10 days after appearance of suspect lesions or 2-3 weeks after an exposure. Clinical correlation is required. TSH 0.270 - 4.200 mIU/L 2.730 Free T4 0.9 - 1.7 ng/dL 1.2 T3 79 - 165 ng/dL 109 Vitamin B12 232 - 1,245 pg/mL 427 MMA 79 - 376 nmol/L 164 CK 42 - 196 U/L 42 Copper 80 - 155 ug/dL 108 Zinc 60 - 120 ug/dL 77 Ceruloplasmin 16 - 45 mg/dL 27 Anti HMGCR Autoantibodies Test 0 - 19 Units <3 Vitamin D 25 Hydroxy 31.0 - 80.0 ng/mL 48.3 Assessment and Plan: Assessment Ms. Warren is a right-handed 74 year old year old female with RUE resting tremor which started suddenly one day in August. Exam notable for constant mild/moderate RUE resting tremor, mild R bradykinesia, no clear rigidity. Suspected diagnosis is PD. She tried Sinemet and didn't tolerate 1 tab 3 times a day due to loss of appetite. 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 This has been previously worked up by GI and speech and she doesn't wish to pursue it again. The following are the current problems noted and addressed during this visit: Parkinson's disease without dyskinesia or fluctuating manifestations (hcc) Plan 09/28/2024 Visit: 1. Parkinson's disease without dyskinesia or fluctuating manifestations (HCC) (G20.A1) - Notable improvement in tremor and motor function on current Sinemet regimen (1.5 tablets TID), though patient continues to experience significant fatigue and nausea. - Encouraged trial increase to Sinemet 2 tablets TID for 1-2 weeks to assess for additional benefit; advised patient to monitor for increased nausea or other side effects and to revert to previous dose if intolerable. - Prescribed Zofran for nausea management. - Advised increasing daily water intake to 40-60 oz to address dry mouth and support blood pressure stability; recommended sipping water throughout the day and considering electrolyte-containing beverages. - Discussed that fatigue is multifactorial and may not improve with Sinemet; encouraged continued regular exercise. - Follow-up in 4 months (January) to reassess symptoms and medication tolerance. My recommendations are as follows: - Increase your Sinemet to 2 tablets three times a day for at least 1-2 weeks, taking each dose with a full meal; if nausea worsens or you don t feel better after two weeks, resume 1 tablets three times daily. - Your ondansetron (Zofran) prescription has been sent to [facility] pharmacy; take one dose as needed for nausea, especially within an hour after Sinemet. - Aim to drink 40-60 ounces of fluid each day. Consider adding an electrolyte mix (Gatorade or Liquid IV) to help with dizziness - Continue your regular exercise routine, as this boosts energy and mobility. - Schedule a follow-up appointment in approximately four months (around January) to reassess your symptoms and medication response. Updated Movement Disorders Medication Schedule: Medications Sinemet 25/100 1.5-2 1.5-2 1.5-2 xanax 0.25 mg prn Return at or around: 01/29/25 Level of service : 59254 (40-68 min). Time spent 49 min on the day of service, which included preparing to see the patient, jovi-ac-frum patient care, completing clinical documentation, obtaining and/or reviewing separately obtained history, performing a medically appropriate examination, and counseling and educating the patient/family/caregiver. Thank you for allowing me to be part of the clinical care of this patient! I look forward to continued participation in the patient s care with you. Please do not hesitate to call with any questions. Sincerely, Margaret Garcia MD documented in this encounter [facility] 09-28-2024 Instructions Margaret Garcia MD - 09/28/2024 11:16 AM EDT It was a pleasure to see you today. We addressed the following diagnoses: Parkinson's disease without dyskinesia or fluctuating manifestations (hcc) My recommendations are as follows: - Increase your Sinemet to 2 tablets three times a day for at least 1-2 weeks, taking each dose with a full meal; if nausea worsens or you don t feel better after two weeks, resume 1 tablets three times daily. - Your ondansetron (Zofran) prescription has been sent to [facility] pharmacy; take one dose as needed for nausea, especially within an hour after Sinemet. - Aim to drink 40-60 ounces of fluid each day. Consider adding an electrolyte mix (Gatorade or Liquid IV) to help with dizziness - Continue your regular exercise routine, as this boosts energy and mobility. - Schedule a follow-up appointment in approximately four months (around January) to reassess your symptoms and medication response. Movement Disorders Medication Schedule: Medications Sinemet 25/100 1.5 1.5 1.5 xanax 0.25 mg prn Return at or around: 01/29/25 Your current CNR Movement Disorders Team includes: Primary Movement Disorders Neurologist: Margaret Garcia MD You don't have a movement disorders-specialized advanced practice provider (TERE) on your team yet. You may ask to have your next follow-up appointment scheduled with an TERE and add them to your team to expand your team, access, and appointment options. If there are any concerns before your next visit, please call or you can send a message through [employer]. You can also now schedule and select appointments through [employer]. Margaret Garcia MD documented in this encounter [facility] 09-11-2024 Discharge summary [facility] 09-11-2024 Radiology Diagnostic study note [facility] Imaging Services [address] [place], [place] [id number] CTA Chest W/WO Contrast MR#: [id number] Acct: [id number] Name: CINDY WARREN Rep #: [id number] : 1950 F 74 From: Abril Gomez MD PCP: Dr. Hansa Ndiaye MD Status: REG ER Study:CTA Chest W/WO Contrast Date of Exam: 09/11/24 Exam# [id number] Ordering Dr: Celio Diehl DO PROCEDURE: CTA CHEST W/WO CONTRAST 09/11/2024 REASON FOR EXAM: ASSESS FOR DISSECTION TECHNIQUE: CTA axial imaging of the chest with intravenous contrast. Coronal and Sagittal reconstruction series were provided. 3D, 3D post processing, 3D reconstructions, Maximum intensity projection (MIPs) Volume rendering and Shaded surface rendering was provided. PATIENT PREPARATION: Per protocol CONTRAST: Isovue 370 VOLUME: 100mL One or more dose reduction techniques were used (e.g., Automated exposure control, adjustment of the mA and/or kV according to patient size, use of iterative reconstruction technique). RADIATION DOSE SUMMARY: DLP: 200 mGycm COMPARISON: Same day chest radiograph. FINDINGS: Hardware: None. Lymph nodes: No axillary, mediastinal or hilar lymphadenopathy. Heart: The heart is normal in size without pericardial effusion. The great vessels are normal in caliber. Minimal calcific plaque of the aortic arch and descending thoracic aorta. No significant coronary artery calcifications. Pulmonary Vessels: No central filling defect within the segmental or subsegmental pulmonary arteries. Lungs and Airways: The central airways are patent. Small ground-glass nodule within the right posterior lower lobe (series 2, image 176), measuring 0.8 cm. Bibasilar atelectasis. No pleural effusion or pneumothorax. Upper Abdomen: Prior cholecystectomy. Bones: Thoracic spondylosis. CT/CTA Chest W/WO Contrast IMPRESSION: 1. No acute thoracic finding. 2. Small ground-glass nodule within the right lower lobe. Follow-up CT chest in6-12 months is recommended to evaluate for stability/resolution. Reading Location: [id number] CC: Dr. Celio Hess DO; Dr. Hansa Ndiaye MD ~ Graphic Design Professor: Signed [facility] 09-11-2024 Discharge summary Note Date/Time September 11, 2024 4:06p m [facility] Medical Records Department [address] [place] [address] Emergency Department Summary 09/11/24 MR#: [id number] Acct: [id number] Name: CINDY WARREN Rep #:[id number] : 1950 74 From: Celio naik DO PCP: Dr. Hansa Ndiaye MD Status:REG ER Location: ED HPI History of Present Illness Chief Complaint: Chest Pain Narrative Narrative: Chief complaint and HPI: Chest pain. 74-year-old female with past medical history of GERD, esophageal spasms, IBS, fibromyalgia, Parkinson's disease presents for evaluation of chest pain. Patient states she was recently switchedto a new GERD medication which she started yesterday. She states she was getting into the car when she developed chest pain. Chest pain was approximately 15 minutes prior to arrival. Described as midsternal and radiatesto the back. Associated symptom shortness of breath. Pain is improving although she states she did not take any medication for the pain. She denies any fever, chills, URI symptoms, cough, abdominal pain, nausea, vomiting. Denies a history of DVT/PE, blood clotting disorder, recent trauma or surgery, exogenous estrogen use, unilateral leg swelling, known malignancy, travel Review of systems: See HPI Medications: As listed on the chart Allergies: As listed on the chart PFSH: Per chart Vital signs: As listed on the chart. Reviewed. Physical exam: Gen: A&O x3, NAD Head: Normocephalic, atraumatic Eyes: No sclera icterus, conjunctiva clear ENT: Moist mucous membranes Neck: Trachea midline, No JVD CV: RRR, no murmurs, no peripheral edema, chest wall nontender to palpation Resp: Lungs CTA BL, no w/r/c GI: Abd soft, non-distended, non-tender, no r/r/g :no CVA tenderness Musc: Full ROM, no deformity, no midline spinal tenderness, no bony step-off, nopain to palpation of the back Skin: Warm, dry Neuro: Alert, oriented, grossly intact, sensation intact Psych: Cooperative, appropriate mood and affect [facility] Medical History Lichen sclerosus Wears glasses Non-smoker History of IBS History of stress test Generalized anxiety disorder Family hx of colon cancer Fibromyalgia Thyroid nodule Mixed hyperlipidemia GERD (gastroesophageal reflux disease) Osteopenia High cholesterol IBS (irritable bowel syndrome) Anemia Atrophic vaginitis Genital warts Barretts esophagus Acid reflux Home Medications ?Medication ?Instructions ?Recorded ?Last Taken ?Type alprazolam 0.25 mg tablet 0.25 mg PO QHS PRN sleep Unknown History dexlansoprazole 60 mg 60 mg PO DAILY 07/19/20 Unkn own History capsule,biphase delayed release (Dexilant) epinephrine 0.3 mg/0.3 mL 0.3 mg IM Q5-15M PRN anaphyl axis 12/31/21 Unknown History injection, auto-injector (EpiPen 2-Rodger) gabapentin 400 mg capsule 400 mg PO TID 11/11/22 Unkno wn History promethazine 25 mg tablet 25 mg PO QDAY PRN nausea and 11/26/22 Unknown History vomiting mometasone 0.1 % topical ointment 1 applic topical .CO MPLEX #15 grams 10/20/23 Unknown Rx carbidopa 10 mg-levodopa 100 mg 1 tab PO BID 04/13/24 Unknown History tablet (Sinemet) estradiol 0.01% (0.1 mg/gram) See Rx Instructions vagi nal 04/20/24 Unknown Rx vaginal cream .COMPLEX #42.5 grams Allergy/AdvReac Type Severity Reaction Status Date / Time iodine Allergy Vomiting Verified 09/11/24 12:12 Family History Unknown Heart disease Mother Anxiety Colon cancer Depression Thyroid disorder Father Anxiety Hypertension Grandmother Breast cancer Osteoporosis Thyroid disorder Surgical History Hx of colonoscopy Hx of cholecystectomy H/O: hysterectomy H/O splenectomy Social History household members: spouse number of children: 0 current occupational status: retired history of recent travel: Yes Smoking Status: Never smoker alcohol intake: never substance use type: does not use what type of physical activity do you participate in: none seatbelt use: always do you feel safe at home: Yes additional social history: - Niraj EXAM Physical Exam Const Vital Signs: 09/11/24 12:12 09/11/24 13:12 09/11/24 13:40 Temperature 97.6 F L 97.4 F L Temperature Source Temporal Oral Pulse Rate 66 69 70 Respiratory Rate 16 18 Blood Pressure 123/88 H 141/67 H 146/95 H Blood Pressure Mean 99 91 112 Pulse Ox 100 98 Oxygen Delivery Method Room Air Room Air 09/11/24 15:00 Temperature Temperature Source Pulse Rate 68 Respiratory Rate Blood Pressure 172/68 H Blood Pressure Mean 102 Pulse Ox Oxygen Delivery Method MDM MDM MDM Narrative Medical decision making narrative: 74-year-old female with past medical history of GERD, esophageal spasms, IBS, fibromyalgia, Parkinson's disease presents for evaluation of chest pain. Patient states she was recently switched to a new GERD medication which she started yesterday. She states she was getting into the car when she developed chest pain. Chest pain was approximately 15 minutes prior to arrival. Described as midsternal and radiates to the back. Associated symptom shortness of breath. Pain is improving and shortness of breath has resolved. Differential diagnosis includes but is not limited to GERD, esophageal spasm, myofascial spasm, ACS, dissection, suspect less likely PE. Cardiac workup ordered including CTA chest to assess for dissection. Patient has nausea and vomiting with contrast therefore NS bolus and Zofran ordered. Aspirin and Pepcid ordered. CBC unremarkable without leukocytosis, anemia, platelet dysfunction. D-dimer 0.55. This is negative per age adjustment. BMP unremarkable. Troponinx 2 unremarkable. BNP unremarkable. Chest x-ray was personally viewed interpreted by me, ED physician, no pneumonia, effusion, cardiomegaly, pneumothorax. Radiology in agreement. CTA chest negative for PE or dissection. Patient does have small ground glass nodule within the right lower lobe, recommend follow-up CT in 6 to 12 months. On reevaluation, chest pain has improved. Patient's heart score is a 2 secondary to age which places her at lowrisk. Low suspicion for ACS. Patient states she recently just changed her GERD medication, this may be a cause of her chest pain. Recommend following up with her PCP. Patient is stable to discharge home. Patient comfortable discharging home. Return precautions explained. She was made aware of her CTA results withthe nodule and that she does have repeat imaging in 6 to 12 months. She confirmed understanding of the plan. EKG: Interpreted by me/EM physician: EKG shows normal sinus rhythm without any acute ischemic changes. Heart rate 60. Impression: 1. Chest pain 2. History of GERD and esophageal spasms Lab Data Labs: Laboratory Results - last 24 hr 09/11/24 09/11/24 12:20 14:30 WBC 6.9 RBC 4.43 Hgb 12.7 Hct 38.6 MCV 87.1 MCH 28.7 MCHC 32.9 RDW Std Deviation 43.4 RDW Coeff of Nellie 13.6 Plt Count 379 MPV 10.1 Immature Gran % (Auto) 0.100 Neut % (Auto) 53.1 Lymph % (Auto) 35.2 Thomas % (Auto) 8.7 Eos % (Auto) 2.5 Baso % (Auto) 0.4 Absolute Neuts (auto) 3.6 Absolute Lymphs (auto) 2.42 Nucleated RBC % 0 D-Dimer Quant (PE/DVT) 0.55 H* Sodium 140 Potassium 4.3 Chloride 106 Carbon Dioxide 24.1 Anion Gap 11 BUN 12 Creatinine 0.85 Est GFR (MDRD) Non-Af 71 BUN/Creatinine Ratio 14.2 Glucose 93 Calcium 9.3 Troponin T High Sens < 6 Troponin T Hi Sens 2 Hr < 6 NT pro BNP II 96 Radiography Diagnostic Testing: Clinical Impression(s) from Imaging Studies Chest X-Ray 09/11/24 12:16 IMPRESSION: No evidence of acute cardiopulmonary pathology. Chronic blunting of the left costophrenic angle. Reading Location: [id number] Chest CTA 09/11/24 15:25 IMPRESSION: 1. No acute thoracic finding. 2. Small ground-glass nodule within the right lower lobe. Follow-up CT chest in6-12 months is recommended to evaluate for stability/resolution. Reading Location: [facility] Discharge Plan Triage Chief Complaint: Chest Pain ED Provider: eClio Hess Dx/Rx/DC Orders Clinical Impression: Chest pain Instructions: Chest Pain [facility] Ch Prescriptions: No Action Dexilant 60 mg capsule,biphase delayed releas 60 mg PO DAILY alprazolam 0.25 mg tablet 0.25 mg PO QHS PRN (Reason: sleep) gabapentin 400 mg capsule 400 mg PO TID epinephrine [EpiPen 2-Rodger] 0.3 mg/0.3 mL auto-injector 0.3 mg IM Q5-15M PRN (Reason: anaphylaxis) Rx Instructions: do not exceed 3 doses per episode promethazine 25 mg tablet 25 mg PO QDAY PRN (Reason: nausea and vomiting) carbidopa-levodopa [Sinemet] 10-100 mg tablet 1 tab PO BID mometasone 0.1 % ointment 1 applic topical .COMPLEX Qty: 15 2RF Rx Instructions: 1 applic topical small amount as directed and rub in bid X 2 weeks, dailly X 2 weeks then prn; estradiol 0.01 % (0.1 mg/gram) cream See Rx Instructions vaginal .COMPLEX Qty: 42.5 2RF Rx Instructions: small amount as directed vaginal every other day at HS X 4 wk then twice a week Primary Care Provider: Hansa Ndiaye Referrals: Hansa Ndiaye MD [Primary Care Provider] - 3-5 Days Activity Restrictions/Additional Instructions: Follow-up with your primary care physician. Return back to the ED if symptoms change or worsen. At this point in time no clear reason for your chest pain. Your CTA of the chest showed small groundglass nodule within the right lower lobe. Recommend CT chest in 6 to 12 months please. Please inform your physician of this. Your chest pain may have been caused by the switch in your medication. Recommend that if you do not feel comfortable taking the medicationstop taking it and follow-up with your primary care physician. Print Language: Greek Disposition Disposition: Home, Self Care What to do if you have Problems For any increased pain, shortness of breath, bleeding, nausea or vomiting, chestpain, or any unexpected problems, contact your Primary Care Provider. Call [facility] ([phone]) or report to the closest Emergency Room. Call 911 if necessary. 09/11/24 1606 <Electronically signed by Celio Hess DO> Cosigner Signature (if applicable): CC: Dr. Hansa Ndiaye MD ~ Signed [facility] Work Phone: 1(301) 776-125907-06-2025 Radiology Diagnostic study note [facility] Imaging Services [address] [place] [address] Chest PA and Lateral MR#: [id number] Acct: [id number] Name: CINDY WARREN Rep #: [id number] : 1950 F 74 From: Bashir Abarca MD PCP: Dr. Hansa Ndiaye MD Status: PRE ER Study:Chest PA and Lateral Date of Exam: 09/11/24 Exam# [id number] Ordering Dr: Isai Manning. PROCEDURE: CHEST PA AND LATERAL 09/11/2024 REASON FOR EXAM: CHEST PAIN TECHNIQUE: CHEST PA AND LATERAL COMPARISON: Two-view chest, 09/04/2022 . FINDINGS: There is chronic blunting of the left costophrenic angle. The lungs are otherwise clear. The heart size is normal. There is calcific vascular disease of the thoracic aorta. The pulmonary vascular patternis normal. The upperabdominal bowel gas pattern is normal. There are no bony abnormalities of the chest. RAD/Chest PA and Lateral IMPRESSION: No evidence of acute cardiopulmonary pathology. Chronic blunting of the left costophrenic angle. Reading Location: [id number] CC: Dr. Hansa Ndiaye MD; ED PHYSICIAN PROVIDER ~ Graphic Design Professor: Signed [facility] Work Phone: 1(622) 961-122407-06-2025 Hospital Discharge instructionsAdditional Instructions Follow-up with your primary care physician. Return back to the ED if symptoms change or worsen. At this point in time no clear reason for your chest pain. Your CTA of the chest showed small groundglass nodule within the right lower lobe. Recommend CT chest in 6 to 12 months please. Please inform your physician of this. Your chest pain may have been caused by the switch in your medication. Recommend that if you do not feel comfortable taking the medication stop taking it and follow-up with your primary care physician. Your blood pressure was elevated here in the emergency department. Make sure you follow-up with your primary care physician to have this rechecked.[facility] Work Phone: [phone]) 936-887403-24-2025 History of Present illness Narrative* Angela Carvajal PSYD - 05/30/2024 8:00 AM EDT [facility] Psychology Progress Note Billing codes: Manny Yang PSYCHOLOGY: FOLLOW-UP APPOINTMENT PROGRESS NOTE- Virtual Visit I have communicated my name and active licensure. The patient's identity and physical location wereverified at the time of this visit. Either the patient or their legal traffic representative has been informed of the risks and benefits of -- and alternatives to -- treatment through a remote evaluation andconsents to proceed with the evaluation remotely. Today she is participating from her home in [place]. The patient was informed that this interview was only for the purpose of assessing the presenting problem, for diagnosis and treatment planning and/or to make treatment recommendations. The patient agreed that the evaluation would not be used for forensic, disability, or child custody purposes. Thefollowing history is obtained from the patient except when noted. The content acquired from chart review has been confirmed with the patient and discrepancies were noted if any. Limits of confidentiality were discussed. Cindy Loly Warren 05/30/2024 [id number] PROVIDER: Angela Carvajal PSYD Service: Psychotherapy, 45 minutes with patient and/or family- Virtual Visit Diagnosis: Parkinson's Disease, Major Depressive Disorder Time spent doing therapy with patient: 7:54-8:43 (the video dropped, we then met by phone for an additional 10 minutes) Parties Present: Patient, spouse (Niraj) Interventions: Cognitive Behavioral grounding, distress tolerance MENTAL STATUS: Mood: depressed, sad, anxious Affect: mood-congruent Thoughts/Associations: goal directed Suicidal/Homicidal Ideation: None expressed or evidenced MEDICATIONS: Per medical record: Current Outpatient Medications Medication Sig carbidopa-levodopa (SINEMET 25-100) 25-100 mg per tablet Take 2 tablets by mouth three times a day.Start low dose and increase as directed by doctor's office (Patient not taking: Reported on 03/30/2024) atorvastatin (LIPITOR) 10 mg tablet Take 10 mg by mouth once daily. GABAPENTIN ORAL Take 300 mg by mouth [...] No current facility-administered medications for this visit. Psychiatric Medication Issues: No change from previous appointment PROGRESS TO DATE/ASSESSMENT: Ms. Warren presents with established diagnoses of Parkinson's Disease, Major Depressive Disorder . Ms. Warren was most recently seen by this telegraphic typewriter operator chief on 02/29/24 at which time we discussed reluctance to start carbidopa-levodopa, family stress and limit setting, perseverating, anxiety about swallowing. The plan from that visit had been to make gratitude lists, exercise, cognitive restructuring . Today patient reports that she has not been doing well physically or emotionally. She started taking Sinemet a month ago with no appreciable benefit to her tremor. She is also feeling nauseous and out of sorts. The dosing schedule has been cumbersome. The lack of response to medication has been disc ouraging for her. She is struggling with fatigue, perseverating on events from her past. Despite this, she continues to exercise, goes for daily walks, and socializes. She is frustrated with so much of her past preoccupying her thoughts but feels unsure how to interrupt them. She feels at the mercy of the day as far as mood, tremor, activity. We discussed strategies for distress tolerance. When she notices that she is perseverating, engage in something that will bring her back to the moment, such as grabbing a handful of ice cubes or an ice pack. She was encouraged to engage in grounding techniques, such as 5-4-3-2-1. And she was invited to then engage in an intentional activity to shift her focus. She was receptive. We also discussed the importance of self compassion. She does not feel comfortable talking with thepeople in her life about her struggles, which has created its own stress. She wishes that she did not have Parkinson's and gets frustrated with herself for not being as active as she once was. She was encouraged to offer herself some compassion, to set some limits around her physical demands, and to include her trusted others in her experience. TREATMENT PLAN/GOALS/OBJECTIVES: dx:Parkinson's Disease, Major Depressive Disorder Homework: 5-4-3-2-1 grounding technique, distress tolerance Next: She has agreed to contact Dr. Garcia to provide an update on her response to Sinemet. Follow Up: 1 month Angela Carvajal PsyD Associate Staff, [facility] NoteHNO ID: [id number] Author: ANGELA CARVAJAL PSYD Service: ? Author Type: Psychologist Type: Progress Notes Filed: 05/30/2024 09:24 Note Text: [facility] Psychology Progress Note Billing codes: Manny Yang PSYCHOLOGY: FOLLOW-UP APPOINTMENT PROGRESS NOTE- Virtual Visit I have communicated my name and active licensure. The patient's identity and physical location were verified at the time of this visit. Either the patient or their legal traffic representative has been informed of the risks and benefits of -- and alternatives to -- treatment through a remote evaluation and consents to proceed with the evaluation remotely. Today she is participating from her home in [place]. The patient was informed that this interview was only for the purpose of assessing the presenting problem, for diagnosis and treatment planning and/or to make treatment recommendations. The patient agreed that the evaluation would not be used for forensic, disability, or child custody purposes. The following history is obtained from the patient except when noted. The content acquired from chart review has been confirmed with the patient and discrepancies were noted if any. Limits of confidentiality were discussed. Cindy Warren 05/30/2024 [id number] PROVIDER: Angela Carvajal PSYD Service: Psychotherapy, 45 minutes with patient and/or family- Virtual Visit Diagnosis: Parkinson's Disease, Major Depressive Disorder Time spent doing therapy with patient: 7:54-8:43 (the video dropped, we then met by phone for an additional 10 minutes) Parties Present: Patient, spouse (Niraj) Interventions: Cognitive Behavioral grounding, distress tolerance MENTAL STATUS: Mood: depressed, sad, anxious Affect: mood-congruent Thoughts/Associations: goal directed Suicidal/Homicidal Ideation: None expressed or evidenced MEDICATIONS: Per medical record: Current Outpatient Medications Medication Sig carbidopa-levodopa (SINEMET 25-100) 25-100 mg per tablet Take 2 tablets by mouth three times a day. Start low dose and increase as directed by doctor's office (Patient not taking: Reported on 03/30/2024) atorvastatin (LIPITOR) 10 mg tablet Take 10 mg by mouth once daily. GABAPENTIN ORAL Take 300 mg by mouth [...] No current facility-administered medications for this visit. Psychiatric Medication Issues: No change from previous appointment PROGRESS TO DATE/ASSESSMENT: Ms. Warren presents with established diagnoses of Parkinson's Disease, Major Depressive Disorder . Ms. Warren was most recently seen by this telegraphic typewriter operator chief on 02/29/24 at which time we discussed reluctance to start carbidopa-levodopa, family stress and limit setting, perseverating, anxiety about swallowing. The plan from that visit had been to make gratitude lists, exercise, cognitive restructuring . Today patient reports that she has not been doing well physically or emotionally. She started taking Sinemet a month ago with no appreciable benefit to her tremor. She is also feeling nauseous and out of sorts. The dosing schedule has been cumbersome. The lack of response to medication has been discouraging for her. She is struggling with fatigue, perseverating on events from her past. Despite this, she continues to exercise, goes for daily walks, and socializes. She is frustrated with so much of her past preoccupying her thoughts but feels unsure how to interrupt them. She feels at the mercy of the day as far as mood, tremor, activity. We discussed strategies for distress tolerance. When she notices that she is perseverating, engage in something that will bring her back to the moment, such as grabbing a handful of ice cubes or an ice pack. She was encouraged to engage in grounding techniques, such as 5-4-3-2-1. And she was invited to then engage in an intentional activity to shift her focus. She was receptive. We also discussed the importance of self compassion. She does not feel comfortable talking with the people in her life about her struggles, which has created its own stress. She wishes that she did not have Parkinson's and gets frustrated with herself for not being as active as she once was. She was encouraged to offer herself some compassion, to set some limits around her physical demands, and to include her trusted others in her experience. TREATMENT PLAN/GOALS/OBJECTIVES: dx:Parkinson's Disease, Major Depressive Disorder Homework: 5-4-3-2-1 grounding technique, distress tolera (more content not included)...[facility]01-23-2025 Instructions* Patient Instructions* Margaret Garcia MD - 03/31/2024 11:54 AM EST It was a pleasure to see you today. We addressed the following diagnoses: Parkinson's disease without dyskinesia or fluctuating manifestations (hcc) Anxiety Depression, unspecified depression type My recommendations are as follows: 03/31/2024 Visit: For Parkinson's - start Sinemet (carbidopa-levodopa) very slowly. Take the doses with food. Stop increasing the dose if your symptoms are manageable See schedule below, you can do it slower: Breakfast 8a Lunch 1p Dinner 6p Week 1 03/10 tab Week 2 03/10/ Week 3 03/10 03/10 03/10 Week 4 1 1/2 1/2 Week 5 1 1/2 1 Week 6 1 1 1 Week 7 1.5 1 1 Week 8 1.5 1 1.5 Week 9 1.5 1.5 1.5 Week 10 2 1.5 1.5 Week 11 2 1.5 2 Week 12 and on 2 2 2 Continue seeing psychology - Movement Disorders Medication Schedule: Medications Sinemet 25/100 up to 2 up to 2 up to 2 xanax 0.25 mg prn No follow-ups on file. If there are any concerns before your next visit, please call or you can send a message through [employer]. You can also now schedule and select appointments through [employer]. Margaret Garcia MD [facility] NoteHNO ID: [id number] Author: MARGARET GARCIA MD Service: ? Author Type: Physician Type: Progress Notes Filed: 04/01/2024 08:36 Note Text: [facility] - FOLLOW UP EVALUATION Primary Movement Disorders Neurologist: Margaret Garcia MD Primary Movement Disorders TERE: I had the pleasure of seeing Ms. Warren for follow up today. She is a 74 year old right-handed female with a history of suspected Parkinson's disease since August 2022 . She is seen with her . Subjective Previous Plan-09/24/2023 Visit: Referral entered for psychiatry and psychology. These can be virtual visits. Continue off Parkinson's medications - Continue exercise - Interval History: Since last visit Sinemet was ordered but she hasn't started it. Right hand tremor is more frequent. Asks does that mean Parkinson's is worse? Is it harmful to delay Sinemet? Little bit of left hand tremor. Gait is ok. Can get a little off balance with turning. Scared to start Sinemet due to side effects. When she took it before had no appetite. Had to force herself to eat. Writing is very slow. Little bit of nausea intermittently. Not constant. Hasn't identified triggers. When she gets up, after she eats. Possibly anxiety symptom. Seeing psychology has been very helpful. Adapting. Some days she doesn't think about it. Stopped taking daily records of symptoms. Swallow anxiety. Related to history of aspiration with liquids 25 years ago. Has seen GI. This is why she crushes pills. Tucks her chin, drinks slowly. Has had extensive work-up. This leads to not drinking enough water. Has drink to sit up. Doesn't drink if driving. Doesn't want to pursue speech therapy. Parkinson's Medication Schedule - as of the start of the visit: Medications xanax 0.25 mg prn Prior Anti-Parkinson Therapies Carbidopa/Levodopa Questionnaires In addition, the following areas that may be affected by abnormal involuntary movements were evaluated: Daily activities Difficulties with eatin (none) Difficulties in dressin (none) Difficulties with hygiene activities: 0 (none) Difficulties with handwriting: Yes (slight) Difficulties with doing hobbies and other activities: 0 (none) Difficulties turning in bed: 0 (none) Difficulties getting out of bed, car or chair: 0 (none) Tremors/Gait/Balance Shaking or tremors: Yes (mild) Walking and balance problems: 0 (none) Number of falls in the Last Month: 0 Gait freezin (none) Autonomic/Pain Lightheadeness on standing: Yes (slight) little worse. ear issues. doesn't drink enough water Urinary problems: 0 (none) Constipation problems: Yes (slight) Pain and other sensations: Yes (slight) Speech/Swallowing Speech problems: 0 (none) Droolin (none) Chewing and swallowing problems: Yes (slight) Sleep/Fatigue Sleep problems: 0 (none) Daytime sleepiness: Yes (mild) Fatigue: Yes (moderate) Mood/Behavior Depression: PHQ-9 Score: 3 usually representing no significant (0-4) depression. Anxiety: MISAEL-7 Total Score: 4 usually representing no significant (0-4) anxiety. Finally, the following table shows the patient's overall global physical and mental health using the PROMIS scale: PROMIS-10 Flowsheet Row Office Visit from 03/31/2024 in [facility] from 12/21/2023 in [facility] Global Physical Health T Score 39.8 42.3 Global Mental Health T Score 43.5 38.8 0-10 Standard Pain Scale 4 4 *PROMIS-10 scoring scale: mean = 50, over 50 is above average, under 50 is below average ALLERGIES Allergen Reactions Iodine Vomiting Shellfish Derived Hives Current Outpatient Medications Medication Sig atorvastatin (LIPITOR) 10 mg tablet Take 10 mg by mouth once daily. GABAPENTIN ORAL Take 300 mg by mouth [...] MG CAP TO EQUAL 400 MG DAILY carbidopa-levodopa (SINEMET 25-100) 25-100 mg per tablet Take 2 tablets by mouth three times a day. Start low dose and increase as directed by doctor's office (Patient not taking: Reported on 03/30/2024) No current facility-administered medications for this visit. Objective Vital Signs: Wt 74.1 kg (163 lb 5.8 oz) SpO2 98% BMI 27.18 kg/m? Orthostatic Vitals: Sitting: BP 153/73 Pulse 67 Standing: BP 138/78 Pulse 65 Weight: 74.1 kg (163 lb 5.8 oz) No LMP recorded. Patient has had a hysterectomy. Body mass index is 27.18 kg/m?. General Physical Examination: General: Awake, alert, interactive, no acute distress, good nutritional status, normal d (more content not included)...[facility]01-23-2025 History of Present illness Narrative* Margaret Garcia MD - 03/31/2024 11:06 AM EST [facility] - FOLLOW UP EVALUATION Primary Movement Disorders Neurologist: Margaret Garcia MD Primary Movement Disorders TERE: I had the pleasure of seeing Ms. Warren for follow up today. She is a 74 year old right-handed female with a history of suspected Parkinson's disease since August 2022 . She is seen with her . Subjective Previous Plan-09/24/2023 Visit: Referral entered for psychiatry and psychology. These can be virtual visits. Continue off Parkinson's medications - Continue exercise - Interval History: Since last visit Sinemet was ordered but she hasn't started it. Right hand tremor is more frequent. Asks does that mean Parkinson's is worse? Is it harmful to delay Sinemet? Little bit of left hand tremor. Gait is ok. Can get a little off balance with turning. Scared to start Sinemet due to side effects. When she took it before had no appetite. Had to force herself to eat. Writing is very slow. Little bit of nausea intermittently. Not constant. Hasn't identified triggers. When she gets up, after she eats. Possibly anxiety symptom. Seeing psychology has been very helpful. Adapting. Some days she doesn't think about it. Stopped taking daily records of symptoms. Swallow anxiety. Related to history of aspiration with liquids 25 years ago. Has seen GI. This is why she crushes pills. Tucks her chin, drinks slowly. Has had extensive work-up. This leads to not drinking enough water. Has drink to sit up. Doesn't drink if driving. Doesn't want to pursue speech therapy. Parkinson's Medication Schedule - as of the start of the visit: Medications xanax 0.25 mg prn Prior Anti-Parkinson Therapies Carbidopa/Levodopa Questionnaires In addition, the following areas that may be affected by abnormal involuntary movements were evaluated: Daily activities Difficulties with eatin (none) Difficulties in dressin (none) Difficulties with hygiene activities: 0 (none) Difficulties with handwriting: Yes (slight) Difficulties with doing hobbies and other activities: 0 (none) Difficulties turning in bed: 0 (none) Difficulties getting out of bed, car or chair: 0 (none) Tremors/Gait/Balance Shaking or tremors: Yes (mild) Walking and balance problems: 0 (none) Number of falls in the Last Month: 0 Gait freezin (none) Autonomic/Pain Lightheadeness on standing: Yes (slight) little worse. ear issues. doesn't drink enough water Urinary problems: 0 (none) Constipation problems: Yes (slight) Pain and other sensations: Yes (slight) Speech/Swallowing Speech problems: 0 (none) Droolin (none) Chewing and swallowing problems: Yes (slight) Sleep/Fatigue Sleep problems: 0 (none) Daytime sleepiness: Yes (mild) Fatigue: Yes (moderate) Mood/Behavior Depression: PHQ-9 Score: 3 usually representing no significant (0-4) depression. Anxiety: MISAEL-7 Total Score: 4 usually representing no significant (0-4) anxiety. Finally, the following table shows the patient's overall global physical and mental health using the PROMIS scale: PROMIS-10 Flowsheet Row Office Visit from 03/31/2024 in [facility] from 12/21/2023 in [facility] Global Physical Health T Score 39.8 42.3 Global Mental Health T Score 43.5 38.8 0-10 Standard Pain Scale 4 4 *PROMIS-10 scoring scale: mean = 50, over 50 is above average, under 50 is below average ALLERGIES Allergen Reactions Iodine Vomiting Shellfish Derived Hives Current Outpatient Medications Medication Sig atorvastatin (LIPITOR) 10 mg tablet Take 10 mg by mouth once daily. GABAPENTIN ORAL Take 300 mg by mouth [...] MG CAP TO EQUAL 400 MG DAILY carbidopa-levodopa (SINEMET 25-100) 25-100 mg per tablet Take 2 tablets by mouth three times a day.Start low dose and increase as directed by doctor's office (Patient not taking: Reported on 03/30/2024) No current facility-administered medications for this visit. Objective Vital Signs: Wt 74.1 kg (163 lb 5.8 oz) SpO2 98% BMI 27.18 kg/m Orthostatic Vitals: Sitting: BP 153/73 Pulse 67 Standing: BP 138/78 Pulse 65 Weight: 74.1 kg (163 lb 5.8 oz) No LMP recorded. Patient has had a hysterectomy. Body mass index is 27.18 kg/m . General Physical Examination: General: Awake, alert, interactive, no acute distress, good nutritional status, normal development,well-kept General Neurological Examination: Neurological Exam Mental Status Awake and alert. Language is fluent with no aphasia. Movement Disorders Scales Performed: MDS-UPDRS Motor subscale condition of exam Medication Off/On/Naiive Drug Naiive Time of UPDRS Time of Last Medication Last Medication Taken DBS Right N/A DBS Left N/A MDS-UPDRS Motor subscale scores Speech 0-Normal. No speech problems. Facial Expression 0-Normal. Normal facial expression. Rigidity Neck 0-Normal. No rigidity. Rigidity Right Upper Extremity 0-Normal. No rigidity. Rigidity Left Upper Extremity 0-Normal. No rigidity. Rigidity Right Lower Extremity 0-Normal. No rigidity. Rigidity Left Lower Extremity 0-Normal. No rigidity. Finger Taps Right 1-Slight. a) the regular rhythm is broken with one or two interruptions or hesitations of the tapping movement, b) slight slowing, c) the amplitude decrements near the end of the 10taps. Finger Taps Left 0-Normal. No problems. Hand Movements Right 0-Normal. No problem. Hand Movements Left 0-Normal. No problem. Arm Movements Right 2-Mild. a) 3 to 5 interruptions during the movements, b) mild slowing, c) the amplitude decrements midway in the sequence. Arm Movements Left 0-Normal. No problems. Toe Taps Right 1-Slight. a) the regular rhythm is broken with one or two interruptions or hesitations of the tapping movement, b) slight slowing, c) the amplitude decrements near the end of the ten taps. Toe Taps Left 1-Slight. a) the regular rhythm is broken with one or two interruptions or hesitations of the tapping movement, b) slight slowing, c) the amplitude decrements near the end of the ten taps. Leg Agility Right 0-Normal. No problems. Leg Agility Left 0-Normal. No problems. Arise From Chair 0-Normal. No problems. Able to arise quickly without hesitation. Gait 1-Slight. Independent walking with minor gait impairment. (reduced R arm swing) Gait Freezing 0-Normal. No freezing. Posture Stability 0-Normal. No problems: recovers with one or two steps. Posture 0-Normal. No problems. Body Bradykinesia 0-Normal. No problems. Postural Tremor Hand Right 2-Mild. Tremor is at least 1 but less than 3 cm in amplitude. Postural Tremor Hand Left 0-Normal. No tremor. Kinetic Tremor Right 1-Slight. Tremor is present but less than 1cm in amplitude. Kinetic Tremor Left 0-Normal. No tremor. Rest Tremor Amplitude Right Upper Extremity 2-Mild. > 1 cm but < 3 cm in maximal amplitude. Rest Tremor Amplitude Left Upper Extremity 1-Slight. < 1 cm in maximal amplitude. Rest Tremor Amplitude Right Lower Extremity 1-Slight. < 1 cm in maximal amplitude. Rest Tremor Amplitude Left Lower Extremity 1-Slight. < 1 cm in maximal amplitude. Rest Tremor Amplitude Lip/Jaw 0-Normal. No tremor. Rest Tremor Constancy 4-Severe. Tremor at rest is present > 75% of the entire examination period. MDS-UPDRS Motor subscale totals Left Total 3 Right Total 10 Midline Total 1 Tremor Total / 10 12 PIGD Total / 3 1 Overall Total 18 Change Better/Worse WORSE % Change Compared to Last Filed Total (!) 100 Pertinent Studies Brain MRI 11/28/22 IMPRESSION: Unremarkable age-appropriate brain MRI. Minimal presumed chronic white matter microangiopathic changes. No acute intracranial finding. EMG 11/06/22 Electrodiagnostic examination of the right upper and lower extremities demonstrates no significant abnormalities. There is no significant evidence of myopathy, large fiber polyneuropathy, nor lumbar or cervical radiculopathy. Component Latest Ref Rng & Units 10/29/2022 WBC 3.70 - 11.00 k/uL 7.42 RBC 3.90 - 5.20 m/uL 4.58 Hemoglobin 11.5 - 15.5 g/dL 13.1 Hematocrit 36.0 - 46.0 % 40.5 MCV 80.0 - 100.0 fL 88.4 MCH 26.0 - 34.0 pg 28.6 MCHC 30.5 - 36.0 g/dL 32.3 RDW-CV 11.5 - 15.0 % 13.6 Platelet Count 150 - 400 k/uL 374 MPV 9.0 - 12.7 fL 10.9 Neut% % 58.1 Abs Neut (ANC) 1.45 - 7.50 k/uL 4.30 Lymph% % 30.3 Abs Lymph 1.00 - 4.00 k/uL 2.25 Thomas% % 7.8 Abs Thomas <0.87 k/uL 0.58 Eosin% % 3.2 Abs Eosin <0.46 k/uL 0.24 Baso% % 0.5 Abs Baso <0.11 k/uL 0.04 Immature Gran % % 0.1 IMMATURE GRANS (ABS) <0.10 k/uL <0.03 NRBC /100 WBC 0.0 Absolute nRBC <0.01 k/uL <0.01 DTYPE Auto Protein, Total 6.3 - 8.0 g/dL 6.9 Albumin 3.9 - 4.9 g/dL 4.4 Calcium 8.5 - 10.2 mg/dL 10.1 Bilirubin, Total 0.2 - 1.3 mg/dL 0.6 Alkaline Phosphatase 34 - 123 U/L 115 AST 13 - 35 U/L 16 ALT 7 - 38 U/L 15 Glucose 74 - 99 mg/dL 95 BUN 7 - 21 mg/dL 13 Creatinine 0.58 - 0.96 mg/dL 0.83 Sodium 136 - 144 mmol/L 141 Potassium 3.7 - 5.1 mmol/L 4.6 Chloride 97 - 105 mmol/L 104 CO2 22 - 30 mmol/L 28 Anion Gap 9 - 18 mmol/L 9 eGFR >=60 mL/min/1.73m 75 HIV 12 Combo (Ag/Ab) Nonreactive Nonreactive HIV 1/2 Ab HIV Interpretation Syphilis Screen Result Nonreactive Nonreactive Syphilis Interpretation Cannot exclude recent Treponemal infection if specimen collected within 7-10 days after appearance of suspect lesions or 2-3 weeks after an exposure. Clinical correlation is required. TSH 0.270 - 4.200 mIU/L 2.730 Free T4 0.9 - 1.7 ng/dL 1.2 T3 79 - 165 ng/dL 109 Vitamin B12 232 - 1,245 pg/mL 427 MMA 79 - 376 nmol/L 164 CK 42 - 196 U/L 42 Copper 80 - 155 ug/dL 108 Zinc 60 - 120 ug/dL 77 Ceruloplasmin 16 - 45 mg/dL 27 Anti HMGCR Autoantibodies Test 0 - 19 Units <3 Vitamin D 25 Hydroxy 31.0 - 80.0 ng/mL 48.3 Assessment and Plan: Assessment Ms. Warren is a right-handed 74 year old year old female with RUE resting tremor which started suddenly one day in August. Exam notable for constant mild/moderate RUE resting tremor, mild R bradykinesia, no clear rigidity. Suspected diagnosis is PD. She tried Sinemet and didn't tolerate 1 tab 3 times a day due to loss of appetite. 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 This has been previously worked up by GI and speech and she doesn't wish to pursue it again. Her symptoms have become sufficiently bothersome that she would like to try Sinemet again but she is afraid of side effects. She is willing to try a very slow titration. The following are the current problems noted and addressed during this visit: Parkinson's disease without dyskinesia or fluctuating manifestations (hcc) Anxiety Depression, unspecified depression type Plan 03/31/2024 Visit: For Parkinson's - start Sinemet (carbidopa-levodopa) very slowly. Take the doses with food. Stop increasing the dose if your symptoms are manageable See schedule below, you can do it slower: Breakfast 8a Lunch 1p Dinner 6p Week 1 1/2 tab Week 2 1/2 1/2 Week 3 1/2 1/2 1/2 Week 4 1 1/2 1/2 Week 5 1 1/2 1 Week 6 1 1 1 Week 7 1.5 1 1 Week 8 1.5 1 1.5 Week 9 1.5 1.5 1.5 Week 10 2 1.5 1.5 Week 11 2 1.5 2 Week 12 and on 2 2 2 Continue seeing psychology - Updated Movement Disorders Medication Schedule: Medications Sinemet 25/100 up to 2 up to 2 up to 2 xanax 0.25 mg prn Return at or around: 09/28/24 Level of service : 44679 (40-68 min). Time spent 51 min on the day of service, which included preparing to see the patient, [id number] patient care, completing clinical documentation, obtaining and/or reviewing separately obtained history, performing a medically appropriate examination, and counseling and educating the patient/family/caregiver. Thank you for allowing me to be part of the clinical care of this patient! I look forward to continued participation in the patient s care with you. Please do not hesitate to call with any questions. Sincerely, Margaret Garcia MD documented [facility]12[facility] History of Present illness Narrative* Angela Carvajal PSYD - 02/29/2024 8:00 AM EST [facility] Psychology Progress Note Billing codes: Manny Yang PSYCHOLOGY: FOLLOW-UP APPOINTMENT PROGRESS NOTE- Virtual Visit I have communicated my name and active licensure. The patient's identity and physical location wereverified at the time of this visit. Either the patient or their legal traffic representative has been informed of the risks and benefits of -- and alternatives to -- treatment through a remote evaluation andconsents to proceed with the evaluation remotely. Today, she is participating from her home in [place]. The patient was informed that this interview was only for the purpose of assessing the presenting problem, for diagnosis and treatment planning and/or to make treatment recommendations. The patient agreed that the evaluation would not be used for forensic, disability, or child custody purposes. Thefollowing history is obtained from the patient except when noted. The content acquired from chart review has been confirmed with the patient and discrepancies were noted if any. Limits of confidentiality were discussed. Cindy Salcido Kelvin 02/29/2024 [id number] PROVIDER: Angela Carvajal PSYD Service: Psychotherapy, 45 minutes with patient and/or family- Virtual Visit Diagnosis: Parkinson's Disease, Major Depressive Disorder Time spent doing therapy with patient: 45 minutes Parties Present: Patient, Spouse (Niraj) Interventions: Cognitive Behavioral Reassurance/support MENTAL STATUS: Mood: euthymic, anxious Affect: mood-congruent Thoughts/Associations: goal directed Suicidal/Homicidal Ideation: None expressed or evidenced Mood/Behavior Depression: PHQ-9 Score: 5 usually representing mild (5-9) depression. Anxiety: Finally, the following table shows the patient's overall global physical and mental health using the PROMIS scale: PROMIS-10 Flowsheet Row [facility] from 12/21/2023 in [facility] Office Visit from 09/24/2023 in Neurology Global Physical Health T Score 42.3 47.7 Global Mental Health T Score 38.8 31.3 0-10 Standard Pain Scale 4 5 *PROMIS-10 scoring scale: mean = 50, over 50 is above average, under 50 is below average MEDICATIONS: Per medical record: Current Outpatient Medications Medication Sig carbidopa-levodopa (SINEMET 25-100) 25-100 mg per tablet Take 2 tablets by mouth three times a day.Start low dose and increase as directed by doctor's office atorvastatin (LIPITOR) 10 mg tablet Take 10 mg by mouth once daily. GABAPENTIN ORAL Take 300 mg by mouth [...] No current facility-administered medications for this visit. Psychiatric Medication Issues: No change from previous appointment PROGRESS TO DATE/ASSESSMENT: Ms. Warren presents with established diagnoses of Parkinson's Disease, Major Depressive Disorder . Ms. Warren was most recently seen by this telegraphic typewriter operator chief on 12/21/23 at which time we discussed limit setting,assertive communication, exercise. The plan from that visit had been to set limits with family, continue to build healthy routine. Since our last visit, she contacted neurology about starting carbidopa levidopa. She has not yet done so and has considerable anxiety about starting this (or any medication). We discussed setting measurable goals to help her decide when to start or continue a medication (I.e. specific tasks that are becoming difficult due to tremor and then monitoring for improved ability to perform that task). Kassandra antonio continues to attend her exercise classes. Exercise has been the only strategy helpful in managingher near daily headaches. She has not been walking nightly with her friend due to weather. To manage her anxiety, she sent an email to her brother indicating that she will be taking a break from their relationship. She was frustrated by his dismissive response. She finds herself ruminatingabout whether or not to respond to him. Niraj was able to give her some helpful feedback that she zaire generally perseverative person and the conflict with her brother is the most recent manifestation. We discussed cognitive structure to interrupt ruminative thoughts and she was receptive. She will focus on people in her life that she enjoys. She will keep a gratitude list. She will remind herselfthat she and her brother are different people. She is having some morning anxiety. She notices that her mind is busy when she is not yet ready to get out of bed. She was curious about meditation. We discussed some meditation strategies. She was encouraged to use [employer]. She has anxiety about swallowing. She has aspirated many times in the past and is now very preoccupied with swallowing. She believes that her anxiety about swallowing is getting in the way of drinking enough fluids because she has so many things that she says to herself before she can swallow the liquids. She has not previously worked with speech therapy. TREATMENT PLAN/GOALS/OBJECTIVES: dx:Parkinson's Disease, Major Depressive Disorder Homework: gratitude lists, exercise, cognitive restructuring Next: Cognitive Restructuring Follow Up: 3 months I will ask Dr. Garcia if Ms. Warren might benefit from seeing ENGRAVING PATTERNMAKER related to swallowing anxiety. She is also having some trouble concentrating while reading, which may be a further benefit from [employer]. Angela Carvajal PsyD Associate Staff, [facility]24 NoteHNO ID: [id number] Author: ANGELA CARVAJAL PSYD Service: ? Author Type: Psychologist Type: Progress Notes Filed: 02/29/2024 09:22 Note Text: [facility] Psychology Progress Note Billing codes: Manny Yang PSYCHOLOGY: FOLLOW-UP APPOINTMENT PROGRESS NOTE- Virtual Visit I have communicated my name and active licensure. The patient's identity and physical location were verified at the time of this visit. Either the patient or their legal traffic representative has been informed of the risks and benefits of -- and alternatives to -- treatment through a remote evaluation and consents to proceed with the evaluation remotely. Today, she is participating from her home in [place]. The patient was informed that this interview was only for the purpose of assessing the presenting problem, for diagnosis and treatment planning and/or to make treatment recommendations. The patient agreed that the evaluation would not be used for forensic, disability, or child custody purposes. The following history is obtained from the patient except when noted. The content acquired from chart review has been confirmed with the patient and discrepancies were noted if any. Limits of confidentiality were discussed. Cindy Warren 02/29/2024 [id number] PROVIDER: Angela Carvajal PSYD Service: Psychotherapy, 45 minutes with patient and/or family- Virtual Visit Diagnosis: Parkinson's Disease, Major Depressive Disorder Time spent doing therapy with patient: 45 minutes Parties Present: Patient, Spouse (Niraj) Interventions: Cognitive Behavioral Reassurance/support MENTAL STATUS: Mood: euthymic, anxious Affect: mood-congruent Thoughts/Associations: goal directed Suicidal/Homicidal Ideation: None expressed or evidenced Mood/Behavior Depression: PHQ-9 Score: 5 usually representing mild (5-9) depression. Anxiety: Finally, the following table shows the patient's overall global physical and mental health using the PROMIS scale: PROMIS-10 Flowsheet Row Distance [facility] from 12/21/2023 in [facility] Office Visit from 09/24/2023 in Neurology Global Physical Health T Score 42.3 47.7 Global Mental Health T Score 38.8 31.3 0-10 Standard Pain Scale 4 5 *PROMIS-10 scoring scale: mean = 50, over 50 is above average, under 50 is below average MEDICATIONS: Per medical record: Current Outpatient Medications Medication Sig carbidopa-levodopa (SINEMET 25-100) 25-100 mg per tablet Take 2 tablets by mouth three times a day. Start low dose and increase as directed by doctor's office atorvastatin (LIPITOR) 10 mg tablet Take 10 mg by mouth once daily. GABAPENTIN ORAL Take 300 mg by mouth [...] No current facility-administered medications for this visit. Psychiatric Medication Issues: No change from previous appointment PROGRESS TO DATE/ASSESSMENT: Ms. Warren presents with established diagnoses of Parkinson's Disease, Major Depressive Disorder . Ms. Warren was most recently seen by this telegraphic typewriter operator chief on 12/21/23 at which time we discussed limit setting, assertive communication, exercise. The plan from that visit had been to set limits with family, continue to build healthy routine. Since our last visit, she contacted neurology about starting carbidopa levidopa. She has not yet done so and has considerable anxiety about starting this (or any medication). We discussed setting measurable goals to help her decide when to start or continue a medication (I.e. specific tasks that are becoming difficult due to tremor and then monitoring for improved ability to perform that task). She continues to attend her exercise classes. Exercise has been the only strategy helpful in managing her near daily headaches. She has not been walking nightly with her friend due to weather. To manage her anxiety, she sent an email to her brother indicating that she will be taking a break from their relationship. She was frustrated by his dismissive response. She finds herself ruminating about whether or not to respond to him. Niraj was able to give her some helpful feedback that she is a generally perseverative person and the conflict with her brother is the most recent manifestation. We discussed cognitive structure to interrupt ruminative thoughts and she was receptive. She will focus on people in her life that she enjoys. She will keep a gratitude list. She will remind herself that she and her brother are different people. She is having some m (more content not included)...[facility] 02-23-2024 Telephone encounter Note* Telephone Encounter - Juana Blue - 02/23/2024 9:35 AM EST Last FUV September 2023 with DAPHNE. Next FUV Mar 2024 with DAPHNE. [facility] Miscellaneous Notes* Telephone Encounter - Juana Blue - 02/23/2024 9:35 AM EST Last FUV September 2023 with DAPHNE. Next FUV Mar 2024 with DAPHNE. documented in [facility]10[facility] History of Present illness Narrative* Angela Carvajal PSYD - 12/21/2023 8:00 AM EDT [facility] Psychology Progress Note Billing codes: Manny Yang PSYCHOLOGY: FOLLOW-UP APPOINTMENT PROGRESS NOTE- Virtual Visit I have communicated my name and active licensure. The patient's identity and physical location wereverified at the time of this visit. Either the patient or their legal traffic representative has been informed of the risks and benefits of -- and alternatives to -- treatment through a remote evaluation andconsents to proceed with the evaluation remotely. Today, she is participating from her home in [place]. Her , Niraj, was present. They were unable to turn on the camera. The patient was informed that this interview was only for the purpose of assessing the presenting problem, for diagnosis and treatment planning and/or to make treatment recommendations. The patient agreed that the evaluation would not be used for forensic, disability, or child custody purposes. Thefollowing history is obtained from the patient except when noted. The content acquired from chart review has been confirmed with the patient and discrepancies were noted if any. Limits of confidentiality were discussed. Cindy Salcido Kelvin 12/21/2023 [id number] PROVIDER: Angela Carvajal PSYD Service: Psychotherapy, 45 minutes with patient and/or family- Virtual Visit Diagnosis: Parkinson's Disease, Major Depressive Disorder Time spent doing therapy with patient: 45 minutes Parties Present: Patient, Spouse Interventions: Cognitive Behavioral Reassurance/support Communication training MENTAL STATUS: Mood: sad Affect: mood-congruent Thoughts/Associations: goal directed Suicidal/Homicidal Ideation: None expressed or evidenced Mood/Behavior Depression: PHQ-9 Score: 2 usually representing no significant (0-4) depression. Anxiety: Finally, the following table shows the patient's overall global physical and mental health using the PROMIS scale: PROMIS-10 Flowsheet Row Appointment from 12/21/2023 in [facility] Office Visit from 09/24/2023 in Neurology Global Physical Health T Score 42.3 47.7 Global Mental Health T Score 38.8 31.3 0-10 Standard Pain Scale 4 5 *PROMIS-10 scoring scale: mean = 50, over 50 is above average, under 50 is below average MEDICATIONS: Per medical record: Current Outpatient Medications Medication Sig atorvastatin (LIPITOR) 10 mg tablet Take 10 mg by mouth once daily. GABAPENTIN ORAL Take 300 mg by mouth [...] No current facility-administered medications for this visit. Psychiatric Medication Issues: No change from previous appointment PROGRESS TO DATE/ASSESSMENT: Ms. Warren presents with established diagnoses of Parkinson's Disease, Major Depressive Disorder . Ms. Warren was most recently seen by this telegraphic typewriter operator chief on 11/03/23 at which time we discussed some improvement in her mood, increased activity, strategies to manage her mood. The plan from that visit had been to get a referral to headache clinic, facetime with nieces to increase social contact, stretch every50 minutes, increase water intake. Today patient reports generally feeling better as far as mood, activity, headaches. She has been keeping daily mood ratings, 10 being the best. She has not had any days rated lower than 5 since I last saw her. There had been an increase in frequency and duration of headaches in October and at has recently returned to normal. She is unsure of the reason for this. She does note worseningtremors in her right hand, which has made it difficult to write. She is worried that her PD is now more apparent to others. She does reflect on the anticipated progression of her symptoms. She continues to exercise each morning and goes for evening walks with her friend, which she enjoys. She has been more social and feeling content with her current social life. She enjoys spending time with her . She pushes herself to move around more during the day rather than "veg out." She is doing more to keep her brain engaged. She has some increased anxiety and attributes this to PD, political climate, family stress. She finds it harder to tolerate stressful situations than was previously true. She shared an example of feeling overwhelmed during a [employer] association meeting and had to leave. She does not believe thatthe circumstances of the meeting warranted such a strong response from her. She is feeling generally anxious about politics and some family tension. She intends to visit family over the holidays and wants to set some limits with her brother who has different values than she does. We discussed ways to plan for the conversations (setting a goal of something she would like to express, rather than looking for a change or particular response from her brother). There are other family members whom sheis looking forward to seeing and she anticipates some related tension after talking with her brother. TREATMENT PLAN/GOALS/OBJECTIVES: dx:Parkinson's Disease, Major Depressive Disorder Homework: assertive communication and limit setting, continue with increased activity and social engagement for mood management and PD symptom management Next: Cognitive Restructuring Assertiveness Training Follow Up: 1 month Angela Carvajal PsyD Associate Staff, [facility] documented in [facility] encounterL[facility]10-14-[facility]24 NoteHNO ID: [id number] Author: ANGELA CARVAJAL PSYD Service: ? Author Type: Psychologist Type: Progress Notes Filed: 12/21/2023 11:01 Note Text: [facility] Psychology Progress Note Billing codes: Manny Yang PSYCHOLOGY: FOLLOW-UP APPOINTMENT PROGRESS NOTE- Virtual Visit I have communicated my name and active licensure. The patient's identity and physical location were verified at the time of this visit. Either the patient or their legal traffic representative has been informed of the risks and benefits of -- and alternatives to -- treatment through a remote evaluation and consents to proceed with the evaluation remotely. Today, she is participating from her home in [place]. Her , Niraj, was present. They were unable to turn on the camera. The patient was informed that this interview was only for the purpose of assessing the presenting problem, for diagnosis and treatment planning and/or to make treatment recommendations. The patient agreed that the evaluation would not be used for forensic, disability, or child custody purposes. The following history is obtained from the patient except when noted. The content acquired from chart review has been confirmed with the patient and discrepancies were noted if any. Limits of confidentiality were discussed. Cindy Warren 12/21/2023 [id number] PROVIDER: Angela Carvajal PSYD Service: Psychotherapy, 45 minutes with patient and/or family- Virtual Visit Diagnosis: Parkinson's Disease, Major Depressive Disorder Time spent doing therapy with patient: 45 minutes Parties Present: Patient, Spouse Interventions: Cognitive Behavioral Reassurance/support Communication training MENTAL STATUS: Mood: sad Affect: mood-congruent Thoughts/Associations: goal directed Suicidal/Homicidal Ideation: None expressed or evidenced Mood/Behavior Depression: PHQ-9 Score: 2 usually representing no significant (0-4) depression. Anxiety: Finally, the following table shows the patient's overall global physical and mental health using the PROMIS scale: PROMIS-10 Flowsheet Row Appointment from 12/21/2023 in [facility] Office Visit from 09/24/2023 in Neurology Global Physical Health T Score 42.3 47.7 Global Mental Health T Score 38.8 31.3 0-10 Standard Pain Scale 4 5 *PROMIS-10 scoring scale: mean = 50, over 50 is above average, under 50 is below average MEDICATIONS: Per medical record: Current Outpatient Medications Medication Sig atorvastatin (LIPITOR) 10 mg tablet Take 10 mg by mouth once daily. GABAPENTIN ORAL Take 300 mg by mouth [...] No current facility-administered medications for this visit. Psychiatric Medication Issues: No change from previous appointment PROGRESS TO DATE/ASSESSMENT: Ms. Warren presents with established diagnoses of Parkinson's Disease, Major Depressive Disorder . Ms. Warren was most recently seen by this telegraphic typewriter operator chief on 11/03/23 at which time we discussed some improvement in her mood, increased activity, strategies to manage her mood. The plan from that visit had been to get a referral to headache clinic, facetime with nieces to increase social contact, stretch every 50 minutes, increase water intake. Today patient reports generally feeling better as far as mood, activity, headaches. She has been keeping daily mood ratings, 10 being the best. She has not had any days rated lower than 5 since I last saw her. There had been an increase in frequency and duration of headaches in October and November that has recently returned to normal. She is unsure of the reason for this. She does note worsening tremors in her right hand, which has made it difficult to write. She is worried that her PD is now more apparent to others. She does reflect on the anticipated progression of her symptoms. She continues to exercise each morning and goes for evening walks with her friend, which she enjoys. She has been more social and feeling content with her current social life. She enjoys spending time with her . She pushes herself to move around more during the day rather than "veg out." She is doing more to keep her brain engaged. She has some increased anxiety and attributes this to PD, political climate, family stress. She finds it harder to tolerate stressful situations than was previously true. She shared an example of feeling overwhelmed during a [employer] meeting and had to leave. She does not believe that the cir (more content not included)...[facility]08-30-2024 Telephone encounter Note* Telephone Encounter - Nikky Magallanes RN - 11/06/2023 2:36 PM EDT Voicemail received November 06, 2023 [id number] patient returning call janet Cruz returning your call. My phone number is [phone]. My date is 49.Janet regarding headache, and I dont think I want to go to the headache clinic at this point. I will just try to deal with it. But I would be glad to talk with you if you want to give me a call back, if not, that's ok not to call me back. Thank you so much for contacting me. Bye." Call to patient, no answer. Message left on identifying VM to notify office with any questions or concerns or if she would like to see HAM specialist. [facility]08-30-[facility] Miscellaneous Notes* Telephone Encounter - Nikky Magallanes RN - 11/06/2023 2:36 PM EDT Voicemail received November 06, 2023 [id number] patient returning call janet Cruz returning your call. My phone number is [phone]. My date is 49.Janet regarding headache, and I dont think I want to go to the headache clinic at this point. I will just try to deal with it. But I would be glad to talk with you if you want to give me a call back, if not, that's ok not to call me back. Thank you so much for contacting me. Bye." Call to patient, no answer. Message left on identifying VM to notify office with any questions or concerns or if she would like to see HAM specialist. * Telephone Encounter - Nikky Magallanes RN - 11/06/2023 1:40 PM EDT Call to patient, no answer. Message left for return call * Telephone Encounter - Margaret Garcia MD - 11/06/2023 12:12 PM EDT Received note from psychology stating pt with daily headaches lately. At last visit she had stated more than usual HAM the past year. Please offer her HAM clinic referral. [facility] in [facility]08-30-[facility]24 Telephone encounter Note * Telephone Encounter - Nikky Magallanes RN - 11/06/2023 1:40 PM EDT Call to patient, no answer. Message left for return call [facility]08-30-[facility] Telephone encounter Note* Telephone Encounter - Margaret Garcia MD - 11/06/2023 12:12 PM EDT Received note from psychology stating pt with daily headaches lately. At last visit she had stated more than usual HAM the past year. Please offer her HAM clinic referral. [facility]08-27-[facility] History of Present illness Narrative* Angela Carvajal PSYD - 11/03/2023 1:00 PM EDT [facility] Psychology Progress Note Billing codes: Manny Yang PSYCHOLOGY: FOLLOW-UP APPOINTMENT PROGRESS NOTE- Virtual Visit I have communicated my name and active licensure. The patient's identity and physical location wereverified at the time of this visit. Either the patient or their legal traffic representative has been informed of the risks and benefits of -- and alternatives to -- treatment through a remote evaluation andconsents to proceed with the evaluation remotely. Today she is participating from her home in [place]. The patient was informed that this interview was only for the purpose of assessing the presenting problem, for diagnosis and treatment planning and/or to make treatment recommendations. The patient agreed that the evaluation would not be used for forensic, disability, or child custody purposes. Thefollowing history is obtained from the patient except when noted. The content acquired from chart review has been confirmed with the patient and discrepancies were noted if any. Limits of confidentiality were discussed. Cindy Warren 11/03/2023 [id number] PROVIDER: Angela Carvajal PSYD Service: Psychotherapy, 45 minutes with patient and/or family- Virtual Visit Diagnosis: Parkinson's Disease, Major Depressive Disorder Time spent doing therapy with patient: 45 minutes Parties Present: Patient, Spouse (Niraj) Interventions: Cognitive Behavioral Behaviorial Reassurance/support MENTAL STATUS: Mood: euthymic, sad Affect: tearful Thoughts/Associations: goal directed Suicidal/Homicidal Ideation: None expressed or evidenced Mood/Behavior Depression: PHQ-9 Score: 7 usually representing mild (5-9) depression. Anxiety: MISAEL-7 Total Score: 9 usually representing mild (5-9) anxiety. Finally, the following table shows the patient's overall global physical and mental health using the PROMIS scale: PROMIS-10 Flowsheet Row Office Visit from 09/24/2023 in Neurology Office Visit from 03/23/2023 in Neurology Global Physical Health T Score 47.7 47.7 Global Mental Health T Score 31.3 36.3 0-10 Standard Pain Scale 5 5 *PROMIS-10 scoring scale: mean = 50, over 50 is above average, under 50 is below average MEDICATIONS: Per medical record: Current Outpatient Medications Medication Sig atorvastatin (LIPITOR) 10 mg tablet Take 10 mg by mouth once daily. GABAPENTIN ORAL Take 300 mg by mouth [...] No current facility-administered medications for this visit. Psychiatric Medication Issues: No change from previous appointment PROGRESS TO DATE/ASSESSMENT: Ms. Warren presents with established diagnoses of Parkinson's Disease, Major Depressive Disorder. Ms. 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 The plan from that visit had been to engage in walks in the [place] to increase activity, have something to look forward to, introduce a schedule. Today, she was pleased to share that she has started walking with a neighbor every evening at 7. She believes that this has been helpful to her mood and she looks forward to the activity. There has been no related change in physical symptoms. She also continues with her morning aerobics class. She and Niraj recently traveled and Niraj notes an improvement in Ms. Warren's mood while on the trip.We identified the helpful elements of her trip: being around loved ones, being away from responsibilities, enjoying nature. She is also aware that she associates their current home with Parkinson's Disease (diagnosed shortly after moving there) and that she feels better being away from her home. Both Ms. Warren and Niraj believe that she sometimes "fakes" having fun. She got feedback from a friend prior to her PD diagnosis that she "whines" too much about her health. Subsequently, she limits whatshe tells others about her health. We discussed the advantages and disadvantages of limiting what she shares with others. She is going to visit a friend this weekend and worries that she will have a bad day with her PD and "ruin" the weekend. This allowed for some cognitive reframing and for some problem solving. We discussed ways that she could talk with her friend about her symptoms and then suggest ways to distractherself or manage the symptoms. We also discussed general strategies for activity pacing, such as identifying active and sedentary tasks on her weekly to do list, then prioritizing sedentary tasks onher difficult days. She is trying to give herself permission to be less active on bad days. We discussed some reframing of this to respect the fact that she is retired and has fewer responsibilities.We discussed a car with three inflated tires and the temptation to only focus on the flat tire. Dena believes that she is sitting "too much" and for extended periods. We discussed setting an alarm in her phone that will remind her to get up and stretch or move every 50 minutes. She also shared that she has been having daily headaches. Much of the time they are manageable but she had 3 days in the past month that felt debilitating to her. She has taken medication (Advil and Tylenol at the same time) on 7 days in the past month with some headache relief. The location of thepain changes, it feel like an aching pain. Ice and caffeine are helpful. I have encouraged her to increase water intake. TREATMENT PLAN/GOALS/OBJECTIVES: Homework: She will schedule face time visits with her niece and her nieces children as this make her happy, set timer for 50 minutes to get up and stretch, increase water intake, plan for outings, cognitive reframing. Next: Cognitive Restructuring Follow Up: 1 month I will alert Dr. Garcia that Ms. Warren has been having daily headaches for the past month, which is a change for her. Please see final paragraph under "progress to date" section. Angela Carvajal PsyD Associate Staff, [facility] documented in [facility]08-[facility] History of Present illness Narrative* [facility] - 10/15/2023 3:00 PM EDT Patient: Cindy Warren Date of Visit: October 15, 2023 Reason: Examination of participant or control in clinical research Study Name: [employer] PD GENEration Genetic Registry Study Visit Conducted by: SY Hickey, [facility] IRB # [id number] Today's appointment was completed as a virtual visit using the [employer] Platform. The patient was accompanied to today's appointment by her . Cindy presented to genetic counseling as a part of their participation in the PDGENEration study.I discussed Cindy's genetic test results with them in detail, and answered all of their questions. A copy of Cindy's genetic test results will be mailed to them, along with a detailed patient letter explaining those results. Please see source documents for details. Cindy was encouraged to contact me should any questions arise. SY Medrano, [facility] Licensed, Certified Genetic Counselor Total time spent: 18 min documented in this encounterLima City Hospital07-29-2024 History of Present illness Narrative* Angela Carvajal PSYD - 10/05/2023 2:00 PM EDT [facility] Clinical Health Psychology Evaluation Time of Service: 2:00 pm to 3:00 pm CPT Code: 0406149- Virtual Psychological Diagnostic Interview Billing Code: Manny Yang I have communicated my name and active licensure. The patient's identity and physical location wereverified at the time of this visit. Either the patient or their legal traffic representative has been informed of the risks and benefits of -- and alternatives to -- treatment through a remote evaluation andconsents to proceed with the evaluation remotely. The patient was informed that this interview was only for the purpose of assessing the presenting problem, for diagnosis and treatment planning and/or to make treatment recommendations. The patient agreed that the evaluation would not be used for forensic, disability, or child custody purposes. Thefollowing history is obtained from the patient except when noted. The content acquired from chart review has been confirmed with the patient and discrepancies were noted if any. Limits of confidentiality were discussed. Today she is calling from her home in [place], [place]. Identification and Presenting Problem: Ms. Warren is a 73 year old female who was referred by Dr. Garcia from [facility]. She presents with a 1 year history of suspected Parkinson's Disease. Dr. Garcia is concerned about depression and anxiety. Social History: This was not fully assessed at today's visit. Ms. Warren's is supportive. They do not have any children. 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 Current Functioning: She starts each morning by attending an aerobic exercise class. She is then tired and needs to rest. She spends some time on light housework. She believes that she is adapting to some of the physicalchanges with Parkinson's but is struggling with the depression. Ms. Warren identifies improved capacity for recreational activities and social activities and diminished symptoms of depression as her goals for treatment. Medications: Current Outpatient Medications Medication Sig atorvastatin (LIPITOR) 10 mg tablet Take 10 mg by mouth once daily. GABAPENTIN ORAL Take 300 mg by mouth [...] No current facility-administered medications for this visit. Psych History: Ms. Warren reports significant depressive symptoms in the past month, including intermittent poor memory, intermittent poor concentration, tearfulness, anhedonia, and occasional irritability. She is keeping a mood log and had 18 days in September with a mood rating of 7 or higher (0 being the worst, 10 being the best). She had 2-3 "really bad" days without a clear precipitant. She uses very strong language in reference to her Parkinson's Disease, referring to it as a "life sentence" and a catastrophe. Ms. Warren participated in counseling with a CBT focus when she was in her 30s. She found that to behelpful. We spent time discussing behavioral activation. She is particularly interested in spending more time outdoors. We discussed time limited, convenient activities as a way to respect her body and her mood. She and her agreed to schedule a walk or bike ride daily around 4:00 pm. They will do something local and time limited. They will also investigate local classes that are related to nature as a way of increasing her social support. Drug and alcohol screening and triage Not assessed during today's visit. Impressions Ms. Warren presents with depression in the setting of Parkinson's Disease. She had many questions and concerns related to both diagnoses so much of today's visit was spent addressing those, rather than completing all aspects of the interview. We will complete those at the next visit to allow for a more comprehensive impression. She is overwhelmed by the Parkinson's Disease diagnosis and has very negative connotations and language associated with this. She is also depressed and this seems to be compounding some of her symptoms and ability to cope with the Parkinson's Disease. She is doing many healthy things but feels lost and overwhelmed. She and her also have a limited support system [place]. Her is supportive and is also opento behavioral activation to improve depressive symptoms. The drug and alcohol use screening performed as part of this evaluation does not suggest the need for further substance use evaluation or treatment. Diagnoses: Parkinson's Disease, Major Depressive Disorder Plan: It is recommended that the patient be followed for Individual cognitive- behavioral therapy focusingon self-care, interpersonal relationships, affect management, and coping with Parkinson's Disease. Treatment to include the following : cognitive restructuring and behavioral activation. RTC in 3 weeks She is very uncomfortable with taking medications for mood as she had an adverse reaction many years ago. We agreed to review our progress with behavioral activation in three months. At that time, ifjessi is not satisfied with her reduction in depressive symptoms, we agreed to revisit the possibility of a referral to psychiatry. Angela Carvajal PsyD Staff, [facility] documented in this encounterLima City Hospital07-22-2024 Telephone encounter Note * Telephone Encounter - Miryam Tran, Research Coordinator - 09/28/2023 11:24 AM EDT 09/28/2023: Called patient and left voicemail to schedule last visit for Research study PDGENE [facility] Work Phone: [phone] Miscellaneous Notes* Telephone Encounter - Miryam Tran, Research Coordinator - 09/28/2023 11:24 AM EDT 09/28/2023: Called patient and left voicemail to schedule last visit for Research study PDGENE documented in this encounterLima City Hospital07-21-2024 History of Present illness Narrative* Margaret Garcia MD - 09/27/2023 3:50 PM EDT [facility] - FOLLOW UP EVALUATION I had the pleasure of seeing Ms. Warren for follow up today. She is a 73 year old right-handed female with a history of suspected Parkinson's disease since August 2022 . She is seen with her . Subjective Previous Plan-03/23/2023 Visit: No medications for now - Continue exercise - Interested in clinical research? Yes Interval History: About the same. Tremor seems worse at times. With certain exercises. Some things are better. Asking about a psychologist for her anxiety and depression. She takes gabapentin 400 mg tid. She isunable to lower the dose due to what she calls withdrawal symptoms that didn't resolve. Good and bad days. Depression on bad days. Moderate exercise 5 days per week. This helps her anxiety. Some days are very bad. Takes Xanax as needed. Has take it twice in the past month. Also takes it at bedtime consistently for years. Fatigue. Doesn't drink much caffeine due to GERD. Did PD GENE but didn't get any results. More headaches the past year. Parkinson's Medication Schedule - as of the start of the visit: Medications xanax 0.25 mg prn Prior Anti-Parkinson Therapies Carbidopa/Levodopa Questionnaires In addition, the following areas that may be affected by abnormal involuntary movements were evaluated: Daily activities Difficulties with eatin (none) Difficulties in dressin (none) Difficulties with hygiene activities: 0 (none) Difficulties with handwriting: Yes (slight) Difficulties with doing hobbies and other activities: 0 (none) not as fast cleaning. can get off balance in confined areas Difficulties turning in bed: 0 (none) Difficulties getting out of bed, car or chair: 0 (none) Tremors/Gait/Balance Shaking or tremors: Yes (slight) Walking and balance problems: 0 (none) Number of falls in the Last Month: 1 dog was pulling the leash, had to step up and down Gait freezin (none) Autonomic/Pain Lightheadeness on standing: Yes (slight) Urinary problems: 0 (none) Constipation problems: 0 (none) Pain and other sensations: 0 (none) Speech/Swallowing Speech problems: 0 (none) Droolin (none) Chewing and swallowing problems: Yes (slight) Sleep/Fatigue Sleep problems: 0 (none) Daytime sleepiness: Yes (mild) Fatigue: Yes (moderate) Mood/Behavior Depression: PHQ-9 Score: 7 usually representing mild (5-9) depression. Anxiety: MISAEL-7 Total Score: 9 usually representing mild (5-9) anxiety. Finally, the following table shows the patient's overall global physical and mental health using the PROMIS scale: PROMIS-10 Flowsheet Row Office Visit from 09/24/2023 in Neurology Office Visit from 03/23/2023 in Neurology Global Physical Health T Score 47.7 47.7 Global Mental Health T Score 31.3 36.3 0-10 Standard Pain Scale 5 5 *PROMIS-10 scoring scale: mean = 50, over 50 is above average, under 50 is below average ALLERGIES Allergen Reactions Iodine Vomiting Shellfish Derived Hives Current Outpatient Medications Medication Sig atorvastatin (LIPITOR) 10 mg tablet Take 10 mg by mouth once daily. GABAPENTIN ORAL Take 300 mg by mouth [...] No current facility-administered medications for this visit. Objective Vital Signs: BP 132/73 Pulse (!) 59 Wt 70.7 kg (155 lb 13.8 oz) SpO2 99% BMI 25.94 kg/m Orthostatic Vitals: None for this encounter Weight: 70.7 kg (155 lb 13.8 oz) No LMP recorded. Patient has had a hysterectomy. Body mass index is 25.94 kg/m . General Physical Examination: General: Awake, alert, interactive, no acute distress, good nutritional status, normal development,well-kept General Neurological Examination: Neurological Exam Mental Status Awake and alert. Language is fluent with no aphasia. Movement Disorders Scales Performed: MDS-UPDRS Motor subscale condition of exam Medication Off/On/Naiive Drug Naiive Time of UPDRS Time of Last Medication Last Medication Taken DBS Right N/A DBS Left N/A MDS-UPDRS Motor subscale scores Speech 0-Normal. No speech problems. Facial Expression 0-Normal. Normal facial expression. Rigidity Neck 0-Normal. No rigidity. Rigidity Right Upper Extremity 0-Normal. No rigidity. Rigidity Left Upper Extremity 0-Normal. No rigidity. Rigidity Right Lower Extremity 0-Normal. No rigidity. Rigidity Left Lower Extremity 0-Normal. No rigidity. Finger Taps Right 1-Slight. a) the regular rhythm is broken with one or two interruptions or hesitations of the tapping movement, b) slight slowing, c) the amplitude decrements near the end of the 10taps. Finger Taps Left 0-Normal. No problems. Hand [...] period. MDS-UPDRS Motor subscale totals Left Total 0 Right Total 5 Midline Total 0 Tremor Total / 10 8 PIGD Total / 3 0 Overall Total 9 % Change Compared to Last Filed Total Pertinent Studies Brain MRI 11/28/22 IMPRESSION: Unremarkable age-appropriate brain MRI. Minimal presumed chronic white matter microangiopathic changes. No acute intracranial finding. EMG 11/06/22 Electrodiagnostic examination of the right upper and lower extremities demonstrates no significant abnormalities. There is no significant evidence of myopathy, large fiber polyneuropathy, nor lumbar or cervical radiculopathy. Component Latest Ref Rng & Units 10/29/2022 WBC 3.70 - 11.00 k/uL 7.42 RBC 3.90 - 5.20 m/uL 4.58 Hemoglobin 11.5 - 15.5 g/dL 13.1 Hematocrit 36.0 - 46.0 % 40.5 MCV 80.0 - 100.0 fL 88.4 MCH 26.0 - 34.0 pg 28.6 MCHC 30.5 - 36.0 g/dL 32.3 RDW-CV 11.5 - 15.0 % 13.6 Platelet Count 150 - 400 k/uL 374 MPV 9.0 - 12.7 fL 10.9 Neut% % 58.1 Abs Neut (ANC) 1.45 - 7.50 k/uL 4.30 Lymph% % 30.3 Abs Lymph 1.00 - 4.00 k/uL 2.25 Thomas% % 7.8 Abs Thomas <0.87 k/uL 0.58 Eosin% % 3.2 Abs Eosin <0.46 k/uL 0.24 Baso% % 0.5 Abs Baso <0.11 k/uL 0.04 Immature Gran % % 0.1 IMMATURE GRANS (ABS) <0.10 k/uL <0.03 NRBC /100 WBC 0.0 Absolute nRBC <0.01 k/uL <0.01 DTYPE Auto Protein, Total 6.3 - 8.0 g/dL 6.9 Albumin 3.9 - 4.9 g/dL 4.4 Calcium 8.5 - 10.2 mg/dL 10.1 Bilirubin, Total 0.2 - 1.3 mg/dL 0.6 Alkaline Phosphatase 34 - 123 U/L 115 AST 13 - 35 U/L 16 ALT 7 - 38 U/L 15 Glucose 74 - 99 mg/dL 95 BUN 7 - 21 mg/dL 13 Creatinine 0.58 - 0.96 mg/dL 0.83 Sodium 136 - 144 mmol/L 141 Potassium 3.7 - 5.1 mmol/L 4.6 Chloride 97 - 105 mmol/L 104 CO2 22 - 30 mmol/L 28 Anion Gap 9 - 18 mmol/L 9 eGFR >=60 mL/min/1.73m 75 HIV 12 Combo (Ag/Ab) Nonreactive Nonreactive HIV 1/2 Ab HIV Interpretation Syphilis Screen Result Nonreactive Nonreactive Syphilis Interpretation Cannot exclude recent Treponemal infection if specimen collected within 7-10 days after appearance of suspect lesions or 2-3 weeks after an exposure. Clinical correlation is required. TSH 0.270 - 4.200 mIU/L 2.730 Free T4 0.9 - 1.7 ng/dL 1.2 T3 79 - 165 ng/dL 109 Vitamin B12 232 - 1,245 pg/mL 427 MMA 79 - 376 nmol/L 164 CK 42 - 196 U/L 42 Copper 80 - 155 ug/dL 108 Zinc 60 - 120 ug/dL 77 Ceruloplasmin 16 - 45 mg/dL 27 Anti HMGCR Autoantibodies Test 0 - 19 Units <3 Vitamin D 25 Hydroxy 31.0 - 80.0 ng/mL 48.3 Assessment and Plan: Assessment Ms. Warren is a right-handed 73 year old year old female with RUE resting tremor which started suddenly one day in August. Exam notable for constant mild/moderate RUE resting tremor, without clear rigidity or bradykinesia (perhaps subtle findings are present). Suspected diagnosis is PD. She tried Sinemet and didn't tolerate 1 tab 3 times a day due to loss of appetite and nausea. At this point her symptoms are manageable so will not try additional medication. Medication options discussed included addition of carbidopa, alternatives such as Sinemet CR. Rytary, Neupro. She will continue with exercise. She is looking for more positive support interactions. She will continue with exercise. She is looking for more positive support interactions. Discussed support and exercise groups in the [place] area. Continued anxiety and depression,medication sensitivities. She is open to psychiatry and psychologyreferrals so these were placed. Will email research team about PD GENE. The following are the current problems noted and addressed during this visit: Parkinson's disease without dyskinesia or fluctuating manifestations (hcc) (primary encounter diagnosis) Anxiety Depression, unspecified depression type Plan 09/24/2023 Visit: Referral entered for psychiatry and psychology. These can be virtual visits. Continue off Parkinson's medications - Continue exercise - Updated Movement Disorders Medication Schedule: Medications xanax 0.25 mg prn Return at or around: 03/26/24 Level of service : 27495 + 1 units 45981 ( > 55 min, [id number] for each 15 min > 40). Time spent 55 min on the day of service, which included preparing to see the patient, [id number] patient care, completing clinical documentation, performing a medically appropriate examination, and counseling and educating the patient/family/caregiver. Thank you for allowing me to be part of the clinical care of this patient! I look forward to continued participation in the patient s care with you. Please do not hesitate to call with any questions. Sincerely, Margaret Garcia MD documented in this encounterLima City Hospital07-18-2024 Instructions* Patient Instructions* Margaret Garcia MD - 09/24/2023 11:51 AM EDT It was a pleasure to see you today. We addressed the following diagnoses: Parkinson's disease without dyskinesia or fluctuating manifestations (hcc) My recommendations are as follows: Referral entered for psychiatry and psychology. These can be virtual visits. Appointment scheduling: Psychology: [phone], choose option 2: Neuropsychological testing: General NI scheduling (operates 24 hrs) [phone] option 2 Psychiatry: General NI scheduling (operates 24 hrs) [phone] option 3 Movement disorders and other neurology departments: General NI scheduling (operates 24 hrs) [phone] option 1 Genetics [phone] option 1. Movement Disorders Medication Schedule: Medications xanax 0.25 mg prn No follow-ups on file. If there are any concerns before your next visit, please call or you can send a message through [employer]. You can also now schedule and select appointments through [employer]. Margaret Garcia MD documented in this encounterLima City Hospital04-09-2024 History of Present illness Narrative* Miryam Tran Research Coordinator - 06/16/2023 12:12 PM EDT IRB# : [id number] Multimedia Producer: Dr. El Justice MD Study Name: [employer] PD GENEration Genetic Registry Study Visit Conducted by: Miryam Tran Date: June 16, 2023 Patient Patient seen for screening/baseline visit on June 16, 2023 virtually. Informed consent and eligibility reviewed. Patient was confirmed eligible for study based on all inclusion and no exclusion criteria. Signed copy of consent provided to patient via [employer]. [employer] surveys completed with patient.Patient told they will be receiving buccal swab kit in the mail, and the next visit will be scheduled once received. Miryam Tran, Research Coordinator documented in this encounterLima City Hospital09-28-2023 Instructions* Patient Instructions* Aleksander Thao MD - 12/04/2022 2:39 PM [...] person or virtual visit. documented in this encounterLima City Hospital09-28-2023 History of Present illness Narrative* Aleksander Thao MD - 12/04/2022 2:00 PM EDT [facility] - NEW PATIENT EVALUATION Referring Provider: Keiry Shaffer [address] [place] [id number] Dear Keiry Shaffer: Thank you for referring Ms. Warren to our clinic today. As you know she is a 72 year old right-handed female who is seen in consultation for evaluation of RUE tremor since August 2022 . Subjective HISTORY OF PRESENT ILLNESS: Saw general neurology in October (Dr. Shaffer) for tremor, referred here due to concern [...] nightly for years. reports impaired Memory/Cognitive: Feels "a little foggy". denies hallucinations: Patient reports sleep disturbances. Sleeps [...] Row Office Visit from 12/04/2022 in [facility] Global Physical Health T Score 39.8 Global [...] 17 g by mouth once daily. 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 Finger Taps Left 0-Normal. No problems. Hand [...] female with anxiety who presents for evaluation ofRUE resting tremor which started suddenly one day [...] 50 mg daily. Consider psychiatry referral if sheis unable to tolerate this. She also takes [...] which included preparing to see the patient, [id number] patient care, completing clinical documentation, obtaining and/or [...] Sincerely, Aleksander Thao MD documented in this encounterLima City Hospital09-22-2023 Miscellaneous Notes* Telephone Encounter - Marie Ortiz - 11/28/2022 1:08 PM EDT Spoke to patient to advise he of MRI results. Marie Ortiz November 28, 2022 1:09 PM * Telephone Encounter - Gertrude Warren Ma - 11/28/2022 12:55 PM EDT Left message to call office. 11/28/2022 12:56 PM documented in this encounterLima City Hospital09-22-2023 History of Present illness Narrative* Kaye Retana RT(R) - 11/28/2022 11:20 AM EDT Radiology Service Progress Note PATIENT NAME: Cindy Warren DATE OF SERVICE: November 28, 2022 TIME: 11:24 AM PATIENT IDENTITY VERIFICATION COMPLETED USING TWO (2) IDENTIFIERS: Name and Date of confirmedby patient verbally. FALL SCREENING: Has the patient [...] 28, 2022 11:24 AM documented in this encounterLima City Hospital09-12-2023 Miscellaneous Notes* Telephone Encounter - Gertrude Warren Ma - 11/18/2022 10:44 AM EDT Spoke with patient aware of the results patient verbalized fully understands the results * Telephone Encounter - Gertrude Warren Ma - 11/06/2022 10:17 AM EDT Appreciate your help calling patient at [phone] to let her know the EMG shows the large nervesin her body are all healthy. The muscles are also working well. Thanks! Keiry Shaffer MD Left message to call office. 11/06/2022 10:17 AM documented in this encounterLima City Hospital08-31-2023 History of Present illness Narrative* Kem Martinez MD - 11/06/2022 8:10 AM EDT UNIVERSAL PROTOCOL / SAFETY CHECKLIST Procedure to [...] of Care Visit completed when applicable. Mila Canales EMG Kem Martinez MD documented in this encounterLima City Hospital08-28-2023 Miscellaneous Notes* Telephone Encounter - Marie Ortiz - 11/03/2022 9:39 AM EDT Spoke to patient to advise of normal lab results Patient stated understanding of information and had no further questions or concerns at this time. Marie Ortiz November 03, 2022 9:40 AM documented in this encounterLima City Hospital08-23-2023 Instructions* Patient Instructions* Keiry Shaffer MD - 10/29/2022 10:01 AM EDT Our plan For the tremors: you have resting tremors on your exam. We're going to see if the part of the brainthat controls the tremors is hurt in anyway especially since your symptoms started so suddenly and quickly. Sometimes, the brain doesn't re-absorb the fluid it makes normally and causes stretching ofparts of the brain that can also affect [...] and electrical shocks so is not the mostpleasant test. I am also sending you to the tremor expert doctors because I don't typically treat resting tremors I'll call you as the different tests results documented in this encounterLima City Hospital08-23-2023 History of Present illness Narrative* Keiry Shaffer MD - 10/29/2022 9:00 AM EDT Images from the original note were not included. General Neurology Outpatient Clinic - new patient evaluation Date: October 29, 2022 Patient Name: Cindy Warren Referring physician: SELF Primary physician: To use this Smartlink, specify the provider ID whose address you want to display, e.g., .Countdown To BuyADDR[1 (where 1 is the provider ID). Reason for Evaluation: tremors, generalized weakness HPI: The pt is a 72yo Right handed female with hx of - GERD - lichen sclerosis - anxiety Presenting for evaluation of tremors, generalized weakness. Accompanied by her of >20 years Per EMR, patient saw pain management 10/22/2022 for concern of gabapentin withdrawal with agitation,tremors, restlessness, anxiety. Gabapentin was started for lichens [...] 17 g by mouth once daily. Dissolve dosein 4 - 8 ounces of liquid and [...] protrudes midline, and shoulder shrug intact and symm etric. +paucity of eye blink. Neg glabellar Motor: Right Upper: Left Upper: Deltoid: 5 Deltoid: 5 Triceps: 5 Triceps: 5 Biceps: 5 Biceps: 5 Scow Derrick Operator: 5 Scow Derrick Operator: 5 Finger abduction: 5 Finger abduction: 5 [...] proprioception Coordination: Finger-to- nose-finger intact bilaterally and Wixc-[id number]-ifpa intact bilaterally. Gait: normal-based with intact arm swing. Independent tiptoe gait but held onto examiner for tandemgait Romberg: neg LABS/DATA: 10/10/2022 TSH 2.18 05/29/2019 [...] which included preparing to see the patient, [id number] patient care, completing clinical documentation, obtaining and/or reviewing separately obtained history, performing a medically appropriate examination, counseling and educating the pat ient/family/caregiver, ordering medications, tests, or procedures, and independently interpreting results (not separately reported). Keiry Shaffer MD Staff, General Neurology Pager: [phone] CC: Referring Physician: SELF PCP: To use this Smartlink, specify the provider ID whose address you want to display, e.g., .PROVADDR[1(where 1 is the provider ID). documented in this encounterLima City Hospital08-16-2023 History of Present illness Narrative* Mary Alice Breg MD - 10/22/2022 10:21 AM EDT [facility] New Patient Consultation Referring Physician: SELF Chief Complaint: withdrawal from gabapentin SUBJECTIVE: Cindy Warren is a 72 year old female with a pertinent past medical history of lichen sclerosis, anxiety who [facility] for the evaluation of withdrawal symptoms related to Gabapentin . 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 However in 2019, she was correctly diagnosed with lichens sclerosis , at which time she was told to come offthe Gabapentin. However, over the last few years, she has had trouble down titrating and coming offGabapentin. Her withdrawal symptoms include agitation, tremors, restlessness, anxiety, however she had increased depression, nausea, muscle weakness since August 2022. Her current dose of Gabapentin is400/400/400, and hasn't been able to come down any lower. When she does take the Gabapentin, she experiences sluggishness and fatigue without any benefit. She has no chronic pain complaints currently. When she experiences the withdrawal symptoms, she takes Tylenol, Advil, antiemetics PRN. She has tried varying intervals (days, weeks) of self regulated down-titration without any success. She wouldbe happy being able to come down, if [...] was reviewed and is consistent with the reportedmedication use. Pain medications reviewed: Yes Pertinent Imaging: [...] 17 g by mouth once daily. Dissolve dosein 4 - 8 ounces of liquid and [...] lesions, rash, and itching. PSYCHIATRIC: anxiety, depression HEMATOLOGIC/LYMPHATIC/IMMUNOLOGIC: Negative for prolonged bleeding, bruising easily or swollen nodes. ENDOCRINE: Negative for cold or heat intolerance, polyuria, polydipsia and goiter. The remainder of the ROS was negative. OBJECTIVE: BP 139/67 Pulse 63 Temp 96.4 Ht 5' 5" (1.65m) Wt 160 lb (72.6kg) SpO2 99% [...] of anxiety, depression who presents to [facility] for management of Gabapentin [...] withdrawal. We will trial her on PO Cl onidine 0.1mg daily to help offset the withdrawal symptoms. (M79.10) Myalgias (primary encounter diagnosis) (F13.939) 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) PLAN: - prescribed Clonidine 0.1mg daily to alleviate symptoms associated with Gabapentin withdrawal - after seeing Neurology on 10/29/22, will start slow wean of Gabapentin (reduce total daily dose [id number] weekly-biweekly) while keeping the highest dose for [...] directed the treatment plans in decision making. Mary Alice Berg MD, PhD [facility] Miscellaneous Notes* Telephone Encounter - Srini Francisco OCCA - 10/16/2022 3:40 PM EDT Pa denied no explanation CAITIE Glaser October 16, 2022 3:40 PM * Telephone Encounter - Jesi Wang RN - 10/16/2022 2:51 PM EDT PA initiated electronically via [employer]. Await response. [facility] Instructions* Patient Instructions* Abigail Walters APRN.CNP - 10/15/2022 1:26 PM EDT Images from the original note were not included. Schedule esophagram Schedule colonoscopy [phone] Miralax 1 capful once daily Bowel Preparation Instructions for: Golytely, Nulytely, Trilyte or Colyte (polyethylene glycol 3350and electrolytes) IF YOU DO NOT FOLLOW THESE [...] If you do not have a responsible m48/m60 tank driver (family member or friend) with you to take you home, your exam cannot be done with sedation and will be cancelled. Please bring a list of all of your current medications, including any Over-the Counter medications with you. Medications If you take insulin, diabetic medications or blood thinners such as Coumadin (warfarin), Plavix (clopidogrel), Ticlid (ticlopidine hydrochloride), Agrylin (anagrelide), Xarelto (Rivaroxaban), Pradaxa(Dabigatran), Eliquis (Apixaban), and Effient (Prasugrel). You MUST [...] preparation solution at your local [facility] 02/2019 Bowel Preparation Instructions for: Golytely, Nulytely, Trilyte or Colyte (polyethylene glycol 3350and electrolytes) Three (3) Days Before Your Colonoscopy [...] your exam. 2 02/2019 documented [facility] History of Present illness Narrative* Abigail Walters APRN.CNP - 10/15/2022 1:00 PM EDT DEPARTMENT OF GASTROENTEROLOGY - NEW PATIENT/CONSULT REASON [...] EXAMINATION BP 127/59 Pulse 67 Ht 5' 5" (1.65m) Wt 160 lb 0.9 oz (72.6kg) [...] which included preparing to see the patient, [id number] patient care, completing clinical documentation, counseling and educating the patient/family/caregiver, and ordering medications, tests, or procedures. Abigail Walters APRN.CNP October 15, 2022 documented in this encounterL[facility] History of Present illness Narrative* Khalif Hernández MD - 10/04/2022 1:30 PM EDT Patient presents with: Pain: x 3am, between [...] life-threatening conditions such as heart attack, pancreatitis, andaortic dissection cannot be distinguished from esophageal spasm in the setting. She understands recommendation but is not sure if she will go. Khalif Hernández MD documented [facility] History of Present illness Narrative* Chika Tapia RT(R) - 09/18/2022 12:40 PM EDT Radiology Service Progress Note PATIENT NAME: Cindy Warren DATE OF SERVICE: September 18, 2022 TIME: 12:34 PM PATIENT IDENTITY VERIFICATION COMPLETED USING TWO (2) IDENTIFIERS: Name and Date of confirmedby patient verbally. FALL SCREENING: Has the patient had 2 falls in the last year or 1 fall with injury or currently using an Ambulatory Assistive Device (Walker, Cane, Wheelchair, Crutches, etc.)? No PATIENT GENDER DATA: Female. status: : No status: NO. PATIENT RELEVANT IMPLANT DATA REVIEWED: Not Applicable RADIOLOGY DEPARTMENT: General X-ray: Exam(s) Completed: Upper Extremity X- Ray(s): Wrist, left PERIPHERAL IV DATA: Not applicable SIGNED BY: RT Pushpa(R) September 18, 2022 12:34 PM [facility] noteNo assessment information availableWCleveland Clinic Work Phone: evaluation note* Diagnosis Epigastric abdominal pain- Primary Abdominal pain, epigastric documented in this encounter [facility]* Diagnosis Esophageal dysphagia- Primary Dysphagia, pharyngoesophageal phase Colon cancer screening Special screening for malignant neoplasms, colon Family history of colon cancer in mother documented in this encounter [facility] note* Diagnosis Myalgias- Primary 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) documented in this encounter [facility]* Diagnosis Generalized weakness- Primary Other malaise and fatigue Resting tremor Abnormal involuntary movements Encounter for screening for human immunodeficiency virus (HIV) Special screening examination for other specified viral diseases Vitamin D deficiency Unspecified vitamin D deficiency documented in this encounter [facility] note* Diagnosis Generalized weakness Other malaise and fatigue documented in this encounter [facility] note* Diagnosis Parkinson disease- Primary Paralysis agitans Resting tremor Abnormal involuntary movements Anxiety Anxiety state, unspecified documented in this encounter [facility] note* Diagnosis Onset Date Resolution Status Atrophic vaginitis acute Atrophic vaginitis [facility] Work Phone: evaluation note* Diagnosis Resting tremor Abnormal involuntary movements documented in this encounter [facility]* Diagnosis Onset Date Resolution Status Encounter for screening for malignant neoplasm of colo n [facility] Work Phone: Evaluation note* Diagnosis Research study patient- Primary documented in this encounter [facility] note* Diagnosis Parkinson's disease without dyskinesia or fluctuating manifestations (HCC)- Primary Anxiety Anxiety state, unspecified Depression, unspecified depression type documented in this encounter [facility] note* Diagnosis Parkinson's disease without dyskinesia or fluctuating manifestations (HCC) Anxiety Anxiety state, unspecified Depression, unspecified depression type documented in this encounter [facility] note* Diagnosis Research exam- Primary Examination of participant in clinical trial documented in this encounter [facility] note* Diagnosis Parkinson's disease, unspecified whether dyskinesia present, unspecified whether manifestations fluctuate (HCC)- Primary Major depressive disorder, recurrent episode, moderate (HCC) Major depressive disorder, recurrent episode, moderate [facility]* Diagnosis Wrist injury, left, initial encounter documented in this encounter [facility]* Diagnosis Major depressive disorder, recurrent episode, moderate (HCC)- Primary Major depressive disorder, recurrent episode, moderate Parkinson's disease, unspecified whether dyskinesia present, unspecified whether manifestations fluctuate (HCC) documented in this encounter [facility] note* Diagnosis Major depressive disorder, recurrent episode, moderate (HCC)- Primary Major depressive disorder, recurrent episode, moderate Parkinson's disease, unspecified whether dyskinesia present, unspecified whether manifestations fluctuate (HCC) documented in this encounter [facility] note* Diagnosis Depression, unspecified depression type- Primary Parkinson's disease, unspecified whether dyskinesia present, unspecified whether manifestations fluctuate (HCC) documented in this encounter [facility] note* Diagnosis Parkinson's disease without dyskinesia or fluctuating manifestations (HCC) documented in this encounter [facility] note* Diagnosis Parkinson's disease without dyskinesia or fluctuating manifestations (HCC)- Primary Nausea Nausea alone [facility] Additional Instructions Please maintain hydration. Follow-up outpatient, please return for any worsening symptoms.[facility] Work Phone: Hospital Discharge instructions Additional Instructions As discussed, please follow a liquid diet for the next 24 hours. You can use the GI cocktail/BMX solution during this 24 hours. After 24 hours, you may advance your diet to a soft diet. Depending on how you feel you can then advance diet further as tolerated. Please follow-up with your primary care physician regarding ultrasound of the thyroid cyst/nodule that was identified. Please follow-up Dr. Bowling is soon as possible for manometry testing for your esophageal spasm.[facility] Work Phone: Reason for referral (narrative)* Diagnostic Procedure Only (Urgent) - Closed Specialty Diagnoses / Procedures Referred By Contac t Referred To Contact XR IMAGING Diagnoses Wrist injury, left, initial encounter Procedures XR WRIST INJURY 4V PA/LAT/OBL/SCAPH LEFT RADEX WRIST COMPLETE MINIMUM 3 VIEWS Deanna Ty, PA-C [address] [place] [address] [place] [address] Referral ID Status Reason Start Date Expiration Date V isits Requested Visits Authorized [id number] Closed Auto-Generate d Referral 09/18/2022 10/18/2023 1 1 [facility] for referral (narrative)No reason for referral information availableWCleveland Clinic Work Phone: Reason for visit Narrative* Outpatient Procedure (Routine) - Closed Specialty Diagnoses / Procedures Referred By Contac t Referred To Contact [facility] Diagnoses Generalized weakness Procedures EMG(NEURO/NI) NERVE CONDUCTION STUDIES 9-10 STUDIES Keiry Shaffer MD [address] [place] [address] [facility] [place] [address] [place] [address] Referral ID Status Reason Start Date Expiration Date V isits Requested Visits Authorized [id number] Closed Auto-Generate d Referral 10/29/2022 10/30/2023 1 1 [facility] for visit Narrative* Diagnostic Procedure Only (Urgent) - Closed Specialty Diagnoses / Procedures Referred By Shelbie t Referred To Contact XR IMAGING Diagnoses Wrist injury, left, initial encounter Procedures XR WRIST INJURY 4V PA/LAT/OBL/SCAPH LEFT RADEX WRIST COMPLETE MINIMUM 3 VIEWS Deanna Ty PA-C [address] [place] [address] [place] [address] Referral ID Status Reason Start Date Expiration Date V isits Requested Visits Authorized [id number] Closed Auto-Generate d Referral 09/18/2022 10/18/2023 1 1 [facility] Summary Purpose Family History Relationship Condition Age at Onset Recorded Date/T miguelina Not Specified Cardiac disease Unknown mother Anxiety Unknown Malignant neoplasm of colon Unknown Depression Unknown Disorder of thyroid Unknown father Anxiety Unknown Hypertension Unknown grandmother Malignant neoplasm of breast Unknown Osteoporosis Unknown Relationship Condition Age at Onset Recorded Date/T miguelina unrelated friend Cardiac disease Unknown mother Anxiety Unknown Malignant neoplasm of colon Unknown Depression Unknown Disorder of thyroid Unknown father Anxiety Unknown Hypertension Unknown grandmother Malignant neoplasm of breast Unknown Osteoporosis Unknown Advance Directives Advance Directive Response Recorded Date/ Time Living Will No June 02, 2021 11:19am Power of Substation Wireman No June 02 11:19am Advance Directive Response Recorded Date/ Time Living Will No June 02, 2021 10:19am Power of Substation Wireman No June 02 10:19am Advance Directive Response Recorded Date/ Time Name of Medical Power of Substation Wireman VELASQUEZ WARREN- September 05, 2022 5:07pm Living Will Yes September 05, 2022 5:07pm Power of Substation Wireman Yes September 05 5:07pm Advance Directive Response Recorded Date/ Time Name of Medical Power of Substation Wireman VELASQUEZ WARREN- September 05, 2022 5:07pm Name of Medical Power of Substation Wireman amy mcgovern sband October 05, 2022 8:11am Living Will Yes October 05, 2022 8:11am Power of Substation Wireman Yes October 05 8:11am Advance Directive Response Recorded Date/ Time Name of Medical Power of Substation Wireman amy mcgovern sband October 05, 2022 7:11am Living Will Yes October 05, 2022 7:11am Power of Substation Wireman Yes October 05 7:11am Advance Directive Response Recorded Date/ Time Name of Medical Power of Substation Wireman March 23, 2023 3:20pm Living Will Yes March 23 3:20pm Power of Substation Wireman Yes March 23, 2023 3:20pm Advance Directive Response Recorded Date/ Time Do you have a Healthcare Power of Substation Wireman? Yes September 11, 2024 1:29pm Chief Complaint and Reason for Visit Chief Complaint fb throat NODULES Chief Complaint Amb Documentation SCREENING Chief Complaint SCREENING Chief Complaint SOB SOB Chief Complaint SOB SOB SOB Shortness of breath foreign body Chief Complaint SOB SOB SOB Shortness of breath foreign body MULTIPLE NODULES Chief Complaint SOB SOB SOB Shortness of breath foreign body MULTIPLE NODULES medication follow up/renewal Amb Documentation 1 M FU Reason for Visit Atrophic vaginitis Atrophic vaginitis Chief Complaint foreign body MULTIPLE NODULES medication follow up/renewal Amb Documentation 1 M FU SCREENING Reason for Visit Atrophic vaginitis Atrophic vaginitis Chief Complaint VESTIBULAR / RX HERE Reason for Visit Encounter for screen ing for malignant neoplasm of colon Chief Complaint Admit Date cp September 11, 2024 12:12 pm Chief Complaint Admit Date cp September 11, 2024 12:12 pm FASTING November 21, 2024 8:54am Reason for Referral Specialty Diagnoses / Procedures Referred By Contac t Referred To Contact Abigail Walters, RECORDS OFFICER.KNOCKOUT MACHINE OPERATOR [address] [place] [address] Referral ID Status Reason Start Date Expiration Date V isits Requested Visits Authorized [id number] Pending Review 1 1 Specialty Diagnoses / Procedures Referred By Contac t Referred To Contact [facility] Diagnoses Colon cancer screening Family history of colon cancer in mother Procedures COLONOSCOPY SCREENING COLONOSCOPY FLX DX W/COLLJ SPEC WHEN PFRMD Abigail Walters, RECORDS OFFICER.KNOCKOUT MACHINE OPERATOR [address] [place] [address] [facility] [place] [address] [place] [address] Referral ID Status Reason Start Date Expiration Date Visits Requested Visits Authorized [id number] Pending Review Auto-Generat ed Referral 10/15/2022 10/16/2023 1 1 Specialty Diagnoses / Procedures Referred By Contac t Referred To Contact XR IMAGING Diagnoses Esophageal dysphagia Procedures XR ESOPHAGRAM RADIOLOGIC EXAM ESOPHAGUS SINGLE CONTRAST STUDY Abigail Walters, RECORDS OFFICER.KNOCKOUT MACHINE OPERATOR [address] [place] [address] Xr Imaging Referral ID Status Reason Start Date Expiration Date Visits Requested Visits Authorized [id number] Pending Review Auto-Generat ed Referral 10/15/2022 11/14/2023 1 1 Specialty Diagnoses / Procedures Referred By Contac t Referred To Contact Neurology Diagnoses Resting tremor Procedures CONSULT TO NEUROLOGY OFFICE/OUTPATIENT [facility] 60-[place] [address] [place] [address] Referral ID Status Reason Start Date Expiration Date Visits Requested Visits Authorized [id number] Authorized PCP Requested Referral 10/29/2022 10/29/2023 1 1 Specialty Diagnoses / Procedures Referred By Contac t Referred To Contact MR IMAGING Diagnoses Resting tremor Procedures MRI BRAIN WO IVCON MRI BRAIN BRAIN STEM W/O CONTRAST MATERIAL Keiry Shaffer MD [address] [place] [address] Mr Imaging [facility] Referral ID Status Reason Start Date Expiration Date Visits Requested Visits Authorized [id number] Authorized Auto-Generat ed Referral 10/29/2022 11/28/2023 1 1 Specialty Diagnoses / Procedures Referred By Contac t Referred To Contact [facility] Diagnoses Generalized weakness Procedures EMG(NEURO/NI) NERVE CONDUCTION STUDIES 9-10 STUDIES Keiry Shaffer MD [address] [place] [address] [facility] [place] [address] [place] [address] Referral ID Status Reason Start Date Expiration Date Visits Requested Visits Authorized [id number] Authorized Auto-Generat ed Referral 10/29/2022 10/30/2023 1 1 Referral ID Status Reason Start Date Expiration Date V isits Requested Visits Authorized [id number] Closed Auto-Generate d Referral 10/29/2022 11/28/2023 1 1 Specialty Diagnoses / Procedures Referred By Contac t Referred To Contact Diagnoses Parkinson's disease without dyskinesia or fluctuating manifestations (HCC) Anxiety Depression, unspecified depression type Procedures PROVIDER ORDERED FOLLOW UP OFFICE/OUTPATIENT [facility] 60 MINUTES Margaret Garcia MD [address] [place] [address] Referral ID Status Reason Start Date Expiration Date Visits Requested Visits Authorized [id number] Authorized PCP Requested Referral 03/26/2024 09/23/2024 1 1 Specialty Diagnoses / Procedures Referred By Contac t Referred To Contact Diagnoses Parkinson's disease without dyskinesia or fluctuating manifestations (HCC) Anxiety Depression, unspecified depression type Procedures CONSULT TO PSYCHIATRY OFFICE/OUTPATIENT [facility] 60 MINUTES Margaret Garcia MD [address] [address] Referral ID Status Reason Start Date Expiration Date Visits Requested Visits Authorized [id number] Pending Review PCP Requested Referral 09/24/2023 09/23/2024 1 1 Specialty Diagnoses / Procedures Referred By Contac t Referred To Contact Psychology Diagnoses Parkinson's disease without dyskinesia or fluctuating manifestations (HCC) Anxiety Depression, unspecified depression type Procedures CONSULT TO PSYCHOLOGY OFFICE/OUTPATIENT [facility] 60 MINUTES Margaret Garcia MD [address] [place] [address] Referral ID Status Reason Start Date Expiration Date Visits Requested Visits Authorized [id number] Pending Review PCP Requested Referral 09/24/2023 09/23/2024 1 1 Specialty Diagnoses / Procedures Referred By Contac t Referred To Contact Diagnoses Parkinson's disease without dyskinesia or fluctuating manifestations (HCC) Anxiety Depression, unspecified depression type Procedures PROVIDER ORDERED FOLLOW UP OFFICE/OUTPATIENT [facility] 60 MINUTES Angela Carvajal PSYD [address] [place] [address] Referral ID Status Reason Start Date Expiration Date Visits Requested Visits Authorized [id number] Authorized PCP Requested Referral 10/19/2023 10/04/2024 1 1 Specialty Diagnoses / Procedures Referred By Contac t Referred To Contact Diagnoses Parkinson's disease, unspecified whether dyskinesia present, unspecified whether manifestations fluctuate (HCC) Procedures PROVIDER ORDERED FOLLOW UP OFFICE/OUTPATIENT [facility]DM 60 MINUTES Angela Carvajal PSYD [address] [place] [address] Referral ID Status Reason Start Date Expiration Date Visits Requested Visits Authorized [id number] Authorized PCP Requested Referral 12/04/2023 11/02/2024 1 1 Referral ID Status Reason Start Date Expiration Date Visits Requested Visits Authorized [id number] Authorized PCP Requested Referral 12/20/2024 1 1 Referral ID Status Reason Start Date Expiration Date Visits Requested Visits Authorized [id number] Authorized PCP Requested Referral 05/29/2024 02/28/2025 1 1 Specialty Diagnoses / Procedures Referred By Contac t Referred To Contact [facility] Diagnoses Parkinson's disease without dyskinesia or fluctuating manifestations (HCC) Procedures PROVIDER ORDERED FOLLOW UP OFFICE/OUTPATIENT [facility]DM 60 MINUTES Margaret Garcia MD [address] [place] [address] [address] Referral ID Status Reason Start Date Expiration Date Visits Requested Visits Authorized [id number] Authorized PCP Requested Referral 06/29/2024 10/29/2024 1 1 Additional Source Comments INFORMATION SOURCE (unrecogn ized section and content) DATE CREATED AUTHOR 09/30/2019 [facility] DATE CREATED AUTHOR AUTHOR'S ORGANIZ ATION 11/04/2024 [facility] DATE CREATED AUTHOR AUTHOR'S ORGANIZ ATION 11/27/2024 [facility] Goals (unrecognized section and content) Goals may be documented in a n alternate sectionGoals may be documented in an alternate sectionGoals may be documented in an alternate sectionGoals may be documented in an alternate sectionGoals may be documented in an alternate sectionGoals may be documented in an alternate sectionGoals may be documented in an alternate sectionGoals may be documented in an alternate sectionGoals may be documented in an alternate sectionGoals may be documented in an alternate sectionGoals may be documented in an alternate section Care Teams (unrecognized sec tion and content) Team Status: Active Member Role Status Dates Dr. Hansa Ndiaye MD Primary Care Provider Active Team Status: Active Member Role Status Dates Dr. Hansa Ndiaye MD Primary Care Provider, Referrin g Provider Active Dr. Arturo Bowling DO Attending Provider, Other Prov ider Active Team Status: Inactive Member Role Status Dates Dr. Hansa Ndiaye MD Primary Care Provider, Referrin g Provider Active Dr. Arturo Bowling DO Attending Provider Active Team Status: Inactive Member Role Status Dates Dr. Hansa Ndiaye MD Primary Care Provider, Attendin g Provider Active Team Status: Inactive Member Role Status Dates Dr. Hansa Ndiaye MD Primary Care Prov ider, Attending Provider, Referring Provider Active Team Status: Active Member Role Status Dates Tiara Aguillon NP-C Primary Care Provider Active Team Status: Active Member Role Status Dates Dr. Hansa Ndiaye MD Primary Care Prov ider, Referring Provider, Other Provider Active Dr. Luther Roman DO Attending Provider Active Team Status: Inactive Member Role Status Dates Dr. Hansa Ndiaye MD Primary Care Provider, Referrin g Provider Active Jeniffer Kumar NP, REAL ESTATE OFFICE MANAGER-C Attending Provider Active Team Status: Active Member Role Status Dates Dr. Hansa Ndiaye MD Primary Care Provider Active Uma Ledesma Attending Provider Active Team Status: Inactive Member Role Status Dates Dr. Hansa Ndiaye MD Primary Care Provider Active Dr. Gregory Pfeiffer MD Attending Provider, Emergency Pro vider Active Team Status: Inactive Member Role Status Dates Dr. Hansa Ndiaye MD Primary Care Provider Active Dr. Lesly Valera MD Attending Provider, Emergency Provider Active Team Status: Inactive Member Role Status Dates Tiara Aguillon NP-C Primary Care Provider, Attending [address] Active Team Status: Inactive Member Role Status Dates Dr. Hansa Ndiaye MD Primary Care Provider Active Dr. Lesly Valera MD Emergency Provider Active Team Status: Inactive Member Role Status Dates Dr. Hansa Ndiaye MD Primary Care Provider Active Dr. Gregory Pfeiffer MD Emergency Provider Active Team Status: Active Member Role Status Dates Dr. Hansa Ndiaye MD Primary Care Prov ider, Attending Provider, Referring Provider Active Team Status: Inactive Member Role Status Dates Jeniffer Kumar REAL ESTATE OFFICE MANAGER, REAL ESTATE OFFICE MANAGER-C Attending Provider, Referring Provider Active Tiara Aguillon NP-C Primary Care Provider Active Technical Healthcare Consultant Relationship Specialty Start Date End Date Aleksander Thao MD [address] [id number] Specialty Building Mover Neurology 02/25/23 Technical Healthcare Consultant Relationship Specialty Start Date End Date Aleksander Thao MD [address] [place] [address] Specialty Building Mover Neurology 02/25/23 Technical Healthcare Consultant Relationship Specialty Start Date End Date Aleksander Thao MD [address] [place] [address] Specialty Building Mover Neurology 02/25/23 Technical Healthcare Consultant Relationship Specialty Start Date End Date Aleksander Thao MD [address] [id number] Specialty Building Mover Neurology 02/25/23 Technical Healthcare Consultant Relationship Specialty Start Date End Date Aleksander Thao MD [address] [place] [address] Specialty Building Mover Neurology 02/25/23 Technical Healthcare Consultant Relationship Specialty Start Date End Date Aleksander Thao MD [address] [place] [address] Specialty Building Mover Neurology 02/25/23 Technical Healthcare Consultant Relationship Specialty Start Date End Date Aleksander Thao MD [address] [place] [address] Specialty Building Mover Neurology 02/25/23 Team Status: Active Member Role/Relationship Status Dates Dr. Hansa Ndiaye MD Primary Care Provider Active Team Status: Inactive Member Role/Relationship Status Dates Dr. Hansa Ndiaye MD Primary Care Provider Active Start: September 11, 2024 End: September 11, 2024 Dr. Celio Hess DO Emergency Provider Activ e Start: September 11, 2024 End: September 11, 2024 Team Status: Active Member Role/Relationship Status Dates Dr. Hansa Ndiaye MD Primary care physician Active Team Status: Inactive Member Role/Relationship Status Dates Dr. Hansa Ndiaye MD Primary care physician Active Start: September 11, 2024 End: September 11, 2024 Dr. Celio Hess DO Attending physician Active Start: September 11 End: September 11, 2024 Dr. Celio Hess DO Emergency Department Physician Active Start: September 11, 2024 End: September 11, 2024 Team Status: Inactive Member Role/Relationship Status Dates Dr. Hansa Ndiaye MD Primary care physician Active Start: November 21, 2024 End: November 21, 2024 Dr. Hansa Ndiaye MD Attending physician Active Start: November 21, 2024 End: November 21, 2024 Dr. Hansa Ndiaye MD Referring Provider Active Start: November 21, 2024 End: November 21, 2024 Source Comments (unrecognize d section and content) In the event this informatio n is protected by the Federal Confidentiality of Alcohol and Drug Abuse Patient Records regulations: The Federal rules restrict any use of the information to criminally investigate or prosecute any alcohol or drug abuse patient.[facility] the event this information is protected by the Federal Confidentiality of Alcohol and Drug Abuse Patient Records regulations: The Federal rules restrict any use of the information to criminally investigate or prosecute any alcohol or drug abuse patient.[facility] the event this information is protected by the Federal Confidentiality of Alcohol and Drug Abuse Patient Records regulations: The Federal rules restrict any use of the information to criminally investigate or prosecute any alcohol or drug abuse patient.[facility] the event this information is protected by the Federal Confidentiality of Alcohol and Drug Abuse Patient Records regulations: The Federal rules restrict any use of the information to criminally investigate or prosecute any alcohol or drug abuse patient.[facility] the event this information is protected by the Federal Confidentiality of Alcohol and Drug Abuse Patient Records regulations: The Federal rules restrict any use of the information to criminally investigate or prosecute any alcohol or drug abuse patient.[facility] the event this information is protected by the Federal Confidentiality of Alcohol and Drug Abuse Patient Records regulations: The Federal rules restrict any use of the information to criminally investigate or prosecute any alcohol or drug abuse patient.[facility] the event this information is protected by the Federal Confidentiality of Alcohol and Drug Abuse Patient Records regulations: The Federal rules restrict any use of the information to criminally investigate or prosecute any alcohol or drug abuse patient.[facility] the event this information is protected by the Federal Confidentiality of Alcohol and Drug Abuse Patient Records regulations: The Federal rules restrict any use of the information to criminally investigate or prosecute any alcohol or drug abuse patient.[facility] the event this information is protected by the Federal Confidentiality of Alcohol and Drug Abuse Patient Records regulations: The Federal rules restrict any use of the information to criminally investigate or prosecute any alcohol or drug abuse patient.[facility] the event this information is protected by the Federal Confidentiality of Alcohol and Drug Abuse Patient Records regulations: The Federal rules restrict any use of the information to criminally investigate or prosecute any alcohol or drug abuse patient.[facility] the event this information is protected by the Federal Confidentiality of Alcohol and Drug Abuse Patient Records regulations: The Federal rules restrict any use of the information to criminally investigate or prosecute any alcohol or drug abuse patient.[facility] the event this information is protected by the Federal Confidentiality of Alcohol and Drug Abuse Patient Records regulations: The Federal rules restrict any use of the information to criminally investigate or prosecute any alcohol or drug abuse patient.[facility] the event this information is protected by the Federal Confidentiality of Alcohol and Drug Abuse Patient Records regulations: The Federal rules restrict any use of the information to criminally investigate or prosecute any alcohol or drug abuse patient.[facility] the event this information is protected by the Federal Confidentiality of Alcohol and Drug Abuse Patient Records regulations: The Federal rules restrict any use of the information to criminally investigate or prosecute any alcohol or drug abuse patient.[facility] the event this information is protected by the Federal Confidentiality of Alcohol and Drug Abuse Patient Records regulations: The Federal rules restrict any use of the information to criminally investigate or prosecute any alcohol or drug abuse patient.[facility] the event this information is protected by the Federal Confidentiality of Alcohol and Drug Abuse Patient Records regulations: The Federal rules restrict any use of the information to criminally investigate or prosecute any alcohol or drug abuse patient.[facility] the event this information is protected by the Federal Confidentiality of Alcohol and Drug Abuse Patient Records regulations: The Federal rules restrict any use of the information to criminally investigate or prosecute any alcohol or drug abuse patient.[facility] the event this information is protected by the Federal Confidentiality of Alcohol and Drug Abuse Patient Records regulations: The Federal rules restrict any use of the information to criminally investigate or prosecute any alcohol or drug abuse patient.[facility] the event this information is protected by the Federal Confidentiality of Alcohol and Drug Abuse Patient Records regulations: The Federal rules restrict any use of the information to criminally investigate or prosecute any alcohol or drug abuse patient.[facility]In the event this information is protected by the Federal Confidentiality of Alcohol and Drug Abuse Patient Records regulations: The Federal rules restrict any use of the information to criminally investigate or prosecute any alcohol or drug abuse patient.[facility]In the event this information is protected by the Federal Confidentiality of Alcohol and Drug Abuse Patient Records regulations: The Federal rules restrict any use of the information to criminally investigate or prosecute any alcohol or drug abuse patient.[facility] the event this information is protected by the Federal Confidentiality of Alcohol and Drug Abuse Patient Records regulations: The Federal rules restrict any use of the information to criminally investigate or prosecute any alcohol or drug abuse patient.[facility]In the event this information is protected by the Federal Confidentiality of Alcohol and Drug Abuse Patient Records regulations: The Federal rules restrict any use of the information to criminally investigate or prosecute any alcohol or drug abuse patient.[facility] the event this information is protected by the Federal Confidentiality of Alcohol and Drug Abuse Patient Records regulations: The Federal rules restrict any use of the information to criminally investigate or prosecute any alcohol or drug abuse patient.[facility] the event this information is protected by the Federal Confidentiality of Alcohol and Drug Abuse Patient Records regulations: The Federal rules restrict any use of the information to criminally investigate or prosecute any alcohol or drug abuse patient.[facility]In the event this information is protected by the Federal Confidentiality of Alcohol and Drug Abuse Patient Records regulations: The Federal rules restrict any use of the information to criminally investigate or prosecute any alcohol or drug abuse patient.[facility]In the event this information is protected by the Federal Confidentiality of Alcohol and Drug Abuse Patient Records regulations: The Federal rules restrict any use of the information to criminally investigate or prosecute any alcohol or drug abuse patient.[facility]In the event this information is protected by the Federal Confidentiality of Alcohol and Drug Abuse Patient Records regulations: The Federal rules restrict any use of the information to criminally investigate or prosecute any alcohol or drug abuse patient.[facility]In the event this information is protected by the Federal Confidentiality of Alcohol and Drug Abuse Patient Records regulations: The Federal rules restrict any use of the information to criminally investigate or prosecute any alcohol or drug abuse patient.[facility]In the event this information is protected by the Federal Confidentiality of Alcohol and Drug Abuse Patient Records regulations: The Federal rules restrict any use of the information to criminally investigate or prosecute any alcohol or drug abuse patient.[facility] Reason for Visit (unrecogniz ed section and content) Reason Comments Depression Specialty Diagnoses / Procedures Referred By Contac t Referred To Contact Diagnoses Parkinson's disease without dyskinesia or fluctuating manifestations (HCC) Anxiety Depression, unspecified depression type Procedures PROVIDER ORDERED FOLLOW UP OFFICE/OUTPATIENT NEW HIGH MDM 60 MINUTES Angela Carvajal PSYD [address] [place] [address] Referral ID Status Reason Start Date Expiration Date V isits Requested Visits Authorized [id number] Closed PCP Requested Referral 10/19/2023 10/04/2024 1 1 Reason Comments Pain x 3am, between breas t into back Reason Comments Newly Diagnosed IBS Reason Comments Medication Preauthorization Phenergan Reason Comments Medication Update New Patient Evaluation Reason Comments New Patient Evaluation Reason Comments Results Specialty Diagnoses / Procedures Referred By Contac t Referred To Contact Neurology Diagnoses Resting tremor Procedures CONSULT TO NEUROLOGY OFFICE/OUTPATIENT [facility] 60-74 MINUTES Keiry Shaffer MD [address] [place] [address] Referral ID Status Reason Start Date Expiration Date V isits Requested Visits Authorized [id number] Closed PCP Requested Referral 10/29/2022 10/29/2023 1 1 Specialty Diagnoses / Procedures Referred By Contac t Referred To Contact MR IMAGING Diagnoses Resting tremor Procedures MRI BRAIN WO IVCON MRI BRAIN BRAIN STEM W/O CONTRAST MATERIAL Keiry Shaffer MD [address] [place] [address] Mr Imaging [address] [address] Referral ID Status Reason Start Date Expiration Date V isits Requested Visits Authorized [id number] Closed Auto-Generate d Referral 10/29/2022 11/28/2023 1 1 Reason Comments Research Reason Comments Follow Up parkinson Specialty Diagnoses / Procedures Referred By Contac t Referred To Contact Diagnoses Parkinson's disease without dyskinesia or fluctuating manifestations (HCC) Procedures PROVIDER ORDERED FOLLOW UP Margaret Garcia MD [address] [address] Referral ID Status Reason Start Date Expiration Date V isits Requested Visits Authorized [id number] Closed PCP Requested Referral 03/23/2023 06/21/2023 1 1 Reason Comments Research [id number] PDGENE Specialty Diagnoses / Procedures Referred By Contac t Referred To Contact Psychology Diagnoses Parkinson's disease without dyskinesia or fluctuating manifestations (HCC) Anxiety Depression, unspecified depression type Procedures CONSULT TO PSYCHOLOGY OFFICE/OUTPATIENT [facility] MDM 60 MINUTES Margaret Garcia MD [address] [address] Referral ID Status Reason Start Date Expiration Date Visits Requested Visits Authorized [id number] Pending Review PCP Requested Referral 09/24/2023 09/23/2024 1 1 Reason Comments Referral Request Reason Comments Headache Reason Comments Established Patient Specialty Diagnoses / Procedures Referred By Contac t Referred To Contact Diagnoses Parkinson's disease, unspecified whether dyskinesia present, unspecified whether manifestations fluctuate (HCC) Procedures PROVIDER ORDERED FOLLOW UP OFFICE/OUTPATIENT NEW HIGH MDM 60 MINUTES Angela Carvajal PSYD [address] [place] [address] Referral ID Status Reason Start Date Expiration Date V isits Requested Visits Authorized [id number] Closed PCP Requested Referral 12/04/2023 11/02/2024 1 1 Referral ID Status Reason Start Date Expiration Date V isits Requested Visits Authorized [id number] Closed PCP Requested Referral 01/21/2024 12/20/2024 1 1 Reason Comments Parkinson's Disease Specialty Diagnoses / Procedures Referred By Contac t Referred To Contact Diagnoses Parkinson's disease without dyskinesia or fluctuating manifestations (HCC) Anxiety Depression, unspecified depression type Procedures PROVIDER ORDERED FOLLOW UP OFFICE/OUTPATIENT NEW HIGH MDM 60 MINUTES Margaret Garcia MD [address] [place] [address] Referral ID Status Reason Start Date Expiration Date V isits Requested Visits Authorized [id number] Closed PCP Requested Referral 03/26/2024 09/23/2024 1 1 Specialty Diagnoses / Procedures Referred By Contac t Referred To Contact Diagnoses Parkinson's disease, unspecified whether dyskinesia present, unspecified whether manifestations fluctuate (HCC) Procedures PROVIDER ORDERED FOLLOW UP OFFICE/OUTPATIENT NEW HIGH MDM 60 MINUTES Angela Carvajal PSYD [address] [place] [address] Phone: tel: fax: Referral ID Status Reason Start Date Expiration Date V isits Requested Visits Authorized [id number] Closed PCP Requested Referral 05/29/2024 02/28/2025 1 1 Specialty Diagnoses / Procedures Referred By Contac t Referred To Contact [facility] Diagnoses Parkinson's disease without dyskinesia or fluctuating manifestations (HCC) Procedures PROVIDER ORDERED FOLLOW UP OFFICE/OUTPATIENT NEW HIGH MDM 60 MINUTES Margaret Garcia MD [address] [place] [address] Phone: tel: fax: Neurology [address] [place] [address] Phone: tel:[phone] Referral ID Status Reason Start Date Expiration Date V isits Requested Visits Authorized [id number] Closed PCP Requested Referral 06/29/2024 10/29/2024 1 1 FOR RECORDS PERTAINING TO PATIENTS [...] BE BASED ON THE PRIMARY CLINICAL RECORDS. [employer] provides no warranty or guarantee of the accuracy or completeness of information in this document.
[2025-01-17 00:02] VITALS: BP 148/65; PULSE 58; RESP 16; O2SAT 97
[2025-01-17 00:07] VITALS: BP 148/65; PULSE 58; RESP 16; TEMP 36.6; O2SAT 97
--- NOTE | 2025-01-17 00:07 | EDS_ITS ---
HPI History of Present Illness Chief Complaint: Chest Other Informant: patient and spouse/S.O. Narrative Narrative: Patient is a 74-year-old female with history of Parkinson's disease as well as fibromyalgia hyperlipidemia and anxiety. She states that she has "difficulty swallowing". She reports shortly prior to arrival she was drinking water when she felt like she was "choking". She states that symptoms lasted approximately 10 to 30 seconds and then resolved. She states that since that time however she has had midsternal chest discomfort and states it feels similar in nature to her previous bouts of "esophageal spasm". However as the discomfort is not resolving on its own she is also concerned that she may have aspirated or have a cardiac issue and therefore comes to the ER for evaluation [facility] Medical History Lichen sclerosus Wears glasses Non-smoker History of IBS History of stress test Generalized anxiety disorder Family hx of colon cancer Fibromyalgia Thyroid nodule Mixed hyperlipidemia GERD (gastroesophageal reflux disease) Osteopenia High cholesterol IBS (irritable bowel syndrome) Anemia Atrophic vaginitis Genital warts Barretts esophagus Acid reflux Home Medications Medication Instructions Recorded Last Taken Type alprazolam 0.25 mg tablet 0.25 mg PO QHS PRN sleep Unknown History dexlansoprazole 60 mg 60 mg PO DAILY 07/19/20 Unkn own History capsule,biphase delayed release (Dexilant) epinephrine 0.3 mg/0.3 mL 0.3 mg IM Q5-15M PRN anaphyl axis 12/31/21 Unknown History injection, auto-injector (EpiPen 2-Rodger) carbidopa 10 mg-levodopa 100 mg 1 tab PO BID 04/13/24 Unknown History tablet (Sinemet) estradiol 0.01% (0.1 mg/gram) See Rx Instructions vagi nal 04/20/24 Unknown Rx vaginal cream .COMPLEX #42.5 grams atorvastatin 10 mg tablet 10 mg PO DAILY 01/16/25 Unkn own History gabapentin 100 mg capsule 100 mg PO TID 01/16/25 Unkno wn History gabapentin 300 mg capsule 300 mg PO TID 01/16/25 Unkno wn History amoxicillin 400 mg-potassium 10 ml PO BID 7 days #140 mL 01/17/25 Unknown Rx clavulanate 57 mg/5 mL oral suspension Allergy/AdvReac Type Severity Reaction Status Date / Time iodine Allergy Vomiting Verified 01/16/25 22:03 Family History Unknown Heart disease Mother Anxiety Colon cancer Depression Thyroid disorder Father Anxiety Hypertension Grandmother Breast cancer Osteoporosis Thyroid disorder Surgical History Hx of colonoscopy Hx of cholecystectomy H/O: hysterectomy H/O splenectomy Social History household members: spouse number of children: 0 current occupational status: retired history of recent travel: Yes Smoking Status: Never smoker alcohol intake: never substance use type: does not use what type of physical activity do you participate in: none seatbelt use: always do you feel safe at home: Yes additional social history: - Niraj [facility] ED Constitutional Constitutional ED: Denies chills or fever(s) Eyes Eyes: Denies change in vision ENT ENT ED: Reports other Details: Positive difficulty swallowing ; Denies sore throat Cardiovascular Cardiovascular: Reports chest pain Respiratory/Chest Respiratory/Chest: Denies cough or dyspnea Gastrointestinal Gastrointestinal: Denies abdominal pain, diarrhea, nausea or vomiting Musculoskeletal Musculoskeletal: Denies back pain or neck pain Integumentary Denies rash Neurologic Neurologic: Denies headache(s) Psychiatric Psychiatric: Reports anxiety Hematologic/Lymphatic Hematologic/Lymphatic: Denies easy bleeding or easy bruising Allergic/Immunologic Allergic/Immunologic ED: Denies mouth swelling or tongue swelling EXAM Physical Exam Const Vital Signs: 01/16/25 22:03 01/16/25 22:03 01/17/25 00:02 Temperature 97.8 F Temperature Source Oral Pulse Rate 67 58 L Respiratory Rate 18 16 Respiratory Effort Short of Breath Blood Pressure 188/54 H 148/65 H Blood Pressure Mean 98 92 Pulse Ox 100 97 Oxygen Delivery Method Room Air Room Air Positive well nourished and well developed General Appearance ED: well developed; Negative for pallor HEENT Reports moist mucous membranes HEENT Narrative: Normocephalic atraumatic No tongue or lip swelling no oral lesions no airway edema or compromise Eyes PERRL and EOMs intact bilaterally General Eye ED: Negative for scleral icterus Neck supple Neck Narrative: No subcutaneous emphysema noted No pain with external epilation of the thyroid cartilage Chest Wall Chest Narrative: No bony deformity or subcutaneous emphysema noted There is reproducible anterior/midsternal chest wall pain with palpation Resp normal respiratory effort and clear to auscultation bilaterally Resp Narrative: No nasal flaring retractions tachypnea or accessory muscle use No crackles or rhonchi noted in the right lower lobe going against aspiration Cardio regular rate and regular rhythm Rate: other Other Details: Heart is regular rate and rhythm Radial and carotid pulses are equal and symmetric Extremity normal to inspection Neuro oriented x3, CN's II-XII intact bilaterally and no sensory deficits noted Sensorium / Orientation: alert Motor Exam: strength 5/5 throughout Psych Mood & Affect: anxious Skin no rashes or lesions noted and no wounds General Skin Exam: Negative for jaundice or pallor MDM MDM MDM Narrative Medical decision making narrative: Patient arrived to the ER hypertensive but was in pain and otherwise with stable vitals. She reported her chest discomfort began after a bout of choking on water. In order to assess for spontaneous pneumothorax or pneumomediastinum or aspiration pneumonia a two-view chest x-ray was ordered. History and exam indicates this is most likely chest wall discomfort or esophageal spasm but to assess for potential acute coronary syndrome or cardiac dysrhythmia an EKG was ordered. EKG showed normal sinus rhythm without cardiac dysrhythmia or ischemic finding. Chest x-ray revealed no sign of aspiration or pneumothorax/pneumomediastinum. She was given IM Ativan as well as IM Toradol and Norflex secondary to her pain/spasm. On reevaluation she reports that the pain has completely resolved and her vitals have stabilized. She remains in no acute respiratory distress satting 98 to 100% on room air. Therefore at this time as history and exam indicate this is most likely esophageal spasm and not a cardiac event or dysrhythmia or aspiration or pneumothorax I do not feel the need for further workup and she is otherwise safe for discharge. History & Record Review Discussion w/independent historian: Patient and Significant other Radiography Diagnostic Testing: Clinical Impression(s) from Imaging Studies Chest X-Ray 01/16/25 22:43 IMPRESSION: Small left pleural effusion. Reading Location: [facility] Chest x-ray as interpreted by the emergency medicine physician reveals no acute infiltrate or pneumothorax or pneumomediastinum Discharge Plan Triage Chief Complaint: Chest Other ED Provider: Augusto Choudhary Dx/Rx/DC Orders Clinical Impression: Esophageal spasm, Parkinson disease, Hyperlipidemia, Fibromyalgia Instructions: ED Esophageal Spasm Prescriptions: New amoxicillin-pot clavulanate 400-57 mg/5 mL suspension for reconstitution 10 ml PO BID 7 Days Qty: 140 0RF No Action Dexilant 60 mg capsule,biphase delayed releas 60 mg PO DAILY alprazolam 0.25 mg tablet 0.25 mg PO QHS PRN (Reason: sleep) epinephrine [EpiPen 2-Rodger] 0.3 mg/0.3 mL auto-injector 0.3 mg IM Q5-15M PRN (Reason: anaphylaxis) Rx Instructions: do not exceed 3 doses per episode carbidopa-levodopa [Sinemet] 10-100 mg tablet 1 tab PO BID atorvastatin 10 mg tablet 10 mg PO DAILY gabapentin 300 mg capsule 300 mg PO TID gabapentin 100 mg capsule 100 mg PO TID estradiol 0.01 % (0.1 mg/gram) cream See Rx Instructions vaginal .COMPLEX Qty: 42.5 2RF Rx Instructions: small amount as directed vaginal every other day at HS X 4 wk then twice a week Primary Care Provider: Hansa Ndiaye Referrals: Hansa Ndiaye MD [Primary Care Provider, Family Practice] Activity Restrictions/Additional Instructions: Your EKG showed no sign of heart damage or abnormal heart rhythm. Your x-ray showed no sign of colon a lung/pneumothorax or pneumonia/aspiration. However aspiration can take a few days to develop. Therefore if during the next 3 to 7 days you develop a fever of 100.4 or higher or you have increasing cough and/or shortness of breath then fill the prescription given in the ER. Please continue all your other medications as directed by your doctor and return to the hospital should you have any further concerns Print Language: Latvian Disposition Disposition: Home, Self Care Discharge Date/Time: 01/17/25 00:19
== END 2025-01-17 00:19 | disposition home or self-care (01) ==
PROVIDERS: Emergency Provider Emergency Medicine; PCP Family Medicine; Visit Provider Emergency Medicine
DX: K22.4 Dyskinesia of esophagus (principal); G20.A1 Parkinson's disease without dyskinesia, without mention of fluctuations; M79.7 Fibromyalgia; E78.2 Mixed hyperlipidemia; Z79.899 Other long term (current) drug therapy; Z90.49 Acquired absence of other specified parts of digestive tract; Z90.710 Acquired absence of both cervix and uterus; Z90.81 Acquired absence of spleen
CPT/HCPCS: 71046; 93005; 96372; 99285

== ENCOUNTER → 2025-02-04 | Outpatient (CLI) | payer MEDICARE, OTHER, SELFPAY ==
--- OUTSIDE RECORDS SUMMARY | 2025-02-04 08:01 | XMS RPT_ITS | CCD ---
Author Organization [facility] Care Team Providers Care Vendor Manager Name Role Phone Dr. Hansa Ndiaye Primary Care Provider Gina Maurice Attending Provider Unavailable Unavailable Primary Care Provider Dr. Hansa Thompson Primary Care Provider Dr. Hansa Ndiaye Referring Provider Dr. Hansa Ndiaye Other Provider Dr. Luther Roman Attending Provider Stacy VEGETABLE FARMER, VEGETABLE FARMER-Nilda Swift Attending Provider Uma Ledesma Attending Provider Unavailable Dr. Hansa Ndiaye Primary Care Provider Dr. Hansa Ndiaye Referring Provider Stacy VEGETABLE FARMER, VEGETABLE FARMER-C Jeniffer Attending Provider Uma Ledesma Attending Provider Unavailable Aleksander Thao MD Unavailable [phone] Hansa Ndiaye Primary Care Provider Dr. Hansa Ndiaye Referring Provider Dr. Arturo Bowling Attending Provider Dr. Arturo Bowling Other Provider Unavailable Primary Care Provider Dr. Hansa Thompson MD Primary Care Provider Dr. Celio Hess DO Emergency Provider ANGELA CARVAJAL Attending Unavailable MARGARET GARCIA Referring Unavailable MARGARET GARCIA Attending Unavailable ANDREEA YANG ANGELA Referring Unavailable ANGELA CARVAJAL Attending Unavailable ANDREEA YANG, ANGELA Referring Unavailable ANDREEA YANG, ANGELA Attending Unavailable MARGARET GARCIA Referring Unavailable MARGARET GARCIA Attending Unavailable Zelda BRADLEY, Dr. Santo Primary Care Physician Deshawn DAWSON, Dr. Pickens Attending Physician Deshawn DAWSON, Dr. Pickens [facility] Zelda BRADLEY, Dr. Santo Attending Physician Zelda BRADLEY, Dr. Santo Referring Provider [phone] Miedel, Hansa Primary Care Unavailable Stacy VEGETABLE FARMER, Jeniffer Attending Unavailable Miedel, Hansa Referring Unavailable Miedel, Hansa Primary Care Unavailable Stacy VEGETABLE FARMER, Jeniffer Attending Unavailable Miedel, Hansa Referring Unavailable Miedel, Hansa Primary Care Unavailable Miedel, Hansa Attending Unavailable Miedel, Hansa Referring Unavailable Miedel, Hansa Primary Care Unavailable Miedel, Hansa Attending Unavailable Miedel, Hansa Referring Unavailable Augusto Choudhary Attending Unavailable Miedel, Hansa Primary Care Unavailable Miedel, Hansa Primary Care Unavailable Celio Hess Attending Unavailabl e Allergies Allergy Classification Reported Allergen(s) Allergy Type Date of Onset Reaction(s) Facility (20 sources) Iodine; Translations: [IODINE] Drug Allergy 4 Vomiting [facility] (20 sources) Shellfish; Translations: [SHELLFISH DERIVED] Drug Intolerance 3 [facility] (1 source) Iodine Drug Allergy 5 [facility] Repository Medications Current Medications Medication Drug Class(es) [...] Active Start: 12-10-2022 take 1 tablet by abrahan three times daily Carbidopa-Levodopa (Sinemet) 10-100 mg [...] on above: TAKE 1 CAPSULE BY MO [facility] ONCE DAILY 30 TO 45 MINUTES BEFORE A MEAL. [id number] 0.3 ml EPINEPHrine 1 mg/ml auto-injector (11 [...] Start: 06-06-2022 take 1 capsule by mo uth three times daily gabapentin (NEURONTIN) 100 mg [...] on above: TAKE 1 CAPSULE BY MO [facility] THREE TIMES DAILY ALONG WITH 300 MG [...] vitamin po lynette ly polyethylene glycol 3350 [id number] mg / potassium chloride 2970 mg / sodium bicarbonate 6740 mg / sodium chloride 5860 mg / sodium sulfate 18504 mg powder for oral solution (1 source) [...] Take 1 tablet by abrahan th every 6 hours as needed for nausea/vomiting. [...] Take 1 tablet by abrahan th every afternoon. Bmx (5 sources) Start: 10-05-2022 End: 11-11-2022 Bmx Discontinued 15 ML PO EVERY 6 HOURS NEEDED 180 October 05, 2022 10:03am November 11, 2022 7:56am Benadryl 12.5 mg/5 mL oral elixir 60 mL; Maalox Maximum Strength 400 mg-400 mg-40 mg/5 mL oral suspension 60 mL; Xylocaine Viscous 2 % mucosal solution 60 mL; Per 180 mL Start: 10-05-2022 End: 11-11-2022 Bmx Discontinued 15 ML PO EV TIARRA [...] March 15, 2024 3:25pm polyethylene glycol 3350 91674 mg powder for oral solution (10 sources) [...] (1 source) Nausea; Translations: [Nausea] 10-17-2024 Episodic Nutritional deficiencies (1 source) Vitamin D [...] Classification Problem Date Documented Da te Episodic/Chronic Nonspecific chest pain (3 sources) Chest pain; Translations: [Chest pain, unspecified] Onset: 09-16-2024 09-11-2024 Episodic Other screening for suspected conditions (not mental disorders or infectious disease) (9 sources) Patient encounter status; Translations: [Encounter for screening for malignant neoplasm of colon] Onset: 02-08-2024 10-15-2022 Episodic Results Test Name Value Interpretation Reference Range Facility Emergency Department Summary on 01-17-2025 Emergency Department Summary [facility] Medical Records Department [address] [place] [id number] Emergency Department Summary 01/17/25 MR#: [id number] Acct: [id number] Name: CINDY WARREN Rep #: [id number] : 1950 74 From: Augusto Choudhary DO PCP: Dr. Hansa Ndiaye MD Status:DEP ER Location: ED HPI History of Present Illness Chief Complaint: Chest Other Informant: patient and spouse/S.O. Narrative Narrative: Patient is a 74-year-old female with history of Parkinson's disease as well as fibromyalgia hyperlipidemia and anxiety. She states that she has difficulty swallowing. She reports shortly prior to arrival she was drinking water when she felt like she was choking. She states that symptoms lasted approximately 10 to 30 seconds and then resolved. She states that since that time however she has had midsternal chest discomfort and states it feels similar in nature to her previous bouts of esophageal spasm. However as the discomfort is not resolving on its own she is also concerned that she may have aspirated or have a cardiac issue and therefore comes to the ER for evaluation [facility] Medical History Lichen sclerosus Wears glasses Non-smoker [...] 1 Unknown History injection, auto-injector (EpiPen 2-Rodger) carbidopa 10 mg-levodopa 100 mg 1 tab PO BID 04/13/24 Unknown Hist ory tablet (Sinemet) estradiol 0.01% (0.1 mg/gram) See Rx Instructions vaginal Unknown Rx vaginal cream .COMPLEX #42.5 grams atorvastatin 10 mg tablet 10 mg PO DAILY 01/16/25 Unknown Hi story gabapentin 100 mg capsule 100 mg PO TID 01/16/25 Unknown His tory gabapentin 300 mg capsule 300 mg PO TID 01/16/25 Unknown His tory amoxicillin 400 mg-potassium 10 ml PO BID 7 days #140 mL Unknown Rx clavulanate 57 mg/5 mL oral suspension Allergy/AdvReac Type Severity Reaction Status Date / Time iodine Allergy Vomiting Verified 01/16/25 22:03 Family History Unknown Heart disease Mother Anxiety [...] home: Yes additional social history: - Niraj ROS ROS ED Constitutional Constitutional ED: Denies chills or fever(s) Eyes Eyes: Denies change in vision ENT ENT ED: Reports other Details: Positive difficulty swallowing ; Denies sore throat Cardiovascular Cardiovascular: Reports chest pain Respiratory/Chest Respiratory/Chest: Denies cough or dyspnea Gastrointestinal Gastrointestinal: Denies abdominal pain, diarrhea, nausea or vomiting Musculoskeletal Musculoskeletal: Denies back pain or neck pain Integumentary Denies rash Neurologic Neurologic: Denies headache(s) Psychiatric Psychiatric: Reports anxiety Hematologic/Lymphatic Hematologic/Lymphatic: Denies easy bleeding or easy bruising Allergic/Immunologic Allergic/Immunologic ED: Denies mouth swelling or tongue swelling EXAM Physical Exam Const Vital Signs: 01/16/25 22:03 01/16/25 22:03 01/17/25 00:02 Temperature 97.8 F Temperature Source Oral Pulse Rate 67 58 L Respiratory Rate 18 16 Respiratory Effort Short of Breath Blood Pressure 188/54 H 148/65 H Blood Pressure Mean 98 92 Pulse Ox 100 97 Oxygen Delivery Method Room Air Room Air Positive well nourished and well developed General Appearance ED: well developed; Negative for pallor HEENT Reports moist mucous membranes HEENT Narrative: Normocephalic atra (more content not included)... Normal [facility] 12 Lead EKGon 01-16-2025 12 Lead EKG [facility] [address] [place] [address] 12 Lead EKG 01/16/25 2217 MR#: [id number] Acct: [id number] Name: CINDY WARREN Rep #: [id number] : 1950 74 From: Dominguez Jarrell MD Attending Dr: Status: DEP ER Ordering Dr: Provider,Ed P. Date: 01/16/25 Location: ED Sex: F C Admitted: Test Reason : DYSRHYTHMIA Blood Pressure : */* mmHG Vent. Rate : 63 BPM Atrial Rate : 63 BPM P-R Int : 172 ms QRS Dur : 84 ms QT Int : 426 ms P-R-T Axes : 68 -1 66 degrees QTcB Int : 435 ms Normal sinus rhythm Normal ECG Confirmed by Dominguez Jarrell ([id number]), make up editor FALGUNI NAVAS ([id number]) on 01/17/2025 11:45:49 AM Referred By: AK Confirmed By: Dominguez Jarrell 01/17/25 1145 Date Dominguez Jarrell MD CC: Dr. Hansa Ndiaye MD; ED PHYSICIAN PROVIDER; DO Peri Piedra Normal [facility] Chest PA and Lateralon 01-16 Chest PA and Lateral [facility] Imaging Services [address] [place] [address] Chest PA and Lateral MR#: [id number] Acct: [id number] Name: CINDY WARRENSUNNY Rep #: [id number] : 1950 F 74 From: Marcus Kruse MD PCP: Dr. Hansa Ndiaye MD Status: PRE ER Study: Chest PA and Lateral Date of Exam: 01/16/25 Exam# [id number] Ordering Dr: Augusto Choudhary DO PROCEDURE: CHEST PA AND LATERAL 01/16/2025 REASON FOR EXAM: ? ASPIRATION TECHNIQUE: Procedure Code: RADCXR Modality: DX Procedure: CHEST PA AND LATERAL COMPARISON: 09/11/2024. FINDINGS: The heart is normal in size. Small left pleural effusion. The lungs are otherwise clear. No acute osseous abnormalities. RAD/Chest PA and Lateral IMPRESSION: Small left pleural effusion. Reading Location: [facility] CC: Dr. Hansa Ndiaye MD; Augusto Choudhary DO Pattern Lease Inspector: Signed Normal [facility] Absolute lymphocyte countOrd ered By: Hansa Ndiaye on 11-21-2024 Lymphocytes Auto (Unsp spec) [#/Vol] 2.48 10*3/uL 0.83-4.51 [facility] Absolute neutrophil countOrd ered By: Hansa Ndiaye on 11-21-2024 Neutrophils (Bld) [#/Vol] 2.5 10*3/uL 2.0-7.7 [facility] Anion gap in Serum or Plasma Ordered By: Hansa Ndaiye on 11-21-2024 Anion gap [Moles/Vol] 8 mmol/L 07-21 [facility] Automated lymphocyte count a s percentage of total leukocytesOrdered By: Hansa Ndiaye on 11-21-2024 Lymphocytes/100 WBC Auto (Unsp spec) 42.8 % High 19-41 [facility] BUN/creatinine ratioOrdered By: Hansa Ndiaye on 11-21-2024 Urea nitrogen/Creatinine [Mass ratio] 18.5 mg/mg 10- [facility] Basophil percentageOrdered B y: Hansa Ndiaye on 11-21-2024 Basophils/100 WBC (Bld) 0.9 % 0- [facility] Bilirubin, totalOrdered By: Hansa Ndiaye on 11-21-2024 Bilirubin [Mass/Vol] 0.52 mg/dL 0.00-1.30 [facility] CBC W/Diff, Automatedon 11-07 ATYPICAL LYMPH 2+ Normal [facility] Comment on above: Performed By: #### L 500.4050, L501.9520, L100.0100, L500.4100 #### [facility] [address] [place], [address] SMUDGE CELLS RARE Normal [facility] Comment on above: Performed By: #### L 500.4050, L501.9520, L100.0100, L500.4100 #### [facility] [address] [place], [address] Calculated very low density lipoprotein (VLDL) cholesterol measurementOrdered By: Hansa Ndiaye on 11-21-2024 Calculated very low density lipoprotein (VLDL) cholesterol measurement 22 mg/dL 5-40 [facility] Carbon dioxide, total [Moles /volume] in Central venous bloodOrdered By: Hansa Ndiaye on 11-21-2024 CO2 [Moles/Vol] 26.0 mmol/L 21.0-32.0 [facility] Chloride assayOrdered By: Lawrence Ndiaye on 11-21-2024 Chloride [Moles/Vol] 107 mmol/L 98-108 [facility] Comprehensive Metabolic Prof ilon 11-21-2024 Albumin [Mass/Vol] 3.9 g/dL Normal 3.4-4.8 [facility] Comment on above: Performed By: #### L 500.4050, L501.9520, L100.0100, L500.4100 #### [facility] [address] [place], [address] Albumin/Globulin [Mass ratio] 1.3 {ratio} Normal 0.9-2.4 [facility] Comment on above: Performed By: #### L 500.4050, L501.9520, L100.0100, L500.4100 #### [facility] [address] [place], [address] ALK PHOS 113 U/L High 35-104 [facility] Comment on above: Performed By: #### L 500.4050, L501.9520, L100.0100, L500.4100 #### [facility] [address] [place], [address] ALT [Catalytic activity/Vol] 10 U/L Normal <=34 [facility] Comment on above: Performed By: #### L 500.4050, L501.9520, L100.0100, L500.4100 #### [facility] [address] [place], [address] AST [Catalytic activity/Vol] 16 U/L Normal <=31 [facility] Comment on above: Performed By: #### L 500.4050, L501.9520, L100.0100, L500.4100 #### [facility] [address] [place], [address] Bilirubin [Mass/Vol] 0.52 mg/dL Normal 0.00-1.30 [facility] Comment on above: Performed By: #### L 500.4050, L501.9520, L100.0100, L500.4100 #### [facility] [address] [place], [address] BUN/CRE 18.5 RATIO Normal 10-20 [facility] Comment on above: Performed By: #### L 500.4050, L501.9520, L100.0100, L500.4100 #### [facility] [address] [place], [address] Calcium [Mass/Vol] 9.4 mg/dL Normal 7.6-11.0 [facility] Comment on above: Performed By: #### L 500.4050, L501.9520, L100.0100, L500.4100 #### [facility] [address] [place], [address] Chloride [Moles/Vol] 107 mmol/L Normal 98-108 [facility] Comment on above: Performed By: #### L 500.4050, L501.9520, L100.0100, L500.4100 #### [facility] [address] [place], [address] CO2 [Moles/Vol] 26.0 mmol/L Normal 21.0-32.0 [facility] Comment on above: Performed By: #### L 500.4050, L501.9520, L100.0100, L500.4100 #### [facility] [address] [place], [address] Creatinine [Mass/Vol] 0.82 mg/dL Normal 0.70-1.20 [facility] Comment on above: Performed By: #### L 500.4050, L501.9520, L100.0100, L500.4100 #### [facility] [address] [place], [address] GAP 8 Normal 5-15 [facility] Comment on above: Performed By: #### L 500.4050, L501.9520, L100.0100, L500.4100 #### [facility] [address] [place], [address] GFR/1.73 sq M.predicted among non-blacks MDRD (S/P/Bld) [Vol rate/Area] 75 mL/min/{1.73_m2} Normal >60 [facility] Comment on above: Result Comment: mL/m in/1.73m2 CKD-EPI Creatinine Equation (2020) Performed By: #### L 500.4050, L501.9520, L100.0100, L500.4100 #### [facility] [address] [place], [address] Globulin (S) [Mass/Vol] 3.1 g/dL Normal 2.2-4.2 [facility] Comment on above: Performed By: #### L 500.4050, L501.9520, L100.0100, L500.4100 #### [facility] [address] [place], [address] Glucose [Mass/Vol] 93 mg/dL Normal 70-99 [facility] Comment on above: Performed By: #### L 500.4050, L501.9520, L100.0100, L500.4100 #### [facility] [address] [place], [address] Potassium [Moles/Vol] 4.7 mmol/L Normal 3.3-5.1 [facility] Comment on above: Performed By: #### L 500.4050, L501.9520, L100.0100, L500.4100 #### [facility] [address] [place], [address] Sodium [Moles/Vol] 141 mmol/L Normal 133-145 [facility] Comment on above: Performed By: #### L 500.4050, L501.9520, L100.0100, L500.4100 #### [facility] [address] [place], [address] T PROT 7.0 g/dL Normal 5.9-8.4 [facility] Comment on above: Performed By: #### L 500.4050, L501.9520, L100.0100, L500.4100 #### [facility] [address] [place], [address] Urea nitrogen [Mass/Vol] 15 mg/dL Normal 4-19 [facility] Comment on above: Performed By: #### L 500.4050, L501.9520, L100.0100, L500.4100 #### [facility] [address] [place], [address] Eosinophil percentageOrdered By: Hansa Ndiaye on 11-21-2024 Eosinophils/100 WBC (Bld) 3.5 % 0-5 [facility] Erythrocyte distribution wid th ratioOrdered By: Hansa Ndiaye on 11-21-2024 Erythrocyte distribution width (RBC) [Ratio] 13.2 % 11.6-14.6 [facility] Erythrocyte distribution wid th standard deviationOrdered By: Hansa Ndiaye on 11-21-2024 Erythrocyte distribution width (RBC) [Ratio] 42.7 fl 35.1-43.9 [facility] Glomerular filtration rate ( GFR) estimation/1.73 sq m using serum, plasma, or whole bOrdered By: Hansa Ndiaye on 11-21-2024 GFR/1.73 sq M.predicted among non-blacks MDRD (S/P/Bld) [Vol rate/Area] 75 mL/min/{1.73_m2} >60 [facility] Comment on above: mL/min/1.73m2 CKD-EP I Creatinine Equation (2020) Hematocrit Auto (Bld) [Volum e fraction]Ordered By: Hansa Ndiaye on 11-21-2024 Hematocrit (Bld) [Volume fraction] 37.1 % 37-47 [facility] Hemoglobin measurementOrdere d By: Hansa Ndiaye on 11-21-2024 Hemoglobin (Bld) [Mass/Vol] 12.2 g/dL 12.0-15.0 [facility] Immature granulocytes/100 WB C Auto (Bld)Ordered By: Hansa Ndiaye on 11-21-2024 Immature granulocytes/100 WBC (Bld) 0.300 % 0.0-0.9 [facility] Comment on above: IG% - Immature Granu locytes (promyelocytes, myelocytes and metamyelocytes) > 1% indicates that a LEFT SHIFT is Present. LDL calc ser/plasOrdered By: Hansa Ndiaye on 11-21-2024 Cholesterol in LDL [Mass/Vol] 89 mg/dL [facility] Comment on above: Tfeoeqvhbd=839-905 m g/dL & Higher Wthb=395 mg/dL or greaterFriedwald Equation for LDL-C Laboratory - Chemistry and C hemistry - challengeOrdered By: Hansa Ndiaye on 11-21-2024 AST [Catalytic activity/Vol] 16 U/L <32 [facility] Lipid Profileon 11-21-2024 CHOL:HDL 3.59 Normal [facility] Comment on above: Performed By: #### L 500.4050, L501.9520, L100.0100, L500.4100 #### [facility] [address] [place], [address] Cholesterol [Mass/Vol] 154 mg/dL Normal <=200 [facility] Comment on above: Result Comment: Chol esterol level, Desirable <200 mg/dL Borderline high cholesterol 200-239 mg/dL High cholesterol >=240 mg/dL Recommendations of the NCEP Adult Treatment Panel for the following risk-cutoff thresholds for the [place] population. Performed By: #### L 500.4050, L501.9520, L100.0100, L500.4100 #### [facility] [address] [place], [address] Cholesterol in HDL [Mass/Vol] 43 mg/dL Normal [facility] Comment on above: Result Comment: Jo onal Cholesterol Education Program (NCEP) guidelines: <40 mg/dL: Low HDL-cholesterol (major risk factor for CHD) >= 60 mg/dL: High HDL-cholesterol (negative risk factor for CHD) HDL-cholesterol is affected by a number of factors, e.g. smoking, exercise, hormones, sex and age. Performed By: #### L 500.4050, L501.9520, L100.0100, L500.4100 #### [facility] [address] [place], [address] Cholesterol in LDL [Mass/Vol] 89 mg/dL Normal [facility] Comment on above: Result Comment: Bord xukuan=363-854 mg/dL Higher Zkat=919 mg/dL or greater Friedwald Equation for LDL-C Performed By: #### L 500.4050, L501.9520, L100.0100, L500.4100 #### [facility] [address] [place], [address] Cholesterol in VLDL [Mass/Vol] 22 mg/dL Normal 5-40 [facility] Comment on above: Performed By: #### L 500.4050, L501.9520, L100.0100, L500.4100 #### [facility] [address] [place], [address] Triglyceride [Mass/Vol] 109 mg/dL Normal [facility] Comment on above: Result Comment: The drugs N-Acetylcysteine and Metamizole may falsely depress this assay. Normal range: <150 mg/dL Borderline High: 150-199 mg/dL High: 200-499 mg/dL Very High: >500 mg/dL Performed By: #### L 500.4050, L501.9520, L100.0100, L500.4100 #### [facility] [address] [place], [address] MCV (mean corpuscular volume ) determinationOrdered By: Hansa Ndiaye on 11-21-2024 MCV (RBC) [Entitic vol] 87.9 fL 81-99 [facility] Mean corpuscular hemoglobin (MCH) determinationOrdered By: Hansa Ndiaye on 11-21-2024 MCH (RBC) [Entitic mass] 28.9 pg 27.0-32.0 [facility] Mean corpuscular hemoglobin concentration (MCHC) determinationOrdered By: Hansa Ndiaye on 11-21-2024 MCHC (RBC) [Mass/Vol] 32.9 g/dL 32-36 [facility] Mean platelet volume determi nationOrdered By: Hansa Ndiaye on 11-21-2024 Platelet mean volume (Bld) [Entitic vol] 10.2 fL 6.2-12.0 [facility] Monocyte percentageOrdered B y: Hansa Ndiaye on 11-21-2024 Monocytes/100 WBC (Bld) 10.0 % 0-10 [facility] Neutrophil percentageOrdered By: Hansa Ndiaye on 11-21-2024 Neutrophils/100 WBC (Bld) 42.5 % Low 47-70 [facility] Nucleated red blood cell per centageOrdered By: Hansa Ndiaye on 11-21-2024 Nucleated RBC/100 WBC (Bld) [Ratio] 0 % 0-5 [facility] Platelet countOrdered By: Lawrence jainmalathi Zelda on 11-21-2024 Platelets (Bld) [#/Vol] 365 10*3/uL 150-450 [facility] Potassium measurement (mass/ volume)Ordered By: Hansa Ndiaye on 11-21-2024 Potassium (Unsp spec) [Mass/Vol] 4.7 mmol/L 3.3-5.1 [facility] RBC Auto (Bld) [#/Vol]Ordere d By: Hansa Ndiaye on 11-21-2024 RBC (Bld) [#/Vol] 4.22 10*6/uL 4.2-5.4 [facility] Screening total cholesterol/ high density lipoprotein (HDL) cholesterol ratioOrdered By: Hansa Ndiaye on 11-21-2024 Cholesterol.total/Chol esterol in HDL [Mass ratio] 3.59 {ratio} [facility] Serum creatinine measurement (mass/volume)Ordered By: Hansa Ndiaye on 11-21-2024 Creatinine [Mass/Vol] 0.82 mg/dL 0.70-1.20 [facility] Serum globulin measurementOr dered By: Hansa Ndiaye on 11-21-2024 Globulin (S) [Mass/Vol] 3.1 g/dL 2.2-4.2 [facility] Serum glucose measurement (m ass/volume)Ordered By: Hansa Ndiaye on 11-21-2024 Glucose [Mass/Vol] 93 mg/dL 70-99 [facility] Serum or plasma alanine arshad otransferase (ALT) measurementOrdered By: Hansa Ndiaye on 11-21-2024 ALT [Catalytic activity/Vol] 10 U/L <35 [facility] Serum or plasma albumin wilma urement (mass/volume)Ordered By: Hansa Ndiaye on 11-21-2024 Albumin [Mass/Vol] 3.9 g/dL 3.4-4.8 [facility] Serum or plasma albumin/glob ulin mass ratioOrdered By: Hansa Ndiaye on 11-21-2024 Albumin/Globulin [Mass ratio] 1.3 {ratio} 0.9-2.4 [facility] Serum or plasma alkaline aliza sphatase measurementOrdered By: Hansa Ndiaye on 11-21-2024 ALP [Catalytic activity/Vol] 113 U/L High 35-104 [facility] Serum or plasma calcium wilma urement (mass/volume)Ordered By: Hansa Ndiaye on 11-21-2024 Calcium [Mass/Vol] 9.4 mg/dL 7.6-11.0 [facility] Serum or plasma cholesterol in HDL measurement (mass/volume)Ordered By: Hansa Ndiaye on 11-21-2024 Cholesterol in HDL [Mass/Vol] 43 mg/dL >40 [facility] Comment on above: National Cholesterol Education Program (NCEP) guidelines:<40 mg/dL: Low HDL-cholesterol (major risk factor for CHD)>= 60 mg/dL: High HDL-cholesterol (negative risk factor for CHD)HDL-cholesterol is affected by a number of factors, e.g. smoking, exercise, hormones, sex and age. Serum or plasma cholesterol measurement (mass/volume)Ordered By: Hansa Ndiaye on 11-21-2024 Cholesterol [Mass/Vol] 154 mg/dL <201 [facility] Comment on above: Cholesterol level, D esirable <200 mg/dLBorderline high cholesterol 200-239 mg/dLHigh cholesterol >=240 mg/dLRecommendations of the NCEP Adult Treatment Panel for the following risk-cutoff thresholds for the [place] population. Serum or plasma urea nitroge n measurement (mass/volume)Ordered By: Hansa Ndiaye on 11-21-2024 Urea nitrogen [Mass/Vol] 15 mg/dL 4-19 [facility] Smudge cell detectionOrdered By: Hansa Ndiaye on 11-21-2024 Smudge cells LM Ql (Bld) RARE [facility] Sodium levelOrdered By: Yoana Ndiaye on 11-21-2024 Sodium [Moles/Vol] 141 mmol/L 133-145 [facility] TSH DL <= 0.005 mIU/L QnOrde red By: Hansa Ndiaye on 11-21-2024 TSH Qn 3.530 uIU/mL 0.300-4.20 0 [facility] Thyroid Stim Hormone (TSH)on 11-21-2024 TSH 3.530 uIU/mL Normal 0.300-4.20 0 [facility] Comment on above: Performed By: #### L 500.4050, L501.9520, L100.0100, L500.4100 #### [facility] [place], [address] Total proteinOrdered By: Andrew Ndiaye on 11-21-2024 Protein [Mass/Vol] 7.0 g/dL 5.9-8.4 [facility] Triglycerides measurementOrd ered By: Hansa Ndiaye on 11-21-2024 Triglyceride [Mass/Vol] 109 mg/dL <199 [facility] Comment on above: The drugs N-Acetylcy steine and Metamizole may falsely depress this assay. Normal range: <150 mg/dLBorderline High: 150-199 mg/dLHigh: 200-499 mg/dLVery High: >500 mg/dL White blood cell (WBC) count Ordered By: Hansa Ndiaye on 11-21-2024 WBC (Bld) [#/Vol] 5.8 10*3/uL 4.4-11.0 [facility] CNPNon 11-02-2024 [facility] Telephone (NREUS2) CINDY WARREN ([id number]) 1950 F Date Time Provider Department 11/02/24 JOAQUIN PIERCE [id number] During your visit today, we recorded the [...] Encounter Status:Closed by JOAQUIN PIERCE on 11/02/24 [facility] CNOVon 09-28-2024 CNOV Office Visit (NRMDN) CINDY WARREN ([id number]) 1950 F Date Time Provider Department 09/28/24 [...] ondansetron (Zofran) prescription has been sent to [facility] pharmacy; take one dose as needed [...] Return at or around: 01/29/25 Your current [facility] Movement Disorders Team includes: Primary Movement Disorders [...] or you can send a message through BringMeTheNews. You can also now schedule and select appointments through BringMeTheNews. MD Renetta Downs Kristin, MD 09/28/2024 7:48 PM Signed [facility] - FOLLOW UP EVALUATION Recording using Zenverge software for draft documentation of the visit was discussed with the patient/authorized loan representative; all questions welcomed and answered. Patient/authorized loan representative agreed to proceed I had the [...] 2 1/2 1/2 Week 3 1/2 1/2 /2 Week 4 1 1/2 /2 Week 5 1 1/2 1 Week 6 [...] feeling better during a recent vacation in [place]. She also experiences headaches on the top [...] by walking with a friend in her [employer] community and engaging in daily a (more content not included)... Normal [facility] 12 Lead EKGon 09-11-2024 12 Lead EKG [facility] Cardiovascular Services [address] [place] [address] 12 Lead EKG 09/11/24 1217 MR#: [id number] Acct: [id number] Name: CINDY WARREN Rep #: [id number] : 1950 74 From: You Lawson MD [...] Normal ECG Confirmed by YOU LAWSON MD ([id number]), make up editor MINA CORRALES ([id number]) on 09/12/2024 11:01:22 AM Referred By: DALLIN Confirmed By: YOU LAWSON MD 09/12/24 1101 Date You Lawson MD CC: Dr. Celio Hess DO; Dr. Hansa Ndiaye MD Signed Normal [facility] Absolute lymphocyte countOrd ered By: ED PROVIDER on 09-11-2024 Lymphocytes Auto (Unsp spec) [#/Vol] 2.42 10*3/uL 0.83-4.51 [facility] Absolute neutrophil countOrd ered By: ED PROVIDER on 09-11-2024 Neutrophils (Bld) [#/Vol] 3.6 10*3/uL 2.0-7.7 [facility] Anion gap in Serum or Plasma Ordered By: Celio Hess on 09-11-2024 Anion gap [Moles/Vol] 11 mmol/L 5-15 [facility] Automated lymphocyte count a s percentage of total leukocytesOrdered By: ED PROVIDER on 09-11-2024 Lymphocytes/100 WBC Auto (Unsp spec) 35.2 % 19-41 [facility] BUN/creatinine ratioOrdered By: Celio Hess on 09-11-2024 Urea nitrogen/Creatinine [Mass ratio] 14.2 mg/mg - [facility] Basic Metabolic Profile (BMP )on 09-11-2024 BUN/CRE 14.2 RATIO Normal - [facility] Comment on above: Performed By: #### L 501.4021, L500.2500, L100.0100 #### [facility] [address] [place], [address] Calcium [Mass/Vol] 9.3 mg/dL Normal 7.6-11.0 [facility] Comment on above: Performed By: #### L 501.4021, L500.2500, L100.0100 #### [facility] [address] [place], [address] Chloride [Moles/Vol] 106 mmol/L Normal 98-108 [facility] Comment on above: Performed By: #### L 501.4021, L500.2500, L100.0100 #### [facility] [address] [place], [address] CO2 [Moles/Vol] 24.1 mmol/L Normal 21.0-32.0 [facility] Comment on above: Performed By: #### L 501.4021, L500.2500, L100.0100 #### [facility] [address] [place], [address] Creatinine [Mass/Vol] 0.85 mg/dL Normal 0.70-1.20 [facility] Comment on above: Performed By: #### L 501.4021, L500.2500, L100.0100 #### [facility] [address] [place], [address] GAP 11 Normal 5-15 [facility] Comment on above: Performed By: #### L 501.4021, L500.2500, L100.0100 #### [facility] [address] [place], [address] GFR/1.73 sq M.predicted among non-blacks MDRD (S/P/Bld) [Vol rate/Area] 71 mL/min/{1.73_m2} Normal >60 [facility] Comment on above: Result Comment: mL/m in/1.73m2 CKD-EPI Creatinine Equation (2020) Performed By: #### L 501.4021, L500.2500, L100.0100 #### [facility] [address] [place], [address] Glucose [Mass/Vol] 93 mg/dL Normal 70-99 [facility] Comment on above: Performed By: #### L 501.4021, L500.2500, L100.0100 #### [facility] [address] [place], [address] Potassium [Moles/Vol] 4.3 mmol/L Normal 3.3-5.1 [facility] Comment on above: Performed By: #### L 501.4021, L500.2500, L100.0100 #### [facility] [address] [place], [address] Sodium [Moles/Vol] 140 mmol/L Normal 133-145 [facility] Comment on above: Performed By: #### L 501.4021, L500.2500, L100.0100 #### [facility] [address] [place], [address] Urea nitrogen [Mass/Vol] 12 mg/dL Normal 4-19 [facility] Comment on above: Performed By: #### L 501.4021, L500.2500, L100.0100 #### [facility] [address] [place], [address] Basophil percentageOrdered B y: ED PROVIDER on 09-11-2024 Basophils/100 WBC (Bld) 0.4 % 0-1 [facility] CBC W/Diff, Automatedon Absolute Lymph 2.42 X10 3/uL Normal 0.83-4.51 [facility] Comment on above: Performed By: #### L 501.4021, L500.2500, L100.0100 #### [facility] [address] [place], [address] Absolute Neut 3.6 X10 3/uL Normal 2.0-7.7 [facility] Comment on above: Performed By: #### L 501.4021, L500.2500, L100.0100 #### [facility] [address] [place], [address] Basophils/100 WBC (Bld) 0.4 % Normal 0-1 [facility] Comment on above: Performed By: #### L 501.4021, L500.2500, L100.0100 #### [facility] [address] [place], [address] Eosinophils/100 WBC (Bld) 2.5 % Normal 0-5 [facility] Comment on above: Performed By: #### L 501.4021, L500.2500, L100.0100 #### [facility] [address] [place], [address] Erythrocyte distribution width (RBC) [Ratio] 13.6 % Normal 11.6-14.6 [facility] Comment on above: Performed By: #### L 501.4021, L500.2500, L100.0100 #### [facility] [address] [place], [address] Hematocrit (Bld) [Volume fraction] 38.6 % Normal 37-47 [facility] Comment on above: Performed By: #### L 501.4021, L500.2500, L100.0100 #### [facility] [address] [place], [address] Hemoglobin (Bld) [Mass/Vol] 12.7 g/dL Normal 12.0-15.0 [facility] Comment on above: Performed By: #### L 501.4021, L500.2500, L100.0100 #### [facility] [address] [place], [address] IG% 0.100 Normal 0.0-0.9 [facility] Comment on above: Result Comment: IG% - Immature Granulocytes (promyelocytes, myelocytes and metamyelocytes) > 1% indicates that a LEFT SHIFT is Present. Performed By: #### L 501.4021, L500.2500, L100.0100 #### [facility] [address] [place], [address] Lymphocytes/100 WBC (Bld) 35.2 % Normal 19-41 [facility] Comment on above: Performed By: #### L 501.4021, L500.2500, L100.0100 #### [facility] [address] [place], [address] MCH (RBC) [Entitic mass] 28.7 pg Normal 27.0-32.0 [facility] Comment on above: Performed By: #### L 501.4021, L500.2500, L100.0100 #### [facility] [address] [place], [address] MCHC (RBC) [Mass/Vol] 32.9 g/dL Normal 32-36 [facility] Comment on above: Performed By: #### L 501.4021, L500.2500, L100.0100 #### [facility] [address] [place], [address] MCV (RBC) [Entitic vol] 87.1 fL Normal 81-99 [facility] Comment on above: Performed By: #### L 501.4021, L500.2500, L100.0100 #### [facility] [address] [place], [address] Monocytes/100 WBC (Bld) 8.7 % Normal 0-10 [facility] Comment on above: Performed By: #### L 501.4021, L500.2500, L100.0100 #### [facility] [address] [place], [address] Neutrophils/100 WBC (Bld) 53.1 % Normal 47-70 [facility] Comment on above: Performed By: #### L 501.4021, L500.2500, L100.0100 #### [facility] [address] [place], [address] Nucleated RBC (Bld) [#/Vol] 0 10*3/uL Normal 0-5 [facility] Comment on above: Performed By: #### L 501.4021, L500.2500, L100.0100 #### [facility] [address] [place], [address] Platelet mean volume (Bld) [Entitic vol] 10.1 fL Normal 6.2-12.0 [facility] Comment on above: Performed By: #### L 501.4021, L500.2500, L100.0100 #### [facility] [address] [place], [address] Platelets (Bld) [#/Vol] 379 10*3/uL Normal 150-450 [facility] Comment on above: Performed By: #### L 501.4021, L500.2500, L100.0100 #### [facility] [address] [place], [address] RBC (Bld) [#/Vol] 4.43 10*6/uL Normal 4.2-5.4 [facility] Comment on above: Performed By: #### L 501.4021, L500.2500, L100.0100 #### [facility] [address] [place], [address] RDW SD 43.4 fl Normal 35.1-43.9 [facility] Comment on above: Performed By: #### L 501.4021, L500.2500, L100.0100 #### [facility] [address] [place], [address] WBC (Bld) [#/Vol] 6.9 10*3/uL Normal 4.4-11.0 [facility] Comment on above: Performed By: #### L 501.4021, L500.2500, L100.0100 #### [facility] [address] [place], [address] CTA Chest W/WO Contraston CTA Chest W/WO Contrast [facility] Imaging Services [address] [place] [address] CTA Chest W/WO Contrast MR#: [id number] Acct: [id number] Name: CINDY WARREN Rep #: [id number] : 1950 F 74 From: Kianna Venegas nd, MD PCP: Dr. Hansa Ndiaye MD Status: REG ER Study: CTA Chest W/WO Contrast Date of Exam: 09/11/24 Exam# [id number] Ordering Dr: Celio Hess DO PROCEDURE: CTA [...] recommended to evaluate for stability/resolution. Reading Location: [facility] CC: Dr. Celio Hess DO; Dr. Hansa Ndiaye MD Pattern Lease Inspector: Signed Normal [facility] Carbon dioxide, total [Moles /volume] in Central venous bloodOrdered By: Celio Hess on 09-11-2024 CO2 [Moles/Vol] 24.1 mmol/L 21.0-32.0 [facility] Chest PA and Lateralon 09-11 Chest PA and Lateral [facility] Imaging Services [address] [place], [place] [address] Chest PA and Lateral MR#: [id number] Acct: [id number] Name: CINDY WARREN Rep #: [id number] : 1950 F 74 From: Curt Abarca MD PCP: Dr. Hansa Ndiaye MD Status: PRE ER Study: Chest PA and Lateral Date of Exam: 09/11/24 Exam# [id number] Ordering Dr: Isai Manning P. PROCEDURE: CHEST PA AND LATERAL 09/11/2024 [...] of the left costophrenic angle. Reading Location: [facility] CC: Dr. Hansa Ndiaye MD; ED PHYSICIAN PROVIDER Pattern Lease Inspector: Signed Normal [facility] Chloride assayOrdered By: Wilmer Hess on 09-11-2024 Chloride [Moles/Vol] 106 mmol/L 98-108 [facility] D-Dimer Quantitative (DVT/PE )on 09-11-2024 D-DIMER QUANT 0.55 FEU/ug/m Invalid Interpretation Code 0.27-0.49 [facility] Comment on above: Order Comment: CRITI RICHIE VALUE CALLED TO HORR 09/11/24 1353 Shae Rogelio. RESULTS READ BACK BY SAME. Result Comment: D-Di sonja ELEVATED (>0.49): Additional studies and clinical assessments are indicated to conclude diagnosis of: Deep Vein Thrombosis (DVT) or Pulmonary Embolism (PE) Performed By: #### L 300.8000 #### [facility] [address] [place], [address] Emergency Department Summary on 09-11-[address] [facility] Medical Records Department [address] [place] [address] Emergency Department Summary 09/11/24 MR#: [id number] Acct: [id number] Name: CINDY WARREN Rep #: [id number] : 1950 74 From: Celio Hess DO [...] intact Psych: Cooperative, appropriate mood and affect [facility] Medical History Lichen sclerosus Wears glasses Non-smoker [...] 102 Pulse (more content not included)... Normal [facility] Eosinophil percentageOrdered By: ED PROVIDER on 09-11-2024 Eosinophils/100 WBC (Bld) 2.5 % 0-5 [facility] Erythrocyte distribution wid th ratioOrdered By: ED PROVIDER on 09-11-2024 Erythrocyte distribution width (RBC) [Ratio] 13.6 % 11.6-14.6 [facility] Erythrocyte distribution wid th standard deviationOrdered By: ED PROVIDER on 09-11-2024 Erythrocyte distribution width (RBC) [Ratio] 43.4 fl 35.1-43.9 [facility] Glomerular filtration rate ( GFR) estimation/1.73 sq m using serum, plasma, or whole bOrdered By: Celio Hess on 09-11-2024 GFR/1.73 sq M.predicted among non-blacks MDRD (S/P/Bld) [Vol rate/Area] 71 mL/min/{1.73_m2} >60 [facility] Comment on above: mL/min/1.73m2 CKD-EP I Creatinine Equation (2020) Hematocrit Auto (Bld) [Volum e fraction]Ordered By: ED PROVIDER on 09-11-2024 Hematocrit (Bld) [Volume fraction] 38.6 % 37-47 [facility] Hemoglobin measurementOrdere d By: ED PROVIDER on 09-11-2024 Hemoglobin (Bld) [Mass/Vol] 12.7 g/dL 12.0-15.0 [facility] Immature granulocytes/100 WB C Auto (Bld)Ordered By: ED PROVIDER on 09-11-2024 Immature granulocytes/100 WBC (Bld) 0.100 % 0.0-0.9 [facility] Comment on above: IG% - Immature Granu locytes (promyelocytes, myelocytes and metamyelocytes) > 1% indicates that a LEFT SHIFT is Present. L499.0042on 09-11-2024 Trop T High Sen < 6 Normal <=14 [facility] Comment on above: Performed By: #### L 499.0042 #### [facility] [address] [place], [address] L499.0043on 09-11-2024 Trop T High Sen Normal <=14 [facility] Comment on above: Result Comment: Gagan christianson via OM: Ordered Performed By: #### L 499.0043 ####[facility] [address] [place], [address] L501.4021on 09-11-2024 Trop T High Sen < 6 Normal <=14 [facility] Comment on above: Performed By: #### L 501.4021, L500.2500, L100.0100 ####[facility] [address] [place], [address] L503.7505on 09-11-2024 Natriuretic peptide B (Bld) [Mass/Vol] 96 pg/mL Normal <=1800 [facility] Comment on above: Result Comment: Hear t Failure Unlikely: < 300 pg/mL Heart Failure Likely < 50 Years: > 450 pg/mL 50-75 Years: > 900 pg/mL >75 Years: > 1800 pg/mL Performed By: #### L 503.7505 ####[facility] [address] [place], [place], [address] MCV (mean corpuscular volume ) determinationOrdered By: ED PROVIDER on 09-11-2024 MCV (RBC) [Entitic vol] 87.1 fL 81-99 [facility] Mean corpuscular hemoglobin (MCH) determinationOrdered By: ED PROVIDER on 09-11-2024 MCH (RBC) [Entitic mass] 28.7 pg 27.0-32.0 [facility] Mean corpuscular hemoglobin concentration (MCHC) determinationOrdered By: ED PROVIDER on 09-11-2024 MCHC (RBC) [Mass/Vol] 32.9 g/dL 32-36 [facility] Mean platelet volume determi nationOrdered By: ED PROVIDER on 09-11-2024 Platelet mean volume (Bld) [Entitic vol] 10.1 fL 6.2-12.0 [facility] Monocyte percentageOrdered B y: ED PROVIDER on 09-11-2024 Monocytes/100 WBC (Bld) 8.7 % 0-10 [facility] Natriuretic peptide.B prohor jazmin N-Terminal [Mass/volume] in Serum or PlasmaOrdered By: Celio Hess on 09-11-2024 Natriuretic peptide.B prohormone N-Terminal [Mass/Vol] 96 pg/mL <1800 [facility] Comment on above: Heart Failure Unlike ly: < 300 pg/mLHeart Failure Likely< 50 Years: > 450 pg/mL50-75 Years: > 900 pg/mL>75 Years: > 1800 pg/mL Neutrophil percentageOrdered By: ED PROVIDER on 09-11-2024 Neutrophils/100 WBC (Bld) 53.1 % 47-70 [facility] Nucleated red blood cell per centageOrdered By: ED PROVIDER on 09-11-2024 Nucleated RBC/100 WBC (Bld) [Ratio] 0 % 0-5 [facility] Platelet countOrdered By: ED PROVIDER on 09-11-2024 Platelets (Bld) [#/Vol] 379 10*3/uL 150-450 [facility] Potassium measurement (mass/ volume)Ordered By: Celio Hess on 09-11-2024 Potassium (Unsp spec) [Mass/Vol] 4.3 mmol/L 3.3-5.1 [facility] RBC Auto (Bld) [#/Vol]Ordere d By: ED PROVIDER on 09-11-2024 RBC (Bld) [#/Vol] 4.43 10*6/uL 4.2-5.4 [facility] Serum creatinine measurement (mass/volume)Ordered By: Ceilo Hess on 09-11-2024 Creatinine [Mass/Vol] 0.85 mg/dL 0.70-1.20 [facility] Serum glucose measurement (m ass/volume)Ordered By: Celio Hess on 09-11-2024 Glucose [Mass/Vol] 93 mg/dL 70-99 [facility] Serum or plasma calcium wilma urement (mass/volume)Ordered By: Celio Zhong on 09-11-2024 Calcium [Mass/Vol] 9.3 mg/dL 7.6-11.0 [facility] Serum or plasma urea nitroge n measurement (mass/volume)Ordered By: Celio Hess on 09-11-2024 Urea nitrogen [Mass/Vol] 12 mg/dL 4-19 [facility] Sodium levelOrdered By: Anderson Hess on 09-11-2024 Sodium [Moles/Vol] 140 mmol/L 133-145 [facility] Troponin T.cardiac [Mass/vol ume] in Serum or Plasma by High sensitivity methodOrdered By: Celio Hess on 09-11-2024 Troponin T.cardiac High sensitivity method [Mass/Vol] < 6 ng/L <14 [facility] Troponin T.cardiac High sensitivity method [Mass/Vol] < 6 ng/L <14 [facility] White blood cell (WBC) count Ordered By: ED PROVIDER on 09-11-2024 WBC (Bld) [#/Vol] 6.9 10*3/uL 4.4-11.0 [facility] CNPNon 08-31-2024 CNPN Telephone (NREUS2) CINDY WARREN ([id number]) 1950 F Date Time Provider Department 08/31/24 [...] Status:Closed by JOAQUIN PIERCE on 08/31/24 Normal [facility] Electrotype Molder Office Visit Reporton 04-13-2024 Electrotype Molder Office Visit Report [facility] [address], [address] [place] [address] OFFICE VISIT Date of Service: 04/13/24 MR#: [id number] Acct: [id number] Name: CINDY WARREN Rep #: [id number] : 1950 Provider: DOROTHEA mejía Age/Sex: 74/F Location: [facility] [place] Status: Signed Intake Vital Signs 03/15/24 14:26 04/13/24 13:56 04/13/24 14:01 Height 5 ft 5 in 5 ft 5 in 5 ft 5 in Weight: 164 lb 2 oz BMI 27.3 BP 118/72 Intake Visit Reasons: 4 wk med check Chief Complaint: 4 Week med check Rack Pusher Required: No Is patient in pain?: No [...] prn 04/13/24 1429 Date Jeniffer Kumar NP VEGETABLE FARMER-C Carolineigner Signature: Date (if applicable) [facility] Office Visit (NRMDN) MIRIAM WARRENORAMarek Salcido ([id number]) 1950 F Date Time Provider Department 03/31/24 [...] Neurology [facility] from 12/21/2023 in Neurological [facility] T Score 39.8 42.3 [...] 5.8 o (more content not included)... Normal [facility] Electrotype Molder Office Visit Reporton 03-15-2024 Electrotype Molder Office Visit Report [facility] [address] [place] [address], [address] [place] [address] OFFICE VISIT Date of Service: 03/15/24 MR#: [id number] Acct: [id number] Name: CINDY WARREN Rep #: [id number] : 1950 Provider: DOROTHEA mejía Age/Sex: 74/F Location: [facility] Status: Signed Intake Vital [...] 10/20/23 03/15/24 Rx Nurse's Note: [facility] History (Updated 03/15/24 @ 15:17 by Jeniffer Kumar NP, DOROTHEA) Lichen sclerosus Wears glasses Non-smoker History of [...] RTO 4 weeks 03/15/24 1520 Date Jeniffer Oxford VEGETABLE FARMER VEGETABLE FARMER-C Cosigner Signature: Date (if applicable) CC: Normal [facility] SCRN MAMM (CAD)W/MEGHAN BILATo n 01-21-2024 SCRN MAMM (CAD)W/MEGHAN BILAT [facility] Imaging Services [address] [place] [address] SCRN MAMM (CAD)W/MEGHAN BILAT MR#: [id number] Acct: [id number] Name: CINDY WARREN Rep #: [id number] : 1950 F 73 From: Enoch gil MD PCP: Dr. Hansa Ndiaye MD Status: [facility] Study: SCRN MAMM (CAD)W/MEGHAN BILAT Date of Exam: 01/07 06/30 Exam# [id number] Ordering Dr: Hansa Ndiaye MD :[id number] MAMMOGRAPHY - BILATERAL SCREENING REASON FOR EXAM: [...] delay biopsy of a clinically suspicious abnormality. [id number] Electronically Signed: Enoch Tirado MD at 14:32 EST Reading Location ID and State: [facility] / [place] , Service support , CC: Dr. Hansa Ndiaye MD Pattern Lease Inspector: Signed Normal [facility] 11-06-2023 CNPN Telephone (NRMDN) CINDY WARREN ([id number]) 1950 F Date Time Provider Department 11/06/23 [...] November 06, 2023 1351 patient returning call Anthonyjanet returning your call. My phone number is [phone]. My date is [birth year]. Janet regarding headache, and I dont think I want to go to the headache clinic at this point. I will just try to deal with it. But I would be glad to talk with you if you want to give me a call back, if not, that's ok not to call me back. Thank you so much for contacting me. Bye. Call to patient, no answer. Message left [...] Status:Closed by NIKKY MAGALLANES on 11/06/23 Normal [facility] Basophil percentageOrdered B y: Hansa Ndiaye on 06-01-2023 Cholesterol [Mass/Vol] 262 mg/dL <200 [facility] Comment on above: <200 mg/dL Desirable 200-240 mg/dL Borderline >240 mg/dL High Risk Triglyceride [Mass/Vol] 141 mg/dL <199 [facility] Comment on above: The drugs N-Acetylcy steine and Metamizole may falsely depress this assay.Serum Triglycerides Reference Interval Normal <150 mg/dL Borderline high 150 - 199 mg/dL High 200 - 499 mg/dL Very High > or = 500 mg/dL Laboratory - Chemistry and C hemistry - challengeOrdered By: Hansa Ndiaye on 06-01-2023 Cholesterol in HDL [Mass/Vol] 50 mg/dL >40 [facility] Comment on above: The drugs N-Acetylcy steine and Metamizole may falsely depress this assay. Reference Range HDL <40 mg/dL Low HDL Cholesterol HDL >or= 60 mg/dL High HDL Cholesterol Cholesterol in LDL [Mass/Vol] 184 mg/dL 0-130 [facility] No Panel InformationOrdered By: Hansa Ndiaye on 06-01-2023 VLDL Cholesterol 28 mg/dL 5-40 [facility] Culture, urineOrdered By: Ra kenny Aguillon on 12-23-2022 Bacteria identified Cx Nom (U) Mixed Gram Pos & Gram Neg Org [facility] Bacteria identified Cx Nom (U) Mixed Gram Pos & Gram Neg Org [facility] MRI BRAIN WO IVCONon 023 [facility] EMG(NEURO/NI)on 11-06-2022 [facility] CBC W Auto Differential pane l (Bld)on 10-29-2022 Basophils (Bld) [#/Vol] 0.04 10*3/uL <0.11 k/uL [facility] Basophils/100 WBC (Bld) 0.5 % [facility] Differential cell count method Nom (Bld) Auto [facility] Eosinophils (Bld) [#/Vol] 0.24 10*3/uL <0.46 k/uL [facility] Eosinophils/100 WBC (Bld) 3.2 % [facility] Erythrocyte distribution width (RBC) [Ratio] 13.6 % 11.5 - 15.0 % [facility] Hematocrit (Bld) [Volume fraction] 40.5 % 36.0 - 46.0 % [facility] Hemoglobin (Bld) [Mass/Vol] 13.1 g/dL 11.5 - 15.5 g/dL [facility] Immature granulocytes (Bld) [#/Vol] <0.10 k/uL [facility] Immature granulocytes/100 WBC (Bld) 0.1 % [facility] Lymphocytes (Bld) [#/Vol] 2.25 10*3/uL 1.00 - 4.00 k/uL [facility] Lymphocytes/100 WBC (Bld) 30.3 % [facility] MCH (RBC) [Entitic mass] 28.6 pg 26.0 - 34.0 pg [facility] MCHC (RBC) [Mass/Vol] 32.3 g/dL 30.5 - 36.0 g/dL [facility] MCV (RBC) [Entitic vol] 88.4 fL 80.0 - 100.0 fL [facility] Monocytes (Bld) [#/Vol] 0.58 10*3/uL <0.87 k/uL [facility] Monocytes/100 WBC (Bld) 7.8 % [facility] Neutrophils (Bld) [#/Vol] 4.30 10*3/uL 1.45 - 7.50 k/uL [facility] Neutrophils/100 WBC (Bld) 58.1 % [facility] Nucleated RBC (Bld) [#/Vol] <0.01 k/uL [facility] Nucleated RBC/100 WBC (Bld) [Ratio] 0.0 /100 WBC [facility] Platelet mean volume (Bld) [Entitic vol] 10.9 fL 9.0 - 12.7 fL [facility] Platelets (Bld) [#/Vol] 374 10*3/uL 150 - 400 k/uL [facility] RBC (Bld) [#/Vol] 4.58 10*6/uL 3.90 - 5.20 m/uL [facility] WBC (Bld) [#/Vol] 7.42 10*3/uL 3.70 - 11.00 k/uL [facility] CERULOPLASMIN Don 10-30-19 23 Ceruloplasmin [Mass/Vol] 27 mg/dL 16 - 45 mg/dL [facility] CK CREATINE KINASEon 023 CK [Catalytic activity/Vol] 42 U/L 42 - 196 U/L [facility] Comprehensive metabolic 2000 panelon 10-29-2022 Albumin [Mass/Vol] 4.4 g/dL 3.9 - 4.9 g/dL [facility] ALP [Catalytic activity/Vol] 115 U/L 34 - 123 U/L [facility] ALT [Catalytic activity/Vol] 15 U/L 7 - 38 U/L [facility] Anion gap [Moles/Vol] 9 mmol/L 9 - 18 mmol/L [facility] AST [Catalytic activity/Vol] 16 U/L 13 - 35 U/L [facility] Bilirubin [Mass/Vol] 0.6 mg/dL 0.2 - 1 .3 mg/dL [facility] Calcium [Mass/Vol] 10.1 mg/dL 8.5 - 10. 2 mg/dL [facility] Chloride [Moles/Vol] 104 mmol/L 97 - 10 5 mmol/L [facility] CO2 [Moles/Vol] 28 mmol/L 22 - 30 mmol/L [facility] Creatinine [Mass/Vol] 0.83 mg/dL 0.58 - 0.96 mg/dL [facility] Estimated Glomerular Filtration Rate 75 mL/min/1.73m >=60 mL/min/1.7 3m [facility] Glucose [Mass/Vol] 95 mg/dL 74 - 99 mg/dL [facility] Potassium [Moles/Vol] 4.6 mmol/L 3.7 - 5.1 mmol/L [facility] Protein [Mass/Vol] 6.9 g/dL 6.3 - 8.0 g/dL [facility] Sodium [Moles/Vol] 141 mmol/L 136 - 144 mmol/L [facility] Urea nitrogen [Mass/Vol] 13 mg/dL 7 - 21 mg/dL [facility] T3 [facility] 10-29-2022 T3 [Mass/Vol] 109 ng/dL 79 - 165 ng/dL [facility] T4 FREE/FREE THYROXon 2022 Free T4 [Mass/Vol] 1.2 ng/dL 0.9 - 1.7 ng/dL [facility] TSH [facility] 10-29-2022 TSH Qn 2.730 m[IU]/L 0.270 - 4.200 mIU/L [facility] VITAMIN B12 BLOODon 10-30-19 Cobalamin (Vitamin B12) [Mass/Vol] 427 pg/mL 232 - 1,245 pg/mL [facility] Laboratory - Chemistry and C hemistry - challengeOrdered By: Hansa Ndiaye on 10-10-2022 Free T4 [Mass/Vol] 1.19 ng/dL 0.76-1.46 [facility] No Panel InformationOrdered By: Hansa Ndiaye on 10-10-2022 Free Triiodothyronine (T3) pg/dL 2.4 pg/mL 2.18-3.98 [facility] Thyroglobulin Antibody < 1.0 IU/mL 0.0-0.9 [facility] Comment on above: Thyroglobulin Antibo dy measured by SeriosityMethodologyPerformed at: - [facility] [id number] Director: Rohan Franco PhD, Phone: [phone] Thyroid Stimulating Hormone (TSH) 2.18 uIU/mL 0.358-3.74 [facility] Serum or plasma thyroperoxid ase antibody assay (units/volume)Ordered By: Hansa Ndiaye on 10-10-2022 TPO Ab Qn [IU]/mL 0-34 [facility] XR Wrist - left 4 Viewson IMPRESSION: No acute radiographic abnormalities seen in the left wrist. Degenerative changes as described above. Pattern Lease Inspector[facility] Transcribe Date/Time: Sep 18 2022 12:47P Dictated by : LILIA FRANKLIN MD This examination was interpreted and the report reviewed and electronically signed by: LILIA FRANKLIN MD on Sep 18 2022 12:50PM [facility] DIVISION OF RADIOLOGY * * *Final Report* [...] soft tissue swelling. DIVISION OF RADIOLOGY Provider, claire Osman [facility] - 09/18/2022 * * *Final Report* * [...] left wrist. Degenerative changes as described above. Pattern Lease Inspector: [facility] Transcribe Date/Time: Sep 18 2022 12:47P Dictated by : LILIA FRANKLIN MD This examination was interpreted and the report reviewed and electronically signed by: LILIA FRANKLIN MD on Sep 18 2022 12:50PM EST [facility] Radiology Study observation (narrative) [facility] XR Wrist - left 4 ViewsOrder ed By: [facility] Provider on 09-18-2022 [facility] Absolute lymphocyte countOrd ered By: Anderson Garcia on 09-05-2022 Lymphocytes Auto (Unsp spec) [#/Vol] 2.73 10*3/uL 0.83-4.51 [facility] Basophil percentageOrdered B y: Anderson Garcia on 09-05-2022 Basophil percentage 0-5 SEEN /hpf 0-5 [facility] Basophils/100 WBC (Bld) 0.5 % 0-1 [facility] Chloride [Moles/Vol] 107 mmol/L 98-107 [facility] Eosinophils/100 WBC (Bld) 1.9 % 0-5 [facility] Glucose [Mass/Vol] 125 mg/dL 74-106 [facility] Comment on above: Fasting Glucose resu lt from 100 to 125 mg/dL suggests IMPAIRED HOMEOSTASIS per A.D.A. criteria. Neutrophils (Bld) [#/Vol] 4.5 10*3/uL 2.0-7.7 [facility] Neutrophils/100 WBC (Bld) 55.6 % 47-70 [facility] Potassium [Moles/Vol] 3.5 mmol/L 3.5-5.1 [facility] Sodium [Moles/Vol] 139 mmol/L 136-145 [facility] WBC (Bld) [#/Vol] 8.0 10*3/uL 4.4-11.0 [facility] Bilirubin Test strip Ql (U)O rdered By: Anderson Garcia on 09-05-2022 Bilirubin Ql (U) Negative Negative [facility] Blood erythrocytes count (nu mber/volume)Ordered By: Anderson Garcia on 09-05-2022 RBC (Bld) [#/Vol] 4.27 10*6/uL 4.2-5.4 [facility] Blood hemoglobin measurement (mass/volume)Ordered By: Anderson Garcia on 09-05-2022 Hemoglobin (Bld) [Mass/Vol] 12.1 g/dL 12.0-15.0 [facility] Blood lymphocytes/100 leukoc ytesOrdered By: Anderson Garcia on 09-05-2022 Lymphocytes/100 WBC (Bld) 34.1 % 19-41 [facility] Blood monocytes/100 leukocyt esOrdered By: Anderson Garcia on 09-05-2022 Monocytes/100 WBC (Bld) 7.6 % 0-10 [facility] Blood platelet mean volumeOr dered By: Anderson Garcia on 09-05-2022 Platelet mean volume (Bld) [Entitic vol] 10.8 fL 6.2-12.0 [facility] Determination of erythrocyte mean corpuscular volume (MCV)Ordered By: Anderson Garcia on 09-05-2022 MCV (RBC) [Entitic vol] 89.2 fL 81-99 [facility] Hematocrit Auto (Bld) [Volum e fraction]Ordered By: Anderson Garcia on 09-05-2022 Hematocrit (Bld) [Volume fraction] 38.1 % 37-47 [facility] Ketones Test strip Ql (U)Ord ered By: Anderson Garcia on 09-05-2022 Ketones Ql (U) Negative Negative [facility] Laboratory - Chemistry and C hemistry - challengeOrdered By: Anderson Garcia on 09-05-2022 CO2 [Moles/Vol] 28.0 mmol/L 21.0-32.0 [facility] Urea nitrogen/Creatinine [Mass ratio] 19.0 mg/mg 10-20 [facility] Laboratory - Hematology and Cell countsOrdered By: Anderson Garcia on 09-05-2022 Erythrocyte distribution width (RBC) [Entitic vol] 45.2 fL 35.1-43.9 [facility] Erythrocyte distribution width (RBC) [Ratio] 13.9 % 11.6-14.6 [facility] Immature granulocytes/100 WBC (Bld) 0.300 % 0.0-0.9 [facility] Comment on above: IG% - Immature Granu locytes (promyelocytes, myelocytes and metamyelocytes) > 1% indicates that a LEFT SHIFT is Present. MCH (RBC) [Entitic mass] 28.3 pg 27.0-32.0 [facility] Nucleated RBC/100 WBC (Bld) [Ratio] 0 % 0-5 [facility] MCHC Auto (RBC) [Mass/Vol]Or dered By: Anderson Garcia on 09-05-2022 MCHC (RBC) [Mass/Vol] 31.8 g/dL 32-36 [facility] Mucus LM Ql (Urine sed)Order ed By: Anderson Garcia on 09-05-2022 Mucus Ql (Urine sed) 0 SEEN /hpf [facility] Nitrite Test strip Ql (U)Ord ered By: Anderson Garcia on 09-05-2022 Nitrite Ql (U) Negative Negative [facility] No Panel InformationOrdered By: Anderson Garcia on 09-05-2022 Estimated Creatinine Clearance Calc 50.09 ml/min [facility] Estimated GFR (MDRD) Amer 79 mL/min >60 [facility] Comment on above: GFR Calc Estimated GFR (MDRD) Non-Af Amer 66 mL/min >60 [facility] Comment on above: Non- GFR Calc Troponin I High Sensitivity 5 pg/mL 3.0-54.0 [facility] Comment on above: Please Note: New Val t Units and Gender Specific Reference Ranges. For more information see Policy Stat Procedure Moran High Sensitivity Troponin (TNIH) and attachments. Platelets bldOrdered By: Idalmis Garcia on 09-05-2022 Platelets (Bld) [#/Vol] 374 10*3/uL 150-450 [facility] Protein Test strip Ql (U)Ord ered By: Anderson Garcia on 09-05-2022 Protein Ql (U) Negative Negative [facility] Serum or plasma calcium wilma urement (mass/volume)Ordered By: Anderson Garcia on 09-05-2022 Calcium [Mass/Vol] 9.1 mg/dL 8.5-10.1 [facility] Serum or plasma creatinine m easurement (mass/volume)Ordered By: Andersno Garcia on 09-05-2022 Creatinine [Mass/Vol] 0.90 mg/dL 0.55-1.02 [facility] Comment on above: The validity of the calculated GFR & GFRAA in patients over 70 years has not been determined. Clinical correlation is essential. Serum or plasma urea nitroge n measurement (mass/volume)Ordered By: Anderson Garcia on 09-05-2022 Urea nitrogen [Mass/Vol] 17 mg/dL 7-18 [facility] Squamous epithelial cells de tection in urine sediment by light microscopyOrdered By: Anderson Garcia on 09-05-2022 Epithelial cells.squamous LM Ql (Urine sed) 0-5 SEEN /hpf 5-10 [facility] Thin prep Papanicolaou smear with manual screeningOrdered By: Anderson Garcia on 09-05-2022 Thin prep Papanicolaou smear with manual screening 4 5-15 [facility] Urine blood detectionOrdered By: Anderson Garcia on 09-05-2022 RBC Ql (U) Negative Negative [facility] RBC Ql (U) 0 SEEN /hpf 0-5 [facility] Urine clarityOrdered By: Idalmis Garcia on 09-05-2022 Clarity (U) Sl. Cloudy Clear [facility] Urine color determinationOrd ered By: Anderson Garcia on 09-05-2022 Color (U) Yellow Yellow [facility] Urine glucose detectionOrder ed By: Anderson Garcia on 09-05-2022 Glucose Ql (U) Normal mg/dl Normal [facility] Urine leukocyte esterase det ection by dipstickOrdered By: Anderson Garcia on 09-05-2022 Leukocyte esterase Test strip Ql (U) 100 /ul Negative [facility] Urine pHOrdered By: Anderson hayes on 09-05-2022 pH (U) 7.0 [pH] 5.0 - 8.0 [facility] Urine sediment bacteria coun t by microscopy (number/high power field)Ordered By: Anderson Garcia on 09-05-2022 Bacteria LM.HPF (Urine sed) [#/Area] 0 /[HPF] None Seen [facility] Urine specific gravity measu rementOrdered By: Anderson Gracia on 09-05-2022 Specific gravity (U) [Rel density] 1.005 1.002-1.03 0 [facility] Urobilinogen Auto test strip Ql (U)Ordered By: Anderson Garcia on 09-05-2022 Urobilinogen Ql (U) Normal mg/dl Normal [facility] Absolute lymphocyte countOrd ered By: Dr. Ndiaye on 05-01-2022 Lymphocytes Auto (Unsp spec) [#/Vol] 2.53 10*3/uL 0.83-4.51 [facility] Basophil percentageOrdered B y: Dr. Ndiaye on 05-01-2022 Basophils/100 WBC (Bld) 0.5 % 0-1 [facility] Bilirubin [Mass/Vol] 1.10 mg/dL 0.20-1.00 [facility] Comment on above: For patients on eltr ombopag therapy, use of Dimension Moran TBIL is not recommended. Chloride [Moles/Vol] 106 mmol/L 98-107 [facility] Cholesterol [Mass/Vol] 158 mg/dL <200 [facility] Comment on above: <200 mg/dL Desirable 200-240 mg/dL Borderline >240 mg/dL High Risk Eosinophils/100 WBC (Bld) 3.5 % 0-5 [facility] Glucose [Mass/Vol] 86 mg/dL 74-106 [facility] Neutrophils (Bld) [#/Vol] 2.6 10*3/uL 2.0-7.7 [facility] Neutrophils/100 WBC (Bld) 43.5 % 47-70 [facility] Potassium [Moles/Vol] 3.8 mmol/L 3.5-5.1 [facility] Protein [Mass/Vol] 7.5 g/dL 6.4-8.2 [facility] Sodium [Moles/Vol] 141 mmol/L 136-145 [facility] Triglyceride [Mass/Vol] 105 mg/dL <199 [facility] Comment on above: The drugs N-Acetylcy steine and Metamizole may falsely depress this assay.Serum Triglycerides Reference Interval Normal <150 mg/dL Borderline high 150 - 199 mg/dL High 200 - 499 mg/dL Very High > or = 500 mg/dL WBC (Bld) [#/Vol] 6.1 10*3/uL 4.4-11.0 [facility] Blood erythrocytes count (nu mber/volume)Ordered By: Dr. Ndiaye on 05-01-2022 RBC (Bld) [#/Vol] 4.48 10*6/uL 4.2-5.4 [facility] Blood hemoglobin measurement (mass/volume)Ordered By: Dr. Ndiaye on 05-01-2022 Hemoglobin (Bld) [Mass/Vol] 12.8 g/dL 12.0-15.0 [facility] Blood lymphocytes/100 leukoc ytesOrdered By: Dr. Ndiaye on 05-01-2022 Lymphocytes/100 WBC (Bld) 41.8 % 19-41 [facility] Blood monocytes/100 leukocyt esOrdered By: Dr. Ndiaye on 05-01-2022 Monocytes/100 WBC (Bld) 10.2 % 0-10 [facility] Blood platelet mean volumeOr dered By: Dr. Ndiaye on 05-01-2022 Platelet mean volume (Bld) [Entitic vol] 11.4 fL 6.2-12.0 [facility] Determination of erythrocyte mean corpuscular volume (MCV)Ordered By: Dr. Ndiaye on 05-01-2022 MCV (RBC) [Entitic vol] 90.6 fL 81-99 [facility] Hematocrit Auto (Bld) [Volum e fraction]Ordered By: Dr. Ndiaye on 05-01-2022 Hematocrit (Bld) [Volume fraction] 40.6 % 37-47 [facility] Laboratory - Chemistry and C hemistry - challengeOrdered By: Dr. Ndiaye on 05-01-2022 ALP [Catalytic activity/Vol] 111 U/L 45-117 [facility] ALT [Catalytic activity/Vol] 19 U/L 13-56 [facility] CO2 [Moles/Vol] 30.0 mmol/L 21.0-32.0 [facility] Globulin (S) [Mass/Vol] 4.1 g/dL 2.2-4.2 [facility] Urea nitrogen/Creatinine [Mass ratio] 16.3 mg/mg 10-20 [facility] Laboratory - Hematology and Cell countsOrdered By: Dr. Ndiaye on 05-01-2022 Erythrocyte distribution width (RBC) [Entitic vol] 44.1 fL 35.1-43.9 [facility] Erythrocyte distribution width (RBC) [Ratio] 13.2 % 11.6-14.6 [facility] Immature granulocytes/100 WBC (Bld) 0.500 % 0.0-0.9 [facility] Comment on above: IG% - Immature Granu locytes (promyelocytes, myelocytes and metamyelocytes) > 1% indicates that a LEFT SHIFT is Present. MCH (RBC) [Entitic mass] 28.6 pg 27.0-32.0 [facility] Nucleated RBC/100 WBC (Bld) [Ratio] 0 % 0-5 [facility] MCHC Auto (RBC) [Mass/Vol]Or dered By: Dr. Ndiaye on 05-01-2022 MCHC (RBC) [Mass/Vol] 31.5 g/dL 32-36 [facility] No Panel InformationOrdered By: Dr. Ndiaye on 05-01-2022 Estimated GFR (MDRD) Amer 77 mL/min >60 [facility] Comment on above: GFR Calc Estimated GFR (MDRD) Non-Af Amer 64 mL/min >60 [facility] Comment on above: Non- GFR Calc Thyroid Stimulating Hormone (TSH) 3.15 uIU/mL 0.358-3.74 [facility] Platelets bldOrdered By: Dr. Ndiaye on 05-01-2022 Platelets (Bld) [#/Vol] 378 10*3/uL 150-450 [facility] Serum or plasma albumin wilma urement (mass/volume)Ordered By: Dr. Ndiaye on 05-01-2022 Albumin [Mass/Vol] 3.4 g/dL 3.2-5.0 [facility] Serum or plasma albumin/glob ulin mass ratioOrdered By: Dr. Ndiaye on 05-01-2022 Albumin/Globulin [Mass ratio] 0.8 {ratio} 0.9-2.4 [facility] Serum or plasma calcium wilma urement (mass/volume)Ordered By: Dr. Ndiaye on 05-01-2022 Calcium [Mass/Vol] 9.2 mg/dL 8.5-10.1 [facility] Serum or plasma cholesterol in HDL measurement (mass/volume)Ordered By: Dr. Ndiaye on 05-01-2022 Cholesterol in HDL [Mass/Vol] 43 mg/dL >40 [facility] Comment on above: The drugs N-Acetylcy steine and Metamizole may falsely depress this assay. Reference Range HDL <40 mg/dL Low HDL Cholesterol HDL >or= 60 mg/dL High HDL Cholesterol Serum or plasma cholesterol in VLDL measurement (mass/volume)Ordered By: Dr. Ndiaye on 05-01-2022 Cholesterol in VLDL [Mass/Vol] 21 mg/dL 5-40 [facility] Serum or plasma creatinine m easurement (mass/volume)Ordered By: Dr. Ndiaye on 05-01-2022 Creatinine [Mass/Vol] 0.92 mg/dL 0.55-1.02 [facility] Comment on above: The validity of the calculated GFR & GFRAA in patients over 70 years has not been determined. Clinical correlation is essential. Serum or plasma low density lipoprotein (LDL) cholesterol measurement (mass/volume)Ordered By: Dr. Ndiaye on 05-01-2022 Cholesterol in LDL [Mass/Vol] 94 mg/dL 0-130 [facility] Serum or plasma urea nitroge n measurement (mass/volume)Ordered By: Dr. Ndiaye on 05-01-2022 Urea nitrogen [Mass/Vol] 15 mg/dL 7-18 [facility] Thin prep Papanicolaou smear with manual screeningOrdered By: Dr. Ndiaye on 05-01-2022 Thin prep Papanicolaou smear with manual screening 16 U/L 15-37 [facility] Thin prep Papanicolaou smear with manual screening 5 5-15 [facility] Absolute lymphocyte counton 05-08-2021 Lymphocytes Auto (Unsp spec) [#/Vol] 2.31 10*3/uL 0.83-4.51 [facility] Work Phone: [phone] Basophil percentageon 2021 Basophils/100 WBC (Bld) 0.6 % 0-1 [facility] Work Phone: [phone] Bilirubin [Mass/Vol] 0.80 mg/dL 0.20-1.00 [facility] Work Phone: [phone] Comment on above: For patients on eltr ombopag therapy, use of Dimension Moran TBIL is not recommended. Chloride [Moles/Vol] 107 mmol/L 98-107 [facility] Work Phone: [phone] Cholesterol [Mass/Vol] 154 mg/dL <200 [facility] Work Phone: [phone] Comment on above: <200 mg/dL Desirable 200-240 mg/dL Borderline >240 mg/dL High Risk Eosinophils/100 WBC (Bld) 3.8 % 0-5 [facility] Work Phone: [phone] Glucose [Mass/Vol] 93 mg/dL 74-106 [facility] Work Phone: Neutrophils (Bld) [#/Vol] 2.2 10*3/uL 2.0-7.7 [facility] Work Phone: Neutrophils/100 WBC (Bld) 41.0 % 47-70 [facility] Work Phone: [phone] Potassium [Moles/Vol] 4.0 mmol/L 3.5-5.1 [facility] Work Phone: [phone] Protein [Mass/Vol] 7.6 g/dL 6.4-8.2 [facility] Work Phone: [phone] Sodium [Moles/Vol] 141 mmol/L 136-145 [facility] Work Phone: Triglyceride [Mass/Vol] 95 mg/dL [facility] Work Phone: Comment on above: The drugs N-Acetylcy steine and Metamizole may falsely depress this assay.Serum Triglycerides Reference Interval Normal <150 mg/dL Borderline high 150 - 199 mg/dL High 200 - 499 mg/dL Very High > or = 500 mg/dL WBC (Bld) [#/Vol] 5.2 10*3/uL 4.4-11.0 [facility] Work Phone: Blood erythrocytes count (nu mber/volume)on 05-08-2021 RBC (Bld) [#/Vol] 4.35 10*6/uL 4.2-5.4 [facility] Work Phone: Blood hemoglobin measurement (mass/volume)on 05-08-2021 Hemoglobin (Bld) [Mass/Vol] 13.1 g/dL 12.0-15.0 [facility] Work Phone: Blood lymphocytes/100 leukoc yteson 05-08-2021 Lymphocytes/100 WBC (Bld) 44.1 % 19-41 [facility] Work Phone: Blood monocytes/100 leukocyt eson 05-08-2021 Monocytes/100 WBC (Bld) 10.3 % 0-10 [facility] Work Phone: [phone] Blood platelet mean volumeon 05-08-2021 Platelet mean volume (Bld) [Entitic vol] 10.7 fL 6.2-12.0 [facility] Work Phone: Determination of erythrocyte mean corpuscular volume (MCV)on 05-08-2021 MCV (RBC) [Entitic vol] 88.5 fL 81-99 [facility] Work Phone: Hematocrit Auto (Bld) [Volum e fraction]on 05-08-2021 Hematocrit (Bld) [Volume fraction] 38.5 % 37-47 [facility] Work Phone: Laboratory - Chemistry and C hemistry - challengeon 05-08-2021 ALP [Catalytic activity/Vol] 103 U/L 45-117 [facility] Work Phone: [phone] ALT [Catalytic activity/Vol] 17 U/L 13-56 [facility] Work Phone: [phone] CO2 [Moles/Vol] 28.0 mmol/L 21.0-32.0 [facility] Work Phone: [phone] Globulin (S) [Mass/Vol] 4.1 g/dL 2.2-4.2 [facility] Work Phone: [phone] Urea nitrogen/Creatinine [Mass ratio] 17.1 mg/mg 10-20 [facility] Work Phone: Laboratory - Hematology and Cell countson 05-08-2021 Erythrocyte distribution width (RBC) [Entitic vol] 42.9 fL 35.1-43.9 [facility] Work Phone: [phone] Erythrocyte distribution width (RBC) [Ratio] 13.1 % 11.6-14.6 [facility] Work Phone: [phone] Immature granulocytes/100 WBC (Bld) 0.200 % 0.0-0.9 [facility] Work Phone: Comment on above: IG% - Immature Granu locytes (promyelocytes, myelocytes and metamyelocytes) > 1% indicates that a LEFT SHIFT is Present. MCH (RBC) [Entitic mass] 30.1 pg 27.0-32.0 [facility] Work Phone: [phone] Nucleated RBC/100 WBC (Bld) [Ratio] 0 % 0-5 [facility] Work Phone: [phone] MCHC Auto (RBC) [Mass/Vol]on 05-08-2021 MCHC (RBC) [Mass/Vol] 34.0 g/dL 32-36 [facility] Work Phone: No Panel Informationon 05-08 Estimated GFR (MDRD) Amer 76 mL/min >60 [facility] Work Phone: Comment on above: GFR Calc Estimated GFR (MDRD) Non-Af Amer 63 mL/min >60 [facility] Work Phone: Comment on above: Non- GFR Calc Thyroid Stimulating Hormone (TSH) 2.63 uIU/mL 0.358-3.74 [facility] Work Phone: Platelets bldon 05-08-2021 Platelets (Bld) [#/Vol] 345 10*3/uL 150-450 [facility] Work Phone: Serum or plasma albumin wilma urement (mass/volume)on 05-08-2021 Albumin [Mass/Vol] 3.5 g/dL 3.2-5.0 [facility] Work Phone: Serum or plasma albumin/glob ulin mass ratioon 05-08-2021 Albumin/Globulin [Mass ratio] 0.9 {ratio} 0.9-2.4 [facility] Work Phone: Serum or plasma calcium wilma urement (mass/volume)on 05-08-2021 Calcium [Mass/Vol] 9.4 mg/dL 8.5-10.1 [facility] Work Phone: Serum or plasma cholesterol in HDL measurement (mass/volume)on 05-08-2021 Cholesterol in HDL [Mass/Vol] 48 mg/dL [facility] Work Phone: Comment on above: The drugs N-Acetylcy steine and Metamizole may falsely depress this assay. Reference Range HDL <40 mg/dL Low HDL Cholesterol HDL >or= 60 mg/dL High HDL Cholesterol Serum or plasma cholesterol in VLDL measurement (mass/volume)on 05-08-2021 Cholesterol in VLDL [Mass/Vol] 19 mg/dL 5-40 [facility] Work Phone: Serum or plasma creatinine m easurement (mass/volume)on 05-08-2021 Creatinine [Mass/Vol] 0.93 mg/dL 0.55-1.02 [facility] Work Phone: Comment on above: The validity of the calculated GFR & GFRAA in patients over 70 years has not been determined. Clinical correlation is essential. Serum or plasma low density lipoprotein (LDL) cholesterol measurement (mass/volume)on 05-08-2021 Cholesterol in LDL [Mass/Vol] 87 mg/dL 0-130 [facility] Work Phone: Serum or plasma urea nitroge n measurement (mass/volume)on 05-08-2021 Urea nitrogen [Mass/Vol] 16 mg/dL 7-18 [facility] Work Phone: Thin prep Papanicolaou smear with manual screeningon 05-08-2021 Thin prep Papanicolaou smear with manual screening 13 U/L 15-37 [facility] Work Phone: Thin prep Papanicolaou smear with manual screening 6 5-15 [facility] Work Phone: Provider Note - ED v2on [...] numbness/tingling/radiation of pain and any other symptoms. States had a wrist injury many years ago, [...] of forearm, no swelling. Gait unremarkable. Integumentary: [place], warm, dry, and Intact. No open areas [...] VITAL SIGNS: T PRBP SpO2O2(LPM) %FiO2 Method 21-Sep-2019 12:13:[id number] CLINICAL IMPRESSION Diagnosis/Annotation: ED Dx Name:Right wrist fracture Code:S62.101A Dispostion: discharged Type: home ATTESTATION CRITICAL CARE TIME Is this a critically ill patient: no Electronic Signatures: Heidi Dougherty (RESEARCH INSTRUMENTATION TECHNICIAN-COLORS CUSTODIAN) (Signed 21-Sep-2019 15:28) Authored: Provider Note - ED v2 Last Updated: 21-Sep-2019 15:28 by Heidi Dougherty (RESEARCH INSTRUMENTATION TECHNICIAN-COLORS CUSTODIAN) [facility] WRIST COMPLT MIN 3 VIEWSon 0 09-21-2019 WRIST COMPLT MIN 3 VIEWS Patient Name: CINDY WARREN STUDY: WRIST COMPLT; MIN 3 VIEWS; 09/21/2019 12:30 pm INDICATION: Fell and injured R wrist. COMPARISON: None. ACCESSION NUMBER(S): [id number] ORDERING CLINICIAN: HEIDI DOUGHERTY FINDINGS: Multiple views [...] Electronically signed by: MARY ANN CHAUDHARI MD [facility] Vital Signs Date Time Vital Sign Value Performing Clinician Facility 09-28-2024 09:57-0400 Body mass index (BMI) [Ratio] 26.63 kg/m2 Margaret Garcia MD Work Phone[facility] 09-28-2024 09:57-0400 Body weight 72.6 kg Margaret Garcia MD Work Phone: [facility] 09-28-2024 09:57-0400 SaO2% (BldA) [Mass fraction] 99 % Margaret Garcia MD Work Phone: [facility] 09-11-2024 16:22-0400 Body temperature 98.7 [degF] Dr. Hansa Ndiaye MD Work Phone: [facility] 09-11-2024 16:22-0400 Diastolic blood pressure 78 mm[Hg] Dr. Hansa Ndiaye MD Work Phone: [facility] 09-11-2024 16:22-0400 Heart rate 63 /min Dr. Hansa Ndiaye MD Work Phone: [facility] 09-11-2024 16:22-0400 Respiratory rate 13 /min Dr. Hansa Ndiaye MD Work Phone: [facility] 09-11-2024 16:22-0400 SaO2% (BldA) [Mass fraction] 98 % Dr. Hansa Ndiaye MD Work Phone: [facility] 09-11-2024 16:22-0400 Systolic blood pressure 136 mm[Hg] Dr. Hansa Ndiaye MD Work Phone: [facility] 09-11-2024 12:16-0400 Body mass index (BMI) [Ratio] 27.9 kg/m2 Dr. Hansa Ndiaye MD Work Phone: [facility] 09-11-2024 12:16-0400 Body weight 76.[address] Hansa Ndiaye MD Work Phone: [facility] 09-11-2024 12:12-0400 Body height 165.[address] Hansa Ndiaye MD Work Phone: [facility] 03-31-2024 10:58-0500 Body mass index (BMI) [Ratio] 27.18 kg/m2 Margaret Garcia MD Work Phone: [facility] 03-31-2024 10:58-0500 Body weight 74.1 kg Margaret Garcia MD Work Phone: [facility] 03-31-2024 10:58-0500 SaO2% (BldA) [Mass fraction] 98 % Margaret Garcia MD Work Phone: [facility] 09-24-2023 11:23-0400 Body mass index (BMI) [Ratio] 25.94 kg/m2 Margaret Garcia MD Work Phone: [facility] 09-24-2023 11:23-0400 Body weight 70.7 kg Margaret Garcia MD Work Phone: [facility] 09-24-2023 11:23-0400 Diastolic blood pressure 73 mm[Hg] Margaret Garcia MD Work Phone: [facility] 09-24-2023 11:23-0400 Heart rate 59 /min Margaret Garcia MD Work Phone: [facility] 09-24-2023 11:23-0400 SaO2% (BldA) [Mass fraction] 99 % Margaret Garcia MD Work Phone: [facility] 09-24-2023 11:23-0400 Systolic blood pressure 132 mm[Hg] Margaret Garcia MD Work Phone: [facility] 03-26-2023 08:46-0500 Body temperature 97.1 [degF] Dr. Hansa Ndiaye Work Phone: [facility] 03-26-2023 08:45-0500 Diastolic blood pressure 61 mm[Hg] Dr. Hansa Ndiaye Work Phone: [facility] 03-26-2023 08:45-0500 Heart rate 62 /min Dr. Hansa Ndiaye Work Phone: [facility] 03-26-2023 08:45-0500 Respiratory rate 16 /min Dr. Hansa Ndiaye Work Phone: [facility] 03-26-2023 08:45-0500 SaO2% (BldA) [Mass fraction] 100 % Dr. Hansa Ndiaye Work Phone: [facility] 03-26-2023 08:45-0500 Systolic blood pressure 114 mm[Hg] Dr. Hansa Ndiaye Work Phone: [facility] 03-26-2023 06:58-0500 Body height 165.[address] Hansa Ndiaye Work Phone: [facility] 03-26-2023 06:58-0500 Body mass index (BMI) [Ratio] 25.7 kg/m2 Dr. Hansa Ndiaye Work Phone: [facility] 03-26-2023 06:58-0500 Body weight [address] Hansa Ndiaye Work Phone: [facility] 12-10-2022 09:47-0400 Body height 165.[address] Hansa Ndiaye Work Phone: [facility] 12-10-2022 09:47-0400 Body mass index (BMI) [Ratio] 26.9 kg/m2 Dr. Hansa Ndiaye Work Phone: [facility] 12-10-2022 09:47-0400 Body weight 73.[address] Hansa Ndiaye Work Phone: [facility] 12-10-2022 09:47-0400 Diastolic blood pressure 82 mm[Hg] Dr. Hansa Ndiaye Work Phone: [facility] 12-10-2022 09:47-0400 Systolic blood pressure 126 mm[Hg] Dr. Hansa Ndiaye Work Phone: [facility] 11-26-2022 11:49-0400 Body mass index (BMI) [Ratio] 26.2 kg/m2 Dr. Hansa Ndiaye Work Phone: [facility] 11-26-2022 11:49-0400 Body weight 71.[address] Hansa Ndiaye Work Phone: [facility] 11-11-2022 08:46-0400 Body mass index (BMI) [Ratio] 26.9 kg/m2 Dr. Hansa Ndiaye Work Phone: [facility] 11-11-2022 08:46-0400 Body weight 73.[address] Hansa Ndiaye Work Phone: [facility] 11-11-2022 08:46-0400 Diastolic blood pressure 78 mm[Hg] Dr. Hansa Ndiaye Work Phone: [facility] 11-11-2022 08:46-0400 Systolic blood pressure 132 mm[Hg] Dr. Hansa Ndiaye Work Phone: [facility] 10-29-2022 09:04-0400 Diastolic blood pressure 86 mm[Hg] Keiry Shaffer MD Work Phone: [facility] 10-29-2022 09:04-0400 Heart rate 62 /min Keiry Shaffer MD Work Phone: [facility] 10-29-2022 09:04-0400 Systolic blood pressure 154 mm[Hg] Keiry Shaffer MD Work Phone: [facility] 10-29-2022 08:49-0400 Body weight 71.85 kg Keiry Shaffer MD Work Phone: [facility] 08-16-2023 10:49-0400 Body height 165.1 cm Mary Alice Berg MD Work Phone: [facility] 10-22-2022 10:49-0400 Body temperature 96.4 [degF] Mary Alice Berg MD Work Phone: [facility] 10-22-2022 10:49-0400 Body weight 72.58 kg Mary Alice Berg MD Work Phone: [facility] 10-22-2022 10:49-0400 Diastolic blood pressure 67 mm[Hg] Mary Alice Berg MD Work Phone: [facility] 10-22-2022 10:49-0400 Heart rate 63 /min Mary Alice Berg MD Work Phone: [facility] 10-22-2022 10:49-0400 SaO2% (BldA) [Mass fraction] 99 % Mary Alice Berg MD Work Phone: [facility] 10-22-2022 10:49-0400 Systolic blood pressure 139 mm[Hg] Mary Alice Berg MD Work Phone: [facility] 10-15-2022 13:03-0400 Body height 165.1 cm Abigail Selena RESEARCH INSTRUMENTATION TECHNICIAN.COLORS CUSTODIAN Work Phone: [facility] 10-15-2022 13:03-0400 Body weight 72.6 kg Abigail Selena RESEARCH INSTRUMENTATION TECHNICIAN.COLORS CUSTODIAN Work Phone: [facility] 10-15-2022 13:03-0400 Diastolic blood pressure 59 mm[Hg] Abigail Selena RESEARCH INSTRUMENTATION TECHNICIAN.COLORS CUSTODIAN Work Phone: [facility] 10-15-2022 13:03-0400 Heart rate 67 /min Abigail Selena RESEARCH INSTRUMENTATION TECHNICIAN.COLORS CUSTODIAN Work Phone: [facility] 10-15-2022 13:03-0400 Systolic blood pressure 127 mm[Hg] Abigail Selena RESEARCH INSTRUMENTATION TECHNICIAN.COLORS CUSTODIAN Work Phone: [facility] 10-05-2022 08:08-0400 Body height 165.[address] Hansa Ndiaye Work Phone: [facility] 10-05-2022 08:08-0400 Body mass index (BMI) [Ratio] 26.4 kg/m2 Dr. Hansa Ndiaye Work Phone: [facility] 10-05-2022 08:08-0400 Body temperature 97.1 [degF] Dr. Hansa Ndiaye Work Phone: [facility] 10-05-2022 08:08-0400 Body weight 71.[address] Hansa Ndiaye Work Phone: [facility] 10-05-2022 08:08-0400 Diastolic blood pressure 83 mm[Hg] Dr. Hansa Ndiaye Work Phone: [facility] 10-05-2022 08:08-0400 Heart rate 61 /min Dr. Hansa Ndiaye Work Phone: [facility] 10-05-2022 08:08-0400 Respiratory rate 18 /min Dr. Hansa Ndiaye Work Phone: [facility] 10-05-2022 08:08-0400 SaO2% (BldA) [Mass fraction] 99 % Dr. Hansa Ndiaye Work Phone: [facility] 10-05-2022 08:08-0400 Systolic blood pressure 152 mm[Hg] Dr. Hansa Ndiaye Work Phone: [facility] 10-04-2022 13:18-0400 Body temperature 98.01 [degF] Khalif Hernández MD Work Phone: [facility] 10-04-2022 13:18-0400 Body weight 71.67 kg Khalif Hernández MD Work Phone: [facility] 10-04-2022 13:18-0400 Diastolic blood pressure 74 mm[Hg] Khalif Hernández MD Work Phone: [facility] 10-04-2022 13:18-0400 Heart rate 64 /min Khalif Hernández MD Work Phone: [facility] 10-04-2022 13:18-0400 Respiratory rate 16 /min Khalif Hernández MD Work Phone: [facility] 10-04-2022 13:18-0400 SaO2% (BldA) [Mass fraction] 97 % Khalif Hernández MD Work Phone: [facility] 10-04-2022 13:18-0400 Systolic blood pressure 128 mm[Hg] Khalif Hernández MD Work Phone: [facility] 09-05-2022 18:55-0400 Heart rate 75 /min [facility] 09-05-2022 18:55-0400 Respiratory rate 18 /min [facility] 09-05-2022 18:55-0400 SaO2% (BldA) [Mass fraction] 98 % [facility] 09-05-2022 16:36-0400 Body height 165.1 cm [facility] 09-05-2022 16:36-0400 Body mass index (BMI) [Ratio] 26.6 kg/m2 [facility] 09-05-2022 16:36-0400 Body temperature 98 [degF] [facility] 09-05-2022 16:36-0400 Body weight 72.7 kg [facility] 09-05-2022 16:36-0400 Diastolic blood pressure 72 mm[Hg] [facility] 09-05-2022 16:36-0400 Systolic blood pressure 170 mm[Hg] [facility] 06-02-2021 12:16-0400 Diastolic blood pressure 70 mm[Hg] [facility] Work Phone: 06-02-2021 12:16-0400 Heart rate 78 /min [facility] Work Phone: 06-02-2021 12:16-0400 Respiratory rate 18 /min [facility] Work Phone: 06-02-2021 12:16-0400 SaO2% (BldA) [Mass fraction] 99 % [facility] Work Phone: 06-02-2021 12:16-0400 Systolic blood pressure 130 mm[Hg] [facility] Work Phone: 06-02-2021 10:40-0400 Body height 165.1 cm [facility] Work Phone: 06-02-2021 10:40-0400 Body mass index (BMI) [Ratio] 26.6 kg/m2 [facility] Work Phone: 06-02-2021 10:40-0400 Body temperature 97.5 [degF] [facility] Work Phone: 06-02-2021 10:40-0400 Body weight 72.57 kg [facility] Work Phone: Encounters Encounter Date Encounter Type Care Provider Facility Start: 01-16-2025 End: 01-17-2025 Emergency department patient visit Augusto Choudhary Facility:[facility] Start: 11-27-2024 Encounter for genera l adult medical examination without abnormal findings Hansa Ndiaye [facility] Start: 11-21-2024 End: 11-21-[address] Hansa Ndiaye MD Work Phone: [facility] [place] Start: 11-21-2024 End: 11-21-[address] Hansa Ndiaye MD [facility] [place] Work Phone: Start: 11-21-2024 End: 11-21-2024 ambulatory Hansa Ndiaye Facility:[facility] Start: 11-02-2024 End: 11-02-2024 Telephone encounter Joaquin Pierce Research Coordinator [facility] Start: 10-15-2024 End: 10-17-2024 ambulatory Margaret Garcia MD Work Phone: Neurology Comment on above: Prescribed Wrong Typ e of Ondansetron Start: 09-28-2024 End: 09-28-2024 Office outpatient visit 40 minutes Margaret Garcia MD Work Phone: Neurology Comment on above: Parkinson's disease without dyskinesia or fluctuating manifestations (HCC) Start: 09-28-2024 End: 09-28-2024 ambulatory MARGARET GARCIA Facility:[facility] Start: 09-11-2024 End: 09-11-2024 Emergency department patient visit Dr. Hansa Ndiaye MD Work Phone: -Emergency Department Work Phone: Start: 08-31-2024 End: 08-31-2024 Telephone encounter Joaquin Pierce Research Coordinator [facility] Start: 07-06-2024 End: 07-08-2024 ambulatory Margaret Garcia MD Work Phone: Neurology Comment on above: medication/eyes Start: 05-30-2024 End: 05-30-2024 ambulatory Angela Carvajal PSYD Work Phone: [facility] Comment on above: Depression, unspecif ied depression type (Primary Dx); Parkinson's disease, unspecified whether dyskinesia present, unspecified whether manifestations fluctuate (HCC) Carb/Levo Start: 05-30-2024 End: 05-30-2024 Telemedicine consultation with patient Angela Andreea Yang PSYD Work Phone: [facility] Start: 04-13-2024 End: 04-13-2024 ambulatory Hansa Ndiaye Facility:[facility] Start: 03-31-2024 End: 03-31-2024 ambulatory MARGARET GARCIA Facility:[facility] Start: 03-31-2024 End: 03-31-2024 Office outpatient visit 40 minutes Margaret Garcia MD Work Phone: Neurology Comment on above: Parkinson's disease without dyskinesia or fluctuating manifestations (HCC); Anxiety; Depression, unspecified depression type Start: 03-15-2024 End: 03-15-2024 ambulatory Hansa Ndiaye Facility:[facility] Start: 02-29-2024 End: 02-29-2024 [facility] Angela Andreea Yang PSYD Work Phone: [facility] Comment on above: Major depressive dis order, recurrent episode, moderate (HCC) (Primary Dx); Parkinson's disease, unspecified whether dyskinesia present, unspecified whether manifestations fluctuate (HCC) Start: 2024 End: 02-24-2024 ambulatory Margaret Garcia MD Work Phone: Neurology Comment on above: Begin Carb/Levo 25-1 00MG Tab Start: 01-21-2024 End: 01-21-2024 ambulatory Hansa Ndiaye Facility:[facility] Start: 12-21-2023 End: 12-21-2023 [facility] Angela Carvajal PSYD Work Phone: [facility] Comment on above: Major depressive dis order, recurrent episode, moderate (HCC) (Primary Dx); Parkinson's disease, unspecified whether dyskinesia present, unspecified whether manifestations fluctuate (HCC) Start: 11-06-2023 End: 11-06-2023 Telephone encounter Margaret Garcia MD Work Phone: Neurology Comment on above: Headache Start: 11-03-2023 End: 11-03-2023 [facility] Angela Carvajal PSYD Work Phone: [facility] Comment on above: Parkinson's disease, unspecified whether dyskinesia present, unspecified whether manifestations fluctuate (HCC) (Primary Dx); Major depressive disorder, recurrent episode, moderate (HCC) Start: 10-15-2023 End: 10-15-2023 ambulatory Parish BORGES Work Phone: [facility] Comment on above: Research exam (Prima ry Dx) Start: 10-15-2023 End: 10-15-2023 Patient encounter status Parish BORGES Work Phone: [facility] Work Phone: Start: 10-15-2023 End: 10-15-2023 Telemedicine consultation with patient Parish BORGES Work Phone: [facility] Start: 10-05-2023 End: 10-05-2023 ambulatory Angela Carvajal PSYD Work Phone: [facility] Comment on above: Parkinson's disease without dyskinesia or fluctuating manifestations (HCC); Anxiety; Depression, unspecified depression type Start: 10-05-2023 End: 10-05-2023 Telemedicine consultation with patient Angela Carvajal PSYD Work Phone: [facility] Start: 09-28-2023 Telephone encounter Miryam sosa Research Coordinator Work Phone: [facility] Comment on above: Research ([id number] PDG GREG) Start: 09-24-2023 End: 09-24-2023 Patient encounter procedure Margaret Garcia MD Work Phone: Neurology Comment on above: Parkinson's disease without dyskinesia or fluctuating manifestations (HCC) (Primary Dx); Anxiety; Depression, unspecified depression type Start: 06-16-2023 End: 06-16-2023 ambulatory Miryam Tran Research Coordinator Work Phone: [facility] Comment on above: Research study patimartha nt (Primary Dx) Start: 06-16-2023 End: 06-16-2023 Patient entered into trial Miryam Tran Research Coordinator Work Phone: [facility] Work Phone: Start: 06-16-2023 End: 06-16-2023 Telemedicine consultation with patient Miryam Tran Research Coordinator Work Phone: [facility] Start: 06-01-2023 End: 06-01-[address] Hansa Ndiaye Work Phone: [facility] Work Phone: Start: 06-01-2023 End: 06-01-[address] Hansa Ndiaye Work Phone: [facility]-Laboratory Work Phone: Start: 04-30-2023 ambulatory Marybel Olmos Research Coordinator [facility] Comment on above: Parkinson's Foundati on PDGeneration Study Start: 04-30-2023 E-mail encounter fro m caregiver Marybel Olmos Research Coordinator [facility] Start: 03-26-2023 Non-patient / Non-visit Dr. Lawrence Ndiaye Work Phone: [facility] Start: 03-26-2023 End: 03-26-2023 Admission to same day surgery center Dr. Hansa Ndiaye Work Phone: [facility]-Endoscopy Work Phone: Start: 02-24-2023 End: 02-24-[address] Hansa Ndiaye Work Phone: [facility]-Physical Therapy Work Phone: Start: 01-19-2023 End: 01-19-[address] Hansa Ndiaye Work Phone: [facility] Work Phone: Start: 01-19-2023 End: 01-19-[address] Hansa Ndiaye Work Phone: [facility]-Outpatient Breast Imaging Work Phone: Start: 12-23-2022 End: 12-23-[address] Hansa Ndiaye Work Phone: [facility] Work Phone: Start: 12-23-2022 End: 12-23-[address] Hansa Ndiaye Work Phone: [facility]-Laboratory, Specimen Work Phone: Start: 12-10-2022 End: 12-10-[address] Hansa Ndiaye Work Phone: [facility] [place] Work Phone: Start: 12-04-2022 End: 12-04-2022 Patient encounter procedure Aleksander Thao MD Work Phone: [facility] Comment on above: Parkinson disease (H CC) (Primary Dx); Resting tremor; Anxiety Start: 11-28-2022 Telephone encounter Keiry Robb Work Phone: Neurology Start: 11-28-2022 End: 11-28-2022 Subsequent hospital visit by physician [employer] [facility] (I-Stat/1.5t) Work Phone: Radiology Comment on above: Resting tremor [G25. 2] Start: 11-26-2022 Non-patient / Non-visit Dr. Lawrence Ndiaye Work Phone: [facility] Work Phone: Start: 11-11-2022 End: 11-11-[address] Hansa Ndiaye Work Phone: [facility] Work Phone: Start: 11-06-2022 Telephone encounter Keiry Robb Work Phone: [facility] Comment on above: Results Start: 11-06-2022 End: 11-06-2022 ambulatory Emg 850) Neurology Start: 11-06-2022 End: 11-06-2022 Patient encounter procedure Emg 2 Neur [facility] (Max Weight: 850) [facility] Start: 11-03-2022 Telephone encounter Keiry Robb Work [...] sedative drug (HCC) Start: 10-16-2022 Telephone encounter Abigailheriberto cavanaugh APRN.COLORS CUSTODIAN Work Phone: Gastroenterology Comment on above: Medication Preauthor ization (Phenergan) Start: 10-15-2022 End: 10-15-2022 Office outpatient new 30 minutes Abigail Selena RESEARCH INSTRUMENTATION TECHNICIAN.COLORS CUSTODIAN Work Phone: Gastroenterology Comment on above: Esophageal dysphagia (Primary Dx); Colon cancer screening; Family history of colon cancer in mother Start: 10-13-2022 End: 10-13-[address] Hansa Ndiaye Work Phone: [facility] Work Phone: Start: 10-13-2022 End: 10-13-[address] Hansa Ndiaye Work Phone: [facility]-Ultrasound, [facility] Work Phone: Start: 10-10-2022 End: 10-10-[address] Hansa Ndiaye Work Phone: [facility] [place] Work Phone: Start: 10-05-2022 End: 10-05-2022 Emergency department patient visit Dr. Hansa Ndiaye Work Phone: [facility]-Emergency Department Work Phone: Start: 10-04-2022 End: 10-04-2022 Patient encounter procedure Khalif Hernández MD Work Phone: [facility] Comment on above: Epigastric abdominal pain (Primary Dx) Start: 09-18-2022 End: 09-18-2022 Subsequent hospital visit by physician Xr [facility] Work Phone: Radiology Comment on above: Wrist injury, left, initial encounter [S69.92XA] Start: 09-17-2022 Non-patient / Non-visit Dr. Lawrence Ndiaye Work Phone: [facility] Start: 09-16-2022 End: 09-16-[address] Hansa Ndiaye Work Phone: [facility]-Pulmonary Services/Neurology Work Phone: Start: 09-05-2022 End: 09-05-2022 Emergency department patient visit [facility]-Emergency Department Work Phone: Start: 09-04-2022 End: 09-04-2022 ambulatory [facility] Work Phone: Start: 09-04-2022 End: 09-04-2022 Patient encounter procedure [facility]-Radiology, [facility] Work Phone: Start: 05-01-2022 End: 05-01-2022 ambulatory [facility] Work Phone: Start: 05-01-2022 End: 05-01-2022 Patient encounter procedure [facility]-Laboratory, [facility] Start: 01-06-2022 End: 01-06-[address] Hansa Ndiaye Work Phone: [facility]-Outpatient Breast Imaging Start: 12-31-2021 Non-patient / Non-visit Dr. Lawrence Ndiaye Work Phone: [facility] Start: 08-12-2021 End: 08-12-2021 Patient encounter procedure [facility]-Ultrasound, [facility] Start: 06-02-2021 End: 06-02-2021 Emergency department patient visit [facility]-Emergency Department Start: 05-08-2021 End: 05-08-2021 Patient encounter procedure [facility], [facility] Procedures Date Procedure Procedure Detail [...] Radex wrist complete minimum 3 views Deanna Ty PA-C Work Phone: Start: 09-04-2022 Plain chest X-ray Start: 01-06-2022 Screening mammography Cezar Ndiaye Work Phone: Start: 08-12-2021 US scan of thyroid Plan of Treatment Date Care Activity Detail Author Start: 10-29-2025 DIABETES SCREEN DIABETES SCREEN [facility] Start: 10-29-2025 Diabetes Screening [facility] Start: 01-24-2025 End: 01-24-2025 Patient encounter procedure 01/24/2025 11:00 AM EST Office Visit Neurology [address] [address] Margaret Garcia MD [address] [address] follow up 4 months 60 mins per [facility] Comment on above: follow up 4 months 6 0 mins per [facility] Start: 11-07-2024 Influenza vaccination Influenza Vacc ine (#1) [facility] Start: 09-28-2024 End: 09-28-2024 Patient encounter procedure 09/28/2024 10:00 AM EDT Office Visit Neurology [address] [address] Margaret Garcia MD [address] [address] 6 Month follow up- 60 minutes per [facility] Comment on above: 6 Month follow up- 6 0 minutes per [facility] Start: 09-12-2024 [facility] Start: 09-11-2024 [facility] Start: 09-11-2024 End: 09-11-2024 [facility] Start: 08-29-2024 End: 08-29-2024 ambulatory 08/29/2024 8:00 AM EDT [facility] [address] [place] [address] Angela Carvajal PSYD [address] [place] [address] [facility] Start: 05-30-2024 End: 05-30-2024 ambulatory 05/30/2024 8:00 AM EDT [facility] [address] [place] [address] Angela Carvajal, RAFFYYD [address] [place] [address] [facility] Start: 05-10-2024 Covid-19 Vaccine ( season) Covid-19 Vaccine ( season) [facility] Start: 03-31-2024 End: 03-31-2024 Patient encounter procedure 03/31/2024 11:00 AM EST Office Visit Neurology [address] [address] Margaret Garcia MD [address] [address] 6 month follow up- 60 min per [facility] Comment on above: 6 month follow up- 6 0 min per [facility] Start: 03-09-2024 Advance Directive Discussion Advance Directive Discussion [facility] Start: 02-29-2024 End: 02-29-2024 ambulatory 02/29/2024 8:00 AM EST [facility] [address] [facility] [place] [address] Angela Carvajal PSYD [address] [place] [address] [facility] Start: 02-23-2024 RSV Vaccine (1 - 1-d ose 75+ series) RSV Vaccine (1 - 1-dose 75+ series) [facility] Start: 12-21-2023 End: 12-21-2023 ambulatory 12/21/2023 8:00 AM EDT [facility] [facility] [address] [place] [address] Angela Carvajal PSYD [address] [place] [address] [facility] Start: 11-08-2023 Covid-19 Vaccine ( season) Covid-19 Vaccine ( [facility]) [facility] Start: 11-08-2023 Influenza vaccination Influenza Vacc ine (#1) [facility] Start: 10-20-2023 End: 10-20-2023 Follow-up encounter 10/20/2023 12:00 PM EDT Distance [facility] [address] [place] [address] Angela Carvajal PSYD [address] [place] [address] Follow up [facility] Comment on above: Follow up Start: 10-15-2023 End: 10-15-2023 ambulatory 10/15/2023 3:00 PM EDT Distance [facility] [address] [place] [address] [facility], [facility] [address] [place] [address] [facility] Comment on above: [facility] Start: 10-05-2023 End: 10-05-2023 ambulatory 10/05/2023 2:00 PM EDT [facility] [address] [place] [address] Angela Carvajal, PSYD [address] [place] [address] Parkinson's disease without dyskinesia or fluctuating manifestations (HCC) [G20.A1] [facility] Comment on above: Parkinson's disease without dyskinesia or fluctuating manifestations (HCC) [G20.A1] Start: 04-22-2023 Covid-19 Vaccine () Covid-19 Vaccine () [facility] Start: 03-31-2023 Medicare Annual Well ness Visit Medicare Annual Wellness Visit [facility] Start: 03-26-2023 Patient discharge [facility] Start: 03-23-2023 DIABETES SCREEN DIABETES SCREEN [facility] Start: 03-09-2023 Advance Directive Discussion Advance Directive Discussion [facility] Start: 03-09-2023 Depression Assessment Depression Ass essment [facility] Start: 11-07-2022 Covid-19 Vaccine () Covid-19 Vaccine () [facility] Start: 11-07-2022 Influenza vaccination C [facility] Start: 10-29-2022 End: 12-29-2022 25-hydroxyvitamin D3 [Mass/volume] in Serum or Plasma [facility] Work Phone: Comment on above: Expected: 10/29/2022 , Expires: 12/29/2022 Start: 10-29-2022 End: 12-29-2022 ANTI HMGCR AUTOANTIBODIES [facility] Work Phone: Comment on above: Expected: 10/29/2022 , Expires: 12/29/2022 Start: 10-29-2022 End: 12-29-2022 COPPER BLOOD [facility] Work Phone: Comment on above: Expected: 10/29/2022 , Expires: 12/29/2022 Start: 10-29-2022 End: 12-29-2022 HIV 1+2 Ab [Presence] in Serum or Plasma by Immunoassay [facility] Work Phone: Comment on above: Expected: 10/29/2022 , Expires: 12/29/2022 Start: 10-29-2022 End: 12-29-2022 Methylmalonate [Moles/volume] in Serum or Plasma [facility] Work Phone: Comment on above: Expected: 10/29/2022 , Expires: 12/29/2022 Start: 10-29-2022 End: 12-29-2022 SYPHILIS TOTAL W/REFLEX [facility] Work Phone: Comment on above: Expected: 10/29/2022 , Expires: 12/29/2022 Start: 10-29-2022 End: 12-29-2022 Zinc [Mass/volume] in Serum or Plasma [facility] Work Phone: Comment on above: Expected: 10/29/2022 , Expires: 12/29/2022 Start: 10-05-2022 [facility] Start: 03-09-2022 ADVANCE DIRECTIVE DISCUSSION ADVANCE DIRECTIVE DISCUSSION [facility] Start: 03-09-2022 DEPRESSION ASSESSMENT DEPRESSION ASS ESSMENT [facility] Start: 2014 BONE DENSITY BONE DENSITY [facility] Start: 2014 Bone Density Screening Bone Density Screening [facility] Start: 2014 PNEUMOCOCCAL: 65+ (1 - PCV) PNEUMOCOCCAL: 65+ (1 - PCV) [facility] Start: 2014 Screening for osteoporosis Bone Density Screening [facility] Start: 08-05-2013 Screening for malign ant neoplasm of breast Mammogram Screening [facility] Start: 2009 RSV Vaccine (1 - 1-d ose 60+ series) RSV Vaccine (1 - 1-dose 60+ series) [facility] Start: 1999 SHINGRIX VACCINE (1 of 2) SHINGRIX VACCINE (1 of 2) [facility] Start: 1994 COLOGUARD (FIT-DNA) COLOGUARD (FIT-D NA) [facility] Start: 1994 Colonoscopy COLONOSCOPY [facility] Start: 1994 COLORECTAL CANCER SCREENING COLORECTAL CANCER SCREENING [facility] Start: [address] COLONOGRAPHY [facility] Start: 1994 FECAL OCCULT BLOOD FECAL OCCULT BLOO D [facility] Start: 1994 Lipid 1996 panel - S deep or Plasma Lipid Screening [facility] Start: 1994 Lipid panel Lipid Screening [facility] Start: 1994 LIPID SCREEN LIPID SCREEN [facility] Start: 1994 Screening for malign ant neoplasm of colon [facility] Start: 1994 SIGMOIDOSCOPY SIGMOIDOSCOPY [facility] Start: 1989 Mammography [facility] Start: 1989 Screening for malign ant neoplasm of breast Mammogram Screening [facility] Start: 02-23-1968 Urine microalbumin profile [facility] Start: 1967 Anxiety Screening Anxiety Screening [facility] Start: 1967 Depression Screening Depression Scre ening [facility] Start: 1967 HEPATITIS C SCREENING HEPATITIS C [facility] Start: 1967 Hepatitis C screening Hepatitis C [facility] Start: 1959 Meningococcal B Vacc ine (1 of 4 - Increased Risk) Meningococcal B Vaccine (1 of 4 - Increased Risk) [facility] Start: 1959 Meningococcal B Vacc ine (1 of 5 - Increased Risk) Meningococcal B Vaccine (1 of 5 - Increased Risk) [facility] Start: 1959 Meningococcal B Vacc ine: Consider Based On Risk (1 of 4 - Increased Risk) Meningococcal B Vaccine: Consider Based On Risk (1 of 4 - Increased Risk) [facility] Start: 1959 MENINGOCOCCAL B: Consider based on risk (1 of 4 - Increased Risk) MENINGOCOCCAL B: Consider based on risk (1 of 4 - Increased Risk) [facility] Start: 1955 Pneumococcal Vaccine : 65+ (1 - PCV) Pneumococcal Vaccine: 65+ (1 - PCV) [facility] Start: 1955 PNEUMOCOCCAL: 65+ (1 - PCV) PNEUMOCOCCAL: 65+ (1 - PCV) [facility] Start: 12-17-1951 MENINGOCOCCAL CONJUG ATE (1 - Risk 2-dose series) MENINGOCOCCAL CONJUGATE (1 - Risk 2-dose series) [facility] Start: 1951 Meningococcal Conjug ate Vaccine (1 - Risk 2-dose series) Meningococcal Conjugate Vaccine (1 - Risk 2-dose series) [facility] Start: 05-23-1950 HIB (1 of 1 - Risk 1-dose series) HIB (1 of 1 - Risk 1-dose series) [facility] Start: 05-23-1950 Hib Vaccine (1 of 1 - Risk 1-dose series) Hib Vaccine (1 of 1 - Risk 1-dose series) [facility] Colonoscopy [facility] End: 10-30-2023 EMG(NEURO/NI) EMG(NEURO/NI) EMG Routine Generalized weakness 1 Occurrences starting 10/29/2022 until 10/30/2023 [facility] Work Phone: Comment on above: 1 Occurrences starti ng 10/29/2022 until 10/30/2023 MG Breast - bilatera l Screening [facility] End: 11-28-2023 Mri brain brain stem w/o contrast material MRI BRAIN WO IVC Radiology Routine Resting tremor 1 Occurrences starting 10/29/2022 until 11/28/2023 [facility] Work Phone: Comment on above: 1 Occurrences starti ng 10/29/2022 until 11/28/2023 Patient Education [facility] Work Phone: Patient referral [facility] Work Phone: End: 11-14-2023 Radiologic exam esophagus single contrast study XR ESOPHAGRAM Radiology Routine Esophageal dysphagia 1 Occurrences starting 10/15/2022 until 11/14/2023 [facility] Work Phone: Comment on above: 1 Occurrences starti ng 10/15/2022 until 11/14/2023 End: 10-16-2023 Screening colonoscopy COLONOSCOPY SCREENING Endoscopy Routine Colon cancer screening Family history of colon cancer in mother 1 Occurrences starting 10/15/2022 until 10/16/2023 [facility] Work Phone: Comment on above: 1 Occurrences starti ng 10/15/2022 until 10/16/2023 [facility] Immunizations Immunization Date Immunization Notes Care Provider Néstor mccullough 12-16-2023 influenza virus vacc ine, unspecified formulation Margaret Garcia MD Work Phone: [facility] 12-20-2022 influenza virus vacc ine, unspecified formulation Margaret Garcia MD Work Phone: [facility] 02-20-2022 influenza virus vacc ine, unspecified formulation Keiry Shaffer MD Work Phone: [facility] Payers Date Payer Category Payer Self-pay [id number] 2023 Medicare [id number] 2023 Unknown [id number] 2022 Private Health Insurance [id number] 2014 Medicare [id number] Medicare [id number] Medicare MEDICARE PART A B [id number] Unknown [id number] Unknown [id number] Unknown [id number] Unknown [id number] Unknown [id number] Unknown [id number] Unknown [id number] Social History Date Type Detail Facility Start: 06-02-2021 End: 03-23-2023 Tobacco smoking status NHIS Unknown if ever smoked [facility] Start: 1950 Sex Assigned At Female [facility] Start: 09-18-2022 End: 09-11-2024 Tobacco smoking status NHIS Never smoked tobacco [facility] Start: 09-18-2022 Tobacco use and exposure Smokeless tobacco non-user [facility] Start: 10-04-2022 End: 10-15-2022 History of Social function [facility] Start: 10-04-2022 End: 10-15-2022 Tobacco use panel [facility] Start: 06-09-2022 Gender identity Identifies as female gender (finding) [facility] Start: 06-09-2022 Sexual orientation Heterosexual (fin ding) [facility] Start: 06-04-2020 National Score (1-100), lower number is lower risk 74 [facility] Start: 10-22-2022 End: 09-28-2024 Alcohol intake Lifetime non-drinker (finding) [facility] NEGATED: Highlighted row [facility] Goals Date Patient Goal Desired Activity /State Mental Status Date Assessment Result Facility 09-11-2024 Cognitive function Level Of Cons ciousness Awake;Alert;Appropriate;Follow s Commands [facility] Work Phone: 03-26-2023 Cognitive function Level Of Consciousness Sedated [facility] Work Phone: 03-26-2023 Cognitive function Voice/Name [facility] Work Phone: 09-05-2022 Cognitive function Level Of Cons ciousness Awake;Appropriate;Lethargic [facility] Work Phone: 06-02-2021 Cognitive function Level Of Cons ciousness Awake;Alert;Appropriate;Follow s Commands [facility] Work Phone: Clinical Notes 09-18-2022 to 09-28-2024 Margaret Garcia MD - 09/28/2024 7:45 PM EDTPatient Instructions Note Date & Type Note Facility 09-28-2024 Note HNO ID: [id number] Author: MARGARET GARCIA MD Service: ? Author Type: Physician Type: Progress Notes Filed: 09/28/2024 19:48 Note Text: [facility] - FOLLOW UP EVALUATION Recording using Zenverge software for draft documentation of the visit was discussed with the patient/authorized loan representative; all questions welcomed and answered. Patient/authorized loan representative agreed to proceed I had the [...] Continue seeing psychology - Interval History: Cindy Prill Kelvin Warren is a 74-year-old female with a [...] feeling better during a recent vacation in [place]. She also experiences headaches on the top [...] by walking with a friend in her [employer] community and engaging in daily activities. She [...] this visit. Objective (more content not included)... [facility] 09-28-2024 History of Present illness Narrative [facility] - FOLLOW UP EVALUATION Recording using Zenverge software for draft documentation of the visit was discussed with the patient/authorized loan representative; all questions welcomed and answered. Patient/authorized loan representative agreed to proceed I had the [...] feeling better during a recent vacation in [place]. She also experiences headaches on the top [...] by walking with a friend [place] [facility] [place] and engaging in daily activities. She [...] Abs Lymph 1.00 - 4.00 k/uL 2.25 Bracken% % 7.8 Abs Bracken <0.87 k/uL 0.58 Eosin% % 3.2 Abs [...] ondansetron (Zofran) prescription has been sent to [facility] pharmacy; take one dose as needed [...] or around: 01/29/25 Level of service : 93624 (40-68 min). Time spent 49 min on the day of service, which included preparing to see the patient, [id number] patient care, completing clinical documentation, obtaining and/or [...] Margaret Garcia MD documented in this encounter [facility] 09-28-2024 Instructions Margaret Garcia MD [...] ondansetron (Zofran) prescription has been sent to [facility] pharmacy; take one dose as needed [...] or you can send a message through BringMeTheNews. You can also now schedule and select appointments through BringMeTheNews. Margaret Garcia MD documented in this encounter [facility] 09-11-2024 Discharge summary [facility] 09-11-2024 Radiology Diagnostic study note [facility] Imaging Services [address] [place] [address] CTA Chest W/WO Contrast MR#: [id number] Acct: [id number] Name: CINDY WARREN Rep #: [id number] : 1950 F 74 From: Abril Gomez MD PCP: Dr. Hansa Ndiaye MD Status: REG ER Study:CTA Chest W/WO Contrast Date of Exam: 09/11/24 Exam# [id number] Ordering Dr: Celio Diehl DO PROCEDURE: CTA [...] recommended to evaluate for stability/resolution. Reading Location: [id number] CC: Dr. Celio Hess DO; Dr. Hansa Ndiaye MD ~ Pattern Lease Inspector: Signed [facility] 09-11-2024 Discharge summary Note Date/Time September 11, 2024 4:06p m [facility] Medical Records Department [address] [place] [address] Emergency Department Summary 09/11/24 MR#: [id number] Acct: [id number] Name: CINDY WARREN Rep #:[id number] : [...] intact Psych: Cooperative, appropriate mood and affect [facility] Medical History Lichen sclerosus Wears glasses Non-smoker [...] % (Auto) 53.1 Lymph % (Auto) 35.2 Bracken % (Auto) 8.7 Eos % (Auto) 2.5 [...] of the left costophrenic angle. Reading Location: [facility] Chest CTA 09/11/24 15:25 IMPRESSION: 1. No acute thoracic finding. 2. Small ground-glass nodule within the right lower lobe. Follow-up CT chest in6-12 months is recommended to evaluate for stability/resolution. Reading Location: [facility] Discharge Plan Triage Chief Complaint: Chest Pain ED Provider: Celio Hess Dx/Rx/DC Orders Clinical Impression: Chest pain Instructions: Chest Pain O Prescriptions: No Action Dexilant 60 mg capsule,biphase [...] with your primary care physician. Print Language: Bahamian Disposition Disposition: Home, Self Care What to do if you have Problems For any increased pain, shortness of breath, bleeding, nausea or vomiting, chestpain, or any unexpected problems, contact your Primary Care Provider. Call [facility] ([phone]) or report to the closest Emergency Room. Call 911 if necessary. 09/11/24 1606 <Electronically signed by Celio Hess DO> Cosigner Signature (if applicable): CC: Dr. Hansa Ndiaye MD ~ Signed [facility] Work Phone: 1(416) 170-199907-06-2025 Radiology Diagnostic study note [facility] Imaging Services [address] [place], [place] [address] Chest PA and Lateral MR#: [id number] Acct: [id number] Name: CINDY WARREN Rep #: [id number] : 1950 F 74 From: Bashir Abarca MD PCP: Dr. Hansa Ndiaye MD Status: PRE ER Study:Chest PA and Lateral Date of Exam: 09/11/24 Exam# [id number] Ordering Dr: Provider ,Ed P. PROCEDURE: CHEST PA AND LATERAL 09/11/2024 [...] of the left costophrenic angle. Reading Location: [facility] CC: Dr. Hansa Ndiaye MD; ED PHYSICIAN PROVIDER ~ Pattern Lease Inspector: Signed [facility] Work Phone: 1(199) 761-914907-06-2025 Hospital Discharge instructionsAdditional Instructions Follow-up with your [...] your primary care physician to have this rechecked.[facility] Work Phone: 1(200) 285-231103-24-2025 History of Present illness Narrative* Angela Carvajal PSYD - 05/30/2024 8:00 AM EDT [facility] Psychology Progress Note Billing codes: Andreea Yang PSYCHOLOGY: FOLLOW-UP APPOINTMENT PROGRESS NOTE- Virtual Visit I have communicated my name and active licensure. The patient's identity and physical location wereverified at the time of this visit. Either the patient or their legal loan representative has been informed of the risks and benefits of -- and alternatives to -- treatment through a remote evaluation andconsents to proceed with the evaluation remotely. Today she is participating from her home in [place]. The patient was informed that this interview [...] of confidentiality were discussed. Cindy Warren 05/30/2024 [id number] PROVIDER: Angela Carvajal PSYD Service: Psychotherapy, 44 [...] Warren was most recently seen by this senior technical writer on 02/29/24 at which time we discussed [...] Carvajal PsyD Associate Staff, [facility]25 NoteHNO ID: [id number] Author: ANGELA CARVAJAL PSYD Service: ? Author Type: Psychologist Type: Progress Notes Filed: 05/30/2024 09:24 Note Text: [facility] Psychology Progress Note Billing codes: Andreea Yang PSYCHOLOGY: FOLLOW-UP APPOINTMENT PROGRESS NOTE- Virtual Visit I have communicated my name and active licensure. The patient's identity and physical location were verified at the time of this visit. Either the patient or their legal loan representative has been informed of the risks and benefits of -- and alternatives to -- treatment through a remote evaluation and consents to proceed with the evaluation remotely. Today she is participating from her home in [place]. The patient was informed that this interview [...] confidentiality were discussed. Cindy Loly Warren 05/30/2024 [id number] PROVIDER: Angela Carvajal PSYD Service: Psychotherapy, 44 [...] Warren was most recently seen by this senior technical writer on 02/29/24 at which time we discussed [...] grounding technique, distress tolera (more content not included)...[facility]01-23-2025 Instructions* Patient Instructions* Margaret Garcia MD - [...] or you can send a message through BringMeTheNews. You can also now schedule and select appointments through BringMeTheNews. Margaret Garcia MD documented in this encounterCity Hospital01-23-2025 NoteHNO ID: [id number] Author: MARGARET GARCIA MD Service: ? Author [...] Row Office Visit from 03/31/2024 in Neurology [facility] from 12/21/2023 in [facility] T Score 39.8 42.3 [...] nutritional status, normal d (more content not included)...[facility]-23-20[facility] History of Present illness Narrative* Margaret Garcia [...] Row Office Visit from 03/31/2024 in Neurology [facility] from 12/21/2023 in [facility] T Score 39.8 42.3 [...] Abs Lymph 1.00 - 4.00 k/uL 2.25 Bracken% % 7.8 Abs Bracken <0.87 k/uL 0.58 Eosin% % 3.2 Abs [...] 6p Week 1 / tab Week 2 2 /2 Week 3 2 2 /2 Week 4 1 1/2 1/2 Week 5 [...] or around: 09/28/24 Level of service : 20142 (40-68 min). Time spent 51 min on the day of service, which included preparing to see the patient, [id number] patient care, completing clinical documentation, obtaining and/or [...] Sincerely, Margaret Garcia MD documented in this [facility]City [facility]24 History of Present illness Narrative* Angela Carvajal PSYD - 02/29/2024 8:00 AM EST [facility] Psychology Progress Note Billing codes: Andreea Yang PSYCHOLOGY: FOLLOW-UP APPOINTMENT PROGRESS NOTE- Virtual Visit I have communicated my name and active licensure. The patient's identity and physical location wereverified at the time of this visit. Either the patient or their legal loan representative has been informed of the risks and benefits of -- and alternatives to -- treatment through a remote evaluation andconsents to proceed with the evaluation remotely. Today, she is participating from her home in [place]. The patient was informed that this interview [...] of confidentiality were discussed. Cindy Warren 02/29/2024 [id number] PROVIDER: Angela Carvajal PSYD Service: Psychotherapy, 44 [...] Row [facility] from 12/21/2023 in [facility] Office Visit from 09/24/2023 in [facility]rology [facility] [...] Warren was most recently seen by this senior technical writer on 12/21/23 at which time we discussed [...] if Ms. Warren might benefit from seeing CORE CLEANER related to swallowing anxiety. She is also having some trouble concentrating while reading, which may be a further benefit from CORE CLEANER. Angela Carvajal PsyD Associate Staff, [facility] documented in this encounterCity Hospital12-23-2024 NoteHNO ID: [id number] Author: ANGELA CARVAJAL PSYD Service: ? Author Type: Psychologist Type: Progress Notes Filed: 02/29/2024 09:22 Note Text: [facility] Psychology Progress Note Billing codes: Andreea Yang PSYCHOLOGY: FOLLOW-UP APPOINTMENT PROGRESS NOTE- Virtual Visit I have communicated my name and active licensure. The patient's identity and physical location were verified at the time of this visit. Either the patient or their legal loan representative has been informed of the risks and benefits of -- and alternatives to -- treatment through a remote evaluation and consents to proceed with the evaluation remotely. Today, she is participating from her home in [place]. The patient was informed that this interview [...] of confidentiality were discussed. Cindy Warren 02/29/2024 [id number] PROVIDER: Angela Carvajal PSYD Service: Psychotherapy, 44 [...] Row [facility] from 12/21/2023 in [facility] Office Visit from 09/24/2023 in Neurology [facility] [...] Warren was most recently seen by this senior technical writer on 12/21/23 at which time we discussed [...] is having some m (more content not included)...[facility] 02-23-2024 Telephone encounter Note* Telephone Encounter - [place] - 02/23/2024 9:35 AM EST Last FUV September 2023 with KA. Next FUV Mar 2024 with [facility]. [facility] Miscellaneous Notes* Telephone Encounter - [place] - 02/23/2024 9:35 AM EST Last FUV September 2023 with KA. Next FUV Mar 2024 with KA. documented in this encounterCity Hospital10-14-2024 History of Present illness Narrative* Angela Carvajal PSYD - 12/21/2023 8:00 AM EDT [facility] Psychology Progress Note Billing codes: Andreea Yang PSYCHOLOGY: FOLLOW-UP APPOINTMENT PROGRESS NOTE- Virtual Visit I have communicated my name and active licensure. The patient's identity and physical location wereverified at the time of this visit. Either the patient or their legal loan representative has been informed of the risks and benefits of -- and alternatives to -- treatment through a remote evaluation andconsents to proceed with the evaluation remotely. Today, she is participating from her home in [place]. Her , Niraj, was present. They were [...] of confidentiality were discussed. Cindy Warren 12/21/2023 [id number] PROVIDER: Angela Carvajal PSYD Service: Psychotherapy, 44 [...] Flowsheet Row Appointment from 12/21/2023 in [facility] Office Visit from 09/24/2023 in Neurology [facility] [...] Warren was most recently seen by this senior technical writer on 11/03/23 at which time we discussed [...] around more during the day rather than veg out. She is doing more to keep her brain engaged. She has some increased anxiety and attributes this to PD, political climate, family stress. She finds it harder to tolerate stressful situations than was previously true. She shared an example of feeling overwhelmed during a [employer] meeting and had to leave. She [...] Carvajal PsyD Associate Staff, [facility] documented in this encounterCity Hospital10-14-2024 NoteHNO ID: [id number] Author: ANGELA CARVAJAL PSYD Service: ? Author Type: Psychologist Type: Progress Notes Filed: 12/21/2023 11:01 Note Text: The [facility] Psychology Progress Note Billing codes: Andreea Yang PSYCHOLOGY: FOLLOW-UP APPOINTMENT PROGRESS NOTE- Virtual Visit I have communicated my name and active licensure. The patient's identity and physical location were verified at the time of this visit. Either the patient or their legal loan representative has been informed of the risks and benefits of -- and alternatives to -- treatment through a remote evaluation and consents to proceed with the evaluation remotely. Today, she is participating from her home in [place]. Her , Niraj, was present. They were [...] of confidentiality were discussed. Cindy Warren 12/21/2023 [id number] PROVIDER: Angela Carvajal PSYD Service: Psychotherapy, 44 [...] Flowsheet Row Appointment from 12/21/2023 in [facility] Visit from 09/24/2023 in Neurology Global [...] Warren was most recently seen by this senior technical writer on 11/03/23 at which time we discussed [...] around more during the day rather than veg out. She is doing more to keep her brain engaged. She has some increased anxiety and attributes this to PD, political climate, family stress. She finds it harder to tolerate stressful situations than was previously true. She shared an example of feeling overwhelmed during a [employer] association meeting and had to leave. She does not believe that the cir (more content not included)...[facility]08-30-2024 Telephone encounter Note* Telephone Encounter - Nikky Magallanes RN - 11/06/2023 2:36 PM EDT Voicemail received November 06, 2023 1351 patient returning call janet Cruz returning your call. My phone number is [phone]. My date is 48.Its regarding headache, and I dont think I want to go to the headache clinic at this point. I will just try to deal with it. But I would be glad to talk with you if you want to give me a call back, if not, that's ok not to call me back. Thank you so much for contacting me. Bye. Call to patient, no answer. Message left on identifying VM to notify office with any questions or concerns or if she would like to see HAM specialist. [facility]08-30[facility] Miscellaneous Notes* Telephone Encounter - Nikky Magallanes RN - 11/06/2023 2:36 PM EDT Voicemail received November 06, 2023 1351 patient returning call janet Cruz returning your call. My phone number is [phone]. My date is 49.Its regarding headache, and I dont think I want to go to the headache clinic at this point. I will just try to deal with it. But I would be glad to talk with you if you want to give me a call back, if not, that's ok not to call me back. Thank you so much for contacting me. Bye. Call to patient, no answer. Message left [...] her HAM clinic referral. [facility] Telephone encounter Note * Telephone Encounter - Nikky Magallanes RN - 11/06/2023 1:40 PM EDT Call to patient, no answer. Message left for return call [facility]08-30-2024 Telephone encounter Note* Telephone Encounter - Margaret Garcia MD - 11/06/2023 12:12 PM EDT Received note from psychology stating pt with daily headaches lately. At last visit she had stated more than usual HAM the past year. Please offer her HAM clinic referral. [facility]08-27-[facility] History of Present illness Narrative* Angela Carvajal PSYD - 11/03/2023 1:00 PM EDT [facility] Psychology Progress Note Billing codes: Andreea Yang PSYCHOLOGY: FOLLOW-UP APPOINTMENT PROGRESS NOTE- Virtual Visit I have communicated my name and active licensure. The patient's identity and physical location wereverified at the time of this visit. Either the patient or their legal loan representative has been informed of the risks and benefits of -- and alternatives to -- treatment through a remote evaluation andconsents to proceed with the evaluation remotely. Today she is participating from her home in [place]. The patient was informed that this interview [...] of confidentiality were discussed. Cindy Warren 11/03/2023 [id number] PROVIDER: Angela Carvajal PSYD Service: Psychotherapy, 44 [...] Warren was most recently seen by this senior technical writer on 7/29/24 at which time we discussed behavioral activation, [...] Warren and Niraj believe that she sometimes fakes having fun. She got feedback from a friend prior to her PD diagnosis that she whines too much about her health. Subsequently, she limits whatshe tells others about her health. We discussed the advantages and disadvantages of limiting what she shares with others. She is going to visit a friend this weekend and worries that she will have a bad day with her PD and ruin the weekend. This allowed for some cognitive [...] tire. Dena believes that she is sitting too much and for extended periods. We discussed setting [...] for her. Please see final paragraph under progress to date section. Angela Carvajal PsyD Associate Staff, [facility] documented in this encounterCity [facility] History of Present illness Narrative* Parish Read LGC - 10/15/2023 3:00 PM EDT Patient: Cindy Warren Date of Visit: October 15, 2023 Reason: Examination of participant or control in clinical research Study Name: Parkinson s [employer] PD GENEration Genetic Registry Study Visit Conducted by: SY Hickey, [facility] IRB # [id number] Today's appointment was completed as a virtual visit using the BringMeTheNews Virtual Platform. The patient was accompanied to today's appointment by her . Cindy presented to genetic counseling as a part of their participation in the PDGENEration study.I discussed Pilars genetic test results with them in detail, and answered all of their questions. A copy of Pilars genetic test results will be mailed to them, along with a detailed patient letter explaining those results. Please see source documents for details. Cindy was encouraged to contact me should any questions arise. SY Medrano, [facility] Licensed, Certified Genetic Counselor Total time spent: 18 min documented in this encounterCity Hospital07-29-2024 History of Present illness Narrative* Angela Carvajal PSYD - 10/05/2023 2:00 PM EDT [facility] Clinical [facility] Psychology Evaluation Time of Service: 2:00 pm to 3:00 pm CPT Code: 9099252- Virtual Psychological Diagnostic Interview Billing Code: Andreea Yang I have communicated my name and active licensure. The patient's identity and physical location wereverified at the time of this visit. Either the patient or their legal loan representative has been informed of the risks [...] she is calling from her home in [place], [place]. Identification and Presenting Problem: Ms. Warren is a 73 year old female who was referred by Dr. Garcia from [facility]. She presents with a 1 year history [...] 10 being the best). She had 2-3 really bad days without a clear precipitant. She uses very strong language in reference to her Parkinson's Disease, referring to it as a life sentence and a catastrophe. Ms. Warren participated in [...] Angela Carvajal PsyD Staff, [facility] documented in this encounterCity Hospital07-22-[facility]24 Telephone encounter Note * Telephone Encounter - Miryam Tran, Research Coordinator - 09/28/2023 11:24 AM EDT 09/28/2023: Called patient and left voicemail to schedule last visit for Research study -534 PDGENE [facility] Work Phone: 1(950) 753-944107-22-2024 Miscellaneous Notes* Telephone Encounter - Miryam Tran, Research Coordinator - 09/28/2023 11:24 AM EDT 09/28/2023: Called patient and left voicemail to schedule last visit for Research study -534 PDGENE documented in this encounterCity Hospital07-21-2024 History of Present illness Narrative* Margaret [...] Abs Lymph 1.00 - 4.00 k/uL 2.25 Bracken% % 7.8 Abs Bracken <0.87 k/uL 0.58 Eosin% % 3.2 Abs [...] Discussed support and exercise groups in the [place] area. Continued anxiety and depression,medication sensitivities. She [...] or around: 03/26/24 Level of service : 59211 + 1 units 11999 ( > 55 min, [id number] for each 15 min > 40). Time spent 55 min on the day of service, which included preparing to see the patient, hofz-co-jnzl patient care, completing clinical documentation, performing a medically appropriate examination, and counseling and educating the patient/family/caregiver. Thank you for allowing me to be part of the clinical care of this patient! I look forward to continued participation in the patient s care with you. Please do not hesitate to call with any questions. Sincerely, Margaret Garcia MD documented in this encounterCity Hospital07-18-2024 Instructions* Patient Instructions* Margaret Garcia MD - 09/24/2023 11:51 AM EDT It was a pleasure to see you today. We addressed the following diagnoses: Parkinson's disease without dyskinesia or fluctuating manifestations (hcc) My recommendations are as follows: Referral entered for psychiatry and psychology. These can be virtual visits. Appointment scheduling: Psychology: [phone], choose option 2: Neuropsychological testing: General NI scheduling (operates 24 hrs) [phone] option 2 Psychiatry: General NI scheduling (operates 24 hrs) [phone] option 3 Movement disorders and other neurology departments: General NI scheduling (operates 24 hrs) [phone] option 1 Genetics [phone] option 1. Movement Disorders Medication Schedule: Medications xanax 0.25 mg prn No follow-ups on file. If there are any concerns before your next visit, please call or you can send a message through BringMeTheNews. You can also now schedule and select appointments through BringMeTheNews. Margaret Garcia MD documented in this encounterCity Hospital04-09-2024 History of Present illness Narrative* Miryam Tran, Research Coordinator - 06/16/2023 12:12 PM EDT IRB# : [id number] Eap Clinician: Dr. El Justice MD Study Name: Parkinson s Foundation PD GENEration Genetic Registry Study Visit Conducted by: Miryam Tran Date: June 16, 2023 Patient Patient seen for screening/baseline visit on June 16, 2023 virtually. Informed consent and eligibility reviewed. Patient was confirmed eligible for study based on all inclusion and no exclusion criteria. Signed copy of consent provided to patient via [employer]. [employer] surveys completed with patient.Patient told they will be receiving buccal swab kit in the mail, and the next visit will be scheduled once received. Miryam Tran, Research Coordinator documented in this [facility]09-28-2023 Instructions* Patient Instructions* Aleksander Thao MD - [...] person or virtual visit. documented in this [facility]09-28-2023 History of Present illness Narrative* Aleksander Thao MD - 12/04/2022 2:00 PM EDT [facility] - NEW PATIENT EVALUATION Referring Provider: Keiry Shaffer [address] [facility] [address] Dear Keiry Shaffer: Thank you for referring [...] years. reports impaired Memory/Cognitive: Feels a little foggy. denies hallucinations: Patient reports sleep disturbances. 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 Marie Ortiz November 28, 2022 1:09 PM * Telephone Encounter - Gertrude Warren Ma - 11/28/2022 12:55 PM EDT Left message to call office. 11/28/2022 12:56 PM documented in this encounterCity Hospital09-22-2023 History of Present illness Narrative* Kaye [...] 28, 2022 11:24 AM documented in this encounterCity Hospital09-12-2023 Miscellaneous Notes* Telephone Encounter - Gertrude Warren Ma - 11/18/2022 10:44 AM EDT Spoke with patient aware of the results patient verbalized fully understands the results * Telephone Encounter - Gertrude Warren Ma - 11/06/2022 10:17 AM EDT Appreciate your help calling patient at [phone] to let her know the EMG shows the large nervesin her body are all healthy. The muscles are also working well. Thanks! Keiry Shaffer MD Left message to call office. 11/06/2022 10:17 AM documented in this encounterCity Hospital08-31-2023 History of Present illness Narrative* Kem [...] EMG Kem Martinez MD documented in this encounterCity Hospital08-28-2023 Miscellaneous Notes* Telephone Encounter - Marie Ortiz - 11/03/2022 9:39 AM EDT Spoke to patient to advise of normal lab results Patient stated understanding of information and had no further questions or concerns at this time. Marie Diana November 03, 2022 9:40 AM documented in this encounterCity Hospital08-23-2023 Instructions* Patient Instructions* Keiry Shaffer MD [...] the different tests results documented in this encounterCity Hospital08-23-2023 History of Present illness Narrative* Keiry [...] 5 Triceps: 5 Biceps: 5 Biceps: 5 Public Health Outreach Worker: 5 Public Health Outreach Worker: 5 Finger abduction: 5 Finger abduction: 5 [...] proprioception Coordination: Finger-to- nose-finger intact bilaterally and Pzcn-fd-kwew intact bilaterally. Gait: normal-based with intact arm [...] which included preparing to see the patient, wnrq-qa-udsr patient care, completing clinical documentation, obtaining and/or reviewing separately obtained history, performing a medically appropriate examination, counseling and educating the pat ient/family/caregiver, ordering medications, tests, or procedures, and independently interpreting results (not separately reported). Keiry Shaffer MD Staff, General Neurology Pager: [phone] CC: Referring Physician: SELF PCP: To use this Smartlink, specify the provider ID whose address you want to display, e.g., .PROVADDR[1(where 1 is the provider ID). documented in this encounterCity Hospital08-16-2023 History of Present illness Narrative* Mary Alice Berg MD - 10/22/2022 10:21 AM EDT [facility] New Patient Consultation Referring Physician: SELF Chief Complaint: withdrawal from gabapentin SUBJECTIVE: Cindy Warren is a 72 year old female with a pertinent past medical history of lichen sclerosis, anxiety who [facility] for the [...] of anxiety, depression who presents [facility] for management [...] wean of Gabapentin (reduce total daily dose sm849mo weekly-biweekly) while keeping the highest dose for [...] Alice Berg MD, PhD documented in this encounterCity Hospital08-10-2023 Miscellaneous Notes* Telephone Encounter - Srini Francisco OCCA - 10/16/2022 3:40 PM EDT Pa denied no explanation CAITIE Glaser October 16, 2022 3:40 PM * Telephone Encounter - Jesi Wang RN - 10/16/2022 2:51 PM EDT PA initiated electronically via [employer]. Await response. documented in this encounterCity Hospital08-09-2023 Instructions* Patient Instructions* Abigail Walters APRN.LAURA - 10/15/2022 1:26 PM EDT Images from the original note were not included. Schedule esophagram Schedule colonoscopy [phone] Miralax 1 capful once daily Bowel Preparation [...] If you do not have a responsible driver's license examiner (family member or friend) with you to [...] preparation solution at your local pharmacy or drugstore pharmacy. 02/2019 Bowel Preparation Instructions for: Golytely, [...] your exam. 2 02/2019 documented in this encounterCity Hospital08-09-2023 History of Present illness Narrative* Abigail [...] which included preparing to see the patient, ayta-hr-usdu patient care, completing clinical documentation, counseling and educating the patient/family/caregiver, and ordering medications, tests, or procedures. Abigail Walters APRN.CNP October 15, 2022 documented in this encounterCity Hospital07-29-2023 History of Present illness Narrative* Khalif [...] go. Khalif Hernández MD documented in this encounterCity Hospital07-13-2023 History of Present illness Narrative* Chika [...] 18, 2022 12:34 PM documented in this encounterW[facility]el[facility] noteNo assessment information availableWAdena Regional Medical Center Work Phone: Evaluation note* Diagnosis Epigastric abdominal pain- Primary Abdominal pain, epigastric documented in this encounter [facility]* Diagnosis Esophageal dysphagia- Primary Dysphagia, pharyngoesophageal phase Colon cancer screening Special screening for malignant neoplasms, colon Family history of colon cancer in mother documented in this encounter [facility]* Diagnosis Myalgias- Primary 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) documented in this encounter [facility]* Diagnosis Generalized weakness- Primary Other malaise and fatigue Resting tremor Abnormal involuntary movements Encounter for screening for human immunodeficiency virus (HIV) Special screening examination for other specified viral diseases Vitamin D deficiency Unspecified vitamin D deficiency documented in this encounter [facility]* Diagnosis Generalized weakness Other malaise and fatigue documented in this encounter [facility]* Diagnosis Parkinson disease- Primary Paralysis agitans Resting tremor Abnormal involuntary movements Anxiety Anxiety state, unspecified documented in this encounter [facility]* Diagnosis Onset Date Resolution Status Atrophic vaginitis acute Atrophic vaginitis [facility] Work Phone: evaluation note* Diagnosis Resting tremor Abnormal involuntary movements documented [facility] this encounter [facility]* Diagnosis Onset Date Resolution Status Encounter for screening for malignant neoplasm of colo n acute [facility] Work Phone: evaluation note* Diagnosis Research study patient- Primary documented in this encounter [facility]* Diagnosis Parkinson's disease without dyskinesia or fluctuating manifestations (HCC)- Primary Anxiety Anxiety state, unspecified Depression, unspecified depression type [facility]* Diagnosis Parkinson's disease without dyskinesia or fluctuating manifestations (HCC) Anxiety Anxiety state, unspecified Depression, unspecified depression type [facility]* Diagnosis Research exam- Primary Examination of participant in clinical trial [facility]* Diagnosis Parkinson's disease, unspecified whether dyskinesia present, unspecified whether manifestations fluctuate (HCC)- Primary Major depressive disorder, recurrent episode, moderate (HCC) Major depressive disorder, recurrent episode, moderate documented in this encounter [facility]* Diagnosis Wrist injury, left, initial encounter [facility]* Diagnosis Major depressive disorder, recurrent episode, moderate (HCC)- Primary Major depressive disorder, recurrent episode, moderate Parkinson's disease, unspecified whether dyskinesia present, unspecified whether manifestations fluctuate (HCC) [facility]* Diagnosis Major depressive disorder, recurrent episode, moderate (HCC)- Primary Major depressive disorder, recurrent episode, moderate Parkinson's disease, unspecified whether dyskinesia present, unspecified whether manifestations fluctuate (HCC) [facility]* Diagnosis Depression, unspecified depression type- Primary Parkinson's disease, unspecified whether dyskinesia present, unspecified whether manifestations fluctuate (HCC) documented in this encounter [facility]* Diagnosis Parkinson's disease without dyskinesia or fluctuating manifestations (HCC) [facility]* Diagnosis Parkinson's disease without dyskinesia or fluctuating manifestations (HCC)- Primary Nausea Nausea alone [facility] instructions Additional Instructions Please maintain hydration. Follow-up outpatient, please return for any worsening symptoms.[facility] Work Phone: Hospital Discharge instructions Additional Instructions [...] possible for manometry testing for your esophageal spasm.[facility] Work Phone: Reason for referral (narrative)* Diagnostic Procedure Only (Urgent) - Closed Specialty Diagnoses / Procedures Referred By Contac t Referred To Contact XR IMAGING Diagnoses Wrist injury, left, initial encounter Procedures XR WRIST INJURY 4V PA/LAT/OBL/SCAPH LEFT RADEX WRIST COMPLETE MINIMUM 3 VIEWS Deanna Ty PA-C [address] [place] [address] Xr Imaging [id number] Referral ID Status Reason Start Date Expiration Date V isits Requested Visits Authorized [id number] Closed Auto-Generate d Referral 09/18/2022 10/18/2023 1 1 [facility] for referral (narrative)No reason for referral information availableWooGeorgetown Behavioral [facility] Work Phone: Reason for visit Narrative* Outpatient Procedure (Routine) - Closed Specialty Diagnoses / Procedures Referred By Contac t Referred To Contact [facility] Diagnoses Generalized weakness Procedures EMG(NEURO/NI) NERVE CONDUCTION STUDIES 9-10 STUDIES Keiry Shaffer MD [address] [place] [address] [facility] [address] [place] [address] Referral ID Status Reason Start Date Expiration Date V isits Requested Visits Authorized [id number] Closed Auto-Generate d Referral 10/29/2022 10/30/2023 1 1 [facility] for visit Narrative* Diagnostic Procedure Only (Urgent) - Closed Specialty Diagnoses / Procedures Referred By Contac t Referred To Contact XR IMAGING Diagnoses Wrist injury, left, initial encounter Procedures XR WRIST INJURY 4V PA/LAT/OBL/SCAPH LEFT RADEX WRIST COMPLETE MINIMUM 3 VIEWS Deanna Ty, PA-C [address] [place] [address] [place] [id number] Referral ID Status Reason Start Date Expiration Date V isits Requested Visits Authorized [id number] Closed Auto-Generate d Referral 09/18/2022 10/18/2023 1 1 [facility] Summary Purpose Family History No Family History Records Found Relationship Condition Age at Onset Recorded Date/T [...] of breast Unknown Osteoporosis Unknown Advance Directives No Advanced Directives Records Found Advance Directive Response Recorded Date/ Time Living Will No June 02, 2021 11:19am Power of Farmer [employer] Grazier No June 02 11:19am Advance Directive Response Recorded Date/ Time Living Will No June 02, 2021 10:19am Power of Farmer [employer] Grazier No June 02 10:19am Advance Directive Response Recorded Date/ Time Name of Medical Power of Farmer And Grazier VELASQUEZ WARREN- September 05, 2022 5:07pm Living Will Yes September 05, 2022 5:07pm Power of Farmer [employer] Grazier Yes September 05 5:07pm Advance Directive Response Recorded Date/ Time Name of Medical Power of Farmer And Grazier VELASQUEZ WARREN- September 05, 2022 5:07pm Name of Medical Power of Farmer And Grazier amy mcgovern sband October 05, 2022 8:11am Living Will Yes October 05, 2022 8:11am Power of Farmer [employer] Grazier Yes October 05 8:11am Advance Directive Response Recorded Date/ Time Name of Medical Power of Farmer [employer] Grazier amy mcgovern sband October 05, 2022 7:11am Living Will Yes October 05, 2022 7:11am Power of Farmer [employer] Grazier Yes October 05 7:11am Advance Directive Response Recorded Date/ Time Name of Medical Power of Farmer And Grazier March 23, 2023 3:20pm Living Will Yes March 23 3:20pm Power of Farmer And Grazier Yes March 23, 2023 3:20pm Advance Directive Response Recorded Date/ Time Do you have a Healthcare Power of Farmer And Grazier? Yes September 11, 2024 1:29pm Chief Complaint [...] neoplasm of colon Chief Complaint Admit Date September 11, 2024 12:12 pm Chief Complaint Admit Date September 11, 2024 12:12 pm FASTING November 21, 2024 8:54am Reason for Referral Specialty Diagnoses / Procedures Referred By Shelbie t Referred To Contact Abigail Walters APRN.COLORS CUSTODIAN [address] [place] [address] Referral ID Status Reason Start Date Expiration Date V isits Requested Visits Authorized [id number] Pending Review 1 1 Specialty Diagnoses / Procedures Referred By Contac t Referred To Contact [facility] Diagnoses Colon cancer screening Family history of colon cancer in mother Procedures COLONOSCOPY SCREENING COLONOSCOPY FLX DX W/COLLJ SPEC WHEN PFRMD Abigail Walters APRN.COLORS CUSTODIAN [address] [place] [address] [facility] [address] [place] [address] Referral ID Status Reason Start Date Expiration Date Visits Requested Visits Authorized [id number] Pending Review Auto-Generat ed Referral 10/15/2022 10/16/2023 1 1 Specialty Diagnoses / Procedures Referred By Contac t Referred To Contact XR IMAGING Diagnoses Esophageal dysphagia Procedures XR ESOPHAGRAM RADIOLOGIC EXAM ESOPHAGUS SINGLE CONTRAST STUDY Abigail Walters APRN.COLORS CUSTODIAN [address] [place] [address] Xr Imaging Referral ID Status Reason Start Date Expiration Date Visits Requested Visits Authorized [id number] Pending Review Auto-Generat ed Referral 10/15/2022 11/14/2023 1 1 Specialty Diagnoses / Procedures Referred By Contac t Referred To Contact Neurology Diagnoses Resting tremor Procedures CONSULT TO NEUROLOGY OFFICE/OUTPATIENT [facility] MDM 60-74 MINUTES Keiry Shaffer MD [address] [place] [address] Referral ID Status Reason Start Date Expiration Date Visits Requested Visits Authorized [id number] Authorized PCP Requested Referral 10/29/2022 10/29/2023 1 1 Specialty Diagnoses / Procedures Referred By Contac t Referred To Contact MR IMAGING Diagnoses Resting tremor Procedures MRI BRAIN WO IVCON MRI BRAIN BRAIN STEM W/O CONTRAST MATERIAL Keiry Shaffer MD [address] [place] [address] Mr Imaging [place] [address] Referral ID Status Reason Start Date Expiration Date Visits Requested Visits Authorized [id number] Authorized Auto-Generat ed Referral 10/29/2022 11/28/2023 1 1 Specialty Diagnoses / Procedures Referred By Contac t Referred To Contact [facility] Diagnoses Generalized weakness Procedures EMG(NEURO/NI) NERVE CONDUCTION STUDIES 9-10 STUDIES Keiry Shaffer MD [address] [place] [address] [address] [facility] [address] [place] [address] Referral ID Status Reason Start Date Expiration Date Visits Requested Visits Authorized [id number] Authorized Auto-Generat ed Referral 10/29/2022 10/30/2023 1 1 Referral ID Status Reason Start Date Expiration Date V isits Requested Visits Authorized [id number] Closed Auto-Generate d Referral 10/29/2022 11/28/2023 1 1 Specialty Diagnoses / Procedures Referred By Contac t Referred To Contact Diagnoses Parkinson's disease without dyskinesia or fluctuating manifestations (HCC) Anxiety Depression, unspecified depression type Procedures PROVIDER ORDERED FOLLOW UP OFFICE/OUTPATIENT [facility] MDM 60 MINUTES Margaret Garcia MD [address] [address] Referral ID Status Reason Start Date Expiration Date Visits Requested Visits Authorized [id number] Authorized PCP Requested Referral 03/26/2024 09/23/2024 1 1 Specialty Diagnoses / Procedures Referred By Contac t Referred To Contact Diagnoses Parkinson's disease without dyskinesia or fluctuating manifestations (HCC) Anxiety Depression, unspecified depression type Procedures CONSULT TO PSYCHIATRY OFFICE/OUTPATIENT NEW [facility]IGH MDM 60 MINUTES Margaret Garcia MD [address] [place], [place] [id number] Referral ID Status Reason Start Date Expiration Date Visits Requested Visits Authorized [id number] Pending Review PCP Requested Referral 09/24/2023 09/23/2024 1 1 Specialty Diagnoses / Procedures Referred By Contac t Referred To Contact Psychology Diagnoses Parkinson's disease without dyskinesia or fluctuating manifestations (HCC) Anxiety Depression, unspecified depression type Procedures CONSULT TO PSYCHOLOGY OFFICE/OUTPATIENT NEW [facility]IGH MDM 60 MINUTES Margaret Garcia MD [address] [place] [address] Referral ID Status Reason Start Date Expiration Date Visits Requested Visits Authorized [id number] Pending Review PCP Requested Referral 09/24/2023 09/23/2024 1 1 Specialty Diagnoses / Procedures Referred By Contac t Referred To Contact Diagnoses Parkinson's disease without dyskinesia or fluctuating manifestations (HCC) Anxiety Depression, unspecified depression type Procedures PROVIDER ORDERED FOLLOW UP OFFICE/OUTPATIENT NEW HIGH MDM 60 MINUTES Angela Carvajal PSYD [address] [place] [address] Referral ID Status Reason Start Date Expiration Date Visits Requested Visits Authorized [id number] Authorized PCP Requested Referral 10/19/2023 10/04/2024 1 1 Specialty Diagnoses / Procedures Referred By Contac t Referred To Contact Diagnoses Parkinson's disease, unspecified whether dyskinesia present, unspecified whether manifestations fluctuate (HCC) Procedures PROVIDER ORDERED FOLLOW UP OFFICE/OUTPATIENT NEW HIGH MDM 60 MINUTES Angela Carvajal PSYD [address] [place] [address] Referral ID Status Reason Start Date Expiration Date Visits Requested Visits Authorized [id number] Authorized PCP Requested Referral 12/04/2023 11/02/2024 1 1 Referral ID Status Reason Start Date Expiration Date Visits Requested Visits Authorized [id number] Authorized PCP Requested Referral 12/20/2024 1 1 Referral ID Status Reason Start Date Expiration Date Visits Requested Visits Authorized [id number] Authorized PCP Requested Referral 05/29/2024 02/28/2025 1 1 Specialty Diagnoses / Procedures Referred By Contac t Referred [facility] Contact [facility] Diagnoses Parkinson's disease without dyskinesia or fluctuating manifestations (HCC) Procedures PROVIDER ORDERED FOLLOW UP OFFICE/OUTPATIENT [facility] 60 MINUTES Margaret Garcia MD [address] [place] [address] [facility] [address] [place] [address] Referral ID Status Reason Start Date Expiration Date Visits Requested Visits Authorized [id number] Authorized PCP Requested Referral 06/29/2024 10/29/2024 1 1 Additional Source Comments INFORMATION SOURCE (unrecogn ized section and content) DATE CREATED AUTHOR 09/30/2019 [facility] DATE CREATED AUTHOR AUTHOR'S ORGANIZ ATION 11/04/2024 [facility] DATE CREATED AUTHOR AUTHOR'S ORGANIZ ATION 01/18/2025 [facility] Goals (unrecognized section and content) Goals may [...] Dr. Hansa Ndiaye MD Primary Care Provider, Referjose g Provider Active Dr. Morris Friend , DO Attending Provider, Other Prov ider Active [...] Provider, Referrin g Provider Active Jeniffer Kumar VEGETABLE FARMER, VEGETABLE FARMER-C Attending Provider Active Team Status: Active Member [...] Team Status: Inactive Member Role Status Dates JOANA ShanksC Primary Care Provider, Attending P jad Active Team Status: Inactive Member Role Status [...] Inactive Member Role Status Dates Jeniffer Kumar VEGETABLE FARMER, VEGETABLE FARMER-C Attending Provider, Referring Provider Active Tiara Aguillon NP-C Primary Care Provider Active Vendor Manager Relationship Specialty Start Date End Date Aleksander Thao MD [address] [place] [address] Judge Neurology 02/25/23 Vendor Manager Relationship Specialty Start Date End Date Aleksander Thao MD [address] [place], [place] [id number] [address]ty [address] Judge Neurology 02/25/23 Vendor Manager Relationship Specialty Start Date End Date Aleksander Thao MD [address] [place] [address] Judge Neurology 02/25/23 Vendor Manager Relationship Specialty Start Date End Date Aleksander Thao MD [address] [place] [id number] [address] Judge Neurology 02/25/23 Vendor Manager Relationship Specialty Start Date End Date Aleksander Thao MD [address] [place] [id number] [address] Judge Neurology 02/25/23 Vendor Manager Relationship Specialty Start Date End Date Aleksander Thao MD [address] [place] [id number] [address] Judge Neurology 02/25/23 Vendor Manager Relationship Specialty Start Date End Date Aleksander Thao MD [address] [place] [id number] [address]ty [address] Judge Neurology 02/25/23 Team Status: Active Member Role/Relationship [...] or prosecute any alcohol or drug abuse patient.[facility] HospitalIn the event this information is protected by the Federal Confidentiality of Alcohol and Drug Abuse Patient Records regulations: The Federal rules restrict any use of the information to criminally investigate or prosecute any alcohol or drug abuse patient.[facility] HospitalIn the event this information is protected by the Federal Confidentiality of Alcohol and Drug Abuse Patient Records regulations: The Federal rules restrict any use of the information to criminally investigate or prosecute any alcohol or drug abuse patient.[facility] HospitalIn the event this information is protected by the Federal Confidentiality of Alcohol and Drug Abuse Patient Records regulations: The Federal rules restrict any use of the information to criminally investigate or prosecute any alcohol or drug abuse patient.[facility] HospitalIn the event this information is protected by the Federal Confidentiality of Alcohol and Drug Abuse Patient Records regulations: The Federal rules restrict any use of the information to criminally investigate or prosecute any alcohol or drug abuse patient.[facility] HospitalIn the event this information is protected by the Federal Confidentiality of Alcohol and Drug Abuse Patient Records regulations: The Federal rules restrict any use of the information to criminally investigate or prosecute any alcohol or drug abuse patient.[facility] HospitalIn the event this information is protected by the Federal Confidentiality of Alcohol and Drug Abuse Patient Records regulations: The Federal rules restrict any use of the information to criminally investigate or prosecute any alcohol or drug abuse patient.[facility] HospitalIn the event this information is protected by the Federal Confidentiality of Alcohol and Drug Abuse Patient Records regulations: The Federal rules restrict any use of the information to criminally investigate or prosecute any alcohol or drug abuse patient.[facility] HospitalIn the event this information is protected by the Federal Confidentiality of Alcohol and Drug Abuse Patient Records regulations: The Federal rules restrict any use of the information to criminally investigate or prosecute any alcohol or drug abuse patient.[facility] HospitalIn the event this information is protected by the Federal Confidentiality of Alcohol and Drug Abuse Patient Records regulations: The Federal rules restrict any use of the information to criminally investigate or prosecute any alcohol or drug abuse patient.[facility] HospitalIn the event this information is protected by the Federal Confidentiality of Alcohol and Drug Abuse Patient Records regulations: The Federal rules restrict any use of the information to criminally investigate or prosecute any alcohol or drug abuse patient.[facility] HospitalIn the event this information is protected by the Federal Confidentiality of Alcohol and Drug Abuse Patient Records regulations: The Federal rules restrict any use of the information to criminally investigate or prosecute any alcohol or drug abuse patient.[facility] HospitalIn the event this information is protected by the Federal Confidentiality of Alcohol and Drug Abuse Patient Records regulations: The Federal rules restrict any use of the information to criminally investigate or prosecute any alcohol or drug abuse patient.[facility] HospitalIn the event this information is protected by the Federal Confidentiality of Alcohol and Drug Abuse Patient Records regulations: The Federal rules restrict any use of the information to criminally investigate or prosecute any alcohol or drug abuse patient.[facility] HospitalIn the event this information is protected by the Federal Confidentiality of Alcohol and Drug Abuse Patient Records regulations: The Federal rules restrict any use of the information to criminally investigate or prosecute any alcohol or drug abuse patient.[facility] HospitalIn the event this information is protected by the Federal Confidentiality of Alcohol and Drug Abuse Patient Records regulations: The Federal rules restrict any use of the information to criminally investigate or prosecute any alcohol or drug abuse patient.[facility] HospitalIn the event this information is protected by the Federal Confidentiality of Alcohol and Drug Abuse Patient Records regulations: The Federal rules restrict any use of the information to criminally investigate or prosecute any alcohol or drug abuse patient.[facility] HospitalIn the event this information is protected by the Federal Confidentiality of Alcohol and Drug Abuse Patient Records regulations: The Federal rules restrict any use of the information to criminally investigate or prosecute any alcohol or drug abuse patient.[facility] HospitalIn the event this information is protected by the Federal Confidentiality of Alcohol and Drug Abuse Patient Records regulations: The Federal rules restrict any use of the information to criminally investigate or prosecute any alcohol or drug abuse patient.[facility] HospitalIn the event this information is protected by the Federal Confidentiality of Alcohol and Drug Abuse Patient Records regulations: The Federal rules restrict any use of the information to criminally investigate or prosecute any alcohol or drug abuse patient.[facility] HospitalIn the event this information is protected by the Federal Confidentiality of Alcohol and Drug Abuse Patient Records regulations: The Federal rules restrict any use of the information to criminally investigate or prosecute any alcohol or drug abuse patient.[facility] HospitalIn the event this information is protected by the Federal Confidentiality of Alcohol and Drug Abuse Patient Records regulations: The Federal rules restrict any use of the information to criminally investigate or prosecute any alcohol or drug abuse patient.[facility] HospitalIn the event this information is protected by the Federal Confidentiality of Alcohol and Drug Abuse Patient Records regulations: The Federal rules restrict any use of the information to criminally investigate or prosecute any alcohol or drug abuse patient.[facility] HospitalIn the event this information is protected by the Federal Confidentiality of Alcohol and Drug Abuse Patient Records regulations: The Federal rules restrict any use of the information to criminally investigate or prosecute any alcohol or drug abuse patient.[facility] HospitalIn the event this information is protected by the Federal Confidentiality of Alcohol and Drug Abuse Patient Records regulations: The Federal rules restrict any use of the information to criminally investigate or prosecute any alcohol or drug abuse patient.[facility] HospitalIn the event this information is protected by the Federal Confidentiality of Alcohol and Drug Abuse Patient Records regulations: The Federal rules restrict any use of the information to criminally investigate or prosecute any alcohol or drug abuse patient.[facility] HospitalIn the event this information is protected by the Federal Confidentiality of Alcohol and Drug Abuse Patient Records regulations: The Federal rules restrict any use of the information to criminally investigate or prosecute any alcohol or drug abuse patient.[facility] HospitalIn the event this information is protected by the Federal Confidentiality of Alcohol and Drug Abuse Patient Records regulations: The Federal rules restrict any use of the information to criminally investigate or prosecute any alcohol or drug abuse patient.[facility] HospitalIn the event this information is protected by the Federal Confidentiality of Alcohol and Drug Abuse Patient Records regulations: The Federal rules restrict any use of the information to criminally investigate or prosecute any alcohol or drug abuse patient.[facility] HospitalIn the event this information is protected by the Federal Confidentiality of Alcohol and Drug Abuse Patient Records regulations: The Federal rules restrict any use of the information to criminally investigate or prosecute any alcohol or drug abuse patient.[facility] Reason for Visit (unrecogniz ed section and content) Reason Comments Depression Specialty Diagnoses / Procedures Referred By Contac t Referred To Contact Diagnoses Parkinson's disease without dyskinesia or fluctuating manifestations (HCC) Anxiety Depression, unspecified depression type Procedures PROVIDER ORDERED FOLLOW UP OFFICE/OUTPATIENT NEW HIGH MDM 60 MINUTES Angela Carvajal PSYD [address] [place] [address] Referral ID Status Reason Start Date Expiration Date V isits Requested Visits Authorized [id number] Closed PCP Requested Referral 10/19/2023 10/04/2024 1 [...] NEUROLOGY OFFICE/OUTPATIENT NEW HIGH MDM 60-74 MINUTES Keiry Shaffer MD [address] [place] [address] Referral ID Status Reason Start Date Expiration Date V isits Requested Visits Authorized [id number] Closed PCP Requested Referral 10/29/2022 10/29/2023 1 1 Specialty Diagnoses / Procedures Referred By Contac t Referred To Contact MR IMAGING Diagnoses Resting tremor Procedures MRI BRAIN WO IVCON MRI BRAIN BRAIN STEM W/O CONTRAST MATERIAL Keiry Shaffer MD [address] [place] [address] Mr Imaging [place] [address] Referral ID Status Reason Start Date Expiration Date V isits Requested Visits Authorized [id number] Closed Auto-Generate d Referral 10/29/2022 11/28/2023 1 1 Reason Comments Research Reason Comments Follow Up parkinson Specialty Diagnoses / Procedures Referred By Contac t Referred To Contact Diagnoses Parkinson's disease without dyskinesia or fluctuating manifestations (HCC) Procedures PROVIDER ORDERED FOLLOW UP Margaret Garcia MD [address] [address] Referral ID Status Reason Start Date Expiration Date V isits Requested Visits Authorized [id number] Closed PCP Requested Referral 03/23/2023 06/21/2023 1 1 Reason Comments Research [phone] PDGENE Specialty Diagnoses / Procedures Referred By Contac t Referred To Contact Psychology Diagnoses Parkinson's disease without dyskinesia or fluctuating manifestations (HCC) Anxiety Depression, unspecified depression type Procedures CONSULT TO PSYCHOLOGY OFFICE/OUTPATIENT NEW HIGH MDM 60 MINUTES Margaret Garcia MD [address] [place] [id number] Referral ID Status Reason Start Date Expiration Date Visits Requested Visits Authorized [id number] Pending Review PCP Requested Referral 09/24/2023 09/23/2024 1 1 Reason Comments Referral Request Reason Comments Headache Reason Comments Established Patient Specialty Diagnoses / Procedures Referred By Contac t Referred To Contact Diagnoses Parkinson's disease, unspecified whether dyskinesia present, unspecified whether manifestations fluctuate (HCC) Procedures PROVIDER ORDERED FOLLOW UP OFFICE/OUTPATIENT NEW HIGH MDM 60 MINUTES Angela Carvajal PSYD [address] [place] [address] Referral ID Status Reason Start Date Expiration Date V isits Requested Visits Authorized [id number] Closed PCP Requested Referral 12/04/2023 11/02/2024 1 1 Referral ID Status Reason Start Date Expiration Date V isits Requested Visits Authorized [id number] Closed PCP Requested Referral 01/21/2024 12/20/2024 1 1 Reason Comments Parkinson's Disease Specialty Diagnoses / Procedures Referred By Contac t Referred To Contact Diagnoses Parkinson's disease without dyskinesia or fluctuating manifestations (HCC) Anxiety Depression, unspecified depression type Procedures PROVIDER ORDERED FOLLOW UP OFFICE/OUTPATIENT NEW [facility]IGH MDM 60 MINUTES Margaret Garcia MD [address] [address] Referral ID Status Reason Start Date Expiration Date V isits Requested Visits Authorized [id number] Closed PCP Requested Referral 03/26/2024 09/23/2024 1 1 Specialty Diagnoses / Procedures Referred By Contac t Referred To Contact Diagnoses Parkinson's disease, unspecified whether dyskinesia present, unspecified whether manifestations fluctuate (HCC) Procedures PROVIDER ORDERED FOLLOW UP OFFICE/OUTPATIENT NEW [facility]IGH MDM 60 MINUTES Angela Carvajal PSYD [address] [place] [id number] Phone: tel: fax: Referral ID Status Reason Start Date Expiration Date V isits Requested Visits Authorized [id number] Closed PCP Requested Referral 05/29/2024 02/28/2025 1 1 Specialty Diagnoses / Procedures Referred By Contac t Referred To Contact [facility] Diagnoses Parkinson's disease without dyskinesia or fluctuating manifestations (HCC) Procedures PROVIDER ORDERED FOLLOW UP OFFICE/OUTPATIENT [facility] 60 MINUTES Margaret Garcia MD [address] [address] Phone: tel: fax: [facility] [address] [place] [address] Phone: tel:[phone] Referral ID Status Reason Start Date Expiration Date V isits Requested Visits Authorized [id number] Closed PCP Requested Referral 06/29/2024 10/29/2024 1 [...] BE BASED ON THE PRIMARY CLINICAL RECORDS. [facility]. provides no warranty or guarantee of the accuracy or completeness of information in this document.
--- NOTE | 2025-02-04 08:02 | US_ITS ---
PROCEDURE: THYROID 02/04/2025 REASON FOR EXAM: THYROID NODULES TECHNIQUE: Procedure Code: USTHY Modality: US Procedure: THYROID COMPARISON: Thyroid ultrasound, 10/13/2022. FINDINGS: Right thyroid lobe size: 4.5 x 1.5 x 1.4 cm (was 5.1 x 1.8 x 1.6 cm). -lower pole, 7 x 6 x 6 mm, cystic. TR 1. Left thyroid lobe size: 5.1 x 1.5 x 1.3 cm (was 5.3 x 1.7 x 1.7 cm). -upper pole, 7 x 6 x 3 mm, solid, heterogeneous, with a smooth margin. TR 3. -Lower pole, 10 x 6 x 6 mm, cystic. TR 1. Isthmus: 4 mm (was 4 mm). Background parenchymal echotexture is homogeneous. US/Thyroid IMPRESSION: Per TI rads guidelines no follow-up is recommended for a TR 3 nodule less than 1.5 cm in diameter. RECOMMENDATION: Based on most suspicious nodule. Nodule size = largest diameter Only evaluate nodule if =>5 mm. Growth > 20% in 2 dimensions = worsening. Follow up to 4 nodules. Recommend biopsy for no more than 2 nodules. Reading Location: [id number]
== END | disposition home or self-care (01) ==
LOC: US 07:58
PROVIDERS: PCP Family Medicine; Referring Provider Family Medicine; Visit Provider Family Medicine
DX: E04.2 Nontoxic multinodular goiter (principal)
CPT/HCPCS: 76536